=== PATIENT | male | born 1940 | race Caucasian/White ===

== ENCOUNTER → 2024-04-06 | Outpatient (CLI) | payer OTHER, SELFPAY ==
[2024-04-06 15:57] LABS: Absolute Lymphocyte Count 0.91 X10^3/uL (0.83-4.51); Absolute Neutrophil Count 3.1 X10^3/uL (2.0-7.7); Basophil# 0.08 X10^3/uL; Basophil% 1.6 % (0-1); Eosinophil# 0.18 X10^3/uL; Eosinophils% 3.6 % (0-5); Hematocrit 34.7 % (40-54); Hemoglobin 11.6 g/dL (13.0-16.5); Lymphocyte # 0.91 X10^3/ul (0.83-4.51); Lymphocyte % 18.2 % (19-41); Mean Corp Hgb Conc 33.4 g/dL (32-36); Mean Corpuscular Hgb 32.4 pg (27.0-32.0); Mean Corpuscular Volume 96.9 fL (80-94); Mean Platelet Vol. 10.3 fl (6.2-12.0); Monocyte# 0.71 X10^3/uL; Monocyte% 14.2 % (0-10); NRBC Flagged by Analyzer 0 % (0-5); Platelet Count 210 K/mm3 (150-450); RBC Distribution Width CV 12.7 % (11.6-14.6); RBC Distribution Width SD 44.2 fl (35.1-43.9); Red Blood Count 3.58 M/mm3 (4.6-6.2)
[2024-04-06 16:32] LABS: ALB/GLOB Ratio 1.2 RATIO (0.9-2.4); AST(SGOT) 20 U/L (15-37); Alanine Aminotransfer ALT/SGPT 24 U/L (16-61); Albumin, Serum 3.7 g/dL (3.2-5.0); Alkaline Phosphatase 79 U/L (45-117); Anion Gap 3 (5-15); BUN 25 mg/dL (7-18); BUN/Creat Ratio 16.2 RATIO (10-20); Calcium,Total 9.6 mg/dL (8.5-10.1); Chloride 110 mmol/L (98-107); Creatinine, Serum 1.54 mg/dL (0.70-1.30); EST Glomerular Filtration Rate 46 mL/min (>60); Est Glom Filt Rate - Afr Amer 56 mL/min (>60); Globulin 3.1 g/dL (2.2-4.2); Glucose 112 mg/dL (74-106); Potassium 3.9 mmol/L (3.5-5.1); Protein, Total 6.8 g/dL (6.4-8.2); Sodium Level 140 mmol/L (136-145)
[2024-04-06 17:02] LABS: Hepatitis C Antibody Non-Reactive (Nonreactive); Vitamin D,25 Hydroxy 44.5 ng/mL
== END | disposition home or self-care (01) ==
LOC: POLAB3 15:12
PROVIDERS: PCP Family Medicine Geriatric Medicine; Visit Provider Family Medicine Geriatric Medicine
DX: Z13.89 Encounter for screening for other disorder (principal); E03.9 Hypothyroidism, unspecified; E78.5 Hyperlipidemia, unspecified; E55.9 Vitamin D deficiency, unspecified
CPT/HCPCS: 36415; 80053; 82306; 84443; 85025; 86803

== ENCOUNTER → 2024-05-05 | Outpatient (CLI) | payer OTHER, SELFPAY ==
[2024-05-05 13:34] LABS: PTHIN 90.8 pg/mL (18.4-80.1)
[2024-05-05 13:37] LABS: Microalbumin,Random Urine 56.9 mg/L (NO RANGE EST.); Microalbumin:Creatinine Ratio 34.3 mg/g CRE (<30 mg/g CRE); Vitamin D,25 Hydroxy 41.6 ng/mL
[2024-05-05 13:40] LABS: Albumin, Serum 3.6 g/dL (3.2-5.0); BUN 18 mg/dL (7-18); BUN/Creat Ratio 12.2 RATIO (10-20); Calcium,Total 9.7 mg/dL (8.5-10.1); Chloride 110 mmol/L (98-107); Creatinine, Serum 1.48 mg/dL (0.70-1.30); EST Glomerular Filtration Rate 48 mL/min (>60); Est Glom Filt Rate - Afr Amer 58 mL/min (>60); Glucose 108 mg/dL (74-106); Potassium 4.2 mmol/L (3.5-5.1); Sodium Level 140 mmol/L (136-145)
== END | disposition home or self-care (01) ==
LOC: POLAB3 12:53
PROVIDERS: PCP Family Medicine Geriatric Medicine; Visit Provider Family Medicine Geriatric Medicine
DX: N18.30 Chronic kidney disease, stage 3 unspecified (principal); N25.81 Secondary hyperparathyroidism of renal origin
CPT/HCPCS: 36415; 80069; 82043; 82306; 82570; 83970

== ENCOUNTER → 2024-10-04 | Outpatient (CLI) | payer OTHER, SELFPAY ==
[2024-10-04 13:26] LABS: Hematocrit 32.8 % (40-54); Hemoglobin 11.3 g/dL (13.0-16.5); Immature Granulocytes Count 0.010 X10^3/uL (0.0-0.0); Mean Corp Hgb Conc 34.5 g/dL (32-36); Mean Corpuscular Volume 97.3 fL (80-94); Mean Platelet Vol. 10.8 fl (6.2-12.0); NRBC Flagged by Analyzer 0 % (0-5); Platelet Count 175 K/mm3 (150-450); RBC Distribution Width CV 12.5 % (11.6-14.6); RBC Distribution Width SD 43.8 fl (35.1-43.9); Red Blood Count 3.37 M/mm3 (4.6-6.2); White Blood Count 4.1 K/mm3 (4.4-11.0)
[2024-10-04 14:14] LABS: AST(SGOT) 26 U/L (<=37); Alanine Aminotransfer ALT/SGPT 15 U/L (<=46); Albumin, Serum 4.1 g/dL (3.4-4.8); Alkaline Phosphatase 91 U/L (40-129); Anion Gap 8 (5-15); BUN 19 mg/dL (4-19); BUN/Creat Ratio 12.9 RATIO (10-20); Calcium,Total 9.6 mg/dL (7.6-11.0); Carbon Dioxide 24.7 mmol/L (21.0-32.0); Chloride 108 mmol/L (98-108); Globulin 2.1 g/dL (2.2-4.2); Glucose 111 mg/dL (70-99); Potassium 4.4 mmol/L (3.3-5.1); Vitamin D,25 Hydroxy 49.8 ng/mL (30-100)
[2024-10-04 15:01] LABS: CRP 5.59 mg/L (0.0-3.0); Cholesterol 195 mg/dL (<=200); Low Density Lipoprotein Calc. 113 mg/dL; Triglycerides 71 mg/dL; Uric Acid 7.5 mg/dL (3.5-7.2); Very Low Density Lipoprotein 14 mg/dL (5-40); cholesterol:hdl ratio screen 2.87
== END | disposition home or self-care (01) ==
PROVIDERS: PCP Family Medicine Geriatric Medicine; Visit Provider Family Medicine Geriatric Medicine
DX: M79.644 Pain in right finger(s) (principal); E78.5 Hyperlipidemia, unspecified; E55.9 Vitamin D deficiency, unspecified; R53.83 Other fatigue
CPT/HCPCS: 36415; 73130; 80053; 80061; 82306; 84443; 84550; 85025; 85652; 86140

== ENCOUNTER → 2024-10-08 | Outpatient (CLI) | payer MEDICARE, SELFPAY ==
--- NOTE | 2024-10-08 14:46 | MRI_ITS ---
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 Overlying soft tissue thickening is noted yet with no obvious enhancing masses, collections or significant edema. Related metallic susceptibility artifact noted. Mild subcutaneous soft tissue edema and enhancement of the volar radial aspect of the index finger proximal interphalangeal joint Metallic susceptibility artifact related to the volar aspects of the middle, ring and little fingers. The extensor and flexor tendons are normal in shape and signals. The collateral ligaments appear intact. The scanned muscle groups and neuromuscular structures show normal MRI appearance. Subcortical small pseudocysts of the metacarpal heads. Otherwise, normal marrow signal intensities of the phalanges and metacarpal bones are seen. Bone alignments are normal. The interphalangeal and metacarpophalangeal joint spaces and surfaces are normal. Minimal insignificant metacarpophalangeal and interphalangeal joints effusion. 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 Overlying soft tissue thickening is noted yet with no obvious enhancing masses, collectio ns or significant edema. No osteomyelitis. related metallic susceptibility artifact noted. Mild subcutaneous soft tissue edema and enhancement of the volar radial aspect of the index finger proximal interphalangeal joint, possibly cellulitis Reading Location: [facility]
== END | disposition home or self-care (01) ==
LOC: MRI 14:41
PROVIDERS: PCP Family Medicine Geriatric Medicine; Referring Provider Family Medicine Geriatric Medicine; Visit Provider Family Medicine Geriatric Medicine
DX: M66.14 Rupture of synovium, hand and fingers (principal); M79.644 Pain in right finger(s)
CPT/HCPCS: 73220; A9575

== ENCOUNTER → 2024-10-14 | Outpatient (CLI) | payer MEDICARE, SELFPAY ==
[2024-10-14 16:35] LABS: Uric Acid 8.2 mg/dL (3.5-7.2)
[2024-10-14 22:59] LABS: Xtra Tube Kwok EXTRA TUBE
== END | disposition home or self-care (01) ==
LOC: POLAB3 14:59
PROVIDERS: PCP Family Medicine Geriatric Medicine; Visit Provider Family Medicine Geriatric Medicine
DX: E03.9 Hypothyroidism, unspecified (principal); M10.9 Gout, unspecified
CPT/HCPCS: 36415; 84550

== ENCOUNTER 2024-10-26 01:35 | Inpatient (IN) | payer MEDICARE, SELFPAY ==
[2024-10-26] VITALS (19 sets, daily range): BP systolic 111–191; BP diastolic 65–90; PULSE 51–82; RESP 8–18; TEMP 36.1–36.9; O2SAT 89–100; BMI 24.1; BMI 24.3
--- NOTE | 2024-10-26 02:07 | CT_ITS ---
PROCEDURE: ABDOMEN/PELVIS W IV CONT ONLY 10/26/2024 REASON FOR EXAM: RUQ/EPIG PAIN, N/V TECHNIQUE: ABDOMEN/PELVIS W IV CONT ONLY Coronal and Sagittal reconstruction series were provided. CONTRAST: Isovue 370 VOLUME: 79 mL One or more dose reduction techniques were used (e.g., Automated exposure control, adjustment of the mA and/or kV according to patient size, use of iterative reconstruction technique. RADIATION DOSE SUMMARY: CTDlvol: 22 mGy DLP: 612 mGycm COMPARISON: No FINDINGS: Under aerated lung bases. Normal heart size. Unremarkable liver,, adrenal glands. Small chronic splenic subdural hematoma. Multiple simple renal cysts. No hydronephrosis. Normal bladder. Multiple gallstones. Mild gallbladder wall thickening, enhancement, adjacent fat stranding. Mildly enlarged prostate. No retroperitoneal or pelvic adenopathy. No free air. Status post aorto bi-iliac endovascular stenting. Infrarenal aorta measures up to 4.4 x 4.5 cm, including the excluded portion. There is a possible posterior endoleak, series 2, image 47, this would require dedicated pre and post-contrast imaging to confirm. Lumbar spine degeneration. No acute abdominal wall findings. Nondistended bowel. Distal small bowel hypomotility. Normal appendix. Multiple diverticula. CT/Abdomen/Pelvis W IV Cont ONLY IMPRESSION: Findings are consistent with cholecystitis. If there is any clinical uncertain ty, HIDA scanning could further assess. Reading Location: [place] [id number]
--- NOTE | 2024-10-26 02:08 | EDS_ITS ---
HPI HPI - GI History of Present Illness Chief Complaint: Abd Pain Informant: patient and family Narrative Narrative: 84-year-old male started having mid abdominal pain earlier in the day around 15- 20 hours ago after eating cereal for breakfast, he states that he ate Wheaties. He had some mild abdominal discomfort most of the day and into the early afternoon when it gradually went away until he ate a bologna sandwich and then it came back and has not gone away since, for about the past 12 hours or so. He has had episodes of nausea and vomiting. At one point it was like a band around his upper abdomen and into his back a little bit but for the most part it has been in his epigastrium now and associated with colicky nature and vomiting. He and family state he has a history of documented gallstones in the past. Never had a cholecystectomy. PFSH PFS Medical History Hiatal hernia Gout Allergy/AdvReac Type Severity Reaction Status Date / Time amoxicillin (From Augmentin) Allergy Mild Other Verified 10/26/24 01:36 clavulanic acid (From Allergy Mild Other Verified 10/26/24 01:36 Augmentin) Family History no significant family his Surgical History History of AAA (abdominal aortic aneurysm) repair Social History Smoking Status: Former smoker ROS ROS ED Constitutional Constitutional ED: Denies chills or fever(s) Eyes Eyes: Denies change in vision or diplopia ENT ENT ED: Denies rhinorrhea or sore throat Cardiovascular Cardiovascular: Denies chest pain or palpitations Respiratory/Chest Respiratory/Chest: Denies cough or dyspnea Gastrointestinal Gastrointestinal: Reports abdominal pain, nausea and vomiting; Denies diarrhea, hematemesis, hematochezia or melena Genitourinary Genitourinary ED: Denies dysuria or hematuria Musculoskeletal Musculoskeletal: Denies back pain or neck pain Integumentary Denies abscess or rash Neurologic Neurologic: Denies headache(s), paresthesias or weakness Psychiatric Psychiatric: Denies anxiety or suicidal thoughts EXAM Physical Exam Const Vital Signs: 10/26/24 01:36 Temperature 97.5 F L Temperature Source Oral Pulse Rate 71 Respiratory Rate 18 Blood Pressure 191/87 H Blood Pressure Mean 121 Pulse Ox 100 Oxygen Delivery Method Room Air Positive well nourished and well developed General Appearance ED: well developed and NAD HEENT Reports moist mucous membranes normocephalic and atraumatic Eyes PERRL and EOMs intact bilaterally Neck full ROM and supple Resp normal respiratory effort and clear to auscultation bilaterally Cardio regular rate, regular rhythm and no murmurs GI non-distended GI Narrative: Very tender in her right upper quadrant epigastrium. No pulsatile mass. Rest of the abdomen is benign and nontender. Auscultation: normoactive bowel sounds Palpation: soft Back/Spine no CVA tenderness General Back: other FROM Extremity normal to inspection General Extremety ED: Negative for edema, pulses abnormal or tenderness General Extremity: Negative for edema or pulses abnormal Neuro oriented x3, CN's II-XII intact bilaterally and no sensory deficits noted Sensorium / Orientation: awake and alert Motor Exam: strength 5/5 throughout Skin no rashes or lesions noted and no wounds MDM MDM MDM Narrative Medical decision making narrative: Highly suspicious for biliary colic versus early cholecystitis, especially in context of the patient having known cholelithiasis. 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 On my interpretation it shows gallstones. Radiology report also noting signs of acute cholecystitis and no other acute abnormality. His labs are normal with a white blood count of 5.0, normal liver enzymes, normal lipase. His urinalysis is unremarkable. Early acute cholecystitis is consistent with his symptoms. On reevaluation after morphine and Zofran he is not feeling any better, and still quite tender with a positive Gregory. He is allergic to penicillin so we will give him cefepime, fentanyl, and discussed with surgery for admission. Lab Data Attestation: I reviewed the patient's lab results. Labs: Laboratory Results - last 24 hr 10/26/24 01:42 WBC 5.0 RBC 3.20 L Hgb 10.6 L Hct 31.3 L MCV 97.8 H MCH 33.1 H MCHC 33.9 RDW Std Deviation 45.1 H RDW Coeff of Amarilys 13.0 Plt Count 197 MPV 10.5 Immature Gran % (Auto) 0.400 Neut % (Auto) 61.4 Lymph % (Auto) 21.3 [place]idge % (Auto) 13.1 H Eos % (Auto) 3.0 Baso % (Auto) 0.8 Absolute Neuts (auto) 3.1 Absolute Lymphs (auto) 1.07 Nucleated RBC % 0 Sodium 138 Potassium 3.9 Chloride 105 Carbon Dioxide 21.4 Anion Gap 11 BUN 14 Creatinine 1.31 H Estim Creat Clear Calc 41.34 L Est GFR (MDRD) Non-Af 54 L BUN/Creatinine Ratio 10.8 Glucose 93 Calcium 9.6 Total Bilirubin 0.51 AST 24 ALT 17 Alkaline Phosphatase 88 Total Protein 6.4 Albumin 4.1 Globulin 2.3 Albumin/Globulin Ratio 1.8 Lipase 35 Radiography Diagnostic Testing: Clinical Impression(s) from Imaging Studies Abdomen/Pelvis CT 10/26/24 02:07 IMPRESSION: Findings are consistent with cholecystitis. If there is any clinical uncertainty, HIDA scanning could further assess. Reading Location: [place] [id number] Management Discussion w/another healthcare provider: Vocational Rehabilitation Counselor (surgery dr. torres) Discharge Plan Triage Chief Complaint: Abd Pain ED Provider: Tiago Cabral Dx/Rx/DC Orders Clinical Impression: Acute calculous cholecystitis Primary Care Provider: Alvaro Ceron Chi Referrals: Alvaro Ceron Chi, MD [Primary Care Provider] - Print Language: Albanian Disposition Disposition: Acute Care [facility]
[2024-10-26 02:15] LABS: Hematocrit 31.3 % (40-54); Hemoglobin 10.6 g/dL (13.0-16.5); Immature Granulocytes Count 0.020 X10^3/uL (0.0-0.0); Mean Corp Hgb Conc 33.9 g/dL (32-36); Mean Corpuscular Volume 97.8 fL (80-94); Mean Platelet Vol. 10.5 fl (6.2-12.0); NRBC Flagged by Analyzer 0 % (0-5); Platelet Count 197 K/mm3 (150-450); RBC Distribution Width CV 13.0 % (11.6-14.6); RBC Distribution Width SD 45.1 fl (35.1-43.9); Red Blood Count 3.20 M/mm3 (4.6-6.2); White Blood Count 5.0 K/mm3 (4.4-11.0)
[2024-10-26] MEDS: 0.9% Normal Saline (1000mL) 1,000 ML 999 ML IV (02:17)
--- OUTSIDE RECORDS SUMMARY | 2024-10-26 02:31 | XMS RPT_ITS | CCD ---
Author Organization [facility] Clini[facility] Care Team Providers Care Income Tax Manager Name Role Phone Michael, Matheus C Unavailable Unavailable Michael, Matheus C Unavailable Unavailable Sheets, Shannon Bates Unavailable Carline vailable Sheets, Shannon Bates Unavailable Carline vailable Michael, Matheus C Unavailable Unavailable Michael, Matheus C Unavailable Unavailable Sheets, Shannon Bates Unavailable Carline vailable Sheets, Shannon Bates Unavailable Carline vailable Michael, Matheus C Unavailable Unavailable Michael, Matheus C Unavailable Unavailable Sheets, Shannon Bates Unavailable Carline vailable Sheets, Shannon Bates Unavailable Carline vailable Michael, Matheus C Unavailable Unavailable Michael, Matheus C Unavailable Unavailable Sheets, Shannon Bates Unavailable Carline vailable Sheets, Shannon Bates Unavailable Carline vailable FARHAN BRADLEY () Admitting Unavailable YELITZA BERRIOS Referring Unavailable MAREN HERNANDEZ (MULUGETA) Attending Unavailab le Sheets DO, Shannon C Primary Care Provider Fifi Kirkland DO Unavailable Sheets DO, Shannon C Primary Care Provider Fifi Kirkland DO Unavailable Sheets DO, Shannon C Primary Care Provider Nima Curry RN Unavailable Unavailable Sheets DO, Shannon C Primary Care Provider [phone] Fifi Kirkland DO Unavailable [phone] Sheets DO, Shannon C Primary Care Provider OSMANY, ALVARO CHI Primary Care Unavailable SONJA DODGE Attending Unavailable SHEETS, SHANNON C Primary Care Unavailable BUDZIAK, CHRISTOPHER Attending Unavailable MONTENEGRO, YELITZA Referring Unavailable SHEETS, SHANNON C Primary Care Unavailable MONTENEGRO, YELITZA Attending Unavailable SHEETS, SHANNON C Primary Care Unavailable MONTENEGRO, YELITZA Attending Unavailable SHEETS, SHANNON C Primary Care Unavailable BRIA ARANA Attending Unavailable SHEETS, SHANNON C Primary Care Unavailable MONTENEGRO, YELITZA Referring Unavailable OSMANY, ALVARO CHI Primary Care Unavailable Osmany , Dr. Alvaro Red Primary Care Provider Osmany NAYLOR, Dr. Alvaro Red Attending Provider Osmany, Alvaro Chi Primary Care Provider Osmany NAYLOR, Dr. Alvaro Red Referring Provider [phone] Osmany, Alvaro Chi Attending Unavailable Osmany, Alvaro Chi Primary Care Unavailable Osmany, Alvaro Chi Primary Care Unavailable Osmany, Alvaro Chi Attending Unavailable Osmany, Alvaro Chi Referring Unavailable Omsany, Alvaro Chi Attending Unavailable Osmany, Alvaro Chi Primary Care Unavailable Osmany, Alvaro Chi Attending Unavailable Osmany, Alvaro Chi Primary Care Unavailable Osmany, Alvaro Chi Attending Unavailable Osmany, Alvaro Chi Primary Care Unavailable Osmany, Alvaro Chi Attending Unavailable Osmany, Alvaro Chi Primary Care Unavailable Osmany, Alvaro Chi Primary Care Unavailable Osmany, Alvaro Chi Attending Unavailable Allergies Allergy Classification Reported Allergen(s) Allergy Type Date of Onset Reaction(s) Facility (20 sources) AMOXICILLIN-POT CLAVULANATE; Translations: [AMOXICILLIN-POT CLAVULANATE] Propensity to adverse reactions to drug (disorder) 7 Rash [facility] Other [facility]om Repository (20 sources) Penicillin G; Translations: [PENICILLIN G BENZATHINE] Drug Allergy 2 Hives [facility] Medications Current Medications Medication Drug Class(es) Dates Sig (Normalized) Sig (Original) acetaminophen 500 mg oral tablet (20 sources) Start: 09-10-2021 take 500-1000 mg by mouth every eight hours as needed acetaminophen (TYLENOL) 500 mg tablet Take 1-2 tablets by mouth every 8 hours as needed for pain. 30 tablet 09/10/2021 Active Comment on above: Take 1-2 tablets by mouth every 8 hours as needed for pain. allopurinol 100 mg oral tablet (3 sources) Xanthine Oxidase Inhibitor Start: 09-16-2022 End: 12-15-2022 take 1 tablet by mouth once daily allopurinol (ZYLOPRIM) 100 mg tablet Indications: Acute gout of right foot, unspecified cause , Gout with manifestations Take 1 tablet by mouth once daily. 90 tablet 0 09/16/2022 12/15/2022 Active Comment on above: Take 1 tablet by elis th once daily. aspirin 81 mg chewable tablet (20 sources) Platelet Aggregation Inhibitor, Nonsteroidal Anti-inflammatory Drug Start: 01-30-2022 take 1 tablet by mouth once daily aspirin 81 mg chewable tablet Take 1 tablet by mouth once daily. 01/30/2022 Active Comment on above: Take 1 tablet by elis th once daily. cholecalciferol 0.025 mg oral tablet (20 sources) Vitamin D take 1 tablet by mouth once daily cholecalciferol (VITAMIN D3) 1,000 unit tab tablet Take 1 tablet by mouth once daily. Active Comment on above: Take 1 tablet by elis th once daily. fluticasone propionate 0.05 mg/actuat metered dose nasal spray (3 sources) Corticosteroid Start: 10-16-2023 take 1 spray(s) nasal route twice daily fluticasone (FLONASE) 50 mcg/actuation nasal spray Indications: Eustachian tube dysfunction, bilateral , Allergic rhinitis, unspecified seasonality, unspecified trigger Use 1 Cameron in each nostril two times a day. 15.8 mL 10/16/2023 Active iv contrast (will be provided with radiology test) (4 sources) Start: 08-16-2024 End: 08-17-2024 inject 1 dose intravenously once iv contrast (will be provided with radiology test) Indications: History of AAA (abdominal aortic aneurysm) repair , Infrarenal abdominal aortic 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 CTA ABD/PEL - No IV access, insert saline lock prior to the sedation, infusion, injection for imaging exam. Discontinue saline lock post exam. If Pt. has a central line or IVAD, may access for administration according to line specific nursing protocol. Once exam is complete flush line and de-access according to line specific nursing protocol in the CT contrast administration guidelines link. 1 each 08/16/2024 08/17/2024 Active Start: 09-01-2023 End: 09-02-2023 inject 1 dose intravenously once iv contrast (will be provided with radiology test) Indications: Infrarenal abdominal aortic 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 (HCC) , S/P abdominal aortic aneurysm repair CTA ABD/PEL - No IV access, insert saline lock prior to the sedation, infusion, injection for imaging exam. Discontinue saline lock post exam. If Pt. has a central line or IVAD, may access for administration according to line specific nursing protocol. Once exam is complete flush line and de-access according to line specific nursing protocol in the CT contrast administration guidelines link. 1 Each 0 09/01/2023 09/02/2023 Active Start: 02-27-2022 End: 02-28-2022 inject 1 dose intravenously once iv contrast (will be provided with radiology test) CTA ABD/PEL - No IV access, insert saline lock prior to the sedation, infusion, injection for imaging exam. Discontinue saline lock post exam. If Pt. has a central line or IVAD, may access for administration according to line specific nursing protocol. Once exam is complete flush line and de-access according to line specific nursing protocol in the CT contrast administration guidelines link. 1 Each 0 02/27/2022 02/28/2022 Active Comment on above: CTA ABD/PEL - No IV access, insert saline lock prior to the sedation, infusion, injection for imaging exam. Discontinue saline lock post exam. If Pt. has a central line or IVAD, may access for administration according to line specific nursing protocol. Once exam is complete flush line and de-access according to line specific nursing protocol in the CT contrast administration guidelines link. levothyroxine sodium 0.05 mg oral tablet (20 sources) l-Thyroxine Start: 04-01-19 24 take 1 tablet by mouth once daily levothyroxine (SYNTHROID) 50 mcg tablet Indications: Hypothyroidism, acquired Take 1 tablet by mouth once daily. 90 tablet 04/01/2023 Active Start: 12-26-2022 End: 02-28-2023 take 1 tablet by mouth once daily levothyroxine (SYNTHROID) 50 mcg tablet Indications: Hypothyroidism, acquired take 1 tablet by mouth once daily. 30 tablet 0 02/28/2023 Active Start: 07-10-2021 End: 02-20-2022 take 1 tablet by mouth once daily levothyroxine (SYNTHROID) 50 mcg tablet Indications: Hypothyroidism, acquired TAKE 1 TABLET BY MOUTH ONCE DAILY 30 tablet 9 02/20/2022 Active Start: 04-06-2021 End: 07-10-2021 take 1 tablet by mouth once daily levothyroxine (SYNTHROID) 25 mcg tablet Indications: Hypothyroidism, acquired TAKE 1 TABLET BY MOUTH ONCE DAILY 90 tablet 0 07/03/2021 07/10/2021 Discontinued Comment on above: TAKE 1 TABLET BY ELIS TH ONCE DAILY Take 1 tablet by elis th once daily. loratadine 10 mg oral tablet (1 source) Start: 4 End: 4 take 1 tablet by mouth once daily loratadine (CLARITIN) 10 mg tablet Indications: Eustachian tube dysfunction, bilateral , Allergic rhinitis, unspecified seasonality, unspecified trigger Take 1 tablet by mouth once daily for 14 days. 14 tablet 0 10/16/2023 10/30/2023 Active pantoprazole 40 mg delayed release oral tablet (20 sources) Proton Pump Inhibitor Start: 4 take 1 tablet by mouth once daily pantoprazole DR (PROTONIX) 40 mg tablet Indications: Ulcer of esophagus without bleeding take 1 tablet by mouth once daily. 90 tablet 3 04/01/2023 Active Start: 12-26-2022 End: 02-28-2023 take 1 tablet by mouth once daily pantoprazole DR (PROTONIX) 40 mg tablet Indications: Ulcer of esophagus without bleeding take 1 tablet by mouth once daily. 30 tablet 0 02/28/2023 Active Start: 05-28-2021 End: 02-20-2022 take 1 tablet by mouth once daily pantoprazole DR (PROTONIX) 40 mg tablet Indications: Ulcer of esophagus without bleeding TAKE 1 TABLET BY MOUTH ONCE DAILY 30 MINUTES prior to eating 30 tablet 9 02/20/2022 Active Comment on above: TAKE 1 TABLET BY ELIS TH ONCE DAILY 30 MINUTES prior to eating Take 1 tablet by elis th once daily. perflutren lipid microspheres 1.3 mL in NaCl (PF) 0.9% 10 mL injection (DEFINITY) (19 sources) Start: 2 End: 3 perflutren lipid microspheres 1.3 mL in NaCl (PF) 0.9% 10 mL injection (DEFINITY) 125 ml sodium chloride 9 mg/ml prefilled syringe (19 sources) Start: 2 End: 3 sodium chloride 0.9 % (flush) 10 mL (BD POSIFLUSH) traMADol hydrochloride 50 mg oral tablet (1 source) Opioid Agonist Start: 3 End: 3 take 1 tablet by mouth every six hours as needed for pain traMADol (ULTRAM) 50 mg tablet Indications: Great toe pain, right Take 1 tablet by mouth every 6 hours as needed for pain for up to 5 days. 20 tablet 0 09/03/2022 09/08/2022 Active Comment on above: Take 1 tablet by elis th every 6 hours as needed for pain for up to 5 days. Completed/Discontinued Medications Medication Drug Class(es) Dates Sig (Normalized) Sig (Original) cholecalciferol, vitamin D3, (VITAMIN D3 ORAL) (16 sources) cholecalciferol, vitamin D3, (VITAMIN D3 ORAL) Take by mouth. 0 Active Comment on above: Take by mouth. docusate sodium 100 mg oral capsule (15 sources) End: 02-10-2023 take 1 capsule by mouth once daily as needed for constipation docusate sodium (COLACE) 100 mg capsule Take 100 mg by mouth once daily as needed for constipation. 0 02/10/2023 Discontinued (Other) Comment on above: 1 capsule as needed Take 100 mg by mouth once daily as needed for constipation. predniSONE 20 mg oral tablet (7 sources) Start: 08-30-2022 End: 02-10-2023 predniSONE (DELTASONE) 20 mg tablet Indications: Acute gout of right foot, unspecified cause 3 tablets by mouth for 3 days, 2 tablets by mouth For 3 days, 1 tablet by mouth For 3 days, then stop. 18 tablet 0 08/30/2022 02/10/2023 Discontinued (Other) Comment on above: 3 tablets by mouth f or 3 days, 2 tablets by mouth For 3 days, 1 tablet by mouth For 3 days, then stop. Problems Active Problems Problem Classification Problem Date Documented Date Episodic/Chronic Abdominal hernia (20 sources) Hiatal hernia; Translations: [Diaphragmatic hernia without obstruction or gangrene] 03-27-2021 Episodic Aortic; peripheral; and visceral artery aneurysms (20 sources) Abdominal aortic aneurysm without rupture; Translations: [Abdominal aortic aneurysm, without rupture] Onset: 7 06-03-2016 Chronic Chronic kidney disease (20 sources) Chronic kidney disease, stage 3 (moderate); Translations: [Chronic kidney disease stage 3] Onset: 8 05-28-2018 Chronic Chronic kidney disease (1 source) Chronic kidney disease; Translations: [Chronic kidney disease, stage 3 unspecified] Onset: 5 Chronic obstructive pulmonary disease and bronchiectasis (20 sources) Panacinar emphysema; Translations: [Panlobular emphysema] Onset: 7 Resolved: 7 10-04-2016 Chronic Coagulation and hemorrhagic disorders (20 sources) Platelet count below reference range; Translations: [Thrombocytopenia, unspecified] Onset: 8 04-04-2017 Chronic Deficiency and other anemia (1 source) Anemia co-occurrent and due to chronic kidney disease stage 3; Translations: [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)] Chronic Diseases of white blood cells (20 sources) Leukopenia; Translations: [Decreased white blood cell count, unspecified] Onset: 8 Resolved: 8 04-07-2017 Chronic Disorders of lipid metabolism (1 source) Mixed hyperlipidemia; Translations: [Mixed hyperlipidemia] 02-10-2023 Chronic Esophageal disorders (20 sources) Ulcer of esophagus; Translations: [Ulcer of esophagus without bleeding] Onset: 7 06-27-2016 Chronic Gout and other crystal arthropathies (20 sources) Gout; Translations: [Gout, unspecified] Onset: 7 06-27-2016 Chronic Other connective tissue disease (1 source) Pain in toe; Translations: [Pain in right toe(s)] Episodic Other connective tissue disease (2 sources) Pain in hallux; Translations: [Pain in right toe(s)] Episodic Other connective tissue disease (1 source) Rupture of synovium, right hand; Translations: [Rupture of synovium, right hand] Onset: 5 Episodic Other connective tissue disease (1 source) Pain in right finger(s); Translations: [Pain in right finger(s)] Onset: 5 Episodic Other diseases of kidney and ureters (14 sources) Hyperparathyroidism due to renal insufficiency; Translations: [Secondary hyperparathyroidism of renal origin] Onset: 3 09-05-2022 Chronic Other ear and sense organ disorders (20 sources) Sensorineural hearing loss, bilateral; Translations: [Sensorineural hearing loss, bilateral] Onset: 7 03-11-2017 Chronic Other ear and sense organ disorders (1 source) Impacted cerumen of bilateral ears; Translations: [Impacted cerumen, bilateral] 10-16-2023 Episodic Other eye disorders (1 source) Other specified disorders of eye and adnexa; Translations: [Irritation of right eye] Onset: 5 Episodic Other lower respiratory disease (1 source) Dry cough; Translations: [Dry cough] 10-16-2023 Episodic Other upper respiratory disease (1 source) Allergic rhinitis; Translations: [Allergic rhinitis, unspecified] 10-16-2023 Chronic Other upper respiratory disease (1 source) Allergic rhinitis, unspecified; Translations: [Allergic rhinitis, unspecified seasonality, unspecified trigger] Onset: 4 Chronic Residual codes; unclassified (7 sources) History of repair of aneurysm of abdominal aorta; Translations: [Other specified postprocedural states] Episodic Residual codes; unclassified (1 source) Other specified postprocedural states; Translations: [History of AAA (abdominal aortic aneurysm) repair] Onset: 5 Episodic Thyroid disorders (20 sources) Hypothyroidism, unspecified; Translations: [Acquired hypothyroidism] Onset: 7 Chronic Unclassified (1 source) Encounter for screening for nutritional disorder / Z13.21(ICD-10) Onset: 8 Unclassified (1 source) Other pancytopenia / D61.818(ICD-10) Onset: 8 Unclassified (1 source) Infrarenal abdominal aortic 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; Translations: [Infrarenal abdominal aortic 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] Onset: 7 Past or Other Problems Problem Classification Problem Date Documented Date Episodic/Chronic Biliary tract disease (20 sources) Cholelithiasis without obstruction; Translations: [Calculus of gallbladder without cholecystitis without obstruction] Onset: 08-23-2016 Resolved: 09-10-2016 09-10-2016 Episodic Deficiency and other anemia (20 sources) Idiopathic aplastic anemia; Translations: [Idiopathic aplastic anemia] Onset: 07-09-2016 Resolved: 12-25-2021 07-09-2016 Chronic Essential hypertension (7 sources) Essential hypertension; Translations: [Essential (primary) hypertension] Onset: 06-27-2016 Resolved: 06-27-2016 06-27-2016 Chronic Influenza (8 sources) Influenza due to other identified influenza virus with other respiratory manifestations; Translations: [Influenza due to Influenza B virus] Onset: 05-25-2018 Resolved: 01-04-2019 01-04-2019 Episodic Other diseases of kidney and ureters (13 sources) Cyst of kidney; Translations: [Cyst of kidney, acquired] Onset: 09-05-2022 09-05-2022 Episodic Other liver diseases (20 sources) Elevated liver enzymes level; Translations: [Abnormal levels of other serum enzymes] Onset: 10-04-2016 10-04-2016 Episodic Other lower respiratory disease (20 sources) Multiple nodules of lung; Translations: [Other nonspecific abnormal finding of lung field] Onset: 01-06-2017 01-06-2017 Episodic Other screening for suspected conditions (not mental disorders or infectious disease) (20 sources) Serum creatinine raised; Translations: [Other specified abnormal findings of blood chemistry] Onset: 06-27-2016 06-27-2016 Episodic Other upper respiratory infections (8 sources) Acute sinusitis; Translations: [Acute sinusitis, unspecified] Onset: 05-27-2018 Resolved: 02-19-2019 02-19-2019 Episodic Otitis media and related conditions (20 sources) Dysfunction of bilateral eustachian tubes; Translations: [Other specified disorders of Eustachian tube, bilateral] Onset: 06-27-2016 06-27-2016 Episodic Residual codes; unclassified (20 sources) Family history of aneurysm of thoracic aorta; Translations: [Family history of ischemic heart disease and other diseases of the circulatory system] Onset: 06-27-2016 06-27-2016 Episodic Residual codes; unclassified (20 sources) History of cardiovascular surgery; Translations: [Other specified postprocedural states] Onset: 01-29-2022 01-30-2022 Episodic Syncope (8 sources) Syncope and collapse; Translations: [Syncope] Onset: 05-25-2018 Resolved: 05-28-2018 05-28-2018 Episodic Results Test Name Value Interpretation Reference Range Facility Serum or plasma uric acid me asurement (mass/volume)Ordered By: Alvaro Ceron on 10-14-2024 Urate [Mass/Vol] 8.2 mg/dL High 3.5-7.2 [facility] Comment on above: The drugs N-Acetylcy steine and Metamizole may falsely depress this assay. Uric Acidon 10-14-2024 URIC 8.2 mg/dL High 3.5-7.2 [facility] Comment on above: Result Comment: The drugs N-Acetylcysteine and Metamizole may falsely depress this assay. Performed By: #### L [id number] #### [facility] [address] [place], [address] [facility]20[facility]) -------- NANCY PRICE ([id number]) 1940 M [facility] Date Time Provider Department 10/08/24 ARMANI BECERRA During your visit today, we recorded the following information about you: Puja Young RN 10/08/2024 3:54 PM Signed Called received from MRI department at [facility]. 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 . Operative report faxed to MRI department for review Faxed yo [phone] Transmission completed Allergies As of Date: 10/08/2024 Noted Allergy Reaction AUGMENTIN (AMOXICILLIN-POT CLAVUL*10/04/2016 2 - Rash Comments: Liver enzymes increase PENICILLIN G BENZATHINE 05/16/2021 4 - Hives Date Reviewed: 09/19/2024 Reviewed by: Wilmer Nogueira, ANNA - Fully Assessed Reason for Visit: Release Of Medical Records [2017] Prescriptions as of 10/08/2024 - pantoprazole DR (PROTONIX) 40 mg tablet take 1 tablet by mouth once daily. - levothyroxine (SYNTHROID) 50 mcg tablet Take 1 tablet by mouth once daily. - acetaminophen (TYLENOL) 500 mg tablet Take 1-2 tablets by mouth every 8 hours as needed for pain. - cholecalciferol (VITAMIN D3) 1,000 unit tab tablet Take 1 tablet by mouth once daily. Problem List As Of Date 10/08/2024 Noted Resolved Hiatal hernia [K44.9] Abdominal aortic 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*06/03/2016 Essential hypertension [I10] 06/27/2016 06/27/2016 Pulmonary emphysema (HCC) [J43.9] 06/27/2016 07/30/2016 Ulcer of esophagus without bleeding [K22.10] 06/27/2016 Elevated serum creatinine [R79.89] 06/27/2016 Gout with manifestations [M10.9] 06/27/2016 Family history of thoracic aortic aneurysm [Z82*06/27/2016 Dysfunction of both eustachian tubes [H69.93] 06/27/2016 Idiopathic aplastic anemia (HCC) [D61.3] 07/09/2016 12/25/2021 Cholelithiasis [K80.20] 08/23/2016 09/10/2016 Calculus of gallbladder without cholecystitis w*09/10/2016 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] 09/20/2016 Elevated liver enzymes [R74.8] 10/04/2016 Panlobular emphysema (HCC) [J43.1] 10/04/2016 Pulmonary nodules [R91.8] 01/06/2017 Hypothyroidism, acquired [E03.9] 03/11/2017 Sensorineural hearing loss (SNHL) of both ears *03/11/2017 Gallstones [K80.20] 03/11/2017 Platelets decreased (HCC) [D69.6] Leukopenia [D72.819] 04/04/2017 04/07/2017 Leucopenia [D72.819] 04/07/2017 CKD (chronic kidney disease) stage 3, GFR 30-59*07/08/2017 Syncope [R55] 05/25/2018 05/28/2018 Influenza B [J10.1] 05/25/2018 01/04/2019 Acute sinusitis [J01.90] 05/27/2018 02/19/2019 Status post endovascular aneurysm repair (EVAR)*01/29/2022 Hyperparathyroidism due to renal insufficiency *09/05/2022 Renal cyst [N28.1] 09/05/2022 Encounter Status:Closed by PUJA YOUNG on 10/08/24 Normal [facility] Magnetic resonance imaging r eportOrdered By: Luigi Stewart on 10-08-2024 Study report [facility] [address] [place] [address] Upper Ext No Joint W/WO Cont MR#: [id number] Acct: [id number] Name: KAYLEEN PRICE Rep #: [id number] : 1940 M 84 From: Heidi Stewart MD PCP: Dr. 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 Overlying soft tissue thickening is noted yet with no obvious enhancing masses, collections or significant edema. Related metallic susceptibility artifact noted. Mild subcutaneous soft tissue edema and enhancement of the volar radial aspect of the index finger proximal interphalangeal joint Metallic susceptibility artifact related to the volar aspects of the middle, ring and little fingers. The extensor and flexor tendons are normal in shape and signals. The collateral ligaments appear intact. The scanned muscle groups and neuromuscular structures show normal MRI appearance. Subcortical small pseudocysts of the metacarpal heads. Otherwise, normal marrow signal intensities of the phalanges and metacarpal bones are seen. Bone alignments are normal. The interphalangeal and metacarpophalangeal joint spaces and surfaces are normal. Minimal insignificant metacarpophalangeal and interphalangeal joints effusion. 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 Overlying soft tissue thickening is noted yet with no obvious enhancing masses, collections or significant edema. No osteomyelitis. related metallic susceptibility artifact noted. Mild subcutaneous soft tissue edema and enhancement of the volar radial aspect of the index finger proximal interphalangeal joint, possibly cellulitis Reading Location: [place] [address] CC: Dr. Alvaro Ceron MD ~ Circular Saw Edge Fuser: Signed [facility] Upper Ext No Joint W/WO Cont on 10-08-2024 Upper Ext No Joint W/WO Cont [facility] [address], [place] [address] Upper Ext No Joint W/WO Cont MR#: [id number] Acct: [id number] Name: KAYLEEN PRICE Rep #: [id number] : 1940 M 84 From: Luigi cassidy MD PCP: Dr. 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 Overlying soft tissue thickening is noted yet with no obvious enhancing masses, collections or significant edema. Related metallic susceptibility artifact noted. Mild subcutaneous soft tissue edema and enhancement of the volar radial aspect of the index finger proximal interphalangeal joint Metallic susceptibility artifact related to the volar aspects of the middle, ring and little fingers. The extensor and flexor tendons are normal in shape and signals. The collateral ligaments appear intact. The scanned muscle groups and neuromuscular structures show normal MRI appearance. Subcortical small pseudocysts of the metacarpal heads. Otherwise, normal marrow signal intensities of the phalanges and metacarpal bones are seen. Bone alignments are normal. The interphalangeal and metacarpophalangeal joint spaces and surfaces are normal. Minimal insignificant metacarpophalangeal and interphalangeal joints effusion. 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 Overlying soft tissue thickening is noted yet with no obvious enhancing masses, collections or significant edema. No osteomyelitis. related metallic susceptibility artifact noted. Mild subcutaneous soft tissue edema and enhancement of the volar radial aspect of the index finger proximal interphalangeal joint, possibly cellulitis Reading Location: [place] [address] CC: Dr. Alvaro Ceron MD Circular Saw Edge Fuser: Signed Normal [facility] Absolute lymphocyte countOrd ered By: Alvaro Ceron on 10-04-2024 Lymphocytes Auto (Unsp spec) [#/Vol] 0.93 10*3/uL 0.83-4.51 [facility] Absolute neutrophil countOrd ered By: Alvaro Ceron on 10-04-2024 Neutrophils (Bld) [#/Vol] 2.4 10*3/uL 2.0-7.7 [facility] Anion gap in Serum or Plasma Ordered By: Alvaro Ceron on 10-04-2024 Anion gap [Moles/Vol] 8 mmol/L 5-[address] [facility] Automated blood erythrocyte countOrdered By: Alvaro Ceron on 10-04-2024 RBC (Bld) [#/Vol] 3.37 10*6/uL Low 4.6-6.2 [facility] Comment on above: Performed By: #### L 501.9520, L506.1000, L3890.6300, L500.4050, L100.0100 #### [facility] [address] [place], [place], [id number] Automated blood hematocrit ( percentage)Ordered By: Alvaro Ceron on 10-04-2024 Hematocrit (Bld) [Volume fraction] 32.8 % Low 40-54 [facility] Comment on above: Performed By: #### L 501.9520, L506.1000, L3890.6300, L500.4050, L100.0100 #### [facility] [address] [place], [place], [id number] Automated lymphocyte count a s percentage of total leukocytesOrdered By: Alvaro Ceron on 10-04-2024 Lymphocytes/100 WBC Auto (Unsp spec) 22.5 % 19-41 [facility] BUN/creatinine ratioOrdered By: Alvaro Ceron on 10-04-2024 Urea nitrogen/Creatinine [Mass ratio] 12.9 mg/mg 10-20 [facility] Basophil percentageOrdered B y: Alvaro Ceron on 10-04-2024 Basophils/100 WBC (Bld) 1.0 % Normal 0-1 [facility] Comment on above: Performed By: #### L 501.9520, L506.1000, L3890.6300, L500.4050, L100.0100 #### [facility] [address] [place], [address] Bilirubin, totalOrdered By: Alvaro Ceron on 10-04-2024 Bilirubin [Mass/Vol] 0.45 mg/dL Normal 0.00-1.30 [facility] Comment on above: Performed By: #### L 501.9520, L506.1000, L3890.6300, L500.4050, L100.0100 #### [facility] [address] [place], [place], [id number] CBC W/Diff, Automatedon 07-0 Absolute Lymph 0.93 X10 3/uL Normal 0.83-4.51 [facility] Comment on above: Performed By: #### L 501.9520, L506.1000, L3890.6300, L500.4050, L100.0100 #### [facility] [address] [place], [address] (605) Absolute Neut 2.4 X10 3/uL Normal 2.0-7.7 [facility] Comment on above: Performed By: #### L 501.9520, L506.1000, L3890.6300, L500.4050, L100.0100 #### [facility] [address] [place], [address] IG% 0.200 Normal 0.0-0.9 [facility] Comment on above: Result Comment: IG% - Immature Granulocytes (promyelocytes, myelocytes and metamyelocytes) > 1% indicates that a LEFT SHIFT is Present. Performed By: #### L 501.9520, L506.1000, L3890.6300, L500.4050, L100.0100 #### [facility] [address] [place], [address] Lymphocytes/100 WBC (Bld) 22.5 % Normal 19-41 [facility] Comment on above: Performed By: #### L 501.9520, L506.1000, L3890.6300, L500.4050, L100.0100 #### [facility] [address] [place], [address] Nucleated RBC (Bld) [#/Vol] 0 10*3/uL Normal 0-5 [facility] Comment on above: Performed By: #### L 501.9520, L506.1000, L3890.6300, L500.4050, L100.0100 #### [facility] [address] [place], [address] RDW SD 43.8 fl Normal 35.1-43.9 [facility] Comment on above: Performed By: #### L 501.9520, L506.1000, L3890.6300, L500.4050, L100.0100 #### [facility] [address] [place], [address] CRPon 10-04-2024 C-REACTIVE PROT 5.59 mg/L High 0.0-3.0 [facility] Comment on above: Performed By: #### L 501.9520, L506.1000, L3890.6300, L500.4050, L100.0100 #### [facility] [address] [place], [address] Calculated very low density lipoprotein (VLDL) cholesterol measurementOrdered By: Alvaro Ceron on 10-04-2024 Calculated very low density lipoprotein (VLDL) cholesterol measurement 14 mg/dL 5-40 [facility] Carbon dioxide, total [Moles /volume] in Central venous bloodOrdered By: Alvaro Ceron on 10-04-2024 CO2 [Moles/Vol] 24.7 mmol/L Normal 21.0-32.0 [facility] Comment on above: Performed By: #### L 501.9520, L506.1000, L3890.6300, L500.4050, L100.0100 #### [facility] [address] [place], [address] Chloride assayOrdered By: Filippo Ceron on 10-04-2024 Chloride [Moles/Vol] 108 mmol/L Normal 98-108 [facility] Comment on above: Performed By: #### L 501.9520, L506.1000, L3890.6300, L500.4050, L100.0100 #### [facility] [address] [place], [address] Comprehensive Metabolic Prof ilon 10-04-2024 ALK PHOS 91 U/L Normal 40-129 [facility] Comment on above: Performed By: #### L 501.9520, L506.1000, L3890.6300, L500.4050, L100.0100 #### [facility] [address] [place], [address] BUN/CRE 12.9 RATIO Normal 10-20 [facility] Comment on above: Performed By: #### L 501.9520, L506.1000, L3890.6300, L500.4050, L100.0100 #### [facility] [address] [place], [address] GAP 8 Normal 5-15 [facility] Comment on above: Performed By: #### L 501.9520, L506.1000, L3890.6300, L500.4050, L100.0100 #### [facility] [address] [place], [address] Potassium [Moles/Vol] 4.4 mmol/L Normal 3.3-5.[address] [facility] Comment on above: Performed By: #### L 501.9520, L506.1000, L3890.6300, L500.4050, L100.0100 #### [facility] [address] [place], [address] T PROT 6.2 g/dL Normal 5.9-8.4 [facility] Comment on above: Performed By: #### L 501.9520, L506.1000, L3890.6300, L500.4050, L100.0100 #### [facility] [address] [place], [address] Comprehensive Metabolic Prof ilOrdered By: Alvaro Ceron on 10-04-2024 AST [Catalytic activity/Vol] 26 U/L Normal <=37 [facility] Comment on above: Performed By: #### L 501.9520, L506.1000, L3890.6300, L500.4050, L100.0100 #### [facility] [address] [place], [address] Eosinophil percentageOrdered By: Alvaro Ceron on 10-04-2024 Eosinophils/100 WBC (Bld) 3.4 % Normal 0-5 [facility] Comment on above: Performed By: #### L 501.9520, L506.1000, L3890.6300, L500.4050, L100.0100 #### [facility] [address] [place], [address] Erythrocyte Sed Rateon 10-04 SED RATE 10 mm/hr Normal 0-20 [facility] Comment on above: Performed By: #### L 501.9520, L506.1000, L3890.6300, L500.4050, L100.0100 #### [facility] [address] [place], [address] Erythrocyte distribution wid th ratioOrdered By: Alvaro Lojaok on 10-04-2024 Erythrocyte distribution width (RBC) [Ratio] 12.5 % Normal 11.6-14.6 [facility] Comment on above: Performed By: #### L 501.9520, L506.1000, L3890.6300, L500.4050, L100.0100 #### [facility] [address] [place], [address] Erythrocyte distribution wid th standard deviationOrdered By: Alvaro Ceron on 10-04-2024 Erythrocyte distribution width (RBC) [Ratio] 43.8 fl 35.1-43.9 [facility] Erythrocyte sedimentation ra teOrdered By: Alvaro Osmany on 10-04-2024 ESR (Bld) [Velocity] 10 mm/h 0-20 [facility] Glomerular filtration rate ( GFR) estimation/1.73 sq m using serum, plasma, or whole bOrdered By: Alvaro Ceron on 10-04-2024 GFR/1.73 sq M.predicted among non-blacks MDRD (S/P/Bld) [Vol rate/Area] 48 mL/min/{1.73_m2} Low >60 [facility] Comment on above: mL/min/1.73m2 CKD-EP I Creatinine Equation (2020) Result Comment: mL/m in/1.73m2 CKD-EPI Creatinine Equation (2020) Performed By: #### L 501.9520, L506.1000, L3890.6300, L500.4050, L100.0100 #### [facility] [address] [place], [address] Hand Min 3 Viewson 5 Hand Min 3 Views [facility] [address] [place] [address] Hand Min 3 Views MR#: [id number] Acct: [id number] Name: KAYLEEN PRICE Rep #: [id number] : 1940 M 84 From: [place] PCP: Dr. Alvaro Ceron MD Status: REG CLI Study: Hand Min 3 Views Date of Exam: 10/04/24 Exam# [id number] Ordering Dr: Alvaro Ceron MD PROCEDURE: HAND MIN 3 VIEWS 10/04/2024 REASON FOR EXAM: FINGER PAIN, Right index finger pain for 1 week. No injury. TECHNIQUE: HAND MIN 3 VIEWS COMPARISON: None FINDINGS: Three views of the right hand demonstrate the middle and distal portions of the distal phalanx, 2nd to be absent. This could be due to surgical resection or congenital deformity. Clinical correlation is recommended. The distal tip of the remaining portion of the distal phalanx is irregular. The remaining osseous structures of the right hand are unremarkable. Soft tissue swelling of the 2nd digit right hand is noted. There are no fractures or dislocations of the osseous structures of the right hand. There is a 1 mm lytic lesion seen in the distal aspect, proximal phalanx, 1st digit which most likely represents a benign bony cyst. This lytic lesion has a sclerotic margin. Arthritic changes are noted involving the scaphoid trapezium joint. The remaining joints of the right hand are unremarkable. RAD/Hand Min 3 Views IMPRESSION: Only the proximal portion of the distal phalanx 2nd digit persist. The distal component of the osseous structure is irregular. This could be due to osteomyelitis. Soft tissue swelling of the 2nd digit is noted. RECOMMENDATION: CT examination may be of value for further evaluation if clinically warranted. Reading Location: [id number] CC: Dr. Alvaro Ceron MD Circular Saw Edge Fuser: Signed Normal [facility] Hemoglobin measurementTomae d By: Alvaro Ceron on 10-04-2024 Hemoglobin (Bld) [Mass/Vol] 11.3 g/dL Low 13.0-16.5 [facility] Comment on above: Performed By: #### L 501.9520, L506.1000, L3890.6300, L500.4050, L100.0100 #### [facility] [address] [facility], [address] Immature granulocytes/100 WB C Auto (Bld)Ordered By: Alvaro Ceron on 10-04-2024 Immature granulocytes/100 WBC (Bld) 0.200 % 0.0-0.9 [facility] Comment on above: IG% - Immature Granu locytes (promyelocytes, myelocytes and metamyelocytes) > 1% indicates that a LEFT SHIFT is Present. LDL calc ser/plasOrdered By: Alvaro Ceron on 10-04-2024 Cholesterol in LDL [Mass/Vol] 113 mg/dL Normal [facility] Comment on above: Rnzgflommx=166-629 m g/dL & Higher Amks=634 mg/dL or greater Result Comment: Bord asgwoz=763-045 mg/dL Higher Zipr=121 mg/dL or greater Performed By: #### L 501.9520, L506.1000, L3890.6300, L500.4050, L100.0100 #### [facility] [address] [place], [address] Lipid Profileon 10-04-2024 CHOL:HDL 2.87 Normal [facility] Comment on above: Performed By: #### L 501.9520, L506.1000, L3890.6300, L500.4050, L100.0100 #### [facility] [address] [place], [address] Cholesterol in VLDL [Mass/Vol] 14 mg/dL Normal 5-40 [facility] Comment on above: Performed By: #### L 501.9520, L506.1000, L3890.6300, L500.4050, L100.0100 #### [facility] [address] [place], [address] MCV (mean corpuscular volume ) determinationOrdered By: Alvaro Ceron on 10-04-2024 MCV (RBC) [Entitic vol] 97.3 fL High 80-94 [facility] Comment on above: Performed By: #### L 501.9520, L506.1000, L3890.6300, L500.4050, L100.0100 #### [facility] [address] [place], [place], [id number] Mean corpuscular hemoglobin (MCH) determinationOrdered By: Alvaro Ceron on 10-04-2024 MCH (RBC) [Entitic mass] 33.5 pg High 27.0-32.0 [facility] Comment on above: Performed By: #### L 501.9520, L506.1000, L3890.6300, L500.4050, L100.0100 #### [facility] [address] [place], [address] Mean corpuscular hemoglobin concentration (MCHC) determinationOrdered By: Alvaro Ceron on 10-04-2024 MCHC (RBC) [Mass/Vol] 34.5 g/dL Normal 32-[address] [facility] Comment on above: Performed By: #### L 501.9520, L506.1000, L3890.6300, L500.4050, L100.0100 #### [facility] [address] [place], [address] Mean platelet volume determi nationOrdered By: Alvaro Osmany on 10-04-2024 Platelet mean volume (Bld) [Entitic vol] 10.8 fL Normal 6.2-12.0 [facility] Comment on above: Performed By: #### L 501.9520, L506.1000, L3890.6300, L500.4050, L100.0100 #### [facility] [address] [place], [address] Monocyte percentageOrdered B y: Alvaro Ceron on 10-04-2024 Monocytes/100 WBC (Bld) 14.0 % High 0-10 [facility] Comment on above: Performed By: #### L 501.9520, L506.1000, L3890.6300, L500.4050, L100.0100 #### [facility] [address] [place], [address] Neutrophil percentageOrdered By: Alvaro Ceron on 10-04-2024 Neutrophils/100 WBC (Bld) 58.9 % Normal 47-70 [facility] Comment on above: Performed By: #### L 501.9520, L506.1000, L3890.6300, L500.4050, L100.0100 #### [facility] [address] [place], [address] Nucleated red blood cell per centageOrdered By: Alvaro Ceron on 10-04-2024 Nucleated RBC/100 WBC (Bld) [Ratio] 0 % 0-5 [facility] Platelet countOrdered By: Filippo Ceron on 10-04-2024 Platelets (Bld) [#/Vol] 175 10*3/uL Normal 150-450 [facility] Comment on above: Performed By: #### L 501.9520, L506.1000, L3890.6300, L500.4050, L100.0100 #### [facility] [address] [place], [address] Potassium measurement (mass/ volume)Ordered By: Alvaro Ceron on 10-04-2024 Potassium (Unsp spec) [Mass/Vol] 4.4 mmol/L 3.3-5.1 [facility] Screening total cholesterol/ high density lipoprotein (HDL) cholesterol ratioOrdered By: Alvaro Ceron on 10-04-2024 Cholesterol.total/Chol esterol in HDL [Mass ratio] 2.87 {ratio} [facility] Serum creatinine measurement (mass/volume)Ordered By: Alvaro Ceron on 10-04-2024 Creatinine [Mass/Vol] 1.44 mg/dL High 0.70-1.[address] [facility] Comment on above: Performed By: #### L 501.9520, L506.1000, L3890.6300, L500.4050, L100.0100 #### [facility] [address] [place], [address] Serum globulin measurementOr dered By: Alvaro Ceron on 10-04-2024 Globulin (S) [Mass/Vol] 2.1 g/dL Low 2.2-4.2 [facility] Comment on above: Performed By: #### L 501.9520, L506.1000, L3890.6300, L500.4050, L100.0100 #### [facility] [address] [place], [place], [address] Serum glucose measurement (m ass/volume)Ordered By: Alvaro Ceron on 10-04-2024 Glucose [Mass/Vol] 111 mg/dL High 70-99 [facility] Comment on above: Performed By: #### L 501.9520, L506.1000, L3890.6300, L500.4050, L100.0100 #### [facility] [address] [place], [place], [address] Serum or plasma C reactive p rotein measurement (mass/volume)Ordered By: Alvaro Ceron on 10-04-2024 CRP [Mass/Vol] 5.59 mg/L High 0.0-3.0 [facility] Serum or plasma alanine oliver otransferase (ALT) measurementOrdered By: Alvaro Ceron on 10-04-2024 ALT [Catalytic activity/Vol] 15 U/L Normal <=46 [facility] Comment on above: Performed By: #### L 501.9520, L506.1000, L3890.6300, L500.4050, L100.0100 #### [facility] [address] [place], [address] Serum or plasma albumin ivan urement (mass/volume)Ordered By: Alvaro Ceron on 10-04-2024 Albumin [Mass/Vol] 4.1 g/dL Normal 3.4-4.8 [facility] Comment on above: Performed By: #### L 501.9520, L506.1000, L3890.6300, L500.4050, L100.0100 #### [facility] [address] [place], [place], [address] Serum or plasma albumin/glob ulin mass ratioOrdered By: Alvaro Ceron on 10-04-2024 Albumin/Globulin [Mass ratio] 1.9 {ratio} Normal 0.9-2.4 [facility] Comment on above: Performed By: #### L 501.9520, L506.1000, L3890.6300, L500.4050, L100.0100 #### [facility] [address] [place], [place], [address] Serum or plasma alkaline adelia sphatase measurementOrdered By: Alvaro Ceron on 10-04-2024 ALP [Catalytic activity/Vol] 91 U/L 40-129 [facility] Serum or plasma calcium ivan urement (mass/volume)Ordered By: Alvaro Ceron on 10-04-2024 Calcium [Mass/Vol] 9.6 mg/dL Normal 7.6-11.0 [facility] Comment on above: Performed By: #### L 501.9520, L506.1000, L3890.6300, L500.4050, L100.0100 #### [facility] [address] [place], [place], [id number] Serum or plasma cholesterol in HDL measurement (mass/volume)Ordered By: Alvaro Osmany on 10-04-2024 Cholesterol in HDL [Mass/Vol] 68 mg/dL Normal [facility] Comment on above: National Cholesterol Education Program (NCEP) guidelines:<40 mg/dL: Low HDL-cholesterol (major risk factor for CHD)>= 60 mg/dL: High HDL-cholesterol (negative risk factor for CHD)HDL-cholesterol is affected by a number of factors, e.g. smoking, exercise, hormones, sex and age. Result Comment: [place]aine onal Cholesterol Education Program (NCEP) guidelines: <40 mg/dL: Low HDL-cholesterol (major risk factor for CHD) >= 60 mg/dL: High HDL-cholesterol (negative risk factor for CHD) HDL-cholesterol is affected by a number of factors, e.g. smoking, exercise, hormones, sex and age. Performed By: #### L 501.9520, L506.1000, L3890.6300, L500.4050, L100.0100 #### [facility] [address] [place], [address] Serum or plasma cholesterol measurement (mass/volume)Ordered By: Alvaro Ceron on 10-04-2024 Cholesterol [Mass/Vol] 195 mg/dL Normal <=200 [facility] Comment on above: Cholesterol level, D esirable <200 mg/dLBorderline high cholesterol 200-239 mg/dLHigh cholesterol >=240 mg/dLRecommendations of the NCEP Adult Treatment Panel for the following risk-cutoff thresholds for the [place] population. Result Comment: Chol esterol level, Desirable <200 mg/dL Borderline high cholesterol 200-239 mg/dL High cholesterol >=240 mg/dL Recommendations of the NCEP Adult Treatment Panel for the following risk-cutoff thresholds for the [place] population. Performed By: #### L 501.9520, L506.1000, L3890.6300, L500.4050, L100.0100 #### [facility] [address] [facility], [address] Serum or plasma urea nitroge n measurement (mass/volume)Ordered By: Alvaro Ceron on 10-04-2024 Urea nitrogen [Mass/Vol] 19 mg/dL Normal 4-19 [facility] Comment on above: Performed By: #### L 501.9520, L506.1000, L3890.6300, L500.4050, L100.0100 #### [facility] [address] [facility], [address] Serum or plasma uric acid me asurement (mass/volume)Ordered By: Alvaro Ceron on 10-04-2024 Urate [Mass/Vol] 7.5 mg/dL High 3.5-7.2 [facility] Comment on above: The drugs N-Acetylcy steine and Metamizole may falsely depress this assay. Sodium levelOrdered By: Alvaro Ceron on 10-04-2024 Sodium [Moles/Vol] 141 mmol/L Normal 133-145 [facility] Comment on above: Performed By: #### L 501.9520, L506.1000, L3890.6300, L500.4050, L100.0100 #### [facility] [address] [place], [address] TSH DL <= 0.005 mIU/L QnOrde red By: Alvaro Ceron on 10-04-2024 TSH Qn 4.390 uIU/mL High 0.300-4.200 [facility] Thyroid Stim Hormone (TSH)on 10-04-2024 TSH 4.390 uIU/mL High 0.300-4.200 [facility] Comment on above: Performed By: #### L 501.9520, L506.1000, L3890.6300, L500.4050, L100.0100 #### [facility] [address] [place], [place], [id number] Total proteinOrdered By: Alvaro Ceron on 10-04-2024 Protein [Mass/Vol] 6.2 g/dL 5.9-8.4 [facility] Triglycerides measurementOrd ered By: Alvaro Ceron on 10-04-2024 Triglyceride [Mass/Vol] 71 mg/dL Normal [facility] Comment on above: The drugs N-Acetylcy steine and Metamizole may falsely depress this assay. Normal range: <150 mg/dLBorderline High: 150-199 mg/dLHigh: 200-499 mg/dLVery High: >500 mg/dL Result Comment: The drugs N-Acetylcysteine and Metamizole may falsely depress this assay. Normal range: <150 mg/dL Borderline High: 150-199 mg/dL High: 200-499 mg/dL Very High: >500 mg/dL Performed By: #### L 501.9520, L506.1000, L3890.6300, L500.4050, L100.0100 #### [facility] [address] [place], [address] Uric Acidon 10-04-2024 URIC 7.5 mg/dL High 3.5-7.2 [facility] Comment on above: Result Comment: The drugs N-Acetylcysteine and Metamizole may falsely depress this assay. Performed By: #### L 501.9520, L506.1000, L3890.6300, L500.4050, L100.0100 #### [facility] [address] [place], [address] Vitamin D,25 Hydroxyon 10-04 Vitamin D 25-OH 49.8 ng/mL Normal 30-100 [facility] Comment on above: Result Comment: Nika min D Status Deficiency: <20 ng/mL (50nmol/L) Insufficiency: 20-30 ng/mL (50-75 nmol/L) Sufficiency: 30-100 ng/mL (75-250 nmol/L) Toxicity: >100 ng/mL (>250 nmol/L) Performed By: #### L 501.9520, L506.1000, L3890.6300, L500.4050, L100.0100 #### [facility] [address] [place], [address] White blood cell (WBC) count Ordered By: Alvaro Ceron on 10-04-2024 WBC (Bld) [#/Vol] 4.1 10*3/uL Low 4.4-11.0 [facility] Comment on above: Performed By: #### L 501.9520, L506.1000, L3890.6300, L500.4050, L100.0100 #### [facility] [address] [place], [address] ED NOTEon 09-19-2024 ED NOTE HNO ID: [id number] Author: WILMER NOGUEIRA RN Service: Nursing Author Type: Registered Nurse Type: ED Notes Filed: 09/19/2024 08:58 Note Text: Patient leaves pleasant and cooperative, alert and oriented x 3 with regular and easy respirations. Discharge instructions discussed. There are no additional questions for the provider. Medications discussed with patients verbal understanding of purpose and potential side effects. Will follow up as directed or return to ED for worsening or life threatening symptoms. Normal [facility] ED NOTE HNO ID: [id number] Author: BLU BETANCOURT RN Service: Emergency Medicine Author Type: Registered Nurse Type: ED Notes Filed: 09/20/2024 08:15 Note Text: Patient Call Back Information How are you doing ? better Did we appropriately manage your pain? Yes Did you understand your discharge instructions? Yes Did you get your prescriptions filled? Yes Were you able to make a follow-up appointment with your physician? Yes Were you comfortable during your stay here? Yes Did a member of the ER nursing team round on you during your visit? Yes You will receive a patient satisfaction survey in the mail in the nest 2 weeks, please take the time to fill out the survey as your input from your ER visit is very important to us. Yes Can we do anything else to help you? No Normal [facility] ED NOTE HNO ID: [id number] Author: WILMER NOGUEIRA RN Service: Nursing Author Type: Registered Nurse Type: ED Notes Filed: 09/19/2024 07:47 Note Text: Patient presents with right eye pain, redness and watery drainage starting yesterday. He denies any known injury. 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 His daughter removed a white piece of material that was on his lower eye lid. Currently his eye feels scratchy and the sensation of a foreign body. Normal [facility] ED PROV NOTEon 09-19-2024 ED PROV NOTE HNO ID: [id number] Author: SONJA DODGE MD Service: Emergency Medicine Author Type: Physician Type: ED Provider Notes Filed: 09/19/2024 08:36 Note Text: ED Provider Note Patient Name: Nancy Price : 1940 SERVICE DATE: 09/19/24 History Patient presents with: Eye Complaint Nancy Price is a 84 year old male with history of multiple chronic medical problems who presents with Eye Complaint. Patient took nothing for this prior to arrival. - Symptoms began 1 day ago. - Severity: mild - Timing: constant - Quality: fb sensation - Eye Complaint is exacerbated by blinking. - Eye Complaint is not exacerbated by light. - Symptoms are associated with redness. - Symptoms are not associated with projectile injury. - Improved by rest. Patient reports he was working outside on a swimming pool but is very specific that he did not get any chemicals into his eyes he did state that next-door a marcial was mowing down a field and there was a lot of particulate matter in the air. He does not specifically recall getting anything into his eye but around noon yesterday he started having foreign body sensation in the right eye he rinsed the eye the eye became red and watery he said his daughter was able to find a very small white speck in the lower lid and took it out with a Q-tip he went to sleep last night and woke up this morning initially felt good but now has recurrence of the foreign body sensation in the right eye only he denies any vision change no light sensitivity he has had some lacrimation but no drainage of pus. PAST MEDICAL HISTORY Diagnosis Date AAA (abdominal aortic aneurysm) Acquired hypothyroidism check TSH Acute sinusitis Anemia check CBC Cervical spondylosis continue home exercises and pain meds Chronic obstructive lung disease (HCC) Emphysema, unspecified (HCC) Foot joint pain right first MTP, xray shows osteoarthritis, resolved spontaneously Hiatal hernia continue omeprazole, f/u Dr. Nye Leukopenia f/u with Dr. Rodriguez Lipoma of upper arm left, reassurance given Neck pain continue antiinlammatory meds Neoplasm of uncertain behavior of skin BIOPSY SENT, SUTURES REMOVED Shoulder pain left, continue home exercises Swelling of lower limb xray of right foot PAST SURGICAL HISTORY Procedure Laterality Date PAST SURGICAL HISTORY OF Skin lesion removed, RightWrist TONSILLECTOMY AND ADENOIDECTOMY FAMILY HISTORY Problem Relation Age of Onset Cancer Sister Hypertension Sister Hypertension Brother Aneurysm Mother Obesity Mother other (smoking tobacco) Mother other (stomach cancer) Father Social History Tobacco Use Smoking status: Former Current packs/day: 0.00 Types: Cigarettes Start date: 03/31/1954 Quit date: 03/31/2002 Years since quittin.4 Smokeless tobacco: Never Vaping Use Vaping status: Never Used Substance and Sexual Activity Alcohol use: No Drug use: Never Comment: no reported history Sexual activity: Not on file ALLERGIES Allergen Reactions Augmentin [Amoxicil* Rash Liver enzymes increase Penicillin G Benzat* Hives Review of Systems Constitutional: Negative for chills and fever. HENT: Negative for congestion, rhinorrhea and sinus pain. Eyes: Positive for pain and redness. Negative for photophobia, discharge, itching and visual disturbance. Skin: Negative for rash and wound. Allergic/Immunologic: Negative for environmental allergies, food allergies and immunocompromised state. Physical Exam Vitals [09/19/24 0740] BP Pulse Temp Temp src Resp SpO2 Weight Height 140/82 64 36.5 ?C (97.7 ?F) Temporal Art 16 99 % 77.1 kg (170 lb) -- Physical Exam Vitals and nursing note reviewed. Exam conducted with a typing checker present. Constitutional: General: He is not in acute distress. Appearance: Normal appearance. He is normal weight. He is not ill-appearing, toxic-appearing or diaphoretic. HENT: Head: Normocephalic and atraumatic. Eyes: General: No scleral icterus. Right eye: No discharge. Left eye: No discharge. Extraocular Movements: Extraocular movements intact. Pupils: Pupils are equal, round, and reactive to light. Comments: Injection of conjunctiva right eye lids otherwise appear normal no foreign body on lid eversion upper or lower. Pupil equal round reactive full extraocular movements. Visual acuities 20/40 in 20/70 left and right eye respectively however patient is using prescription glasses that are 5 years old. Subjectively he feels that his vision is normal. Fluorescein Wood's lamp examination reveals no uptake and with magnifying glass no foreign body noted. Jose Guadalupe-Pen pressure is 15. Pulmonary: Effort: Pulmonary effort is normal. No respiratory distress. Skin: General: Skin is warm and dry. Capillary Refill: Capillary refill takes less than 2 seconds. Findings: No rash. Neurological: General: No focal deficit (more content not included)... 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 DATE: August 25, 2024 at 10:39 AM COMPARISON: Previous CT angiogram from September 17, 2023 and March 13, 2022. CLINICAL INDICATION/HISTORY: The patient is an 84-year-old male with known lumbar aortic aneurysm treated with endograft. TECHNIQUE: Helical axial slices were obtained from the domes of the diaphragms to the upper thighs before, during, and after the bolus intravenous administration of contrast. Bolus images were reconstructed in sagittal and coronal planes. No 3-D multiplanar reconstruction CT angiogram with MIP and shaded surface display imaging was obtained. CT Radiation dose: Integrated dose-length product (DLP) for this visit = 1229.84 mGy*cm. CT Dose Reduction Employed: Automated exposure control (AEC) was used. CONTRAST: IV: 100 ml of Omnipaque 350 FINDINGS: CT THORACIC ANGIOGRAM: The visualized portion of the deep ascending thoracic aorta is normal. CT LUMBAR ANGIOGRAM: The body of the endograft continues to demonstrate some intimal hyperplasia is greatest along its anterior aspect. The amount of intimal hyperplasia has increased slightly since September 17, 2023 but there still is a widely patent lumen. There is no endo- leak. Aneurysm sac size is stable. There continues to be expansion of the infundibulum of right renal artery to 9.5 mm and then there continues to be some organized calcific and noncalcific plaque as the vessel tapers down away from the infundibulum with narrowing of the without 60% diameter. The celiac, SMA, and left renal arteries show no stenosis. CT ILIAC ANGIOGRAM: The stent limbs, external iliac, and internal iliac vessels on either side show no significant stenosis or aneurysm formation. CT FEMORAL RUNOFF ANGIOGRAM: The common femoral and visualized portions of the upper profundus femoral and superficial femoral arteries on either side show no significant stenosis CT OF THE CHEST: The visualized lower lungs are clear with no infiltrates or nodules. There are no pleural effusions. No lower chest wall abnormalities are noted. CT OF THE ABDOMEN: There is a small hiatus hernia. There are peripherally calcified gallstones in gallbladder. Gallbladder wall is slightly thickened but there is no surrounding inflammation or fluid. There are stable simple cysts involving the kidneys left side greater than right. There are no focal lesions of the liver, rest of the biliary system, pancreas, spleen, adrenals, rest of the kidneys, periaortic region, or visualized bowel. There is no effusion, ascites, or mesenteric inflammation. CT OF THE PELVIS: The prostate, seminal vesicles, bladder, rectum, sigmoid, appendix, and small bowel loops are within normal limits. There is no fluid in the male cul-de-sac. Muscular symmetry is maintained within the pelvis. IMPRESSION: There is slight progression of intimal hyperplasia involving the body of the endograft but there still is a widely patent lumen. There is no evidence of endoleak. Aneurysm sac size is stable. There is expansion of the infundibulum of the right renal artery with 60% diameter stenosis of the vessel just distal to the infundibulum. No other significant vascular abnormality is identified on the study. There is a small hiatus hernia. There is cholelithiasis without evidence of acute cholecystitis or biliary dilation. There are stable cysts of the kidneys that require no further follow-up. No other significant nonvascular abnormalities identified on the study. Circular Saw Edge Fuser: LEONIDAS Transcribe Date/Time: Aug 25 2024 3:19P Dictated by : JAY HU MD This examination was interpreted and the report reviewed and electronically signed by: JAY HU MD on Aug 25 2024 3:43PM EST [id number] Normal [facility] Creatinine + eGFR Pnl SerPlB ldon 08-25-2024 Creatinine and Glomerular filtration rate.predicted panel (S/P/Bld) 43 mL/min/1.73m??? Low >=60 [facility] Comment on above: Order Comment: Speci men Type: BLOOD SPECIMENOrdering Facility: [facility] Address: [address] [place] [address] Result Comment: Kiara mated Glomerular Filtration Rate (eGFR) is calculated using the 2020 CKD-EPI creatinine equation. This equation utilizes serum creatinine, sex, and age as parameters. The creatinine assay has traceable calibration to isotope dilution-mass spectrometry. Refer to KDIGO guidelines for clinical interpretation. In patients with unstable renal function, e.g. those with acute kidney injury, the eGFR may not accurately reflect actual GFR. Performed By: #### 4 5066-8 ####[facility] LABCLIA [id number] [address] [facility] Creatinine and Glomerular fi ltration rate.predicted panel (S/P/Bld)on 08-25-2024 Creatinine [Mass/Vol] 1.58 mg/dL High 0.73-1.22 [facility] Comment on above: Order Comment: Speci men Type: BLOOD SPECIMENOrdering Facility: [facility] Address: [address] [place] [address] Performed By: #### 4 5066-8 ####[facility] LABCLIA [id number] [place] [address] [facility] Microalb:Creat Ratio,Random URon 05-05-2024 Creatinine [Mass/Vol] 166.00 mg/dL Normal NO RANGE EST . [facility] Comment on above: Performed By: #### L 500.3600, L502.0250, L509.1000, L506.1000 #### [facility] [address] [place], [address] MALB:CRE 34.3 mg/g CRE High <30 mg/g CRE [facility] Comment on above: Performed By: #### L 500.3600, L502.0250, L509.1000, L506.1000 #### [facility] [address] [place], [address] MICROALBUMIN,UR 56.9 mg/L Normal NO RANGE EST. [facility] Comment on above: Performed By: #### L 500.3600, L502.0250, L509.1000, L506.1000 #### [facility] [address] [place], [address] PTHINon 05-05-2024 PTH 90.8 pg/mL High 18.4-80.1 [facility] Comment on above: Performed By: #### L 500.3600, L502.0250, L509.1000, L506.1000 #### [facility] [address] [place], [address] Renal Profileon 05-05-2024 Albumin [Mass/Vol] 3.6 g/dL Normal 3.2-5.0 [facility] Comment on above: Performed By: #### L 500.3600, L502.0250, L509.1000, L506.1000 #### [facility] [address] [place], [address] BUN/CRE 12.2 RATIO Normal 10-20 [facility] Comment on above: Performed By: #### L 500.3600, L502.0250, L509.1000, L506.1000 #### [facility] [address] [place], [address] CA,Total 9.7 mg/dL Normal 8.5-10.1 [facility] Comment on above: Performed By: #### L 500.3600, L502.0250, L509.1000, L506.1000 #### [facility] [address] [place], [address] Chloride [Moles/Vol] 110 mmol/L High 98-107 [facility] Comment on above: Performed By: #### L 500.3600, L502.0250, L509.1000, L506.1000 #### [facility] [address] [place], [address] CO2 [Moles/Vol] 26.0 mmol/L Normal 21.0-32.0 [facility] Comment on above: Performed By: #### L 500.3600, L502.0250, L509.1000, L506.1000 #### [facility] [address] [place], [address] Creatinine [Mass/Vol] 1.48 mg/dL High 0.70-1.[address] [facility] Comment on above: Result Comment: The validity of the calculated GFR GFRAA in patients over 70 years has not been determined. Clinical correlation is essential. Performed By: #### L 500.3600, L502.0250, L509.1000, L506.1000 #### [facility] [address] [place], [address] EST GFR - AA 58 mL/min Low >60 [facility] Comment on above: Result Comment: Afri can Canadian GFR Calc Performed By: #### L 500.3600, L502.0250, L509.1000, L506.1000 #### [facility] [address] [place], [address] GFR/1.73 sq M.predicted among non-blacks MDRD (S/P/Bld) [Vol rate/Area] 48 mL/min/{1.73_m2} Low >60 [facility] Comment on above: Result Comment: Non- GFR Calc Performed By: #### L 500.3600, L502.0250, L509.1000, L506.1000 #### [facility] [address] [place], [address] Glucose [Mass/Vol] 108 mg/dL High 74-106 [facility] Comment on above: Result Comment: Fast ing Glucose result from 100 to 125 mg/dL suggests IMPAIRED HOMEOSTASIS per A.D.A. criteria. Performed By: #### L 500.3600, L502.0250, L509.1000, L506.1000 #### [facility] [address] [place], [address] Phosphate [Mass/Vol] 3.0 mg/dL Normal 2.5-4.9 [facility] Comment on above: Performed By: #### L 500.3600, L502.0250, L509.1000, L506.1000 #### [facility] [address] [place], [address] Potassium [Moles/Vol] 4.2 mmol/L Normal 3.5-5.[address] [facility] Comment on above: Performed By: #### L 500.3600, L502.0250, L509.1000, L506.1000 #### [facility] [address] [place], [address] Sodium [Moles/Vol] 140 mmol/L Normal 136-145 [facility] Comment on above: Performed By: #### L 500.3600, L502.0250, L509.1000, L506.1000 #### [facility] [address] [place], [address] Urea nitrogen [Mass/Vol] 18 mg/dL Normal 7-18 [facility] Comment on above: Performed By: #### L 500.3600, L502.0250, L509.1000, L506.1000 #### [facility] [address] [place], [address] Vitamin D,25 Hydroxyon 05-05 Vitamin D 25-OH 41.6 ng/mL Normal [facility] Comment on above: Result Comment: Nika min D 25(OH) Status Range Deficiency <20 ng/mL (50nmol/L) Insufficiency 20 - 30 ng/mL (50 - 75 nmol/L) Sufficiency 30 - 100 ng/mL (75 - 250 nmol/L) Toxicity >100 ng/mL (>250 nmol/L) Performed By: #### L 500.3600, L502.0250, L509.1000, L506.1000 #### [facility] [address] [place], [address] CBC W/Diff, Automatedon 0 Absolute Lymph 0.91 X10 3/uL Normal 0.83-4.51 [facility] Comment on above: Performed By: #### L 501.9520, L506.1000, L3890.6300, L500.4050, L100.0100 #### [facility] [address] [place], [address] Absolute Neut 3.1 X10 3/uL Normal 2.0-7.7 [facility] Comment on above: Performed By: #### L 501.9520, L506.1000, L3890.6300, L500.4050, L100.0100 #### [facility] [address] [place], [address] Basophils/100 WBC (Bld) 1.6 % High 0-1 [facility] Comment on above: Performed By: #### L 501.9520, L506.1000, L3890.6300, L500.4050, L100.0100 #### [facility] [address] [place], [address] Eosinophils/100 WBC (Bld) 3.6 % Normal 0-5 [facility] Comment on above: Performed By: #### L 501.9520, L506.1000, L3890.6300, L500.4050, L100.0100 #### [facility] [address] [place], [address] Erythrocyte distribution width (RBC) [Ratio] 12.7 % Normal 11.6-14.6 [facility] Comment on above: Performed By: #### L 501.9520, L506.1000, L3890.6300, L500.4050, L100.0100 #### [facility] [address] [place], [address] Hematocrit (Bld) [Volume fraction] 34.7 % Low 40-54 [facility] Comment on above: Performed By: #### L 501.9520, L506.1000, L3890.6300, L500.4050, L100.0100 #### [facility] [address] [place], [address] Hemoglobin (Bld) [Mass/Vol] 11.6 g/dL Low 13.0-16.5 [facility] Comment on above: Performed By: #### L 501.9520, L506.1000, L3890.6300, L500.4050, L100.0100 #### [facility] [address] [place], [address] IG% 0.400 Normal 0.0-0.9 [facility] Comment on above: Result Comment: IG% - Immature Granulocytes (promyelocytes, myelocytes and metamyelocytes) > 1% indicates that a LEFT SHIFT is Present. Performed By: #### L 501.9520, L506.1000, L3890.6300, L500.4050, L100.0100 #### [facility] [address] [place], [address] Lymphocytes/100 WBC (Bld) 18.2 % Low 19-41 [facility] Comment on above: Performed By: #### L 501.9520, L506.1000, L3890.6300, L500.4050, L100.0100 #### [facility] [address] [place], [address] MCH (RBC) [Entitic mass] 32.4 pg High 27.0-32.0 [facility] Comment on above: Performed By: #### L 501.9520, L506.1000, L3890.6300, L500.4050, L100.0100 #### [facility] [address] [place], [address] MCHC (RBC) [Mass/Vol] 33.4 g/dL Normal 32-[address] [facility] Comment on above: Performed By: #### L 501.9520, L506.1000, L3890.6300, L500.4050, L100.0100 #### [facility] [address] [place], [address] MCV (RBC) [Entitic vol] 96.9 fL High 80-94 [facility] Comment on above: Performed By: #### L 501.9520, L506.1000, L3890.6300, L500.4050, L100.0100 #### [facility] [address] [place], [address] Monocytes/100 WBC (Bld) 14.2 % High 0-10 [facility] Comment on above: Performed By: #### L 501.9520, L506.1000, L3890.6300, L500.4050, L100.0100 #### [facility] [address] [place], [address] Neutrophils/100 WBC (Bld) 62.0 % Normal 47-70 [facility] Comment on above: Performed By: #### L 501.9520, L506.1000, L3890.6300, L500.4050, L100.0100 #### [facility] [address] [place], [address] Nucleated RBC (Bld) [#/Vol] 0 10*3/uL Normal 0-5 [facility] Comment on above: Performed By: #### L 501.9520, L506.1000, L3890.6300, L500.4050, L100.0100 #### [facility] [address] [place], [address] Platelet mean volume (Bld) [Entitic vol] 10.3 fL Normal 6.2-12.0 [facility] Comment on above: Performed By: #### L 501.9520, L506.1000, L3890.6300, L500.4050, L100.0100 #### [facility] [address] [place], [address] Platelets (Bld) [#/Vol] 210 10*3/uL Normal 150-450 [facility] Comment on above: Performed By: #### L 501.9520, L506.1000, L3890.6300, L500.4050, L100.0100 #### [facility] [address] [place], [address] RBC (Bld) [#/Vol] 3.58 10*6/uL Low 4.6-6.2 [facility] Comment on above: Performed By: #### L 501.9520, L506.1000, L3890.6300, L500.4050, L100.0100 #### [facility] [address] [place], [address] RDW SD 44.2 fl High 35.1-43.9 [facility] Comment on above: Performed By: #### L 501.9520, L506.1000, L3890.6300, L500.4050, L100.0100 #### [facility] [address] [place], [address] WBC (Bld) [#/Vol] 5.0 10*3/uL Normal 4.4-11.0 [facility] Comment on above: Performed By: #### L 501.9520, L506.1000, L3890.6300, L500.4050, L100.0100 #### [facility] [address] [place], [address] Comprehensive Metabolic Prof [facility] 04-06-2024 Albumin [Mass/Vol] 3.7 g/dL Normal 3.2-5.0 [facility] Comment on above: Performed By: #### L 501.9520, L506.1000, L3890.6300, L500.4050, L100.0100 #### [facility] [address] [place], [address] Albumin/Globulin [Mass ratio] 1.2 {ratio} Normal 0.9-2.4 [facility] Comment on above: Performed By: #### L 501.9520, L506.1000, L3890.6300, L500.4050, L100.0100 #### [facility] [address] [place], [address] ALK P 79 U/L Normal 45-117 [facility] Comment on above: Performed By: #### L 501.9520, L506.1000, L3890.6300, L500.4050, L100.0100 #### [facility] [address] [place], [address] ALT [Catalytic activity/Vol] 24 U/L Normal 16-61 [facility] Comment on above: Performed By: #### L 501.9520, L506.1000, L3890.6300, L500.4050, L100.0100 #### [facility] [address] [place], [address] AST [Catalytic activity/Vol] 20 U/L Normal 15-37 [facility] Comment on above: Performed By: #### L 501.9520, L506.1000, L3890.6300, L500.4050, L100.0100 #### [facility] [address] [place], [address] Bilirubin [Mass/Vol] 0.40 mg/dL Normal 0.20-1.00 [facility] Comment on above: Result Comment: For patients on eltrombopag therapy, use of Dimension [place] TBIL is not recommended. Performed By: #### L 501.9520, L506.1000, L3890.6300, L500.4050, L100.0100 #### [facility] [address] [place], [address] BUN/CRE 16.2 RATIO Normal 10-20 [facility] Comment on above: Performed By: #### L 501.9520, L506.1000, L3890.6300, L500.4050, L100.0100 #### [facility] [address] [place], [address] CA,Total 9.6 mg/dL Normal 8.5-10.1 [facility] Comment on above: Performed By: #### L 501.9520, L506.1000, L3890.6300, L500.4050, L100.0100 #### [facility] [address] [place], [address] Chloride [Moles/Vol] 110 mmol/L High 98-107 [facility] Comment on above: Performed By: #### L [id number], L506.1000, L3890.6300, L500.4050, L100.0100 #### [facility] [address] [place], [address] CO2 [Moles/Vol] 28.0 mmol/L Normal 21.0-32.0 [facility] Comment on above: Performed By: #### L [id number], L506.1000, L3890.6300, L500.4050, L100.0100 #### [facility] [address] [place], [address] Creatinine [Mass/Vol] 1.54 mg/dL High 0.70-1.[address] [facility] Comment on above: Result Comment: The validity of the calculated GFR GFRAA in patients over 70 years has not been determined. Clinical correlation is essential. Performed By: #### L [id number], L506.1000, L3890.6300, L500.4050, L100.0100 #### [facility] [address] [place], [address] EST GFR - AA 56 mL/min Low >60 [facility] Comment on above: Result Comment: Afri can Canadian GFR Calc Performed By: #### L [id number], L506.1000, L3890.6300, L500.4050, L100.0100 #### [facility] [address] [place], [address] GAP 3 Low 5-15 [facility] Comment on above: Performed By: #### L [id number], L506.1000, L3890.6300, L500.4050, L100.0100 #### [facility] [address] [place], [address] GFR/1.73 sq M.predicted among non-blacks MDRD (S/P/Bld) [Vol rate/Area] 46 mL/min/{1.73_m2} Low >60 [facility] Comment on above: Result Comment: Non- GFR Calc Performed By: #### L [id number], L506.1000, L3890.6300, L500.4050, L100.0100 #### [facility] [address] [place], [address] Globulin (S) [Mass/Vol] 3.1 g/dL Normal 2.2-4.2 [facility] Comment on above: Performed By: #### L [id number], L506.1000, L3890.6300, L500.4050, L100.0100 #### [facility] [address] [place], [address] Glucose [Mass/Vol] 112 mg/dL High 74-106 [facility] Comment on above: Result Comment: Fast ing Glucose result from 100 to 125 mg/dL suggests IMPAIRED HOMEOSTASIS per A.D.A. criteria. Performed By: #### L [id number], L506.1000, L3890.6300, L500.4050, L100.0100 #### [facility] [address] [place], [address] Potassium [Moles/Vol] 3.9 mmol/L Normal 3.5-5.[address] [facility] Comment on above: Performed By: #### L [id number], L506.1000, L3890.6300, L500.4050, L100.0100 #### [facility] [address] [place], [address] Sodium [Moles/Vol] 140 mmol/L Normal 136-145 [facility] Comment on above: Performed By: #### L [id number], L506.1000, L3890.6300, L500.4050, L100.0100 #### [facility] [address] [place], [address] T PROT 6.8 g/dL Normal 6.4-8.2 [facility] Comment on above: Performed By: #### L [id number], L506.1000, L3890.6300, L500.4050, L100.0100 #### [facility] [address] [place], [address] Urea nitrogen [Mass/Vol] 25 mg/dL High 7-18 [facility] Comment on above: Performed By: #### L [id number], L506.1000, L3890.6300, L500.4050, L100.0100 #### [facility] [address] [place], [address] Hepatitis C Antibodyon 04-06 Hepatitis C AB Non-Reactive Normal Nonreactive [facility] Comment on above: Result Comment: Non Reactive: < 0.8 Equivocal: >/= 0.8 to < 1.0 Reactive: >/= 1.0 The CDC requires that a reactive/equivocal HCV antibody result be sent out for confirmation. HCV Quant by PCR testing. Performed By: #### L [id number], L506.1000, L3890.6300, L500.4050, L100.0100 #### [facility] [address] [place], [address] Thyroid Stim Hormone (TSH)on 04-06-2024 TSH 2.190 uIU/mL Normal 0.358-3.740 [facility] Comment on above: Performed By: #### L [id number], L506.1000, L3890.6300, L500.4050, L100.0100 #### [facility] [address] [place], [address] Vitamin D,25 Hydroxyon 04-06 Vitamin D 25-OH 44.5 ng/mL Normal [facility] Comment on above: Result Comment: Nika min D 25(OH) Status Range Deficiency <20 ng/mL (50nmol/L) Insufficiency 20 - 30 ng/mL (50 - 75 nmol/L) Sufficiency 30 - 100 ng/mL (75 - 250 nmol/L) Toxicity >100 ng/mL (>250 nmol/L) Performed By: #### L [id number], L506.1000, L3890.6300, L500.4050, L100.0100 #### [facility] [address] [place], [address] ED NOTEon 10-24-2023 ED NOTE HNO ID: [id number] Author: BLU BETANCOURT RN Service: Emergency Medicine Author Type: Registered Nurse Type: ED Notes Filed: 10/25/2023 10:04 Note Text: Patient Call Back Information How are you doing ? better Did we appropriately manage your pain? Yes Did you understand your discharge instructions? Yes Did you get your prescriptions filled? Yes Were you able to make a follow-up appointment with your physician? Yes Were you comfortable during your stay here? Yes Did a member of the ER nursing team round on you during your visit? Yes You will receive a patient satisfaction survey in the mail in the nest 2 weeks, please take the time to fill out the survey as your input from your ER visit is very important to us. Yes Can we do anything else to help you? No [facility] ED NOTE HNO ID: [id number] Author: FRANCINE COOPER RN Service: Nursing Author Type: Registered Nurse Type: ED Notes Filed: 10/24/2023 10:27 Note Text: Pt arrives with report of face pain which he describes as a toothache and I don't have any teeth in my mouth. Pt reports recent issue with nasal drainage that has gone from clear to yellow. Pt recently started on Loratadine 10mg Normal [facility] ED PROV NOTEon 10-24-2023 ED PROV NOTE HNO ID: [id number] Author: WILFREDO WELCH MD Service: Emergency Medicine Author Type: Physician Type: ED Provider Notes Filed: 10/24/2023 11:02 Note Text: ED Provider Note Patient Name: Nancy Price : 1940 SERVICE DATE: 10/24/23 History Patient presents with: Sinus Problem Presents the emergency department for concerns over sinus faction. Patient has been trying [id number] medications, including Claritin, nasal spray, Flonase, for the preceding week without any improvement in his symptoms. Patient saw his PCP 1 week ago, as he was already having symptoms for 3 weeks thought to be an upper respite infection, viral/allergic etiology. Over the preceding couple of days, patient is now having pain on the right side of his face, he is having increased purulent drainage, blowing his nose, on the right side. No fevers. No nausea no vomiting. No recent antibiotic usage. Sinus Problem Pain details: Location: Maxillary Quality: Dull Severity: Mild Duration: 2 days Timing: Intermittent Progression: Worsening Chronicity: New Context: recent URI Relieved by: Nothing Ineffective treatments: Steroid sprays (allergy medications) Associated symptoms: congestion, fatigue and rhinorrhea PAST MEDICAL HISTORY Diagnosis Date AAA (abdominal aortic aneurysm) (HCC) Acquired hypothyroidism check TSH Acute sinusitis Anemia check CBC Cervical spondylosis continue home exercises and pain meds Chronic obstructive lung disease (HCC) Emphysema, unspecified (HCC) Foot joint pain right first MTP, xray shows osteoarthritis, resolved spontaneously Hiatal hernia continue omeprazole, f/u Dr. Nye Leukopenia f/u with Dr. Rodriguez Lipoma of upper arm left, reassurance given Neck pain continue antiinlammatory meds Neoplasm of uncertain behavior of skin BIOPSY SENT, SUTURES REMOVED Shoulder pain left, continue home exercises Swelling of lower limb xray of right foot PAST SURGICAL HISTORY Procedure Laterality Date PAST SURGICAL HISTORY OF Skin lesion removed, RightWrist TONSILLECTOMY AND ADENOIDECTOMY FAMILY HISTORY Problem Relation Age of Onset Cancer Sister Hypertension Sister Hypertension Brother Aneurysm Mother Obesity Mother other (smoking tobacco) Mother other (stomach cancer) Father Social History Tobacco Use Smoking status: Former Types: Cigarettes Start date: 03/31/1955 Quit date: 03/31/2002 Years since quittin.5 Smokeless tobacco: Never Vaping Use Vaping Use: Never used Substance and Sexual Activity Alcohol use: No Drug use: Never Comment: no reported history Sexual activity: Not on file ALLERGIES Allergen Reactions Augmentin [Amoxicil* Rash Liver enzymes increase Penicillin G Benzat* Hives Review of Systems Constitutional: Positive for fatigue. HENT: Positive for congestion, rhinorrhea, sinus pressure and sinus pain. Negative for facial swelling and trouble swallowing. All other systems reviewed and are negative. Physical Exam Vitals [10/24/23 1024] BP Pulse Temp Temp src Resp SpO2 Weight Height 151/79 (!) 93 36.5 ?C (97.7 ?F) Temporal 15 100 % 74.8 kg (165 lb) 1.753 m (5' 9) Physical Exam Vitals and nursing note reviewed. Constitutional: General: He is not in acute distress. Appearance: Normal appearance. He is not ill-appearing or toxic-appearing. HENT: Head: Normocephalic and atraumatic. Comments: Has right maxillary sinus tenderness, there is no overlying skin changes, there is no rash, there is no fullness to the face, the right nares is patent, however there is a moderate amount of rhinorrhea, turbinate erythema and injection, the oral airway, patient moved his upper plate for his dentures, there is no obvious gum changes, no etiology to patient's facial pain and tenderness Right Ear: Tympanic membrane, ear canal and external ear normal. Ears: Comments: There is effusion of the right ear, membrane is not bulging, it is intact Nose: Congestion and rhinorrhea present. Mouth/Throat: Mouth: Mucous membranes are moist. Eyes: General: Right eye: No discharge. Left eye: No discharge. Cardiovascular: Rate and Rhythm: Normal rate and regular rhythm. Pulses: Normal pulses. Heart sounds: No murmur heard. Pulmonary: Effort: Pulmonary effort is normal. No respiratory distress. Breath sounds: No wheezing or rales. Musculoskeletal: Cervical back: Normal range of motion and neck supple. No rigidity or tenderness. Lymphadenopathy: Cervical: No cervical adenopathy. Skin: General: Skin is warm and dry. Neurological: General: No focal deficit present. Mental Status: He is alert and oriented to person, place, and time. Mental status is at baseline. Psychiatric: Mood and Affect: Mood normal. Behavior: Behavior normal. Diagnostic Testing ED Labs Ordered and Reviewed - No data to display Procedures ED Course / C (more content not included)... Normal [facility] CNOVon 10-16-2023 CNOV Office Visit (HAILEE JACKSON) -------- NANCY PRICE ([id number]) 1940 M DEF Date Time Provider Department 10/16/23 8:20 AM BRIA ARANA During your visit today, we recorded the following information about you: Temperature Pulse Respiration Blood pressure 98 degrees 52/minute 18/minute 122/62 Weight Height 74.8 kg 1.753 m Bria Arana, METAL FURNACE OPERATOR.LEAK INSPECTOR 10/16/2023 10:13 AM Signed CHIEF COMPLAINT: Nancy Price is a 83 year old male who presents for symptoms of a dry cough, runny nose, fatigue, and SOB off and on for the last 3 weeks. He has tried using Flonase and Dayquil. He has had the runny nose for a long time and it is always clear. He denies any fever,s body aches, headaches, N/V. Has had some intermittent looser stools and occasional feeling lightheaded when he stands up. I reviewed past medical, surgical, social, and family histories today and updated chart. Allergies, chronic medications, and supplements were also reviewed. PAST MEDICAL HISTORY Diagnosis Date AAA (abdominal aortic aneurysm) (HCC) Acquired hypothyroidism check TSH Acute sinusitis Anemia check CBC Cervical spondylosis continue home exercises and pain meds Chronic obstructive lung disease (HCC) Emphysema, unspecified (HCC) Foot joint pain right first MTP, xray shows osteoarthritis, resolved spontaneously Hiatal hernia continue omeprazole, f/u Dr. Nye Leukopenia f/u with Dr. Rodriguez Lipoma of upper arm left, reassurance given Neck pain continue antiinlammatory meds Neoplasm of uncertain behavior of skin BIOPSY SENT, SUTURES REMOVED Shoulder pain left, continue home exercises Swelling of lower limb xray of right foot PAST SURGICAL HISTORY Procedure Laterality Date PAST SURGICAL HISTORY OF Skin lesion removed, RightWrist TONSILLECTOMY AND ADENOIDECTOMY Social History Tobacco Use Smoking status: Former Types: Cigarettes Start date: 03/31/1955 Quit date: 03/31/2002 Years since quittin.5 Smokeless tobacco: Never Vaping Use Vaping Use: Never used Substance Use Topics Alcohol use: No Drug use: Never Comment: no reported history ALLERGIES Allergen Reactions Augmentin [Amoxicil* Rash Liver enzymes increase Penicillin G Benzat* Hives Family History Problem Relation Age of Onset Cancer Sister Hypertension Sister Hypertension Brother Aneurysm Mother Obesity Mother other (smoking tobacco) Mother other (stomach cancer) Father Current Outpatient Medications Medication Sig Dispense Refill pantoprazole DR (PROTONIX) 40 mg tablet take 1 tablet by mouth once daily. 90 tablet 3 levothyroxine (SYNTHROID) 50 mcg tablet Take 1 tablet by mouth once daily. 90 tablet 0 aspirin 81 mg chewable tablet Take 1 tablet by mouth once daily. acetaminophen (TYLENOL) 500 mg tablet Take 1-2 tablets by mouth every 8 hours as needed for pain. 30 tablet 0 cholecalciferol (VITAMIN D3) 1,000 unit tab tablet Take 1 tablet by mouth once daily. No current facility-administered medications for this visit. Review of Systems Constitutional: Positive for fatigue. Negative for appetite change, chills, diaphoresis, fever and unexpected weight change. HENT: Positive for rhinorrhea, sinus pressure and sneezing. Negative for congestion, ear pain, sinus pain and sore throat. Eyes: Negative for visual disturbance. Respiratory: Positive for cough, chest tightness and shortness of breath. Negative for wheezing. Cardiovascular: Negative for chest pain, palpitations and leg swelling. Gastrointestinal: Positive for diarrhea. Negative for constipation, nausea and vomiting. Genitourinary: Negative. Musculoskeletal: Negative. Neurological: Positive for light-headedness (when he gets up). Negative for dizziness and headaches. BP 122/62 Pulse 52 Temp 98 Resp 18 Ht 5' 9 (1.75m) Wt 165 lb (74.8kg) SpO2 99% BMI 24.36 kg/(m2). Physical Exam Vitals and nursing note reviewed. Constitutional: Appearance: Normal appearance. He is not ill-appearing. HENT: Right Ear: Ear canal and external ear normal. There is impacted cerumen. Left Ear: Ear canal and external ear normal. A middle ear effusion is present. Tympanic membrane is not erythematous or bulging. Ears: Comments: Impacted cerumen in right canal. Small amount of cerumen in left canal. Cerumen removed successfully by irrigation by MA without complication. TMs visualized. Nose: Rhinorrhea present. No congestion. Mouth/Throat: Mouth: Mucous membranes are moist. Pharynx: Oropharyngeal exudate present. No posterior oropharyngeal erythema. Eyes: Conjunctiva/sclera: Conjunctivae normal. Pupils: Pupils are equal, round, and reactive to light. Cardiovascular: Rate and Rhythm: Normal rate and regular rhythm. Heart sounds: Normal heart sounds. Pulmonary: Effort: Pulmonary effort is normal. Breath sound (more content not included)... Normal [facility] CTA Abdominal vessels and Pe lvis vessels WO and W contrast [place] 09-17-2023 IMPRESSION: Again demonstrated is endovascular repair of a AAA using an aortobiiliac stent graft. All graft components are patent. On delayed imaging, a small intermediate-density focus is seen at the posterior aspect of the sac. However, this is not seen on arterial phase imaging. This may reflect artifact or a slow endoleak. The sac size is decreased, now measuring 4.9 x 4.5 cm in greatest axial dimension (previously 5.3 x 5.4 cm in February 2022). Circular Saw Edge Fuser: [facility] Transcribe Date/Time: Sep 17 2023 2:30P Dictated by : JARAD LOMBARDO MD This examination was interpreted and the report reviewed and electronically signed by: JARAD LOMBARDO MD on Sep 17 2023 2:45PM [facility] DIVISION OF RADIOLOGY * * *Final Report* * * DATE OF EXAM: Sep 17 2023 2:00PM [facility] 0467 - CTA ABD/PELV WO/W IVCON / PROCEDURE REASON: multiple diagnoses * * * * Physician Interpretation * * * * CT ANGIOGRAPHY OF THE ABDOMEN AND PELVIS CT Dose-Length Product (DLP): 1656 mGy*cm CT Dose Reduction Employed: Automated exposure control(AEC) and iterative recon CLINICAL HISTORY: AAA status post endovascular repair. Follow-up imaging. COMPARISON: CT abdomen pelvis 03/13/2022 TECHNIQUE: Contrast-enhanced CT angiography imaging of the abdomen and pelvis were obtained with the addition of coronal and sagittal reformatted images. 3D maximum intensity projection images were created, reviewed and archived. The images were reviewed on an independent workstation by the radiologist prior to interpretation. FINDINGS: VASCULAR MAJOR ARTERIAL STRUCTURES: Again demonstrated is endovascular repair of the known AAA using an aortobiiliac stent graft. The graft components are patent, and there is mild circumferential mural thrombus within the stent that is without significant change. No evidence of endoleak is seen on arterial phase imaging, however, on delayed phase imaging, there is a subtle, small, intermediate-density along the posterior aspect of the sac (series 19, axial 234) that may be artifactual or reflect a slow endoleak. No evidence of graft migration. The sac size now measures 4.9 x 4.5 cm (previously 5.3 x 5.4 cm). The celiac artery and its main branches and SMA remain patent, as are the single bilateral renal arteries. The unstented portions of the remaining main iliac arteries and the visible portions of the femoral arteries remain patent. MAJOR VENOUS STRUCTURES: Grossly within normal limits. LOWER CHEST: No significant abnormality. HEPATOBILIARY: Scattered small low-density lesions throughout the liver are too small to accurately characterize. Otherwise, the liver is normal in appearance. Multiple stones are again seen within the otherwise unremarkable gallbladder. No biliary ductal dilatation. SPLEEN, PANCREAS, ADRENAL GLANDS: Within normal limits. KIDNEYS, URETERS, BLADDER: Symmetric parenchymal enhancement with no hydronephrosis. Scattered low-density lesions throughout the kidneys are too small to accurately characterize by CT. Few stable cysts within the left upper pole are again noted. Ureters and bladder grossly unremarkable. PROSTATE, SEMINAL VESICLES: The prostate is mildly enlarged. The seminal vesicles are symmetric. BOWEL: No evidence of obstruction. PERITONEAL/EXTRAPERITONE AL SPACE: No free air or free fluid. LYMPH NODES: No adenopathy. ABDOMINAL WALL: Free of hernias. MUSCULOSKELETAL: No acute osseous abnormality. 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 DIVISION OF RADIOLOGY Provider, [facility] - 09/17/2023 * * *Final Report* * * DATE OF EXAM: Sep 17 2023 2:00PM [facility] 0467 - CTA ABD/PELV WO/W IVCON / PROCEDURE REASON: multiple diagnoses * * * * Physician Interpretation * * * * CT ANGIOGRAPHY OF THE ABDOMEN AND PELVIS CT Dose-Length Product (DLP): 1656 mGy*cm CT Dose Reduction Employed: Automated exposure control(AEC) and iterative recon CLINICAL HISTORY: AAA status post endovascular repair. Follow-up imaging. COMPARISON: CT abdomen pelvis 03/13/2022 TECHNIQUE: Contrast-enhanced CT angiography imaging of the abdomen and pelvis were obtained with the addition of coronal and sagittal reformatted images. 3D maximum intensity projection images were created, reviewed and archived. The images were reviewed on an independent workstation by the radiologist prior to interpretation. FINDINGS: VASCULAR MAJOR ARTERIAL STRUCTURES: Again demonstrated is endovascular repair of the known AAA using an aortobiiliac stent graft. The graft components are patent, and there is mild circumferential mural thrombus within the stent that is without significant change. No evidence of endoleak is seen on arterial phase imaging, however, on delayed phase imaging, there is a subtle, small, intermediate-density along the posterior aspect of the sac (series 19, axial 234) that may be artifactual or reflect a slow endoleak. No evidence of graft migration. The sac size now measures 4.9 x 4.5 cm (previously 5.3 x 5.4 cm). The celiac artery and its main branches and SMA remain patent, as are the single bilateral renal arteries. The unstented portions of the remaining main iliac arteries and the visible portions of the femoral arteries remain patent. MAJOR VENOUS STRUCTURES: Grossly within normal limits. LOWER CHEST: No significant abnormality. HEPATOBILIARY: Scattered small low-density lesions throughout the liver are too small to accurately characterize. Otherwise, the liver is normal in appearance. Multiple stones are again seen within the otherwise unremarkable gallbladder. No biliary ductal dilatation. SPLEEN, PANCREAS, ADRENAL GLANDS: Within normal limits. KIDNEYS, URETERS, BLADDER: Symmetric parenchymal enhancement with no hydronephrosis. Scattered low-density lesions throughout the kidneys are too small to accurately characterize by CT. Few stable cysts within the left upper pole are again noted. Ureters and bladder grossly unremarkable. PROSTATE, SEMINAL VESICLES: The prostate is mildly enlarged. The seminal vesicles are symmetric. BOWEL: No evidence of obstruction. PERITONEAL/EXTRAPERITONE AL SPACE: No free air or free fluid. LYMPH NODES: No adenopathy. ABDOMINAL WALL: Free of hernias. MUSCULOSKELETAL: No acute osseous abnormality. 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 IMPRESSION IMPRESSION: Again demonstrated is endovascular repair of a AAA using an aortobiiliac stent graft. All graft components are patent. On delayed imaging, a small intermediate-density focus is seen at the posterior aspect of the sac. However, this is not seen on arterial phase imaging. This may reflect artifact or a slow endoleak. The sac size is decreased, now measuring 4.9 x 4.5 cm in greatest axial dimension (previously 5.3 x 5.4 cm in February 2022). Circular Saw Edge Fuser: [facility] Transcribe Date/Time: Sep 17 2023 2:30P Dictated by : JARAD LOMBARDO MD This examination was interpreted and the report reviewed and electronically signed by: JARAD LOMBARDO MD on Sep 17 2023 2:45PM EST [facility] Radiology Study observation (narrative) [facility] CTA Abdominal vessels and Pe lvis vessels WO and W contrast IVOrdered By: [facility] Provider on 09-17-2023 [facility] URIC ACID BLOODon 09-16-2022 Urate [Mass/Vol] 6.8 mg/dL 4.0 - 8.1 mg/dL [facility] CONFIRM BLOOD TYPEon 022 ABO A [facility] Rh Nom (Bld) Negative [facility] TSH BLDon 12-31-2021 TSH Qn 3.560 m[IU]/L 0.270 - 4.200 mIU/L [facility] Basic Panelon 11-26-2019 Anion gap [Moles/Vol] 7 mmol/L Low 9-18 [facility] Comment on above: Performed By: #### P 14 #### [facility] [address] [place], [place] [address] Calcium [Mass/Vol] 9.9 mg/dL Normal 8.5-10.2 [facility] Comment on above: Performed By: #### P 14 #### [facility] [address] [place], [place] [address] Chloride [Moles/Vol] 108 mmol/L High 97-105 [facility] Comment on above: Performed By: #### P 14 #### [facility] [address] [place], [place] [address] CO2 Blood 27 mmol/L Normal 22-30 [facility] Comment on above: Performed By: #### P 14 #### [facility] [address] [place], [place] [address] Creatinine [Mass/Vol] 1.42 mg/dL High 0.73-1.22 [facility] Comment on above: Performed By: #### P 14 #### [facility] [address] [place], [place] [address] Glucose [Mass/Vol] 99 mg/dL Normal 74-99 [facility] Comment on above: Result Comment: The [place] Diabetes [employer] (ADA) provides guidance for cutoff values for fasting glucose and random glucose. The ADA defines fasting as no caloric intake for at least 8 hours.Fasting plasma glucose results between 100 to 125 mg/dL indicate increased risk for diabetes (prediabetes). Fasting plasma glucose results greater than or equal to 126 mg/dL meet the criteria for diagnosis of diabetes. In the absence of unequivocal hyperglycemia, results should be confirmed by repeat testing. In a patient with classic symptoms of hyperglycemia or hyperglycemic crisis, random plasma glucose results greater than or equal to 200 mg/dL meet the criteria for diagnosis of diabetes. Reference: Standards of Medical Care in Diabetes 2016; Canadian Diabetes Association. Diabetes Care. 2016;39(Suppl 1). Performed By: #### P 14 #### [facility] [address] [place] [address] Potassium [Moles/Vol] 4.4 mmol/L Normal 3.7-5.1 [facility] Comment on above: Performed By: #### P 14 #### [facility] [address] [place], [place] [address] Sodium [Moles/Vol] 142 mmol/L Normal 136-144 [facility] Comment on above: Performed By: #### P 14 #### [facility] [address] [place], [place] [address] Urea nitrogen [Mass/Vol] 24 mg/dL Normal 9-24 [facility] Comment on above: Performed By: #### P 14 #### [facility] [address] [place], [place] [address] Hemogramon 11-26-2019 Erythrocyte distribution width (RBC) [Ratio] 12.2 % Normal 11.5-15.9 [facility] Comment on above: Performed By: #### P 14 #### [facility] [address] [place], [place] [address] Hematocrit (Bld) [Volume fraction] 36.2 % Low 42.0-52.0 [facility] Comment on above: Performed By: #### P 14 #### [address] [address] Hemoglobin (Bld) [Mass/Vol] 11.9 g/dL Low 14.0-18.0 [facility] Comment on above: Performed By: #### P 14 #### [facility] [address] [place] [address] MCH (RBC) [Entitic mass] 32.7 pg High 27.0-31.0 [facility] Comment on above: Performed By: #### P 14 #### [facility] [address] [place] [address] MCHC (RBC) [Mass/Vol] 32.9 % Normal 32.0-36.0 [facility] Comment on above: Performed By: #### P 14 #### [facility] [address] [place] [address] MCV (RBC) [Entitic vol] 99.5 fL High 80.0-94.0 [facility] Comment on above: Performed By: #### P 14 #### [facility] [address] [place] [address] Platelet mean volume (Bld) [Entitic vol] 11.4 fL High 7.1-10.5 [facility] Comment on above: Performed By: #### P 14 #### [facility] [address] [place] [address] Platelets (Bld) [#/Vol] 141 thou/cmm Low 150-400 [facility] Comment on above: Performed By: #### P 14 #### [facility] [address] [place] [address] RBC (Bld) [#/Vol] 3.64 mil/cmm Low 4.60-6.20 [facility] Comment on above: Performed By: #### P 14 #### [facility] [address] [place] [address] WBC (Bld) [#/Vol] 4.2 thou/cmm Low 4.8-10.5 [facility] Comment on above: Performed By: #### P 14 #### [facility] [address] [place] [address] MDRD eGFRon 11-26-2019 GFR/1.73 sq M predicted among non-blacks MDRD (S/P/Bld) [Vol rate/Area] 51.14 mL/min/{1.73_m2} Normal >60mL/min/1.7 3m2 [facility] Comment on above: Result Comment: If t he patient is , multiply the result by 1.210. Performed By: #### P 14 #### [facility] [address] [place] [address] Basic Panelon 08-24-2019 Anion gap [Moles/Vol] 9 mmol/L Normal 9-18 [facility] Comment on above: Performed By: #### P 14 #### [facility] [address] [place] [address] Calcium [Mass/Vol] 9.7 mg/dL Normal 8.5-10.2 [facility] Comment on above: Performed By: #### P 14 #### [facility] [address] [place] [address] Chloride [Moles/Vol] 107 mmol/L High 97-105 [facility] Comment on above: Performed By: #### P 14 #### [facility] [address] [place] [address] CO2 Blood 27 mmol/L Normal 22-30 [facility] Comment on above: Performed By: #### P 14 #### [facility] [address] [place], [place] [address] Creatinine [Mass/Vol] 1.36 mg/dL High 0.73-1.22 [facility] Comment on above: Performed By: #### P 14 #### [facility] [address] [place] [id number] Glucose [Mass/Vol] 110 mg/dL High 74-99 [facility] Comment on above: Result Comment: The Canadian Diabetes Association (ADA) provides guidance for cutoff values for fasting glucose and random glucose. The ADA defines fasting as no caloric intake for at least 8 hours.Fasting plasma glucose results between 100 to 125 mg/dL indicate increased risk for diabetes (prediabetes). Fasting plasma glucose results greater than or equal to 126 mg/dL meet the criteria for diagnosis of diabetes. In the absence of unequivocal hyperglycemia, results should be confirmed by repeat testing. In a patient with classic symptoms of hyperglycemia or hyperglycemic crisis, random plasma glucose results greater than or equal to 200 mg/dL meet the criteria for diagnosis of diabetes. Reference: Standards of Medical Care in Diabetes 2016; Canadian Diabetes Association. Diabetes Care. 2016;39(Suppl 1). Performed By: #### P 14 #### [facility] [address] [place], [place] [address] Potassium [Moles/Vol] 4.2 mmol/L Normal 3.7-5.1 [facility] Comment on above: Performed By: #### P 14 #### [facility] [address] [place], [place] [address] Sodium [Moles/Vol] 143 mmol/L Normal 136-144 [facility] Comment on above: Performed By: #### P 14 #### [facility] [address] [place] [address] Urea nitrogen [Mass/Vol] 22 mg/dL Normal 9-24 [facility] Comment on above: Performed By: #### P 14 #### [facility] [address] [place] [address] Hemogramon 08-24-2019 Erythrocyte distribution width (RBC) [Ratio] 12.1 % Normal 11.5-15.9 [facility] Comment on above: Performed By: #### P 14 #### [facility] [address] [place] [address] Hematocrit (Bld) [Volume fraction] 37.6 % Low 42.0-52.0 [facility] Comment on above: Performed By: #### P 14 #### [facility] [address] [place], [place] [address] Hemoglobin (Bld) [Mass/Vol] 12.4 g/dL Low 14.0-18.0 [facility] Comment on above: Performed By: #### P 14 #### [facility] [address] [place], [place] [address] MCH (RBC) [Entitic mass] 32.5 pg High 27.0-31.0 [facility] Comment on above: Performed By: #### P 14 #### [address] [address] MCHC (RBC) [Mass/Vol] 33.0 % Normal 32.0-36.0 [facility] Comment on above: Performed By: #### P 14 #### [facility] [address] [place] [address] MCV (RBC) [Entitic vol] 98.7 fL High 80.0-94.0 [facility] Comment on above: Performed By: #### P 14 #### [facility] [address] [place] [address] Platelet mean volume (Bld) [Entitic vol] 11.1 fL High 7.1-10.5 [facility] Comment on above: Performed By: #### P 14 #### [place] [address] Platelets (Bld) [#/Vol] 151 thou/cmm Normal 150-400 [facility] Comment on above: Performed By: #### P 14 #### [place] [address] RBC (Bld) [#/Vol] 3.81 mil/cmm Low 4.60-6.20 [facility] Comment on above: Performed By: #### P 14 #### [place] [address] WBC (Bld) [#/Vol] 4.0 thou/cmm Low 4.8-10.5 [facility] Comment on above: Performed By: #### P 14 #### [place] [address] Basic Panelon 04-12-2019 Creatinine [Mass/Vol] 1.31 mg/dL High 0.67-1.17 [facility] Comment on above: Performed By: #### P 14 #### [place] [address] Anion gap [Moles/Vol] 8 mmol/L Normal 8-16 [facility] Comment on above: Performed By: #### P 14 #### [facility] [address] [place], [place] [address] Calcium [Mass/Vol] 9.4 mg/dL Normal 8.5-10.1 [facility] Comment on above: Performed By: #### P 14 #### [facility] [address] [place], [place] [address] CO2 [Moles/Vol] 28 mmol/L Normal 21-32 [facility] Comment on above: Performed By: #### P 14 #### [facility] [address] [place], [place] [address] Glucose [Mass/Vol] 92 mg/dL Normal 70-99 [facility] Comment on above: Performed By: #### P 14 #### [facility] [address] [place], [place] [address] Urea nitrogen [Mass/Vol] 23 mg/dL High 7-18 [facility] Comment on above: Performed By: #### P 14 #### [facility] [address] [place], [place] [address] Chloride [Moles/Vol] 111 mmol/L High 98-107 [facility] Comment on above: Performed By: #### P 14 #### [facility] [address] [place], [place] [address] Potassium [Moles/Vol] 4.8 mmol/L Normal 3.5-5.1 [facility] Comment on above: Performed By: #### P 14 #### [facility] [address] [place], [place] [address] Sodium [Moles/Vol] 142 mmol/L Normal 136-145 [facility] Comment on above: Performed By: #### P 14 #### [facility] [address] [place], [place] [address] Hemogramon 04-12-2019 Erythrocyte distribution width (RBC) [Ratio] 12.0 % Normal 11.5-15.9 [facility] Comment on above: Performed By: #### P 14 #### [facility] [address] [place], [place] [address] Hematocrit (Bld) [Volume fraction] 33.9 % Low 42.0-52.0 [facility] Comment on above: Performed By: #### P 14 #### [facility] [address] [place] [address] Hemoglobin (Bld) [Mass/Vol] 11.3 g/dL Low 14.0-18.0 [facility] Comment on above: Performed By: #### P 14 #### [facility] [address] [place] [address] MCH (RBC) [Entitic mass] 32.5 pg High 27.0-31.0 [facility] Comment on above: Performed By: #### P 14 #### [facility] [address] [place] [address] MCHC (RBC) [Mass/Vol] 33.3 % Normal 32.0-36.0 [facility] Comment on above: Performed By: #### P 14 #### [place] [address] MCV (RBC) [Entitic vol] 97.4 fL High 80.0-94.0 [facility] Comment on above: Performed By: #### P 14 #### [place] [address] Platelet mean volume (Bld) [Entitic vol] 10.2 fL Normal 7.1-10.5 [facility] Comment on above: Performed By: #### P 14 #### [place] [address] Platelets (Bld) [#/Vol] 165 thou/cmm Normal 150-400 [facility] Comment on above: Performed By: #### P 14 #### [facility] [address] [place] [address] RBC (Bld) [#/Vol] 3.48 mil/cmm Low 4.60-6.20 [facility] Comment on above: Performed By: #### P 14 #### [facility] [address] [place] [address] WBC (Bld) [#/Vol] 3.6 thou/cmm Low 4.8-10.5 [facility] Comment on above: Performed By: #### P 14 #### [place] [address] MDRD GFRon 04-12-2019 GFR/1.73 sq M predicted among non-blacks MDRD (S/P/Bld) [Vol rate/Area] 52.90 mL/min/{1.73_m2} Normal >60mL/min/1.7 3m2 [facility] Comment on above: Result Comment: If t he patient is , multiply the result by 1.210. Performed By: #### P 14 #### [place] [address] PTH, Intacton 02-09-2019 PTH, Intact 68.3 pg/mL Normal 18.5-88.0 [facility] Comment on above: Performed By: #### P 14 #### [place] [address] Total 25-OH Vitamin Don 01-29 Total 25-OH Vitamin D 48.0 ng/mL Normal 30.0-100.0 [facility] Comment on above: Performed By: #### 2 5VD1 #### [place] [address] MDRD GFRon 02-08-2019 GFR/1.73 sq M predicted among non-blacks MDRD (S/P/Bld) [Vol rate/Area] 47.45 mL/min/{1.73_m2} Normal >60mL/min/1.7 2 [facility] Comment on above: Result Comment: If t he patient is , multiply the result by 1.210. Performed By: #### G FR #### [place] [address] Microalb/Creat, Randomon MA/Creat Ratio 4.14 mg/g Normal 0.10-30.00 [facility] Comment on above: Performed By: #### M ALBR #### [place] [address] Microalbumin,Random 0.55 mg/dL Normal 0.20-2.50 [facility] Comment on above: Performed By: #### M ALBR #### [place] [address] Creatinine,Urine 133.0 mg/dL Normal [facility] Comment on above: Performed By: #### M ALBR #### [facility] [address] [place], [place] [address] Renal Panelon 02-08-2019 Phosphate [Mass/Vol] 2.8 mg/dL Normal 2.5-4.9 [facility] Comment on above: Performed By: #### R ENAL #### [facility] [address] [place], [place] [address] Creatinine [Mass/Vol] 1.44 mg/dL High 0.67-1.17 [facility] Comment on above: Performed By: #### R ENAL #### [address] [address] Albumin [Mass/Vol] 3.5 g/dL Normal 3.4-5.0 [facility] Comment on above: Performed By: #### R ENAL #### [place] [address] Anion gap [Moles/Vol] 9 mmol/L Normal 8-16 [facility] Comment on above: Performed By: #### R ENAL #### [place] [address] CO2 [Moles/Vol] 26 mmol/L Normal 21-32 [facility] Comment on above: Performed By: #### R ENAL #### [address] [address] Glucose [Mass/Vol] 95 mg/dL Normal 70-99 [facility] Comment on above: Performed By: #### R ENAL #### [facility] [address] [place], [place] [address] Urea nitrogen [Mass/Vol] 25 mg/dL High 7-18 [facility] Comment on above: Performed By: #### R ENAL #### [place] [address] Calcium [Mass/Vol] 9.3 mg/dL Normal 8.5-10.1 [facility] Comment on above: Performed By: #### R ENAL #### [address] [place], [place] [address] Chloride [Moles/Vol] 109 mmol/L High 98-107 [facility] Comment on above: Performed By: #### R ENAL #### [facility] [address] [place] [address] Potassium [Moles/Vol] 4.1 mmol/L Normal 3.5-5.1 [facility] Comment on above: Performed By: #### R ENAL #### [facility] [address] [place] [address] Sodium [Moles/Vol] 140 mmol/L Normal 136-145 [facility] Comment on above: Performed By: #### R ENAL #### [facility] [address] [place] [address] Urinalysis Routineon 019 Appearance (U) CLEAR Normal [facility] Comment on above: Performed By: #### L URIN #### [place] [address] Bilirubin Urine Negative Normal Negative [facility] Comment on above: Performed By: #### L URIN #### [place] [address] Color (U) YELLOW Normal [facility] Comment on above: Performed By: #### L URIN #### [place] [address] Ep Cells Urine NONE Normal 0-5 [facility] Comment on above: Performed By: #### L URIN #### [place] [address] Glucose Ql (U) Negative Normal Negative [facility] Comment on above: Performed By: #### L URIN #### [place] [address] Hemoglobin,Urine Negative Normal Negative [facility] Comment on above: Performed By: #### L URIN #### [place] [address] Ketone Urine Negative Normal Negative [facility] Comment on above: Performed By: #### L URIN #### [address], [place] [address] Leukocytes Esterase Negative Normal Negative [facility] Comment on above: Performed By: #### L URIN #### [place] [address] Mucus Threads FEW Normal None [facility] Comment on above: Performed By: #### L URIN #### [place] [address] Nitrites Urine Negative Normal Negative [facility] Comment on above: Performed By: #### L URIN #### [place] [address] pH (U) 5.5 [pH] Normal 5.0-8.0 [facility] Comment on above: Performed By: #### L URIN #### [place] [address] Protein (U) [Mass/Vol] Negative Normal Negative [facility] Comment on above: Performed By: #### L URIN #### [place] [address] RBC LM.HPF (Urine sed) [#/Area] NONE Normal 0-3 [facility] Comment on above: Performed By: #### L URIN #### [place] [address] Specific Bryant, Ur 1.015 Normal 1.005-1.030 [facility] Comment on above: Performed By: #### L URIN #### [place] [address] Urobilinogen,Ur 0.2 EU/dL Normal 0.2-1.0 [facility] Comment on above: Performed By: #### L URIN #### [place] [address] WBC LM.HPF (Urine sed) [#/Area] NONE Normal 0-5 [facility] Comment on above: Performed By: #### L URIN #### [place] [address] CT CHEST WO IVCONon 01-12-[address] CHEST WO IVCON * * *Final Report* * * DATE OF EXAM: Jan 11 2019 1:16PM [facility] 0541 - CT CHEST WO IVCON / PROCEDURE REASON: multiple diagnoses * * * * Physician Interpretation * * * * EXAMINATION: CHEST CT WITHOUT CONTRAST CLINICAL HISTORY: Lung nodules SOB (shortness of breath) Technique: Spiral CT acquisition of the chest from the thoracic inlet to the upper abdomen without contrast. MQ: [id number] CT Dose-Length Product: 66.96 mGy*cm CT Dose Reduction Employed: mAs-kVp adjusted based on patient size-age Comparison: CTA of the abdomen 04/07/2018 and prior studies RESULT: Limitations: Low dose technique and associated quantum mottle degrades the evaluation of mediastinal structures. Lines, tubes, and devices: None. Lung parenchyma and pleura: Moderate apical predominant centrilobular emphysema. No consolidation. No pleural effusion. Central airways are patent. Unchanged 0.4 cm nodule in the posterior right upper lobe (2, 154) Few punctate calcified granulomas in the posterior right lung base. Mild subsegmental endobronchial calcifications in the superior lingula, unchanged. Stable 0.5 cm fissural nodule in the right middle lobe (2, 235) Thoracic inlet, heart, and mediastinum: No lymphadenopathy in the axillary, mediastinal, or hilar regions. The ascending aorta and main pulmonary artery are normal in caliber. 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 Mild atherosclerotic calcifications throughout. The cardiac chambers are normal in size. Diffuse coronary artery calcifications. No pericardial effusion or thickening. Bones and soft tissues: Degenerative changes of the thoracic spine with multilevel intervertebral disc herniation. Chest wall is unremarkable. Upper abdomen: No acute abnormality in the imaged upper abdomen. Unchanged 2.6 cm cyst in the superior left renal pole. IMPRESSION: 1. Two pulmonary nodules <0.6 cm, unchanged since 06/2016. 2. Moderate apical predominant centrilobular emphysema . No consolidation or pleural effusion. 3. Diffuse coronary artery calcifications. Circular Saw Edge Fuser: [id number] Transcribe Date/Time: Jan 12 2019 12:10P Dictated by : MYRA BRITO MD This examination was interpreted and the report reviewed and electronically signed by: MYRA BRITO MD on Jan 12 2019 12:25PM EST Normal [facility] Comprehensive Panelon 2018 ALP [Catalytic activity/Vol] 78 U/L Normal 45-117 [facility] Comment on above: Performed By: #### P 14 #### [facility] [address] [place], [place] [address] Bilirubin [Mass/Vol] 0.5 mg/dL Normal 0.2-1.0 [facility] Comment on above: Performed By: #### P 14 #### [facility] [address] [place], [place] [address] Protein [Mass/Vol] 6.7 g/dL Normal 6.4-8.2 [facility] Comment on above: Performed By: #### P 14 #### [facility] [address] [place], [place] [address] ALT [Catalytic activity/Vol] 23 U/L Normal 12-78 [facility] Comment on above: Performed By: #### P 14 #### [facility] [address] [place], [place] [address] AST [Catalytic activity/Vol] 22 U/L Normal 15-37 [facility] Comment on above: Performed By: #### P 14 #### [facility] [address] [place], [place] [address] Creatinine [Mass/Vol] 1.36 mg/dL High 0.67-1.17 [facility] Comment on above: Performed By: #### P 14 #### [facility] [address] [place], [place] [address] Anion gap [Moles/Vol] 9 mmol/L Normal 8-16 [facility] Comment on above: Performed By: #### P 14 #### [facility] [address] [place], [place] [address] CO2 [Moles/Vol] 27 mmol/L Normal 21-32 [facility] Comment on above: Performed By: #### P 14 #### [facility] [address] [place], [place] [address] Albumin [Mass/Vol] 3.6 g/dL Normal 3.4-5.0 [facility] Comment on above: Performed By: #### P 14 #### [facility] [address] [place], [place] [address] Calcium [Mass/Vol] 9.3 mg/dL Normal 8.5-10.1 [facility] Comment on above: Performed By: #### P 14 #### [facility] [address] [place], [place] [address] Glucose [Mass/Vol] 96 mg/dL Normal 70-99 [facility] Comment on above: Performed By: #### P 14 #### [facility] [address] [place], [place] [address] Urea nitrogen [Mass/Vol] 23 mg/dL High 7-18 [facility] Comment on above: Performed By: #### P 14 #### [facility] [address] [place], [place] [address] Chloride [Moles/Vol] 110 mmol/L High 98-107 [facility] Comment on above: Performed By: #### P 14 #### [facility] [address] [place], [place] [address] Potassium [Moles/Vol] 4.4 mmol/L Normal 3.5-5.1 [facility] Comment on above: Performed By: #### P 14 #### [facility] [address] [place], [place] [address] Sodium [Moles/Vol] 142 mmol/L Normal 136-145 [facility] Comment on above: Performed By: #### P 14 #### [facility] [address] [place], [place] [address] Hemogramon 01-04-2019 Erythrocyte distribution width (RBC) [Ratio] 12.5 % Normal 11.5-15.9 [facility] Comment on above: Performed By: #### L CBC #### [facility] [address] [place], [place] [address] Hematocrit (Bld) [Volume fraction] 35.1 % Low 42.0-52.0 [facility] Comment on above: Performed By: #### L CBC #### [facility] [address] [place], [place] [address] Hemoglobin (Bld) [Mass/Vol] 11.7 g/dL Low 14.0-18.0 [facility] Comment on above: Performed By: #### L CBC #### [facility] [address] [place], [place] [address] MCH (RBC) [Entitic mass] 33.1 pg High 27.0-31.0 [facility] Comment on above: Performed By: #### L CBC #### [facility] [address] [place], [place] [address] MCHC (RBC) [Mass/Vol] 33.3 % Normal 32.0-36.0 [facility] Comment on above: Performed By: #### L CBC #### [facility] [address] [place] [address] MCV (RBC) [Entitic vol] 99.2 fL High 80.0-94.0 [facility] Comment on above: Performed By: #### L CBC #### [facility] [address] [place] [address] Platelet mean volume (Bld) [Entitic vol] 11.1 fL High 7.1-10.5 [facility] Comment on above: Performed By: #### L CBC #### [facility] [address] [place] [address] Platelets (Bld) [#/Vol] 158 thou/cmm Normal 150-400 [facility] Comment on above: Performed By: #### L CBC #### [facility] [address] [place] [address] RBC (Bld) [#/Vol] 3.54 mil/cmm Low 4.60-6.20 [facility] Comment on above: Performed By: #### L CBC #### [facility] [address] [place] [address] WBC (Bld) [#/Vol] 3.3 thou/cmm Low 4.8-10.5 [facility] Comment on above: Performed By: #### L CBC #### [facility] [address] [place] [address] MDRD GFRon 01-04-2019 GFR/1.73 sq M predicted among non-blacks MDRD (S/P/Bld) [Vol rate/Area] 50.70 mL/min/{1.73_m2} Normal >60mL/min/1.7 3m2 [facility] Comment on above: Result Comment: If t he patient is , multiply the result by 1.210. Performed By: #### G FR #### [facility] [address] [place] [address] Vitamin B12on 01-04-2019 Cobalamin (Vitamin B12) [Mass/Vol] 371 pg/mL Normal 193-986 [facility] Comment on above: Performed By: #### B 12 #### [facility] [address] [place] [address] CNCOon 06-02-2018 CNCO Letter Text Normal [facility] Basic Metabolic Panlon 05-28 Anion gap molar conc 10 mmol/L Normal 9-18 [facility] Comment on above: Performed By: #### T SH #### [facility] [address] [place] [address] Calcium mass conc 9.0 mg/dL Normal 8.5-10.2 [facility] Comment on above: Performed By: #### T SH #### [facility] [address] [place] [address] Chloride molar conc 110 mmol/L High 97-105 [facility] Comment on above: Performed By: #### T SH #### [facility] [address] [place] [address] CO2 molar conc 21 mmol/L Low 22-30 [facility] Comment on above: Performed By: #### T SH #### [facility] [address] [place] [address] Creatinine mass conc 1.17 mg/dL Normal 0.73-1.22 [facility] Comment on above: Performed By: #### T SH #### [facility] [address] [place] [address] eGFR- Amer. >60 Normal [facility] Comment on above: Performed By: #### T SH #### [facility] [address] [place] [address] GFR/1.73 sq M predicted among non-blacks MDRD vol rate/area (S/P/Bld) mL/min/{1.73_m2} Normal [facility] Comment on above: Result Comment: eGFR (Estimated GFR) Units of measure: mL/min/1.73 meters squared eGFR is derived from the reexpressed MDRD Study equation using the following parameters: serum creatinine, age, gender and race. The creatinine assay has been calibrated to be traceable to IDMS. An eGFR <60 mL/min/1.73m2 for >3 months is consistent with chronic kidney disease. Refer to KDOQI guidelines for clinical interpretation. In patients with unstable renal function, e.g. those with acute kidney injury, the eGFR may not accurately reflect actual GFR. Performed By: #### T SH #### [facility] [address] Glucose mass conc 106 mg/dL High 74-99 [facility] Comment on above: Result Comment: The Canadian Diabetes Association (ADA) provides guidance for cutoff values for fasting glucose and random glucose. The ADA defines fasting as no caloric intake for at least 8 hours. Fasting plasma glucose results between 100 to 125 mg/dL indicate increased risk for diabetes (prediabetes). Fasting plasma glucose results greater than or equal to 126 mg/dL meet the criteria for diagnosis of diabetes. In the absence of unequivocal hyperglycemia, results should be confirmed by repeat testing. In a patient with classic symptoms of hyperglycemia or hyperglycemic crisis, random plasma glucose results greater than or equal to 200 mg/dL meet the criteria for diagnosis of diabetes. Reference: Standards of Medical Care in Diabetes 2016, Canadian Diabetes Association. Diabetes Care. 2016.39(Suppl 1). Performed By: #### T SH #### [facility] [address] [place], [place] [id number] Potassium molar conc 3.8 mmol/L Normal 3.7-5.1 [facility] Comment on above: Performed By: #### T SH #### [facility] [address] [place] [phone] Sodium molar conc 141 mmol/L Normal 136-144 [facility] Comment on above: Performed By: #### T SH #### [facility] [address] Urea nitrogen mass conc 22 mg/dL Normal 9-24 [facility] Comment on above: Performed By: #### T SH #### [facility] [address] CASE MANAGEMon 05-28-2018 CASE MANAGEM HNO ID: [id number] Author: Cami (Rn) Brittany RN Service: Care Management Author Type: Registered Nurse Type: Care Mgt Progress Note Filed: 05/28/2018 10:15 AM Note Text: CARE MANAGEMENT DISCHARGE NOTE SERVICE DATE: 05/28/2018 SERVICE TIME: 10:13 AM LOS: 1 day Admission Date: 05/25/2018 DISCHARGE ARRANGEMENT (list agency and phone number) Home CAREGIVER ASSESSMENT: Caregiver is ready, willing and able to meet the patient's needs as recommended by the inter-professional team? Yes Patient's transition needs and plan for meeting these needs: Returning to home with supportive family and follow-up appointment(s) with physician(s). Does the patient have an acute stroke diagnosis, or has the patient had a stroke during this admission? No HANDOFF COMMUNICATION: Via Summary of Care at Discharge to: Shannon Cordova DO? PCP - General Family Practice [phone] [place] [address] [place] [address] TRANSPORTATION ARRANGEMENTS: Car via ADDITIONAL CONTACT RESOURCES: Tanisha Price ([facility]) [phone] (D) Discharge Information Row Name Admission (Current) from 05/25/2018 in [facility] Observation Medical Follow-Up Appointment Specialty PCP Provider Name Shannon Cordova DO Address [address] [place], [place] [id number] Appointment Date 06/04/18 Appointment Time 2:05PM Additonal Instructions Patient should bring the following to appointment: Picture ID, Insurance Card, Copay (if applicable), Medications/Medication List. Please provide a minimum of 24 hours' notice for cancelations/reschedulin g. Needs Prior to Discharge: Ready for Discharge IM letter given to patient and on May 28, 2018. SIGNATURE: JUANY Avila, RN, ACM-RN PATIENT NAME: Nancy Price DATE: May 28, 2018 TIME: 10:13 AM PAGER/CONTACT #: [phone] Normal [facility] CBCon 05-28-2018 Erythrocyte distribution width Ratio (RBC) 12.5 % Normal 11.5-15.0 [facility] Comment on above: Performed By: #### T SH #### [facility] [address] [place] [address] Hematocrit Volume Fraction (Bld) 30.5 % Low 39.0-51.0 [facility] Comment on above: Performed By: #### T SH #### [facility] [address] [place] [address] Hemoglobin mass conc (Bld) 10.0 g/dL Low 13.0-17.0 [facility] Comment on above: Performed By: #### T SH #### [facility] [address] [place] [address] MCH Entitic mass (RBC) 31.6 pG Normal 26.0-34.0 [facility] Comment on above: Performed By: #### T SH #### [facility] [address] [place] [address] MCHC mass conc (RBC) 32.8 g/dL Normal 30.5-36.0 [facility] Comment on above: Performed By: #### T SH #### [facility] [address] [place] [address] MCV Entitic volume (RBC) 96.5 fL Normal 80.0-100.0 [facility] Comment on above: Performed By: #### T SH #### [facility] [address] [place] [address] Platelet mean volume Entitic volume (Bld) 11.6 fL Normal 9.0-12.7 [facility] Comment on above: Performed By: #### T SH #### [facility] [address] [place] [address] Platelets #/vol (Bld) 91 10*3/uL Low 150-400 [facility] Comment on above: Performed By: #### T SH #### [facility] [address] [place] [address] RBC #/vol (Bld) 3.16 10*6/uL Low 4.20-6.00 [facility] Comment on above: Performed By: #### T SH #### [facility] [address] [place] [address] WBC #/vol (Bld) 3.46 10*3/uL Low 3.70-11.00 [facility] Comment on above: Performed By: #### T SH #### [facility] [address] [place] [address] Magnesiumon 05-28-2018 Magnesium mass conc 1.9 mg/dL Normal 1.7-2.3 [facility] Comment on above: Performed By: #### T #### [facility] 1000 [facility] [phone] NURSING PROGon 05-28-2018 Protein mass conc HNO ID: [id number] Author: Romulo Bower) ANNA Munoz Service: (none) Author Type: Registered Nurse Type: Nursing Progress Note Filed: 05/28/2018 10:11 AM Note Text: Nursing Progress Note Patient Name: Nancy Price Patient Location: [place] [address] [address] Daily Note: Dr Hernandez vs-discharge written. HL removed intact 1005-Discharge instructions reviewed with patient AND spouse with adequate knowledge-home meds returned 1020-Off floor via w/c This note was completed by: Romulo Munoz RN [facility] THERAPY NTon 05-28-2018 THERAPY NT HNO ID: [id number] Author: Ct Blake Service: Occupational Therapy Author Type: Occupational Therapist Type: Therapy (PT/OT/Speech/Resp) Filed: 05/28/2018 9:57 AM Note Text: OCCUPATIONAL THERAPY MISSED VISIT SERVICE DATE: 05/28/2018 SERVICE TIME: 947 to 950 ROOM: [place] [address] Attempted Evaluation. Patient with active discharge orders. Spoke with patient and spouse, pt was up ad gary and fully dressed to go home. Patient and spouse educated in role of OT in hospital setting. Pt and spouse report no skilled OT needs at this time. Please feel free to re-order if medical or discharge status changes. SIGNATURE: Ct Blake OTR/L PATIENT NAME: Nancy Price DATE: May 28, 2018 TIME: 9:55 AM [facility] Basic Metabolic Panlon 05-27 Anion gap molar conc 7 mmol/L Low 12-16 [facility] Comment on above: Performed By: #### T NT #### [facility] [address] [place] [phone] Calcium mass conc 8.6 mg/dL Normal 8.5-10.2 [facility] Comment on above: Performed By: #### T NT #### [facility] [address] [place] [address] Chloride molar conc 108 mmol/L High 97-105 [facility] Comment on above: Performed By: #### T NT #### [facility] [address] [place] [address] CO2 molar conc 24 mmol/L Normal 22-30 [facility] Comment on above: Performed By: #### T NT #### [facility] [address] [place] [address] Creatinine mass conc 1.29 mg/dL High 0.73-1.22 [facility] Comment on above: Performed By: #### T NT #### [facility] [address] [place] [address] eGFR- Amer. >60 Normal [facility] Comment on above: Performed By: #### T NT #### [facility] [address] [place] [address] GFR/1.73 sq M predicted among non-blacks MDRD vol rate/area (S/P/Bld) 54 . Normal [facility] Comment on above: Result Comment: eGFR (Estimated GFR) Units of measure: mL/min/1.73 meters squared eGFR is derived from the reexpressed MDRD Study equation using the following parameters: serum creatinine, age, gender and race. The creatinine assay has been calibrated to be traceable to IDMS. An eGFR <60 mL/min/1.73m2 for >3 months is consistent with chronic kidney disease. Refer to KDOQI guidelines for clinical interpretation. In patients with unstable renal function, e.g. those with acute kidney injury, the eGFR may not accurately reflect actual GFR. Performed By: #### T NT #### [facility] [address] [place] [phone] Glucose mass conc 119 mg/dL High 74-99 [facility] Comment on above: Result Comment: The Canadian Diabetes Association (ADA) provides guidance for cutoff values for fasting glucose and random glucose. The ADA defines fasting as no caloric intake for at least 8 hours. Fasting plasma glucose results between 100 to 125 mg/dL indicate increased risk for diabetes (prediabetes). Fasting plasma glucose results greater than or equal to 126 mg/dL meet the criteria for diagnosis of diabetes. In the absence of unequivocal hyperglycemia, results should be confirmed by repeat testing. In a patient with classic symptoms of hyperglycemia or hyperglycemic crisis, random plasma glucose results greater than or equal to 200 mg/dL meet the criteria for diagnosis of diabetes. Reference: Standards of Medical Care in Diabetes 2016, Canadian Diabetes Association. Diabetes Care. 2016.39(Suppl 1). Performed By: #### T NT #### [facility] [address] [place] [address] Potassium molar conc 3.7 mmol/L Normal 3.7-5.1 [facility] Comment on above: Performed By: #### T NT #### [facility] [address] [place] [address] Sodium molar conc 139 mmol/L Normal 136-144 [facility] Comment on above: Performed By: #### T NT #### [facility] [address] [place] [address] Urea nitrogen mass conc 20 mg/dL Normal 9-24 [facility] Comment on above: Performed By: #### T NT #### [facility] [address] [place] [address] CASE MANAGEMon 05-27-2018 CASE MANAGEM HNO ID: [id number] Author: Vannesa Schmidt (Sw) Service: (none) Author Type: Packing Clerk Type: Care Mgt Progress Note Filed: 05/27/2018 4:05 PM Note Text: CARE MANAGEMENT PROGRESS NOTE SERVICE DATE: 05/27/2018 SERVICE TIME: 4:00PM LOS: 0 days EMR reviewed and spoke with patient's nurse, Romulo. Patient feeling worse today and complains of dizziness. PT eval completed and recommend home with no needs. Continue to anticipate no skilled needs at d/c. SIGNATURE: DEX Chaves PATIENT NAME: Nancy Price DATE: May 27, 2018 TIME: 4:02 PM PAGER/CONTACT #: [phone] Normal [facility] CBCon 05-27-2018 Erythrocyte distribution width Ratio (RBC) 12.8 % Normal 11.5-15.0 [facility] Comment on above: Performed By: #### T NT #### [facility] [address] [place] [address] Hematocrit Volume Fraction (Bld) 32.5 % Low 39.0-51.0 [facility] Comment on above: Performed By: #### T NT #### [facility] [address] [place] [address] Hemoglobin mass conc (Bld) 10.7 g/dL Low 13.0-17.0 [facility] Comment on above: Performed By: #### T NT #### [facility] [address] [place] [address] MCH Entitic mass (RBC) 31.9 pG Normal 26.0-34.0 [facility] Comment on above: Performed By: #### T NT #### [facility] [address] [place] [address] MCHC mass conc (RBC) 32.9 g/dL Normal 30.5-36.0 [facility] Comment on above: Performed By: #### T NT #### [facility] [address] [place] [address] MCV Entitic volume (RBC) 97.0 fL Normal 80.0-100.0 [facility] Comment on above: Performed By: #### T NT #### [facility] [address] [place] [address] Platelet mean volume Entitic volume (Bld) 11.3 fL Normal 9.0-12.7 [facility] Comment on above: Performed By: #### T NT #### [facility] [address] [place] [address] Platelets #/vol (Bld) 93 10*3/uL Low 150-400 [facility] Comment on above: Performed By: #### T NT #### [facility] [address] [place] [address] RBC #/vol (Bld) 3.35 10*6/uL Low 4.20-6.00 [facility] Comment on above: Performed By: #### T NT #### [facility] [address] [place] [address] WBC #/vol (Bld) 3.45 10*3/uL Low 3.70-11.00 [facility] Comment on above: Performed By: #### T NT #### [facility] 1000 [facility] [phone] Magnesiumon 05-27-2018 Magnesium mass conc 1.9 mg/dL Normal 1.7-2.3 [facility] Comment on above: Performed By: #### T NT #### [facility] 1000 [facility] [phone] NURSING PROGon 05-27-2018 Protein mass conc HNO ID: [id number] Author: Romulo WileyRn) Alexander, ANNA Service: (none) Author Type: Registered Nurse Type: Nursing Progress Note Filed: 05/27/2018 5:17 PM Note Text: Nursing Progress Note Patient Name: Nancy Price Patient Location: [place] [address]/[id number] Daily Note: Isolation maintained for + Flu-denies any pain. IVFs maintained. Waiting on PT/OT to vs-enc to order diet. Up ad gary with a slow, steady gait-NEGATIVE orthostatic VS 0945-No chg in assessment-IVFs maintained. PT vs-resting in bed. Isolation maintained 1145-No chg in assessment-IVFs maintained. Resting in bed with family @ bedside-isolation maintained. 1345-No chg in assessment-IVFs maintained. Resting in bed with family @ bedside-anxious for discharge 1545-IVFs HL'd-started on PO Doxycycline. Spouse @ bedside-requesting to talk with Hospitalist. No chg in assessment-isolation maintained. Patient resting in bed-hospitalist paged x2. 3444-Patients status changed to INPATIENT This note was completed by: Romulo Munoz RN Normal [facility] Protein mass conc HNO ID: [id number] Author: Alexandra WileyRn) ANNA Pereyra Service: (none) Author Type: Registered Nurse Type: Nursing Progress Note Filed: 05/27/2018 5:54 AM Note Text: Nursing Progress Note Patient Name: Nancy Price Patient Location: [id number] Daily Note: 1900 resting without c/o's dizziness, headache. IVF infusing. States feels much better today. 2100 resting without c/o's dizziness/headache. IVF infusing. Afebrile. 2300 sleeping without c/o's dizziness, headache. IVF infusing. 0100 sleeping without c/o's dizziness, headache. IVF infusing. Afebrile. 0300 sleeping without c/o's dizziness, headache. IVF infusing. 0500 sleeping without c/o's dizziness, headache. IVF infusing. This note was completed by: Alexandra Pereyra RN [facility] PROGRESSon 05-27-2018 Protein mass conc HNO ID: [id number] Author: Maren Hernandez Service: Hospital Medicine Author Type: Physician Type: Progress Notes Filed: 05/27/2018 3:07 PM Note Text: SERVICE DATE: 05/27/2018 SERVICE TIME: 3:07 PM HOSPITAL MEDICINE PROGRESS NOTE NIGHT AND WEEKEND COVERAGE: Nights: Please contact pager [phone]. SUBJECTIVE Patient seen and examined. Feeling worse today. Still dizzy while getting out of bed. Feels a lot of pressure in sinuses and feels congestion. Did not walk much yet. OBJECTIVE BP 107/71 Pulse 66 Temp (Src) 97.9 (Oral) Resp 18 Ht 5' 9 (1.75m) Wt 169 lb 12.8 oz (77.0kg) SpO2 97% BMI 25.06 kg/(m2). Physical Exam Performed: GENERAL: Alert, no distress, cooperative SKIN: Skin color, texture, turgor normal. No rashes or lesions. EYES: PERRLA, EOMI EARS: External ears normal, canals clear NOSE: Nares normal. Septum midline. LUNGS: Lungs clear to auscultation, Good diaphragmatic excursion CARDIAC: Normal S1 and S2; no rubs, murmurs, or gallops ABDOMEN: Abdomen soft, non-tender, BS normal, No masses or organomegaly EXTREMITIES: Extremities normal, no deformities, edema, clubbing or skin discoloration. Good capillary refill., No ulcers NEURO: Cranial nerves II-XII intact , Grossly non-focal Lines, Drains, and Airways Line Peripheral 05/25/18 1542 Assessment Right Antecubital 20 Gauge 1 day Medications: Reviewed Diagnostic tests reviewed: Most recent imaging Most recent labs CBC: Recent Labs 05/27/18328 WBC 3.45* RBC 3.35* HB 10.7* HCT 32.5* PLT 93* MCV 97.0 MCH 31.9 MPV 11.3 Coags: No results for input(s): INR, APTT in the last 24 hours. Invalid input(s): PT BMP: Recent Labs 05/27/18328 NA 139 K 3.7 CHLOR 108* CO2 24 BUN 20 CREAT 1.29* GLUC 119* CMP: Recent Labs 05/27/18328 NA 139 K 3.7 CHLOR 108* CO2 24 BUN 20 CREAT 1.29* GLUC 119* CA 8.6 MG 1.9 ANION 7* Cardiac Enzymes: No results for input(s): CK, MB, CKMB, TROPT in the last 24 hours. Liver Function, Amylase, Lipase: No results for input(s): TPROT, ALB, ALT, AST, ALKPHOS, TBILI, AMYLASE, LIPASE, LACTATE in the last 24 hours. ASSESSMENT AND PLAN Assessment AND Plan, all Hosp Problems Active Hospital Problems as of 05/27/2018 Noted - Resolved A Syncope 05/25/2018 - Present Current Assessment AND Plan Patient continues to experience dizzy. Echo came back unremarkable. Patient symptoms improving but not back to normal. Encourage oral intake. Will discontinue fluids. PT / OT for evaluation. Continue on tele. B Influenza B 05/25/2018 - Present Current Assessment AND Plan Continue on tamifu to complete course. Acute sinusitis 05/27/2018 - Present Current Assessment AND Plan Symptoms worsening. Will start on doxy as patient allergic to penicillin. Monitor for response for 1 day. C Hypothyroidism, acquired 03/11/2017 - Present Current Assessment AND Plan Assessment: Symptoms controlled. TSH within normal limits. PLAN: -Continue current dosage. CKD (chronic kidney disease) stage 3, GFR 30-59 ml/min ([facility]) 07/08/2017 - Present Current Assessment AND Plan Assessment: Renal function stable, possibly secondary to dehydration. PLAN: -IV hydration -BMP daily Medication and Non-Pharmacologic VTE Prophylaxis/Anticoagulan ts 05/25/18 1530 pneumatic compression stockings (vt,oh) VTE Prophylaxis: VTE prophylaxis appropriate Plan of care discussed with: Patient and RN SIGNATURE: Maren Hernandez MD PATIENT NAME: Nancy Price DATE: May 27, 2018 TIME: 3:07 PM PAGER/CONTACT #: [facility] THERAPY NTon 05-27-2018 THERAPY NT HNO ID: [id number] Author: Nicole (Pt) Dana Service: Physical Therapy Author Type: Physical Therapist Type: Therapy (PT/OT/Speech/Resp) Filed: 05/27/2018 4:24 PM Note Text: Physical Therapy Evaluation SERVICE DATE: 05/27/2018 SERVICE TIME: 929 to 958 ROOM: [place] [address] Recommended Discharge Disposition: Home Recommended Discharge Disposition Comments: anticipate no home PT needs Anticipated Discharge Needs: Physical Assist at Home;Supervision at Home Physical Assist at Home for: Cleaning;Laundry;Meals;S hopping;Transportation (PRN) Supervision at Home due to: (for optimal safety) Recommended Discharge Equipment: No equipment needs anticipated PT Recommendations to Nursing: Ambulate without device;To bathroom;In halls;Transfer to/from chair;OOB for Meals;With assist of 1 person Device: (gait belt) PT 6 Clicks Score: 24 Precautions/Activity Restrictions: Fall Risk;Lines/Tubes/Drains ASSESSMENT : Patient presents with minimal decreased activity tolerance with SOB with impaired functional mobility impacting ability to perform functional mobility without caregiver assist. Patient pleasant and cooperative and demonstrates good follow through with cues/educaiton. Patient demonstrates mobility with SBA for bed mobility, transfers and amb without device however with noted SOB. Requires skilled PT for increasing strength/balance/toleran ce with functional progression to support safe home going. Patient Disposition at Start of Session: Call Santos in Reach;Other: See Comment (sitting EOB) Patient Disposition at End of Session: Call Santos in Reach;Other: See Comment (sitting EOB) Tolerated Full Session Physical Therapy Problem List: Safety Deficits;Impaired Self Care;Decreased Activity Tolerance;Functional Mobility Impairment Patient /Caregiver Goals: Go Home Goals for Plan of Care: Able to perform HEP with: Modified Independent (w handout for balance progression) Transfer supine to/from sit with: Independent (to safely transfer to EOB without bed adjustments) Transfer sit to/from stand with: Supervision Ambulate with: Stand By Assistance Distance: 200 feet for safe home navigation Device: (none) Ambulate up and down steps with: Stand By Assistance Number of steps: 3 steps to safely enter home Device: (LRAD) Goal: patient demonstrates good balance with functional progression to decrease risk of falls Progress Toward Goals: Progressing as expected Rehab Potential: Good PLAN: Treatment Frequency (times per week): 3 Current admission Treatment Interventions: Education;Self Care / Home Management;Energy Conservation Training;Joint Mobility;Strengthening;F unctional Mobility Training;Balance Training;Neuromuscular Re-education Plan of Care developed with: Patient TREATMENT INTERVENTIONS: Therapy Diagnosis: Reduced mobility-other Interventions Provided: Evaluation;Therapeutic Activity (47102);Gait Training (82847) $ Evaluation-Low (47864) Billed Units: 1 unit Therapeutic Activity (48481) Treatment Minutes: 10 1 unit Skilled Intervention(s): Instructed patient in sit to supine using safe, effective technique Instructed patient in supine to and from sit pushing with upper extremities to sit up Instruction in stand to sit technique with lower extremities touching chair/bed and reaching back for surface Instruction in sit to and from stand technique with proper hand placement and body positioning at edge of bed/chair Cues for posture and controlled breathing Extended time monitoring tolerance and vitals with position change and activity progression Education of benefit of mobility to prevent decline and work towards functional/home going goals. Education in use of call light to get up 100% of the time and to call immediately with any symptoms of lightheadedness/dizzness /nausea. Teach back education for use of call light Education in discharge recommendation and rationale - home no PT needs,PRN assist for IADL's Education regarding activity dosing. Gait Training (24522) Treatment Minutes: 4 0 units Skilled Intervention(s): Instruction in sequencing, gait pattern, Instruction in correction of gait deviations, Instruction in use of equipment, cues for sequence and pattern and cues for controlled breathing with mobility progression and with SOB Education to not lean on IV pole for amb and either without device or with cane/FWW if needed as patient will not be able to use IV pole at home Total Timed Code Treatment Minutes: 14 Total Treatment Time (minutes): 29 SUBJECTIVE: Current Hospital Course: Chart reviewed; Patient is a 78 year old male Reason for Physical Therapy Consult : Patient presents with syncope and admitted for observation 05/25/18 with admission Dx:syncope and referred to PT for safety assessment Relevant Past Medical History: anemia,cervical spondylosis,chronic obstructive lung disease,foot joint pain,hiatal hernia,leukopenia,neck pain,shoulder pain left Patient Report: Patient agreeable to PT, cleared for mobility by nursing. Denies lightheadedness/dizzines s/nausea throughout however noted SOB/JOSHUA. Home Environment Patient Lives With: Spouse Assistance Available: 24 Hour Entry To Home: Stairs;Without Rail Number Of Stairs Into Home: 2 Number Of Stairs To Bed/Bath: 0 Tub/Shower Type: tub/shower and walk in tub Laundry: main level laundry Equipment Owned: [employer] Bars-Shower;Shower Chair Prior Functional Level: Within Functional Limits Prior Functional Level Comments: Patient ind with amb without device, ADL and IADL's. denies falls,+drives OBJECTIVE: Range of Motion: WFL Strength: WFL CURRENT FUNCTIONAL STATUS: Current Functional Mobility Assist Level Additional Information Rolling Supine to Sit Stand By Assistance (HOB flat, no rail use) Sit to Supine Stand By Assistance (HOB flat, no rail use) Scooting Stand By Assistance (in sitting, fwd/retro at EOB) Sit to Stand Stand By Assistance (from lowered EOB without device) Stand to Sit Stand By Assistance (to lowered EOB without device) Bed to Chair Toilet/Commode Gait Contact Guard Assistance (with quick progression to SBA) Gait Device: None Gait Distance (feet): 120 x 1 Stairs Curb Step Car Transfer *Gait belt donned prior to OOB activity and ambulation Balance: Static Sitting;Dynamic Sitting;Static Standing;Dynamic Standing Static Sitting Balance: Independent Dynamic Sitting Balance: Modified Independent Static Standing Balance: Stand By Assistance Dynamic Standing Balance: Stand By Assistance -M: 7: Walk 25 feet or more Please see discipline specific clinical documentation flowsheet for complete details for this therapy evaluation/treatment. SIGNATURE: Nicole Cortez PT PATIENT NAME: Nancy Price DATE: May 27, 2018 TIME: 4:18 PM [facility] Basic Metabolic Panlon 02-26 -2019 Anion gap molar conc 7 mmol/L Low 9-18 [facility] Comment on above: Performed By: #### C BC, BMP, MG1 #### [facility] [address] [address] Calcium mass conc 9.0 mg/dL Normal 8.5-10.2 [facility] Comment on above: Performed By: #### C BC, BMP, MG1 #### [facility] [address] [address] Chloride molar conc 103 mmol/L Normal 97-105 [facility] Comment on above: Performed By: #### C BC, BMP, MG1 #### [facility] [address] [address] CO2 molar conc 24 mmol/L Normal 22-30 [facility] Comment on above: Performed By: #### C BC, BMP, MG1 #### [facility] [address] [address] Creatinine mass conc 1.58 mg/dL High 0.73-1.22 [facility] Comment on above: Performed By: #### C BC, BMP, MG1 #### [facility] [address] [address] eGFR- Amer. 52 Normal [facility] Comment on above: Performed By: #### C BC, BMP, MG1 #### [facility] [address] [place] [address] GFR/1.73 sq M predicted among non-blacks MDRD vol rate/area (S/P/Bld) 43 . Normal [facility] Comment on above: Result Comment: eGFR (Estimated GFR) Units of measure: mL/min/1.73 meters squared eGFR is derived from the reexpressed MDRD Study equation using the following parameters: serum creatinine, age, gender and race. The creatinine assay has been calibrated to be traceable to IDMS. An eGFR <60 mL/min/1.73m2 for >3 months is consistent with chronic kidney disease. Refer to KDOQI guidelines for clinical interpretation. In patients with unstable renal function, e.g. those with acute kidney injury, the eGFR may not accurately reflect actual GFR. Performed By: #### C BC, BMP, MG1 #### [facility] [address] [address] Glucose mass conc 100 mg/dL High 74-99 [facility] Comment on above: Result Comment: The [place] Diabetes Association (ADA) provides guidance for cutoff values for fasting glucose and random glucose. The ADA defines fasting as no caloric intake for at least 8 hours. Fasting plasma glucose results between 100 to 125 mg/dL indicate increased risk for diabetes (prediabetes). Fasting plasma glucose results greater than or equal to 126 mg/dL meet the criteria for diagnosis of diabetes. In the absence of unequivocal hyperglycemia, results should be confirmed by repeat testing. In a patient with classic symptoms of hyperglycemia or hyperglycemic crisis, random plasma glucose results greater than or equal to 200 mg/dL meet the criteria for diagnosis of diabetes. Reference: Standards of Medical Care in Diabetes 2016, Canadian Diabetes Association. Diabetes Care. 2016.39(Suppl 1). Performed By: #### C BROOK NEWMAN, MG1 #### [facility] [address] [place] [address] Potassium molar conc 3.9 mmol/L Normal 3.7-5.1 [facility] Comment on above: Performed By: #### C PATY BMP, MG1 #### [facility] [address] [place] [address] Sodium molar conc 134 mmol/L Low 136-144 [facility] Comment on above: Performed By: #### C BC, BMP, MG1 #### [facility] [address] [place], [place] [id number] Urea nitrogen mass conc 33 mg/dL High 9-24 [facility] Comment on above: Performed By: #### C PATY BMP, MG1 #### [facility] [address] [place] [address] CASE MGT INIT DIEGOESon 2018 CASE MGT INIT ASSEL HNO ID: [id number] Author: Vannesa Schmidt (Sw) Service: (none) Author Type: Packing Clerk Type: Care Mgt Initial Assessment Filed: 05/26/2018 11:55 AM Note Text: CARE MANAGEMENT: ASSESSMENT AND DISCHARGE PLAN SERVICE DATE: 05/26/2018 SERVICE TIME: 11:30am PRIMARY CARE PHYSICIAN: Shannon Cordova DO - confirmed with patient ADMISSION STATUS: Observation Needs Prior to Discharge: None MEDICAL: Patient/Mate First Stated Goals: To have reduction in symptoms To return home to life as it was Health Insurance: MADDY VARGHESESweetie High [facility] [place] Health Issues Impacting Discharge Plan: Positive Flu B, COPD, CKD stage 3 Last Admission Date: Previous admit date: 08/23/2016 Is this Within the Past 30 days? No Advance Directive: Current Advance Directive: Health Care Power of Rod Greaser;Living Will In Chart: No Metal Fabricator Helper Attempted to Assist with AD Completion: Yes Action: Education Provided Health Literacy: 1. How often do you need to have someone help you when you read instructions, pamphlets, or other written material from your doctor or pharmacy? Never - 1 2. How confident are you filling out medical forms by yourself? Extremely - 1 If Patient scores > 3 on either question, the following interventions were put into place: Patient did not score > 3 FUNCTIONAL AND COGNITIVE/BEHAVIORAL PRIOR TO ADMISSION: Baseline Mental Status: Alert AND Oriented, Person, Place , Time and Situation Functional Status: Independent Does Patient Currently Receive Any Community Services or Home Care? None Equipment Prior to Admission: None Has the Patient Been in a [facility]sp Facility in the Past 30 days? No SOCIAL: Living Arrangement: Home Lives With: Spouse , daughter and grandchildren Financial Resources: . Primary Contact: Extended Emergency Contact Information Primary Emergency Contact: PriceTanisha Mobile Relation: Spouse Supportive: Yes Other Important Patient Contacts: None Caregiver Assessment: Caregiver is ready, willing and able to meet the patient's needs as recommended by the inter-professional team? No Caregiver Needed Patient's transition needs and plan for meeting these needs: Does the patient have an acute stroke diagnosis, or has the patient had a stroke during this admission? No Medication Adherence: I am convinced of the importance of my prescription medication: Agree completely - 0 I worry that my prescription medication will do more harm than good to me Disagree completely - 0 I feel financially burdened by my [id number] expenses for my prescription medication: Disagree completely - 0 Patient is categorized as low risk < 2 Are you interested in bedside delivery of your medications? No Food Concerns: In the Last Month, Have You had Trouble Getting Food? No trouble getting food During the Last Month, Have You Worried Whether Your Food Would Run Out Before You Had Enough Money to Buy More? No Is the Patient Psychosocially Complex? No ASSESSMENT AND PLAN: Medical Needs: None Psychosocial Needs: None FREEDOM OF CHOICE EXPLAINED: N/A POTENTIAL TRANSITION PLANS No Services Indicated IPTA. Lives with spouse and daughter and grandchildren. Anticipate no skilled needs at d/c. SIGNATURE: DEX Chaves PATIENT NAME: Nancy Price DATE: May 26, 2018 TIME: 11:45 AM PAGER/CONTACT #: [phone] Normal [facility] CBCon 05-26-2018 Erythrocyte distribution width Ratio (RBC) 12.9 % Normal 11.5-15.0 [facility] Comment on above: Performed By: #### C BROOK NEWMAN, MG1 #### [facility] [address] [address] Hematocrit Volume Fraction (Bld) 34.7 % Low 39.0-51.0 [facility] Comment on above: Performed By: #### C BROOK NEWMAN, MG1 #### [facility] [address] [place] [address] Hemoglobin mass conc (Bld) 11.4 g/dL Low 13.0-17.0 [facility] Comment on above: Performed By: #### C PATY BMP, MG1 #### [facility] [address] [place], [place] [id number] MCH Entitic mass (RBC) 32.0 pG Normal 26.0-34.0 [facility] Comment on above: Performed By: #### C PATY BMP, MG1 #### [facility] [address] [place] [address] MCHC mass conc (RBC) 32.9 g/dL Normal 30.5-36.0 [facility] Comment on above: Performed By: #### C PATY BMP, MG1 #### [facility] [address] [place], [place] [id number] MCV Entitic volume (RBC) 97.5 fL Normal 80.0-100.0 [facility] Comment on above: Performed By: #### C PATY BMP, MG1 #### [facility] [address] [place], [place] [id number] Platelet mean volume Entitic volume (Bld) 11.5 fL Normal 9.0-12.7 [facility] Comment on above: Performed By: #### C PATY BMP, MG1 #### [facility] [address] [place], [place] [id number] Platelets #/vol (Bld) 83 10*3/uL Low 150-400 [facility] Comment on above: Performed By: #### C BROOK NEWMAN, MG1 #### [facility] [address] [place], [place] [address] RBC #/vol (Bld) 3.56 10*6/uL Low 4.20-6.00 [facility] Comment on above: Performed By: #### C BROOK NEWMAN, MG1 #### [facility] [address] [place], [place] [address] WBC #/vol (Bld) 4.28 10*3/uL Normal 3.70-11.00 [facility] Comment on above: Performed By: #### BROOK GARCIA MG1 #### [facility] [address] [place], [place] [address] Magnesiumon 05-26-2018 Magnesium mass conc 2.0 mg/dL Normal 1.7-2.3 [facility] Comment on above: Performed By: #### BROOK GARCIA, MG1 #### [facility] [address] [place], [place] [id number] NURSING PROGon 05-26-2018 Protein mass conc HNO ID: [id number] Author: Мария (Rn) ANNA Fuller Service: (none) Author Type: Registered Nurse Type: Nursing Progress Note Filed: 05/26/2018 5:59 PM Note Text: Nursing Progress Note Patient Name: Nancy Price Patient Location: [address] [place] [id number] Daily Note: 0700: Assumed care of pt. Pt comfortably lying in bed. Pt denies dizziness and headache currently. IV fluids infusing. Safety level and isolation precatuions maintained. 0900: Pt comfortable in bed, eating breakfast. Denies complaints of dizziness or headache. Safety level and isolation precautions maintained 1100: Pt comfortable, denies dizziness or headache. Safety level and isolation precautions maintained. 1300: Pt comfortably sitting in bed. No complaints of dizziness or headache. IV maintinace fluids running. Safety level and isolation precautions maintained. 1500: Pt laying comfortably. No complaints of dizziness or NAVA. Continuous IV fluids running. Visitors at bedside. Safety level and isolation precautions maintained. 1700: Pt ambulating in room to bathroom with supervision, Continuous IV fluid running. Safety and isolation precautions maintained. This note was completed by: Мария Fuller RN [facility] Protein mass conc HNO ID: [id number] Author: Alexandra WileyRn) ANNA Pereyra Service: (none) Author Type: Registered Nurse Type: Nursing Progress Note Filed: 05/26/2018 4:52 AM Note Text: Nursing Progress Note Patient Name: Nancy Price Patient Location: [place] [id number] Daily Note: 1900 assumed care of pt at this time. No c/o's voiced. IVF infusing. Denies dizziness, headache. 2100 IVF infusing. Denies dizziness, headache. 2300 IVF infusing. Denies dizziness, headache. 0044 med with 650mg tylenol for headache and earache. Denies dizziness. IVF infusing. 0300 sleeping without c/o's pain, dizziness. IVF infusing. 0500 sleeping without c/o's pain, dizziness. IVF infusing. This note was completed by: Alexandra Pereyra RN [facility] PROGRESSon 05-26-2018 Protein mass conc HNO ID: [id number] Author: Kevin Boykin Service: Hospital Medicine Author Type: Nurse Practitioner Type: Progress Notes Filed: 05/26/2018 4:34 PM Note Text: SERVICE DATE: 05/26/2018 SERVICE TIME: 4:34 PM HOSPITAL MEDICINE PROGRESS NOTE NIGHT AND WEEKEND COVERAGE: Nights: Please contact pager [phone]. HPI 78 yr old male with PMH of COPD, hypothyroid, and GERD with complaint of flu like symptoms and 2 episodes of syncope over last 2 days. He states that he passed out at home on Friday and then again this morning after getting out of bed and walking to the bathroom. He woke up and yelled for help from his . He denies any headache, chest pain, dyspnea, abdominal pain. Labs show impaired renal function that has worsened for this visit. Positive for influenza B. Negative for leukocytosis. CT brain shows sinusitis without acute process of brain. On exam patient is AOx3, speech clear, neurologically intact, negative NIHSS. Orthostatic positive on arrival to medical floor with no current complaints. Patient admitted to observation to monitor for worsening flu symptoms/syncope. SUBJECTIVE Interval Events: Patient complaining of headache overnight which resolved with oral tylenol. Denies any pain on exam. States that he is feeling much better this morning. Remains orthostatic positive. Given 500 ml NS bolus and continued maintenance fluids. Repeat orthostatics in the morning. Echo ordered, unable to be completed today due to patient volume. Encouraged oral intake. Discussed plan of care with patient and attending. OBJECTIVE BP 103/55 Pulse 69 Temp (Src) 97.9 (Oral) Resp 17 Ht 5' 9 (1.75m) Wt 169 lb 12.8 oz (77.0kg) SpO2 99% BMI 25.06 kg/(m2). Physical Exam Performed: GENERAL: alert, in no acute distress and thin HEART: regular rate and rhythm, PMI not displaced LUNGS: breath sounds expiratory wheezing, R middle lobe and L middle lobe ABDOMEN: Soft, nontender, bowel sounds normal, no palpable organomegaly, no bruits. EXTREMITY: Normal exam of the extremities. No clubbing, cyanosis, or edema. NEURO: Cranial nerves II-XII intact PULSES: 2+ radial, 2+ carotid Lines, Drains, and Airways Line Peripheral 05/25/18 1542 Assessment Right Antecubital 20 Gauge 1 day Reviewed lines, drains, AND airways. Need to be continued yes Medications: Reviewed Diagnostic tests reviewed: Most recent labs Most recent imaging CT BRAIN: IMPRESSION: No evidence of acute intracranial process. Findings suggestive of sinusitis. Circular Saw Edge Fuser: LEONIDAS ? Transcribe Date/Time: May 25 2018 10:21A Dictated by : ALBERTO VASQUEZ MD Recent Labs 05/26/18 0001 05/25/18 2338 05/25/18 1723 05/25/18 0900 TROPT -- <0.010 <0.010 -- MCV 97.5 -- -- 98.6* MCH 32.0 -- -- 32.5* MPV 11.5 -- -- 11.1* RDW -- -- -- 12.6 Recent Labs 05/26/18 0001 05/25/18 0900 WBC 4.28 7.2 RBC 3.56* 3.60* HB 11.4* 11.7* HCT 34.7* 35.5* PLT 83* 106* MCV 97.5 98.6* MCH 32.0 32.5* MPV 11.5 11.1* RDW -- 12.6 Recent Labs 05/26/18 0001 05/25/18 0900 GLUC 100* 137* NA 134* 140 K 3.9 3.9 CHLOR 103 104 CO2 24 25 CREAT 1.58* 1.54* BUN 33* 26* ANION 7* 15 CA 9.0 8.5 TPROT -- 6.1* ALB -- 3.0* TBILI -- 0.5 ALKPHOS -- 88 AST -- 71* ALT -- 71* Most recent labs ASSESSMENT AND PLAN Assessment AND Plan, all Hosp Problems Active Hospital Problems as of 05/26/2018 Noted - Resolved Hospital Influenza B 05/25/2018 - Present Current Assessment AND Plan Assessment: + Influenza B in ER. Has had fever/chills/bodyaches/n ausea for about 2 days. Denies cough of shortness of breath. Took tylenol yesterday for symptom relief. Had episode of syncope at home. Patient is orthostatic positive this morning. Droplet precautions inplace. Received tamiflu this morning. States that he is feeling better. PLAN: -75mg Tamiflu daily -IV hydration -Tylenol for body aches/pain/fever. -VS per unit protocol Syncope 05/25/2018 - Present Current Assessment AND Plan Assessment: Patient noted to have 2 episodes of syncope while at home over the last 2 days. He admits to not eating or drinking properly over this time. He has had no associated chest pain, palpitations, or dyspnea. CT head in ER negative for acute process of brain. Orthostatic positive on arrival to medical floor. Repeat orthostatic are positive this morning. Patient having no complaints on exam. Has had no noted arrhythmias overnight. PLAN: -IV hydration, 500 ML NS bolus today -Orthostatic VS daily -VS per unit protocol. -Echo Hypothyroidism, acquired 03/11/2017 - Present Current Assessment AND Plan Assessment: Symptoms controlled. TSH within normal limits. PLAN: -Continue current dosage. CKD (chronic kidney disease) stage 3, GFR 30-59 ml/min ([facility]) 07/08/2017 - Present Current Assessment AND Plan Assessment: Renal function stable, possibly secondary to dehydration. PLAN: -IV hydration -BMP daily Medication and Non-Pharmacologic VTE Prophylaxis/Anticoagulan ts 05/25/18 1530 pneumatic compression stockings (vt,oh) VTE Prophylaxis: VTE prophylaxis appropriate Plan of care discussed with: Attending and Patient SIGNATURE: Kevin Boykin APRN.CNP PATIENT NAME: Nancy Price DATE: May 26, 2018 TIME: 4:34 PM PAGER/CONTACT #: [phone] Normal [facility] Troponin Ton 05-26-2018 Troponin T.cardiac mass conc ug/L Normal 0.000-0.029 [facility] Comment on above: Performed By: #### T NT #### [facility] [address] [facility] [phone] HISTORY PHYSICALon 9 HISTORY PHYSICAL HNO ID: [id number] Author: Kevin Boykin Service: Hospital Medicine Author Type: Nurse Practitioner Type: HANDP Filed: 05/25/2018 5:35 PM Note Text: -------- Attestation signed by Maren Hernandez at 05/26/2018 8:38 AM Attending Note I have personally reviewed the PA/WASHING MACHINE LOADER note. Agree with above assessment and plan. Other additions or changes: None SIGNATURE: Maren Hernandez MD DATE: May 26, 2018 TIME: 8:38 AM -------- SERVICE DATE: 05/25/2018 SERVICE TIME: 5:34 PM HOSPITAL MEDICINE HISTORY AND PHYSICAL PCP: Shannon Cordova, DO NIGHT AND WEEKEND COVERAGE: Nights: Please contact pager [phone]. SUBJECTIVE Chief Complaint: syncope HPI: 78 yr old male with PMH of COPD, hypothyroid, and GERD with complaint of flu like symptoms and 2 episodes of syncope over last 2 days. He states that he passed out at home on Friday and then again this morning after getting out of bed and walking to the bathroom. He woke up and yelled for help from his . He denies any headache, chest pain, dyspnea, abdominal pain. Labs show impaired renal function that has worsened for this visit. Positive for influenza B. Negative for leukocytosis. CT brain shows sinusitis without acute process of brain. On exam patient is AOx3, speech clear, neurologically intact, negative NIHSS. Orthostatic positive on arrival to medical floor with no current complaints. Patient admitted to observation to monitor for worsening flu symptoms/syncope. PAST MEDICAL HISTORY Diagnosis Date - Acquired hypothyroidism check TSH - Acute sinusitis - Anemia check CBC - Cervical spondylosis continue home exercises and pain meds - Chronic obstructive lung disease (HCC) - Foot joint pain right first MTP, xray shows osteoarthritis, resolved spontaneously - Hiatal hernia continue omeprazole, f/u Dr. Nye - Leukopenia f/u with Dr. Rodriguez - Lipoma of upper arm left, reassurance given - Neck pain continue antiinlammatory meds - Neoplasm of uncertain behavior of skin BIOPSY SENT, SUTURES REMOVED - Shoulder pain left, continue home exercises - Swelling of lower limb xray of right foot PAST SURGICAL HISTORY Procedure Laterality Date - PAST SURGICAL HISTORY OF Skin lesion removed, RightWrist FAMILY HISTORY Problem Relation Age of Onset - Cancer Sister - Hypertension Sister - Hypertension Brother - Aneurysm Mother - Obesity Mother - other (smoking tobacco) Mother - other (stomach cancer) Father Social History Substance Use Topics - Smoking status: Former Smoker Types: Cigarettes Start date: 03/31/1955 Quit date: 03/31/2002 - Smokeless tobacco: Never Used - Alcohol use No Medications: Reviewed Allergies: ALLERGIES Allergen Reactions - Augmentin [Amoxicil* Rash Review of Systems: GENERAL: Fatigue, Positive for fever ., malaise . HEENT: No changes in hearing or vision, no nose bleeds or other nasal problems NECK: Negative for lumps, goiter, pain and significant neck swelling RESPIRATORY: Cough; dry CARDIOVASCULAR: Negative for chest pain, leg swelling, hypertension, CHF or palpitations GI: Positive for diarrhea ,, nausea , : No history of dysuria, frequency or incontinence MUSCULOSKELETAL: Negative for joint pain or swelling, back pain or muscle pain SKIN: Negative for lesions, rash, and itching ENDOCRINE: Negative for cold or heat intolerance, polyuria, polydipsia and goiter NEURO: Syncope OBJECTIVE: PHYSICAL EXAM BP 100/57 Pulse 75 Temp (Src) 99.9 (Oral) Resp 18 SpO2 96% Physical Exam Performed: GENERAL: Alert, no distress, cooperative, Smiling SKIN: Skin color, texture, turgor normal. No rashes or lesions. HEAD/SINUSES: No significant findings EYES: PERRLA EARS: Negative OROPHARYNX: Lips, mucosa, and tongue normal. Teeth and gums normal. Oropharynx normal. NECK: No jugulovenous distention, No carotid bruits, Carotid pulse normal contour, Supple LUNGS: Lungs clear to auscultation, Good diaphragmatic excursion CARDIAC: Rhythm: regular rate and rhythm ABDOMEN: Abdomen soft, non-tender, BS normal, No masses or organomegaly EXTREMITIES: Extremities normal, no deformities, edema, clubbing or skin discoloration. Good capillary refill., No ulcers NEURO: Gait normal. Reflexes normal and symmetric. Sensation grossly intact, Cranial nerves II-XII intact PULSES: 2+ radial, 2+ dorsalis pedis, 2+ carotid Lines, Drains, and Airways Line Peripheral 05/25/18 1542 Assessment Right Antecubital 20 Gauge less than 1 day Reviewed lines, drains, AND airways. Need to be continued yes Diagnostic tests reviewed: Most recent labs and imaging results CARE COORDINATION: No Patient Care Coordination Note on file. ASSESSMENT AND PLAN Assessment AND Plan, all Hosp Problems Active Hospital Problems as of 05/25/2018 Noted - Resolved Hospital Influenza B 05/25/2018 - Present Current Assessment AND Plan Assessment: + Influenza B in ER. Has had fever/chills/bodyaches/n ausea for about 2 days. Denies cough of shortness of breath. Took tylenol yesterday for symptom relief. Had episode of syncope at home today. Patient is orthostatic positive on arrival to medical unit. Droplet precautions placed on room entry. Took one dose of tamiflu this morning. PLAN: -75mg Tamiflu daily -IV hydration -Tylenol for body aches/pain/fever. -VS per unit protocol Syncope 05/25/2018 - Present Current Assessment AND Plan Assessment: Patient noted to have 2 episodes of syncope while at home over the last 2 days. He admits to not eating or drinking properly over this time. He has had no associated chest pain, palpitations, or dyspnea. CT head in ER negative for acute process of brain. Orthostatic positive on arrival to medical floor. PLAN: -IV hydration -Orthostatic VS daily -Cycle troponins -VS per unit protocol. -Echo Hypothyroidism, acquired 03/11/2017 - Present Current Assessment AND Plan Assessment: Symptoms controlled. PLAN: -Continue current dosage. CKD (chronic kidney disease) stage 3, GFR 30-59 ml/min ([facility]) 07/08/2017 - Present Current Assessment AND Plan Assessment: Renal function decreased today, possibly secondary to dehydration. Has had limited oral intake over last 2 days. PLAN: -IV hydration -BMP daily Medication and Non-Pharmacologic VTE Prophylaxis/Anticoagulan ts 05/25/18 1530 pneumatic compression stockings (vt,oh) VTE Prophylaxis: VTE prophylaxis appropriate SIGNATURE: Kevin Boykin APRN.CNP PATIENT NAME: Nancy Price DATE: May 25, 2018 TIME: 5:34 PM PAGER/CONTACT #: [phone] [facility] NURSING PROGon 05-25-2018 Protein mass conc HNO ID: [id number] Author: Jayde (Rn) ANNA Burgess Service: Nursing Author Type: Registered Nurse Type: Nursing Progress Note Filed: 05/25/2018 6:26 PM Note Text: Nursing Progress Note Patient Name: Nancy Price Patient Location[facility] [id number] Daily Note: 1400- Patient arrived on the unit in stable condition from [place] ED. Patient denies pain, LH and dizziness but c/o all body weakness. 1600- Patient awake in bed with no c/o pain or SOB. Denies LH and dizziness. 1645- Patient medicated with tylenol for fever and NAVA. See MAR. This note was completed by: Jayde Burgess RN Normal [facility] TSHon 05-25-2018 Thyrotropin Qn 1.960 uU/mL Normal 0.400-5.500 [facility] Comment on above: Performed By: #### T SH #### [facility] [address] [facility] [phone] Troponin Ton 05-25-2018 Troponin T.cardiac mass conc ug/L Normal 0.000-0.029 [facility] Comment on above: Performed By: #### T NT #### [facility] [address] [facility] [phone] Clinic Note - Heme Oncon Clinic Note - Heme Onc History of Presen t Illness: Interval History:This patient was referred to me for further evaluation and management ofpancytopenia. History of present illness: The patient is a 77-year-old man with past history of anemia, hypothyroidism,and long-term history of smoking. The patient was previously evaluated andfound to have hypothyroidism and placed on Synthroid and has done well [id number]. On November 11 2012 CBC revealed WBC 4.3, hemoglobin 12.4 g/dL, andplatelets 198,000/mm?. The patient has done well since until February 2018 whenhe had 2 episodes of URI from which she is recovering. A CBC on April 01, 2017revealed WBC 2.8, hemoglobin 11.9 g/dL, MCV 98.9 and platelets 100,000/mm?. Thepatient does have cough with mucoid expectoration but claims that he isimproving. The patient was also diagnosed as having infrarenal abdominal aorticaneurysm, and a small nodule in the right lung which is being monitored. Acolonoscopy in 2016 revealed colonic polyps. In the recent past the patient hasmoved to new location and claims that he has been working hard and lost 10pounds. The patient and his had come for follow-up on May 01, 2017 at thepatient is recovering from URI as well as a gout attack. He is feeling muchbetter and is asymptomatic today. The patient and his had come for follow-up on June 05, 2017. He isasymptomatic. The patient and his had come for follow-up on October 15, 2017. He isasymptomatic. The patient denies any history of fevers, night sweats, chest pain, shortnessof breath, nausea, vomiting, hematemesis, melena, hematochezia and hematuria. Past medical history: Chronic kidney disease stage III diagnosed in August 2017 4.47 x 4.53 x 4.582 cm infrarenal abdominal aortic aneurysm at mid aorta. Aorta appears ectatic measuring 2.92 x 2.90 x 2.89 cm Anemia Hypothyroidism Long-term history of smoking Past surgical history: As before Review of Systems:? System ReviewAll other systems have been reviewed and are negative forcomplaint. Allergies and Intolerances: Allergies:Augmentin: Drug, Rash, Active Outpatient Medication Profile:* Patient Currently Takes Medications as of 15-Oct-2017 10:02 documented inStructured NotesVitamin D2 50,000 intl units (1.25 mg) oral capsule: Last Dose Taken: , 1cap(s) orally once a week , Start Date: 20-[id number]-3612cnrbzwbnenjqx 25 mcg (0.025 mg) oral tablet: Last Dose Taken: , 1 tab(s)orally once a daypantoprazole 40 mg oral delayed release tablet: Last Dose Taken: , 1 tab(s)orally once a day Family History: No Family History items are recorded in the problem list. Social History: Smoking Status: former smoker (1)Tobacco Use: history of abuseAlcohol Use: denies(1)Drug Use: denies (1)Additional History:The patient is 77 years old, , has 2 children, currently retired. Smokedpack per day for close to 40 years quit in 2004. No history of alcohol abuse ordrug abuse(1) Vitals and Measurements:Vitals: Temp: 35 HR: 61 RR: 12 BP: 137/67 SPO2%: 98Measurements: HT(cm): 176 WT(kg): 78.7 BSA: 1.96 BMI: 25.4 Physical Exam: Constitutional: Well developed, awake/alert/oriented x3, no distress, alert andcooperativeEyes: PERRL, EOMI, clear scleraENMT: mucous membranes moist, no apparent injury, no lesions seenHead/Neck: Neck supple, no apparent injury, thyroid without mass or tenderness,No JVD, trachea midline, no bruitsRespiratory/Thorax : Patent airways, CTAB, normal breath sounds with good chestexpansion, thorax symmetricCardiovascular: Regular, rate and rhythm, no murmurs, 2+ equal pulses of theextremities, normal S 1and S 2Gastrointestinal: Nondistended, soft, non-tender, no rebound tenderness orguarding, no masses palpable, no organomegaly, +BS, no bruitsGenitourinary: No Discharge, vesicles or other abnormalitiesMusculoskel etal: ROM intact, no joint swelling, normal strengthExtremities: normal extremities, no cyanosis edema, contusions or wounds, noclubbingNeurological: alert and oriented x3, intact senses, motor, response andreflexes, normal strengthBreast: No masses, tenderness, no discharge or discolorationLymphatic: No significant lymphadenopathyPsycholog ical: Appropriate mood and behaviorSkin: Warm and dry, no lesions, no rashes Lab Results: ? Results CBC date/time WBC HGB HCT PLT [id number] 11:21 4.3(L) 12.4 37.1(L) 198 2.39 BMP date/time NA K CL CO2 BUN [id number] 10:43 139 4.8 104 N/A 21 1.27 LDH date/time [id number] 10:43 N/A CBC on October 02, 2017 revealed WBC 3.8, hemoglobin 12 g/dL, platelets 162,000/mm?, BUN 22 mg/dL, creatinine 1.36 g/dL Assessment and Plan: Assessment and Plan:Assessment:I had a long discussion with the patient and his and explained to them therole of various cells since she will and blood such as WBCs in protecting bodyagainst infection and platelets in assisting coagulation. The patient's WBC andplatelet counts have definitely Dr. compared to October 2012. The differentialdiagnosis is wide however, recent history of viral syndrome could contribute toabnormal blood counts. Moreover, the patient was also placed on antibioticsarea it would be prudent to evaluate pancytopenia first and then take it fromthere. Also, I would like to obtain old records especially about lung nodule.Given the long-term history of smoking one could consider PET scan but thepatient would like to think about it. The patient also mentioned about neckpain and I had ordered MRI of the cervical spine but the patient declined. Iwill reassess in 2 weeks. The patient is agreeable. The patient and his had come for follow-up on May 01, 2017. Thepatient is beginning to feel better. Physical examination is within normallimits. I had a long discussion with the patient and explained to him that I oliver the bases, vitamin B12, folate, TSH were all within the reference range.Serology for hepatitis B see any HIV was negative. Serum proteinelectrophoresis did not reveal M protein. I have given the patient a benefit ofdoubt that most likely cause of his low blood count was a viral infection. Iwould like to repeat his CBCs in 4 weeks' time and reassess. Indeed, at thattime if he is running low one could consider a bone marrow aspiration andbiopsy if he is agreeable. The patient also has mild vitamin D deficiency. Ihave recommended vitamin D2 50,000 units by mouth once a week for 8 weeksfollowed by vitamin D3 bqah-vrs-gqjtapl thousand units per day. The patientunderstood appreciated all the details provided and was grateful and returnafter 4 weeks. I had a long discussion with the patient and his and explained to themthat he does have mild leukopenia as well as anemia. Evaluation of anemia didnot reveal any abnormalities other than elevated creatinine. Thus, the patientcould have anemia of chronic kidney disease but he is asymptomatic but does nothave untoward manifestation such as repeated infection. Differential diagnosisincludes myelodysplastic syndrome. One could consider a bone marrow aspirationand biopsy but since the patient is asymptomatic there would be no treatment.The patient declined. He is agreeable for clinical follow-up. And return after4 months The patient and his had come for follow-up on October 15, 2017. He isasymptomatic. Physical examination is within normal limits. Reviewed lab datawith the patient. The patient is mildly anemic most likely from chronic kidneydisease. There were no therapeutic recommendations for now. The patient tofollow-up with Dr. cordova and nephrology services Dr. Trevino and return to us joelle as needed basis Care Team (For informational use or entering new Care Team Members):Shannon Cordova(Referring): DO 05-Jun-2017 10:34 Note Recipients: LindaShannon, - [id number] Yes when ready to send to Provider(s) Listed Above: Note sent toproviders named above Electronic Signatures:Matheus Rodriguez) (Signed 15-Oct-2017 13:40)Authored: History of Present Illness, Review of Systems, Allergies andOutpatient Medication Profile, Problem List, Social History, PerformanceAssessments, Vitals and Measurements, Physical Exam, Results, Assessment andPlan, To Send Document via Auto Fax Last Updated: 15-Oct-2017 13:40 by Matheus Rodriguez) References:1. Data Referenced From Clinic Note - Heme Onc 06/05/2017 10:22 AM Normal [facility] ([facility])[3] Clinic Note - Intakeon 10-15 Clinic Note - Intake Patient Visit Information:? Visit TypeFollow Up Visit? Patient Statesfollow up? Source of Informationpatient? Accompanied byspouse Admission Information:? Admission Since Last VisitNo Vital Signs:? Temp (degrees C)35 degrees C? Temperaturetympanic? Heart Rate (beats/min)61 beats per minute? Respiration (breaths/min)12 breath per minute? BP Systolic (mm Hg)137 mmHg? BP Diastolic (mm Hg)67 mmHg? BP Mean (mm Hg)90 mmHg? Height in cm176 centimeter(s)? Height Methodper last note? Heightstanding? Weight in kg78.7 kilogram(s)? Weight Methodstanding scale? BMI (kg/m2)25.4? BSA (m2)1.96? SpO2 (%)98 %? SpO2 Patient Onroom air Pain Screening:? Patient States Painno (0) Allergies:Augmentin: Drug, Rash, Active Outpatient Medication Profile:* Patient Currently Takes Medications as of 15-Oct-2017 10:02 documented inStructured NotesVitamin D2 50,000 intl units (1.25 mg) oral capsule: Last Dose Taken: , 1cap(s) orally once a week , Start Date: 82-Itm-7269itfaxulpdybdu 25 mcg (0.025 mg) oral tablet: Last Dose Taken: , 1 tab(s)orally once a daypantoprazole 40 mg oral delayed release tablet: Last Dose Taken: , 1 tab(s)orally once a day Each Visit:Have you fallen in the last 6 months?noDo you have a fear of falling?noIs the patient using an assistive devicenoDo you feel you need assistance?no Electronic Signatures:Windy Bridges (KILN TESTER ASST) (Signed 15-Oct-2017 10:03)Authored: Patient Visit Information, Vital Signs, Allergies, OutpatientMedication Profile, Adult Admission Risk Screen Last Updated: 15-Oct-2017 10:03 by Windy Bridges (KILN TESTER ASST) Normal [facility] ([facility])[3] Clinic Note - Heme Oncon Clinic Note - Heme Onc History of Presen t Illness:Interval History:This patient was referred to me for further evaluation and management ofpancytopenia.History of present illness:The patient is a 77-year-old man with past history of anemia, hypothyroidism,and long-term history of smoking. The patient was previously evaluated andfound to have hypothyroidism and placed on Synthroid and has done well [id number]. On November 11 2012 CBC revealed WBC 4.3, hemoglobin 12.4 g/dL, andplatelets 198,000/mm?. The patient has done well since until February 2018 whenhe had 2 episodes of URI from which she is recovering. A CBC on April 01, 2017revealed WBC 2.8, hemoglobin 11.9 g/dL, MCV 98.9 and platelets 100,000/mm?. Thepatient does have cough with mucoid expectoration but claims that he isimproving. The patient was also diagnosed as having infrarenal abdominal aorticaneurysm, and a small nodule in the right lung which is being monitored. Acolonoscopy in 2017 revealed colonic polyps. In the recent past the patient hasmoved to new location and claims that he has been working hard and lost 10pounds.The patient and his had come for follow-up on May 01, 2017 at thepatient is recovering from URI as well as a gout attack. He is feeling muchbetter and is asymptomatic today.The patient and his had come for follow-up on June 05, 2017. He isasymptomatic.The patient denies any history of fevers, night sweats, chest pain, shortnessof breath, nausea, vomiting, hematemesis, melena, hematochezia and hematuria.Past medical history:4.47 x 4.53 x 4.582 cm infrarenal abdominal aortic aneurysm at mid aorta.Aorta appears ectatic measuring 2.92 x 2.90 x 2.89 cmAnemiaHypothyroidismLo ng-term history of smokingPast surgical history:As beforeReview of Systems:? System Review All other systems have been reviewed and are negative forcomplaint.Allergies and Intolerances: Allergies: Augmentin: Drug, Rash, ActiveOutpatient Medication Profile:* Patient Currently Takes Medications as of 05-Jun-2017 10:08 documented inStructured Notes levothyroxine 25 mcg (0.025 mg) oral tablet: Last Dose Taken: , 1 tab(s)orally once a day pantoprazole 40 mg oral delayed release tablet: Last Dose Taken: , 1 tab(s)orally once a dayFamily History: No Family History items are recorded in the problem list.Social History:Smoking Status: former smoker (1)Tobacco Use: history of abuseAlcohol Use: denies(1)Drug Use: denies (1)Additional History:The patient is 77 years old, , has 2 children, currently retired. Smokedpack per day for close to 40 years quit in 2004. No history of alcohol abuse ordrug abuse(1)Vitals and Measurements:Vitals: Temp: 35.6 HR: 55 RR: 14 BP: 128/61 SPO2%: 100Measurements: HT(cm): 176 WT(kg): 78.9 BSA: 1.96 BMI: 25.4Physical Exam:Constitutional: Well developed, awake/alert/oriented x3, no distress, alert andcooperativeEyes: PERRL, EOMI, clear scleraENMT: mucous membranes moist, no apparent injury, no lesions seenHead/Neck: Neck supple, no apparent injury, thyroid without mass or tenderness,No JVD, trachea midline, no bruitsRespiratory/Thorax : Patent airways, CTAB, normal breath sounds with good chestexpansion, thorax symmetricCardiovascular: Regular, rate and rhythm, no murmurs, 2+ equal pulses of theextremities, normal S 1and S 2Gastrointestinal: Nondistended, soft, non-tender, no rebound tenderness orguarding, no masses palpable, no organomegaly, +BS, no bruitsGenitourinary: No Discharge, vesicles or other abnormalitiesMusculoskel etal: ROM intact, no joint swelling, normal strengthExtremities: normal extremities, no cyanosis edema, contusions or wounds, noclubbingNeurological: alert and oriented x3, intact senses, motor, response andreflexes, normal strengthBreast: No masses, tenderness, no discharge or discolorationLymphatic: No significant lymphadenopathyPsycholog ical: Appropriate mood and behaviorSkin: Warm and dry, no lesions, no rashesLab Results:? Results CBC on May 26, 2017 revealed WBC 3.0, hemoglobin 11 g/dL, pouqfzkiw953,000/mm?. BUN 21 g/dL, creatinine 1.28 mg/dLA CT scan of abdomen and pelvis on March 20, 2017 revealed 4.47 x 4.53 x 4.5to centimeter infrarenal abdominal aortic aneurysmAorta appears ectatic measuring 2.92 x 2.90 x 2.89 cm a distal aortaAssessment and Plan:Assessment and Plan:Assessment:I had a long discussion with the patient and his and explained to them therole of various cells since she will and blood such as WBCs in protecting bodyagainst infection and platelets in assisting coagulation. The patient's WBC andplatelet counts have definitely Dr. compared to October 2012. The differentialdiagnosis is wide however, recent history of viral syndrome could contribute toabnormal blood counts. Moreover, the patient was also placed on antibioticsarea it would be prudent to evaluate pancytopenia first and then take it fromthere. Also, I would like to obtain old records especially about lung nodule.Given the long-term history of smoking one could consider PET scan but thepatient would like to think about it. The patient also mentioned about neckpain and I had ordered MRI of the cervical spine but the patient declined. Iwcaprice reassess in 2 weeks. The patient is agreeable.The patient and his had come for follow-up on May 01, 2017. Thepatient is beginning to feel better. Physical examination is within normallimits. I had a long discussion with the patient and explained to him that I oliver the bases, vitamin B12, folate, TSH were all within the reference range.Serology for hepatitis B see any HIV was negative. Serum proteinelectrophoresis did not reveal M protein. I have given the patient a benefit ofdoubt that most likely cause of his low blood count was a viral infection. Iwould like to repeat his CBCs in 4 weeks' time and reassess. Indeed, at thattime if he is running low one could consider a bone marrow aspiration andbiopsy if he is agreeable. The patient also has mild vitamin D deficiency. Ihave recommended vitamin D2 50,000 units by mouth once a week for 8 weeksfollowed by vitamin D3 ievl-wxz-mbhpkok thousand units per day. The patientunderstood appreciated all the details provided and was grateful and returnafter 4 weeks.I had a long discussion with the patient and his and explained to themthat he does have mild leukopenia as well as anemia. Evaluation of anemia didnot reveal any abnormalities other than elevated creatinine. Thus, the patientcould have anemia of chronic kidney disease but he is asymptomatic but does nothave untoward manifestation such as repeated infection. Differential diagnosisincludes myelodysplastic syndrome. One could consider a bone marrow aspirationand biopsy but since the patient is asymptomatic there would be no treatment.The patient declined. He is agreeable for clinical follow-up. And return after4 monthsPatient Instructions:Instruction s:Vit D2, 50,000 Unit(s) by mouth every week X8 then Vit D3 OTC 1,000 by mouth QDCBC, CMP, LDH, RTC 4 mthsCare Team (For informational use or entering new Care Team Members): Shannon Cordova(Referring): DO 01-May-2017 10:57Note Recipients: Shannon Cordova, - [phone] Yes when ready to send to Provider(s) Listed Above: Note sent toproviders named aboveElectronic Signatures:Matheus Rodriguez) (Signed 05-Jun-2017 11:40) Authored: History of Present Illness, Review of Systems, Allergies andOutpatient Medication Profile, Problem List, Social History, PerformanceAssessments, Vitals and Measurements, Physical Exam, Results, Assessment andPlan, Patient Instructions, To Send Document via Auto FaxLast Updated: 05-Jun-2017 11:40 by Matheus Rodriguez)References:1. Data Referenced From Clinic Note - Heme Onc 05/01/2017 10:47 AM Normal [facility] ([facility])[3] Clinic Note - Intakeon 06-05 Clinic Note - Intake Patient Visit Information:? Visit Type Follow Up Visit? Patient States follow up? Source of Information patient? Accompanied by spouseAdmission Information:? Admission Since Last Visit NoVital Signs:? Temp (degrees C) 35.6 degrees C? Temperature tympanic? Heart Rate (beats/min) 55 beats per minute? Respiration (breaths/min) 14 breath per minute? BP Systolic (mm Hg) 128 mmHg? BP Diastolic (mm Hg) 61 mmHg? BP Mean (mm Hg) 83 mmHg? Height in cm 176 centimeter(s)? Height Method measured 04-17-17? Height standing? Weight in kg 78.9 kilogram(s)? Weight Method standing scale? BMI (kg/m2) 25.4? BSA (m2) 1.96? SpO2 (%) 100 %? SpO2 Patient On room airPain Screening:? Patient States Pain no (0) Allergies: Augmentin: Drug, Rash, ActiveOutpatient Medication Profile:* Patient Currently Takes Medications as of 05-Jun-2017 10:08 documented inStructured Notes levothyroxine 25 mcg (0.025 mg) oral tablet: Last Dose Taken: , 1 tab(s)orally once a day pantoprazole 40 mg oral delayed release tablet: Last Dose Taken: , 1 tab(s)orally once a dayEach Visit:Have you fallen in the last 6 months? noDo you have a fear of falling? noIs the patient using an assistive device noDo you feel you need assistance? noElectronic Signatures:Windy Bridges (KILN TESTER ASST) (Signed 05-Jun-2017 10:10) Authored: Patient Visit Information, Vital Signs, Allergies, OutpatientMedication Profile, Adult Admission Risk ScreenLast Updated: 05-Jun-2017 10:10 by Windy Bridges (KILN TESTER ASST) Normal [facility]3] ROMY PATH REVIEWon 04-21-2017 PATH REVIEW-ROMY ELIDA [facility] Comment on above: Result Comment: By h er/his signature above, the Pathologist listed as making the final interpretation certifies that she/he has personally reviewed this case. Performed By: #### T SH2 ####[id number] [place] [address] PROTEIN ELECTROPHORESIS + IM MUNOFIXATION, SERUMon 04-21-2017 IMMUNOFIXATION INTERP NORMAL Normal [facility]3] Comment on above: Result Comment: NO D EFINITE MONOCLONAL PROTEINS DETECTED BY IMMUNOFIXATION. Performed By: #### T SH2 ####[id number] [place] [address] INTERPRETATION NORMAL Normal [facility]3] Comment on above: Performed By: #### T SH2 ####[id number] [place] [address] Protein NONE DETECTED Normal [facility]3] Comment on above: Performed By: #### T SH2 ####[id number] [id number] SPE PATH REVIEWon 04-21-2017 PATH REVIEW-SPE C.RODNEY Normal [facility]3] Comment on above: Result Comment: By h er/his signature above, the Pathologist listed as making the final interpretation certifies that she/he has personally reviewed this case. Performed By: #### T SH2 ####[id number] [place] [address] ANCAon 04-19-2017 ANCA <1:20 Normal <1:20 [facility]3] Comment on above: Result Comment: The ANCA IFA is <1:20; therefore, no further testing will beperformed.INTERPRETIVE INFORMATION: Anti-Neutrophil Cyto Ab, IgGNeutrophil Cytoplasmic Antibodies (C-ANCA = granular cytoplasmicstaining, P-ANCA = perinuclear staining) are found in the serum ofover 90 percent of patients with certain necrotizing systemicvasculitides, and usually in less than 5 percent of patients withcollagen vascular disease or arthritis.Performed by [employer],[address] [place] [address] gbj.Meilishuo, Erick Moore MD - Lab. Director Performed By: #### T SH2 ####[id number] [place] [address] ANTINUCLEAR ANTIBODYon 04-18 ANTINUCLEAR ANTIBODY Negative Normal NEGATIVE [facility]3] Comment on above: Performed By: #### T SH2 ####[id number] [place] [address] FOLATE-RBCon 04-18-2017 FOLATE-RBC 1094 ng/mL Normal >280 [facility]3] Comment on above: Result Comment: Shelley ents receiving more than 5 mg/day of biotin may have interference in test results. A sample should be taken no sooner than eight hours after previous dose. Contact [phone] for additional information. Performed By: #### T SH2 ####[id number] [place] [address] PROTEIN ELECTROPHORESIS + IM MUNOFIXATION, SERUMon 04-18-2017 Albumin 3.5 g/dL Normal 3.4 - 5.0 [facility]3] Comment on above: Performed By: #### T SH2 ####[id number] [place] [address] ALPHA 1 GLOBULIN 0.4 g/dL Normal 0.2 - 0.6 [facility]3] Comment on above: Performed By: #### T SH2 ####[id number] [place] [address] ALPHA 2 GLOBULIN 0.8 g/dL Normal 0.4 - 1.1 [facility]3] Comment on above: Performed By: #### T SH2 ####[id number] [place] [address] BETA GLOBULIN 0.8 g/dL Normal 0.5 - 1.2 [facility]3] Comment on above: Performed By: #### T SH2 ####[id number] [place] [address] GAMMA GLOBULIN 0.9 g/dL Normal 0.5 - 1.4 [facility]3] Comment on above: Performed By: #### T SH2 ####[id number] [place] [address] COMPREHENSIVE PANELon 2017 Alanine aminotransferase (ALT) 26 U/L Normal 10 - 52 [facility]3] Comment on above: Result Comment: Shelley ents treated with Sulfasalazine may generate falsely decreased results for ALT. Performed By: #### C MP ####[id number] [place] [address] Albumin 3.7 g/dL Normal 3.4 - 5.0 [facility]3] Comment on above: Performed By: #### C MP ####[id number] [place] [address] Alkaline phosphatase (ALP) 117 U/L Normal 33 - 136 [facility]3] Comment on above: Performed By: #### C MP ####[facility] [place] [address] Anion gap 9 mmol/L Low 10 - 20 [facility]3] Comment on above: Performed By: #### C MP ####[facility] [place] [address] Aspartate aminotransferase (AST) 21 U/L Normal 9 - 39 [facility]3] Comment on above: Performed By: #### C MP ####[id number] [place] [address] Bicarbonate (HCO3) 31 mmol/L Normal 21 - 32 [facility]3] Comment on above: Performed By: #### C MP ####[facility] [place] [address] Bilirubin (total) 0.6 mg/dL Normal 0.0 - 1.2 [facility]3] Comment on above: Performed By: #### C MP ####[facility] [place] [address] Calcium 9.5 mg/dL Normal 8.6 - 10.6 [facility]3] Comment on above: Performed By: #### C MP ####[facility] [place] [address] Chloride 104 mmol/L Normal 98 - 107 [facility]3] Comment on above: Performed By: #### C MP ####[facility] [place] [address] Creatinine 1.27 mg/dL Normal 0.50 - 1.30 [facility]3] Comment on above: Performed By: #### C MP ####[facility] [place] [address] GFR- AM. 67 mL/min/1.73m2 Normal >60 [facility]3] Comment on above: Result Comment: CALC ULATIONS OF ESTIMATED GFR ARE PERFORMED USING THE MDRD STUDY EQUATION FOR THE IDMS-TRACEABLE CREATININE METHODS. CLIN CHEM 2007;53:766-72 Performed By: #### C MP ####[facility] [place] [address] GFR-NON AM. 55 mL/min/1.73m2 Abnormal >60 [facility]3] Comment on above: Performed By: #### C MP ####[facility] [place] [address] Glucose mass conc 98 mg/dL Normal 74 - 99 [facility]3] Comment on above: Performed By: #### C MP ####[facility] [place] [address] Potassium molar conc 4.8 mmol/L Normal 3.5 - 5.3 [facility]3] Comment on above: Performed By: #### C MP ####[facility] [place] [address] Sodium 139 mmol/L Normal 136 - 145 [facility]3] Comment on above: Performed By: #### C MP ####[facility] [place] [address] Urea nitrogen 21 mg/dL Normal 6 - 23 [facility]3] Comment on above: Performed By: #### C MP ####[id number] [place] [address] FERRITINon 04-17-2017 FERRITIN 944 ug/L High 20 - 300 [facility]3] Comment on above: Performed By: #### F ERRI ####[facility] [place] [address] FOLATE, SERUMon 04-17-2017 FOLATE, SERUM 19.0 ng/mL Normal >5.0 [facility]3] Comment on above: Result Comment: Shelley ents receiving more than 5 mg/day of biotin may have interference in test results. A sample should be taken no sooner than eight hours after previous dose. Contact [phone] for additional information. Performed By: #### F OLA2 ####[id number] [place] [address] HAPTOGLOBINon 04-17-2017 HAPTOGLOBIN 222 mg/dL High 30 - 200 [facility]3] Comment on above: Performed By: #### H APTO ####[facility] [place] [address] HEPATITIS B SURF ABon 2017 HEP B SURF AB < 3.1 Normal <10 [facility]3] Comment on above: Result Comment: INTE RPRETIVE CRITERIA:<10 mIU/mL....NONREACTIVE>=10 mIU/mL...REACTIVE. Patients receiving more than 5 mg/day of biotin may have interference in test results. A sample should be taken no sooner than eight hours after previous dose. Contact [phone] for additional information. Performed By: #### H BAB3 ####[facility] [place] [address] HEPATITIS C ABon 04-17-2017 HEPATITIS C AB NON-REACTIVE Normal NONREACTIVE [facility]3] Comment on above: Result Comment: Shelley ents receiving more than 5 mg/day of biotin may have interference in test results. A sample should be taken no sooner than eight hours after previous dose. Contact [phone] for additional information. Performed By: #### T SH2 ####[id number] [place] [address] IRON + TIBCon 04-17-2017 % SATURATION 52 % High 25 - 45 [facility]3] Comment on above: Performed By: #### I RONT ####[facility] [place] [address] Iron 144 ug/dL Normal 35 - 150 [facility]3] Comment on above: Performed By: #### I RONT ####[facility] [place] [address] TIBC 279 ug/dL Normal 240 - 445 [facility]3] Comment on above: Performed By: #### I RONT ####[id number] [place] [address] LDHon 04-17-2017 LDH 130 U/L Normal 84 - 246 [facility]3] Comment on above: Performed By: #### L DH ####[facility] [place] [address] PROTEIN ELECTROPHORESIS + IM MUNOFIXATION, SERUMon 04-17-2017 Protein 6.4 g/dL Normal 6.4 - 8.2 [facility])[3] Comment on above: Performed By: #### T SH2 ####[id number] [place] [address] Performed By: #### C MP ####[facility] [place] [address] TSHon 04-17-2017 Thyroid stimulating hormone (TSH) 3.25 m[IU]/L Normal 0.44 - 3.98 [facility]3] Comment on above: Result Comment: TSH testing is performed using different testing methodology at [facility] than at other [facility]. Direct result comparisons should only be made within the same method.. Patients receiving more than 5 mg/day of biotin may have interference in test results. A sample should be taken no sooner than eight hours after previous dose. Contact [phone] for additional information. Performed By: #### T SH2 ####[facility] [place] [address] Lab Specimen Source Normal [facility]3] Comment on above: Performed By: #### T SH2 ####[id number] [place] [address] Performed By: #### I BRITTNEYT ####[facility] [place] [address] Performed By: #### H BAB3 ####[facility] [place] [address] Performed By: #### F OLA2 ####[facility] [place] [address] Performed By: #### V TDOH ####[facility] [place] [address] Performed By: #### L DH ####[facility] [place] [address] Performed By: #### C MP ####[facility] [place] [address] Performed By: #### F ERRI ####[facility] [place] [address] Performed By: #### H APTO ####[facility] [place] [address] Performed By: #### V TB12 ####[facility] [place] [address] VITAMIN B12on 04-17-2017 Cobalamins (Vitamin B12) 659 pg/mL Normal 211 - 911 [facility]3] Comment on above: Performed By: #### V TB12 ####[id number] [place] [address] VITAMIN D, 25-HYDROXYon 03-31 VITAMIN D, 25-HYDROXY 26 ng/mL Abnormal [facility]3] Comment on above: Result Comment: .DEF ICIENCY: < 20 NG/MLINSUFFICIENCY: 20-29 NG/MLOPTIMUM LEVEL: 30-80 NG/MLPOSSIBLE TOXICITY: > 80 NG/MLTHIS ASSAY ACCURATELY QUANTIFIES THE SUM OFVITAMIN D3, 25-HYDROXY AND VIT D2,25-HYDROXY. Performed By: #### V TDOH ####[facility] [place] [address] Vital Signs Date Time Vital Sign Value Performing Clinician Bob rebolledo 10-16-2023 08:10-0400 Body height 175.3 cm Bria Queden METAL FURNACE OPERATOR.LEAK INSPECTOR Work Phone: [facility] 10-16-2023 08:10-0400 Body mass index (BMI) [Ratio] 24.37 kg/m2 Bria Queden METAL FURNACE OPERATOR.LEAK INSPECTOR Work Phone: [facility] 10-16-2023 08:10-0400 Body temperature 98.01 [degF] Bria Queden METAL FURNACE OPERATOR.LEAK INSPECTOR Work Phone: [facility] 10-16-2023 08:10-0400 Body weight 74.84 kg Bria Queden METAL FURNACE OPERATOR.LEAK INSPECTOR Work Phone: [facility] 10-16-2023 08:10-0400 Diastolic blood pressure 62 mm[Hg] Bria Queden METAL FURNACE OPERATOR.LEAK INSPECTOR Work Phone: [facility] 10-16-2023 08:10-0400 Heart rate 52 /min Bria Queden METAL FURNACE OPERATOR.LEAK INSPECTOR Work Phone: [facility] 10-16-2023 08:10-0400 Respiratory rate 18 /min Bria Queden METAL FURNACE OPERATOR.LEAK INSPECTOR Work Phone: [facility] 10-16-2023 08:10-0400 SaO2% (BldA) [Mass fraction] 99 % Bria Queden METAL FURNACE OPERATOR.LEAK INSPECTOR Work Phone: [facility] 10-16-2023 08:10-0400 Systolic blood pressure 122 mm[Hg] Bria Queden METAL FURNACE OPERATOR.LEAK INSPECTOR Work Phone: [facility] 02-10-2023 10:09-0500 Body height 175.3 cm Shannon Sheets DO Work Phone: [facility] 02-10-2023 10:09-0500 Body temperature 97.59 [degF] Shannon Sheets DO Work Phone: [facility] 02-10-2023 10:09-0500 Body weight 77.84 kg Shannon Sheets DO Work Phone: [facility] 02-10-2023 10:09-0500 Diastolic blood pressure 66 mm[Hg] Shannon Sheets DO Work Phone: [facility] 02-10-2023 10:09-0500 Heart rate 72 /min Shannon Sheets DO Work Phone: [facility] 02-10-2023 10:09-0500 Respiratory rate 16 /min Shannon Sheets DO Work Phone: [facility] 02-10-2023 10:09-0500 SaO2% (BldA) [Mass fraction] 99 % Shannon Sheets DO Work Phone: [facility] 02-10-2023 10:09-0500 Systolic blood pressure 128 mm[Hg] Shannon Sheets DO Work Phone: [facility] 02-27-2022 10:54-0500 Body height 175.3 cm Yelitza Montenegro APRN.LEAK INSPECTOR Work Phone: [facility] 02-27-2022 10:54-0500 Body weight 79.83 kg Yelitza Montenegro APRN.LEAK INSPECTOR Work Phone: [facility] 02-27-2022 10:54-0500 Diastolic blood pressure 58 mm[Hg] Yelitza Montenegro APRN.LEAK INSPECTOR Work Phone: [facility] 02-27-2022 10:54-0500 Heart rate 56 /min Yelitza Montenegro APRN.LEAK INSPECTOR Work Phone: [facility] 02-27-2022 10:54-0500 Respiratory rate 18 /min Yelitza Montenegro APRN.LEAK INSPECTOR Work Phone: [facility] 02-27-2022 10:54-0500 SaO2% (BldA) [Mass fraction] 99 % Yelitza Montenegro APRN.LEAK INSPECTOR Work Phone: [facility] 02-27-2022 10:54-0500 Systolic blood pressure 110 mm[Hg] Yelitza Montenegro APRN.LEAK INSPECTOR Work Phone: [facility] 01-22-2022 11:26-0400 Body height 175.3 cm Pst 1 [facility] 01-22-2022 11:26-0400 Body temperature 98.4 [degF] Pst 1 [facility] 01-22-2022 11:26-0400 Body weight 79.38 kg Pst 1 [facility] 01-22-2022 11:26-0400 Diastolic blood pressure 82 mm[Hg] Pst 1 [facility] 01-22-2022 11:26-0400 Heart rate 68 /min Pst 1 [facility] 01-22-2022 11:26-0400 Respiratory rate 16 /min Pst 1 [facility] 01-22-2022 11:26-0400 SaO2% (BldA) [Mass fraction] 92 % Pst 1 [facility] 01-22-2022 11:26-0400 Systolic blood pressure 140 mm[Hg] Pst 1 [facility] 12-27-2021 15:54-0400 Body height 175.3 cm Shannon Sheets DO Work Phone: [facility] 12-27-2021 15:54-0400 Body temperature 98.2 [degF] Shannon Sheets DO Work Phone: [facility] 12-27-2021 15:54-0400 Body weight 79.83 kg Shannon Sheets DO Work Phone: [facility] 12-27-2021 15:54-0400 Diastolic blood pressure 67 mm[Hg] Shannon Sheets DO Work Phone: [facility] 12-27-2021 15:54-0400 Heart rate 59 /min Shannon Sheets DO Work Phone: [facility] 12-27-2021 15:54-0400 Respiratory rate 18 /min Shannon Sheets DO Work Phone: [facility] 12-27-2021 15:54-0400 SaO2% (BldA) [Mass fraction] 98 % Shannon Sheets DO Work Phone: [facility] 12-27-2021 15:54-0400 Systolic blood pressure 145 mm[Hg] Shannon Sheets DO Work Phone: [facility] 12-19-2021 10:36-0400 Body height 175.3 cm Yelitza Montenegro APRN.LEAK INSPECTOR Work Phone: [facility] 12-19-2021 10:36-0400 Body weight 79.74 kg Yelitzacarolin Montenegro METAL FURNACE OPERATOR.LEAK INSPECTOR Work Phone: [facility] 12-19-2021 10:36-0400 Diastolic blood pressure 64 mm[Hg] Yelitza Montenegro METAL FURNACE OPERATOR.LEAK INSPECTOR Work Phone: [facility] 12-19-2021 10:36-0400 Heart rate 57 /min Yelitza Montenegro METAL FURNACE OPERATOR.LEAK INSPECTOR Work Phone: [facility] 12-19-2021 10:36-0400 SaO2% (BldA) [Mass fraction] 98 % Yelitza Montenegro METAL FURNACE OPERATOR.LEAK INSPECTOR Work Phone: [facility] 12-19-2021 10:36-0400 Systolic blood pressure 112 mm[Hg] Yelitza Montenegro METAL FURNACE OPERATOR.LEAK INSPECTOR Work Phone: [facility] 10-30-2021 08:37-0400 Body weight 78.93 kg Fifi Kirkland DO Work Phone: [facility] 10-30-2021 08:37-0400 Diastolic blood pressure 72 mm[Hg] Fifi Kirkland DO Work Phone: [facility] 10-30-2021 08:37-0400 Heart rate 54 /min Fifi Kirkland DO Work Phone: [facility] 10-30-2021 08:37-0400 SaO2% (BldA) [Mass fraction] 97 % Fifi Kirkland DO Work Phone: [facility] 10-30-2021 08:37-0400 Systolic blood pressure 155 mm[Hg] Fifi Kirkland DO Work Phone: [facility] 09-18-2021 14:13-0400 Body height 172.7 cm Bria Wu MD Work Phone: [facility] 09-18-2021 14:13-0400 Body weight 78.02 kg Bria Wu MD Work Phone: [facility] 09-18-2021 14:13-0400 Diastolic blood pressure 76 mm[Hg] Bria Wu MD Work Phone: [facility] 09-18-2021 14:13-0400 Heart rate 74 /min Bria Wu MD Work Phone: [facility] 09-18-2021 14:13-0400 Systolic blood pressure 144 mm[Hg] Bria Wu MD Work Phone: [facility] Encounters Encounter Date Encounter Type Care Provider Facility Start: 11-15-2024 ambulatory Alvaro Chi [place] Facility:[facility] Start: 11-11-2024 ambulatory Alvaro [facility] Facility:[facility] Start: 10-14-2024 End: 10-14-[address] Alvaro Ceron MD Work Phone: -[facility] Start: 10-14-2024 End: 10-14-[address] Alvaro Ceron MD -[facility] Start: 10-14-2024 End: 10-14-2024 ambulatory Alvaro Chi O[place]any Facility:[facility] Start: 10-08-2024 End: 10-08-[address] Alvaro Ceron MD Work Phone: -[facility] Start: 10-08-2024 End: 10-08-[address] Alvaro Ceron MD -[facility] Work Phone: Start: 10-08-2024 End: 10-08-2024 Telephone encounter Armani Becerra DO Work Phone: Vascular Surgery Comment on above: Release Of Medical R ecords Start: 10-08-2024 End: 10-08-2024 ambulatory Alvaro Chi O[place]any Facility:[facility] Start: 10-04-2024 End: 10-04-[address] Alvaro Ceron MD Work Phone: -[facility]rd Fl[facility] Start: 10-04-2024 End: 10-04-[address] Alvaro Ceron MD -[facility] 3rd Fl[facility] Start: 10-04-2024 End: 10-04-2024 ambulatory [facility] Facility:[facility] Start: 09-19-2024 End: 09-19-2024 [facility] Start: 09-15-2024 End: 09-15-2024 ambulatory YELITZA MONTENEGRO Facility:[facility] Start: 08-25-2024 End: 08-25-2024 Subsequent hospital visit by physician [facility] Work Phone: RAD[facility] Comment on above: History of AAA (abdo benjamin aortic aneurysm) repair [Z98.890] Start: 08-25-2024 End: 08-25-2024 [facility]ulatory [facility] Start: 08-16-2024 End: 08-16-2024 Orders Only Yelitzacarolin Paniaguaews METAL FURNACE OPERATOR.LEAK INSPECTOR Work Phone: [facility] Comment on above: History of AAA (abdo benjamin aortic aneurysm) repair (Primary Dx); Infrarenal abdominal aortic 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 Start: 05-05-2024 End: 05-05-2024 ambulatory [facility] Facility:[facility] Start: 04-06-2024 End: 04-06-2024 ambulatory [facility] Facility:[facility] Start: 10-24-2023 End: 10-24-2023 Emergency department patient visit SHANNON CORDOVA Facility:[facility] Start: 10-16-2023 End: 10-16-2023 Patient encounter procedure Bria Arana METAL FURNACE OPERATOR.LEAK INSPECTOR Work Phone: [facility] Comment on above: Allergic rhinitis, u nspecified seasonality, unspecified trigger (Primary Dx); Eustachian tube dysfunction, bilateral; Dry cough; Bilateral impacted cerumen Start: 10-16-2023 End: 10-16-2023 ambulatory BRIA ARANA Facility:[facility] Start: 10-08-2023 End: 10-08-2023 Telemedicine consultation with patient Yelitza Montenegro LEYLA.LEAK INSPECTOR Work Phone: [facility] Start: 10-08-2023 End: 10-08-2023 ambulatory Yelitza Montenegro LEYLA.LEAK INSPECTOR Work Phone: [facility] Comment on above: History of AAA (abdo benjamin aortic aneurysm) repair (Primary Dx) Start: 09-17-2023 End: 09-17-2023 Subsequent hospital visit by physician [facility] ([facility]) Work Phone: [facility] Comment on above: Infrarenal abdominal aortic 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 (HCC) [I71.43] Start: 09-01-2023 Orders Only Yelitza Ruth bethany METAL FURNACE OPERATOR.LEAK INSPECTOR Work Phone: [facility] Comment on above: Infrarenal abdominal aortic 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 (HCC) (Primary Dx); S/P abdominal aortic aneurysm repair Start: 02-28-2023 Refill Shannon C She ets DO Work Phone: [facility] Comment on above: Refill Request Start: 02-10-2023 End: 02-10-2023 Patient encounter procedure Shannon C Sheets DO Work Phone: [facility] Comment on above: Medicare annual well ness visit, subsequent (Primary Dx); Hypothyroidism, acquired; Hyperlipidemia, mixed; Panlobular emphysema (HCC); Infrarenal abdominal aortic 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 (HCC); 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); Stage 3 chronic kidney disease, unspecified whether stage 3a or 3b CKD (HCC); Platelets decreased (HCC) Start: 01-08-2023 Telephone encounter Shannon C Sheets DO Work Phone: [facility] Comment on above: Patient Question Start: 10-30-2022 Telephone encounter Shannon C Sheets DO Work Phone: [facility] Comment on above: Results Start: 09-17-2022 Telephone encounter Shannon C Sheets DO Work Phone: [facility] Comment on above: Lab Orders Start: 09-13-2022 ambulatory Shannon Harris ets DO Work Phone: [facility] Comment on above: Gout Issues Continue Start: 09-03-2022 Telephone encounter Shannon Holguin Sheets DO Work Phone: [facility] Comment on above: Results Start: 08-30-2022 End: 08-30-2022 Subsequent hospital visit by physician [facility] Comment on above: Pain and swelling of toe of right foot [M79.674, M79.89] Start: 04-24-2022 Telephone encounter Shannon Cordova DO Work Phone: [facility] Comment on above: Results Start: 03-13-2022 End: 03-13-2022 Subsequent hospital visit by physician [facility] Work Phone: [facility] Comment on above: Infrarenal abdominal aortic 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 [I71.43] Start: 02-28-2022 ambulatory Nima MONTESINOS VN S Start: 02-28-2022 Follow-up encounter Nima Curry R N [facility] Comment on above: Transition Of Care ( Follow Up Call) Start: 02-27-2022 End: 02-27-2022 Patient encounter procedure Yelitza Montenegro APRN.LEAK INSPECTOR Work Phone: [facility] Comment on above: S/P abdominal aortic aneurysm repair (Primary Dx); Infrarenal abdominal aortic 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 Start: 02-19-2022 Refill Shannon Harris ets DO Work Phone: [facility] Comment on above: Refill Request Start: 02-13-2022 ambulatory Nmia MONTESINOS VN S Start: 02-13-2022 Follow-up encounter Nima Curry R N [facility] Comment on above: Transition Of Care ( Follow Up Call) Start: 01-31-2022 Patient Outreach Nima Dennis G [facility] Comment on above: Transition Of Care ( Initial Outreach ([facility] discharged 01/30/22)) Start: 01-22-2022 End: 01-22-2022 Admission to establishment [facility] 1 [facility] Start: 01-22-2022 End: 01-22-[address] 1 Pre Surgical Testing Comment on above: Preop examination (P rimary Dx); Abdominal aortic 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, unspecified part [I71.40 (ICD-10-CM)]; Chronic obstructive pulmonary disease, unspecified COPD type (HCC) [J44.9 (ICD-10-CM)]; 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) [N18.31, D63.1 (ICD-10-CM)]; Stage 3a chronic kidney disease (HCC) [N18.31 (ICD-10-CM)] Start: 01-22-2022 End: 01-22-2022 Preprocedural examination done Pst 1 Pre Surgical Testing Start: 12-27-2021 End: 12-27-2021 Patient encounter procedure Shannon Cordova DO Work Phone: [facility] Comment on above: Well adult exam (Ramón eugenio Dx); Gout with manifestations; Hypothyroidism, acquired Start: 12-27-2021 End: 12-27-2021 Patient encounter status Shannon Holguin Sheets DO Work Phone: [facility] Start: 12-19-2021 Telephone encounter Armani Becerra DO Work Phone: [facility] Comment on above: Schedule Surgery Start: 12-19-2021 End: 12-19-2021 Patient encounter procedure Yelitza Montenegro APRN.LEAK INSPECTOR Work Phone: [facility] Comment on above: AAA (abdominal aorti c aneurysm) without rupture (Primary Dx); Pre-op evaluation Start: 12-19-2021 End: 12-19-2021 Preprocedural examination done Yelitza Montenegro APRN.LEAK INSPECTOR Work Phone: [facility] Start: 12-18-2021 Refill Shannon C She ets DO Work Phone: [facility] Comment on above: Refill Request Start: 12-04-2021 End: 12-04-[address] [facility] Work Phone: [facility] Start: 12-04-2021 End: 12-04-2021 Subsequent hospital visit by physician [facility] Work Phone: [facility] Comment on above: Encounter for other preprocedural examination [Z01.818] Start: 11-20-2021 Refill Shannon Harris ets DO Work Phone: [facility] Comment on above: Refill Request Start: 10-30-2021 End: 10-30-2021 Patient encounter procedure Fifi Saldaña Kirkland DO Work Phone: Vascular Surgery Comment on above: Abdominal aortic ane urysm (AAA) without rupture (HCC) (Primary Dx) Start: 10-23-2021 Refill Shannon Harris ets DO Work Phone: [facility] Comment on above: Refill Request Start: 09-18-2021 End: 09-18-2021 Patient encounter procedure Bria Wu MD Work Phone: General Surgery Comment on above: Symptomatic cholelit hiasis (Primary Dx) Start: 09-11-2021 ambulatory Adriana Kitchen MA [facility] Start: 09-10-2021 Telephone encounter Shannon Holguin Linda DO Work Phone: [facility] Comment on above: Lab Orders Patient Question Start: 08-21-2021 ambulatory [facility] [place] Comment on above: Population Health Na vigation Outreach (HCC) Start: 07-10-2021 Telephone encounter Shannon Holguin Sheets DO Work Phone: [facility] Comment on above: Results Start: 07-03-2021 Refill Shannon C She ets DO Work Phone: [facility] Comment on above: Refill Request Start: 05-25-2018 End: 05-28-2018 Evaluation and management of inpatient FARHAN JANG) [facility] Start: 10-15-2017 Patient encounter Matheus Rodriguez Fac ility:[facility] Start: 06-05-2017 Patient encounter Matheus Rodriguez Fac ility:[facility] Start: 05-01-2017 Patient encounter Matheus Rodriguez Fac ility:[facility] Start: 04-17-2017 Patient encounter Matheus Rodriguez Fac ility:[facility] Procedures Date Procedure Procedure Detail Performing Clinician Start: 10-08-2024 MRI of upper limb Dr. Wendi Ceron MD Work Phone: Start: 10-04-2024 Plain x-ray of hand Dr. Alvaro Ceron MD Work Phone: Start: 10-04-2024 Vitamin D, 25-hydrox y measurement Dr. Alvaro Ceron MD Work Phone: Comment on above: Vitamin D StatusDefi ciency: <20 ng/mL (50nmol/L)Insufficiency: 20-30 ng/mL (50-75 nmol/L)Sufficiency: 30-100 ng/mL (75-250 nmol/L)Toxicity: >100 ng/mL (>250 nmol/L) Start: 09-17-2023 Ct angio abd&plvis c ntrst mtrl w/wo cntrst img Yelitza Montenegro METAL FURNACE OPERATOR.LEAK INSPECTOR Work Phone: Start: 02-07-2021 Adult depression scr eening assessment Shannon Cordova DO Work Phone: Plan of Treatment Date Care Activity Detail Author Start: 04-07-2034 Urine microalbumin profile DTaP,Tdap,Td Vaccine (2 - Td or Tdap) [facility] Start: 10-29-2025 DIABETES SCREEN DIABETES SCREEN [facility] Start: 10-29-2025 Diabetes Screening Diabetes Screenin g [facility] Start: 01-30-2025 DIABETES SCREEN DIABETES SCREEN [facility] Start: 12-31-2024 DIABETES SCREEN DIABETES SCREEN [facility] Start: 11-29-2024 Influenza vaccination [facility] Start: 10-14-2024 [facility] Start: 09-15-2024 End: 09-15-2024 ambulatory 09/15/2024 2:30 PM EDT [facility] [address] [phone] Yelitza Montenegro, LEYLA.LEAK INSPECTOR [address] [facility] [address] [place], [place] [id number] PP ([phone]) [facility] Comment on above: PP ([phone])* * Start: 09-10-2024 DIABETES SCREEN DIABETES SCREEN [facility] Start: 08-16-2024 End: 11-15-2024 Creatinine and Glomerular filtration rate.predicted panel - Serum, Plasma or Blood CREATININE BLD Lab Routine History of AAA (abdominal aortic aneurysm) repair Infrarenal abdominal aortic 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 Expected: 08/16/2024, Expires: 11/15/2024 [facility] Comment on above: Expected: 08/16/2024 , Expires: 11/15/2024 Start: 03-31-2024 Advance Directive Discussion Advance Directive Discussion [facility] Start: 03-31-2024 Medicare Advantage Annual Wellness Visit Medicare Advantage Annual Wellness Visit [facility] Start: 02-11-2024 Urine microalbumin profile DTaP,Tdap,Td Vaccine (1 - Tdap) [facility] Comment on above: Postponed from 02/14 (Declined at this time) Start: 12-07-2023 DIABETES SCREEN DIABETES SCREEN [facility] Start: 11-30-2023 Influenza vaccination Influenza Vacc ine (#1) [facility] Start: 10-08-2023 End: 10-08-2023 Patient encounter procedure 10/08/2023 2:00 PM EDT Office Visit [facility] [address] [phone] Yelitza Montenegro, LEYLA.LEAK INSPECTOR 1 [facility] [address] [place], [place] [id number] to reveiw testing CTA AP on 09/16 [facility] Comment on above: to reveiw testing CT A AP on 09/16 Start: 09-28-2023 Influenza vaccination Influenza Vacc ine (#1) [facility] Comment on above: Postponed from 11/29 (Declined at this time) Start: 09-01-2023 End: 12-01-2023 CREATININE BLD CREATININE BLD Lab Routine Infrarenal abdominal aortic 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 (HCC) S/P abdominal aortic aneurysm repair Expected: 09/01/2023, Expires: 12/01/2023 [facility] Comment on above: Expected: 09/01/2023 , Expires: 12/01/2023 Start: 03-31-2023 Advance Directive Discussion Advance Directive Discussion [facility] Start: 02-10-2023 End: 05-12-2023 CBC panel - Blood by Automated count CBC Lab Routine Hypothyroidism, acquired Expected: 02/10/2023, Expires: 05/12/2023 [facility] Work Phone: Comment on above: Expected: 02/10/2023 , Expires: 05/12/2023 Start: 02-10-2023 End: 05-12-2023 Lipid 1996 panel - Serum or Plasma LIPID PANEL BASIC Lab Routine Hyperlipidemia, mixed Expected: 02/10/2023, Expires: 05/12/2023 [facility] Work Phone: Comment on above: Expected: 02/10/2023 , Expires: 05/12/2023 Start: 02-10-2023 End: 05-12-2023 Thyrotropin [Units/volume] in Serum or Plasma TSH BLD Lab Routine Hypothyroidism, acquired Expected: 02/10/2023, Expires: 05/12/2023 [facility] Work Phone: Comment on above: Expected: 02/10/2023 , Expires: 05/12/2023 Start: 01-30-2023 HEMOGLOBIN/HEMATOCRIT HEMOGLOBIN/HEM [facility] Start: 01-30-2023 SERUM CREATININE SERUM CREATININE [facility] Start: 12-31-2022 HEMOGLOBIN/HEMATOCRIT HEMOGLOBIN/HEM [facility] Start: 12-31-2022 SERUM CREATININE SERUM CREATININE [facility] Start: 12-27-2022 ANNUAL PCP TEAM VOCAL PERFORMER JANETH DISEASE VISIT ANNUAL PCP TEAM CHRONIC DISEASE VISIT [facility] Start: 11-29-2022 Covid-19 Vaccine ( season) Covid-19 Vaccine () [facility] Start: 11-29-2022 Influenza vaccination [facility] Start: 11-21-2022 SERUM CREATININE SERUM CREATININE [facility] Start: 09-10-2022 HEMOGLOBIN/HEMATOCRIT HEMOGLOBIN/HEM ATOCRIT [facility] Start: 09-10-2022 SERUM CREATININE SERUM CREATININE [facility] Start: 05-07-2022 HEMOGLOBIN/HEMATOCRIT HEMOGLOBIN/HEM ATOCRIT [facility] Start: 05-07-2022 SERUM CREATININE SERUM CREATININE [facility] Start: 03-31-2022 ADVANCE DIRECTIVE DISCUSSION ADVANCE DIRECTIVE DISCUSSION [facility] Start: 02-07-2022 Adult depression screening assessment DEPRESSION SCREENING [facility] Start: 02-07-2022 ANNUAL PCP TEAM VOCAL PERFORMER JANETH DISEASE VISIT ANNUAL PCP TEAM CHRONIC DISEASE VISIT [facility] Start: 12-19-2021 End: 12-19-2022 Basic metabolic 2000 panel - Serum or Plasma BASIC METABOLIC PNL Lab Routine AAA (abdominal aortic aneurysm) without rupture (HCC) Expected: 12/19/2021, Expires: 12/19/2022 [facility] Work Phone: Comment on above: Expected: 12/19/2021 , Expires: 12/19/2022 Start: 12-19-2021 End: 12-19-2022 CBC panel - Blood by Automated count CBC Lab Routine AAA (abdominal aortic aneurysm) without rupture (HCC) Expected: 12/19/2021, Expires: 12/19/2022 [facility] Work Phone: Comment on above: Expected: 12/19/2021 , Expires: 12/19/2022 Start: 12-19-2021 End: 02-18-2022 TYPE AND SCREEN,30 DAY TYPE AND SCREEN,30 DAY Blood Bank Routine AAA (abdominal aortic aneurysm) without rupture (HCC) Expected: 12/19/2021, Expires: 02/18/2022 [facility] Work Phone: Comment on above: Expected: 12/19/2021 , Expires: 02/18/2022 Start: 11-29-2021 Influenza vaccination INFLUENZA (#1) [facility] Start: 09-10-2021 End: 11-10-2021 Thyrotropin [Units/volume] in Serum or Plasma TSH BLD Lab Routine Hypothyroidism, acquired Expected: 09/10/2021, Expires: 11/10/2021 [facility] Work Phone: Comment on above: Expected: 09/10/2021 , Expires: 11/10/2021 Start: 09-07-2021 COVID-19 VACCINE (5 - Booster for Moderna series) COVID-19 VACCINE (5 - Booster for Moderna series) [facility] Start: 09-07-2021 COVID-19 VACCINE (5 - Moderna series) COVID-19 VACCINE (5 - Moderna series) [facility] Start: 07-03-2021 End: 09-02-2021 Thyrotropin [Units/volume] in Serum or Plasma TSH BLD Lab Routine Hypothyroidism, acquired Expected: 07/03/2021, Expires: 09/02/2021 [facility] Work Phone: Comment on above: Expected: 07/03/2021 , Expires: 09/02/2021 Start: 06-03-2021 COVID-19 VACCINE (4 - Booster for Moderna series) COVID-19 VACCINE (4 - Booster for Moderna series) [facility] Start: 03-31-2021 ADVANCE DIRECTIVE DISCUSSION ADVANCE DIRECTIVE DISCUSSION [facility] Start: 02-15-1960 Urine microalbumin profile [facility] Start: 1959 Anxiety Screening Anxiety Screening [facility] Start: 1959 Depression Screening Depression Scre ening [facility] Start: 1946 PNEUMOCOCCAL: 65+ (1 - PCV) PNEUMOCOCCAL: 65+ (1 - PCV) [facility] End: 12-04-2021 Ct angio abd&plvis cntrst mtrl w/wo cntrst img [facility] Work Phone: Comment on above: 1 Occurrences starti ng 12/04/2021 until 12/04/2021 End: 03-29-2023 Ct angio abd&plvis cntrst mtrl w/wo cntrst img CTA ABD/PEL WO/W IVCON Radiology Routine Infrarenal abdominal aortic 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 1 Occurrences starting 02/27/2022 until 03/29/2023 [facility] Work Phone: Comment on above: 1 Occurrences starti ng 02/27/2022 until 03/29/2023 End: 03-13-2022 Ct angio abd&plvis cntrst mtrl w/wo cntrst img [facility] Work Phone: Comment on above: 1 Occurrences starti ng 03/13/2022 until 03/13/2022 End: 09-30-2024 CTA Abdominal vessels and Pelvis vessels WO and W contrast IV CTA ABD/PEL WO/W IVCON Radiology Routine Infrarenal abdominal aortic 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 (HCC) S/P abdominal aortic aneurysm repair 1 Occurrences starting 09/01/2023 until 09/30/2024 [facility] Work Phone: Comment on above: 1 Occurrences starti ng 09/01/2023 until 09/30/2024 End: 09-15-2025 CTA Abdominal vessels and Pelvis vessels WO and W contrast IV CTA ABD/PEL WO/W IVCON Radiology Routine History of AAA (abdominal aortic aneurysm) repair Infrarenal abdominal aortic 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 1 Occurrences starting 08/16/2024 until 09/15/2025 [facility] Work Phone: Comment on above: 1 Occurrences starti ng 08/16/2024 until 09/15/2025 H&P for surgery H&P FOR SURGERY Procedures Routine AAA (abdominal aortic aneurysm) without rupture (HCC) Ordered: 12/19/2021 [facility] Work Phone: Comment on above: Ordered: 12/19/2021 Removal impacted cerumen irrigation/lvg unilat AMBULATORY EAR LAVAGE/IRRIGATION Procedures Routine Bilateral impacted cerumen Ordered: 10/16/2023 [facility] Work Phone: Comment on above: Ordered: 10/16/2023 End: 12-19-2022 STRESS ECHO TREADMILL STRESS ECHO TREADMILL Cardiology Routine AAA (abdominal aortic aneurysm) without rupture Pre-op evaluation 1 Occurrences starting 12/19/2021 until 12/19/2022 [facility] Work Phone: Comment on above: 1 Occurrences starti ng 12/19/2021 until 12/19/2022 End: 08-30-2022 XR FOOT GENERAL 3V AP/LAT/OBL RIGHT [facility] Work Phone: Comment on above: 1 Occurrences starti ng 08/30/2022 until 08/30/2022 [facility] Immunizations Immunization Date Immunization Notes Care Provider Liset [facility] 01-21-2024 influenza virus vacc ine, unspecified formulation Amrani Becerra DO Work Phone: [facility] 03-13-2023 influenza virus vacc ine, unspecified formulation Yelitza Montenegro APRN.LEAK INSPECTOR Work Phone: [facility] 12-31-2021 influenza (HD-IIV4) vaccine, age 65+ yr, high dose, quadrivalent, PF (FLUZONE HIGH-DOSE) Shannon Sheets DO Work Phone: [facility] Work Phone: 12-31-2021 influenza virus vacc ine, unspecified formulation Shannon Sheets DO Work Phone: [facility] 01-30-2021 influenza, high-dose , quadrivalent vaccine (FLUZONE HIGH DOSE QUADRIVALENT) Sahnnon Sheets DO Work Phone: [facility] Work Phone: 2020 zoster vaccine recombinant Shannon Sheets DO Work Phone: [facility] 01-19-2020 influenza, high-dose , quadrivalent vaccine (FLUZONE HIGH DOSE QUADRIVALENT) Shannon Sheets DO Work Phone: [facility] 11-29-2019 zoster vaccine recombinant Shannon Sheets DO Work Phone: [facility] 12-31-2018 pneumococcal polysaccharide vaccine, 23 valent Shannon Sheets DO Work Phone: [facility] 12-18-2018 influenza, high dose seasonal, preservative-free Shannon Sheets DO Work Phone: [facility] 01-27-2017 influenza, high dose seasonal, preservative-free Shannon Sheets DO Work Phone: [facility] 01-30-2016 influenza, high dose seasonal, preservative-free Shannon Sheets DO Work Phone: [facility] 01-30-2016 pneumococcal conjuga te vaccine, 13 valent Shannon Sheets DO Work Phone: [facility] 01-12-2014 influenza, seasonal, injectable Shannon Sheets DO Work Phone: [facility] 04-27-2013 influenza, seasonal, injectable Shannon Sheets DO Work Phone: [facility] 01-09-2012 influenza, seasonal, injectable Shannon Sheets DO Work Phone: [facility] 10-08-2010 influenza, seasonal, injectable Shannon Sheets DO Work Phone: [facility] 01-16-2010 influenza, seasonal, injectable Shannon Sheets DO Work Phone: [facility] 01-29-2006 pneumococcal polysaccharide vaccine, 23 valent Shannon Sheets DO Work Phone: [facility] Payers Date Payer Category Payer Self-pay 2024 Unknown [id number] 2018 Medicare (Managed Care) [id number]. [id number] 2018 Unknown [facility] ANTHLUC AMBROCIO O [id number] 2018-Present [phone] [id number] [place] [address] [facility] [id number] 2018 Unknown [id number] 2018 Medicare [id number] Unknown [id number] Unknown [id number] Unknown [id number] Unknown [id number] Unknown [id number] Unknown [id number] Unknown [id number] Unknown [id number] Social History Date Type Detail Facility Start: 03-11-2017 End: 12-19-2021 Tobacco smoking status NHIS Ex-smoker [facility] Start: 03-31-1955 End: 03-31-2002 History of tobacco use Current smoker [facility] Start: 03-31-1955 End: 03-31-2002 History of tobacco use Cigarette Smoker [facility] Start: 04-17-2021 End: 10-08-2024 Alcohol intake Current non-drinker of alcohol (finding) [facility] Start: 1940 Sex Assigned At Not on file C [facility] Start: 06-30-2021 End: 02-27-2022 Exposure to SARS-CoV-2 (event) Not sure [facility] Start: 03-11-2017 End: 12-19-2021 Tobacco use and exposure Smokeless tobacco non-user [facility] Start: 08-30-2022 End: 02-10-2023 History of Social function [facility] Start: 08-30-2022 End: 02-10-2023 Tobacco use panel [facility] Adult Depression Screening Assessment 0 [facility] Has the [employer], [employer], [employer], or water company threatened to shut off services in your home in past 12Mo No [facility] Are you now , , , , never or living with a partner? [facility] How often to you hav e a drink containing alcohol? Never [facility] Do you feel stress - tense, restless, nervous, or anxious, or unable to sleep at night because your mind is troubled all the time - these days [OSQ] Not at all [facility] (I/We) worried wheth er (my/our) food would run out before (I/we) got money to buy more. Never true [facility] Tobacco smoking stat us NHIS Unknown if ever smoked [facility] Work Phone: Start: 1940 Sex Assigned At Male W [facility] Medical Equipment Procedure Code Equipment Code Equipment Origin al Text Equipment Identifier Dates Endograft Contralateral Leg 12mm X 10cm [id number] Start: 01-29-2022 Graft Burr Exclu bandar 14.5mm 10cm Endovascular Contralateral Leg - [id number] Start: 01-29-2022 Excluder Conform able Aaa Endoprostesis 32mm X 14.5mm X [id number] Start: 01-29-2022 Functional Status Date Assessment Result Facility 01-30-2022 Are you deaf, or do you have serious difficulty hearing No 01/30/2022 1:50 PM Brigida Garcia, ANNA [facility] 01-30-2022 Are you blind, or do you have serious difficulty seeing, even when wearing glasses No 01/30/2022 1:50 PM Brigida Garcia, ANNA No [facility] 01-30-2022 Do you have serious difficulty walking or climbing stairs No 01/30/2022 1:50 PM Brigida Garcia, ANNA No [facility] 01-30-2022 Do you have difficul ty dressing or bathing No 01/30/2022 1:50 PM Brigida Garcia, ANNA [facility] 01-30-2022 Because of a physica l, mental, or emotional condition, do you have difficulty doing errands alone such as visiting a physician's office or shopping No 01/30/2022 1:50 PM Brigida Garcia, ANNA No [facility] Mental Status Date Assessment Result Facility 01-30-2022 Because of a physica l, mental, or emotional condition, do you have serious difficulty concentrating, remembering, or making decisions No 01/30/2022 1:50 PM EDT Brigida Ortiz RN No [facility] Clinical Notes 05-27-2018 to 10-08-2024 Telephone Encounter - Puja Young RN - 10/08/2024 3:52 PM EDTTelephone Encounter - Puja Young RN - 10/08/2024 3:52 PM EDTTAdriana rueda RT(R) - 08/25/2024 11:00 AM EDT Note Date & Type Note Facility 10-08-2024 Telephone encounter Note Called received from MRI department at [facility]. 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 . Operative report faxed to MRI department for review Faxed yo [phone] Transmission completed [facility] 10-08-2024 Miscellaneous Notes Called received from MRI department at [facility]. 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 . Operative report faxed to MRI department for review Faxed yo [phone] Transmission completed documented in this encounter [facility] 10-04-2024 Radiology Diagnostic study note [facility] [address] [place] [address] Hand Min 3 Views MR#: [id number] Acct: [id number] Name: KAYLEEN PRICE Rep #: [id number] : 1940 M 84 From: Wilfredo Grant DO PCP: Dr. Alvaro Ceron MD Status: NEIL CARBALLO Study:Hand Min 3 Views Date of Exam: 10/22 Exam# [id number] Ordering Dr: Alvaro Ceron MD PROCEDURE: HAND MIN 3 VIEWS 10/04/2024 REASON FOR EXAM: FINGER PAIN, Right index finger pain for 1 week. No injury. TECHNIQUE: HAND MIN 3 VIEWS COMPARISON: None FINDINGS: Three views of the right hand demonstrate the middle and distal portions of the distal phalanx, 2nd to be absent. This could be due to surgical resection or congenital deformity. Clinical correlation is recommended. The distal tip of the remaining portion of the distal phalanx is irregular. The remaining osseous structures of the right hand are unremarkable. Soft tissue swelling of the 2nd digit right hand is noted. There are no fractures or dislocations ofthe osseous structures of the right hand. There is a 1 mm lytic lesion seen in the distal aspect, proximal phalanx, 1st digit which most likely represents a benign bony cyst. This lytic lesion has a sclerotic margin. Arthritic changes are noted involving the scaphoid trapezium joint. The remaining joints of the right hand are unremarkable. RAD/Hand Min 3 Views IMPRESSION: Only the proximal portion of the distal phalanx 2nd digit persist. The distal component of the osseous structure is irregular. This could be due to osteomyelitis. Soft tissue swelling of the 2nd digit is noted. RECOMMENDATION: CT examination may be of value for further evaluation if clinically warranted. Reading Location: [id number] CC: Dr. Alvaro Ceron MD ~ Circular Saw Edge Fuser: Signed [facility] 08-25-2024 History of Present illness Narrative Radiology Service Progress Note DATE OF SERVICE: August 25, 2024 TIME: 10:48 AM PATIENT IDENTITY VERIFICATION COMPLETED USING TWO (2) STANDARD IDENTIFIERS: Name and Date of confirmed by patient verbally. FALL SCREENING: Has the patient had 2 falls in the last year or 1 fall with injury or currently using an Ambulatory Assistive Device (Walker, Cane, Wheelchair, Crutches, etc.)? No PATIENT GENDER DATA: Assigned male at PATIENT RELEVANT IMPLANT DATA REVIEWED: Yes PATIENT PRESENTS WITH AN IMPLANTABLE OR ATTACHED PAINTER SET: No ALLERGIES: Reviewed and unchanged CONTRAST ALLERGY: NO. EXAM: CT -CONTRAST INDUCED NEPHROPATHY RISK FACTORS: Patient age > 60 years CREATININE: Creatinine Date Value Ref Range Status 08/25/2024 1.58 (H) 0.73 - 1.22 mg/dL Final 09/17/2023 1.26 (H) 0.73 - 1.22 mg/dL Final 05/07/2023 1.35 (H) 0.73 - 1.22 mg/dL Final Estimated Glomerular Filtration Rate Date Value Ref Range Status 08/25/2024 43 (L) >=60 mL/min/1.73m Final Comment: Estimated Glomerular Filtration Rate (eGFR) is calculated using the 2020 CKD-EPI creatinine equation. This equation utilizes serum creatinine, sex, and age as parameters. The creatinine assay has traceable calibration to isotope dilution-mass spectrometry. Refer to KDIGO guidelines for clinical interpretation. In patients with unstable renal function, e.g. those with acute kidney injury, the eGFR may not accurately reflect actual GFR. eGFR- Date Value Ref Range Status 05/07/2021 54 Final P.O.C.T. RESULTS: POC done: Yes, See Lab Tab August 25, 2024 TREATMENT: N/A PERIPHERAL IV DATA: Ambulatory: A peripheral IV was started in the Right antecubital site with a Angio cath: 18 gauge. RADIOLOGY DEPARTMENT: CT; Exam(s) Completed: CTA Abdomen Pelvis SIGNATURE: ELENI Sotelo) / Damon Figueroa PATIENT NAME: Nancy Price DATE: August 25, 2024 TIME: 10:48 AM documented in this encounter [facility] 08-25-2024 Note HNO ID: [id number] Author: ADRIANA SHEPHERD RT (R) Service: Radiology Author Type: Epic [employer] Type: Progress Notes Filed: 08/25/2024 10:49 Note Text: Radiology Service Progress Note DATE OF SERVICE: August 25, 2024 TIME: 10:48 AM PATIENT IDENTITY VERIFICATION COMPLETED USING TWO (2) STANDARD IDENTIFIERS: Name and Date of confirmed by patient verbally. FALL SCREENING: Has the patient had 2 falls in the last year or 1 fall with injury or currently using an Ambulatory Assistive Device (Walker, Cane, Wheelchair, Crutches, etc.)? No PATIENT GENDER DATA: Assigned male at PATIENT RELEVANT IMPLANT DATA REVIEWED: Yes PATIENT PRESENTS WITH AN IMPLANTABLE OR ATTACHED PAINTER SET: No ALLERGIES: Reviewed and unchanged CONTRAST ALLERGY: NO. EXAM: CT -CONTRAST INDUCED NEPHROPATHY RISK FACTORS: Patient age > 60 years CREATININE: Creatinine Date Value Ref Range Status 08/25/2024 1.58 (H) 0.73 - 1.22 mg/dL Final 09/17/2023 1.26 (H) 0.73 - 1.22 mg/dL Final 05/07/2023 1.35 (H) 0.73 - 1.22 mg/dL Final Estimated Glomerular Filtration Rate Date Value Ref Range Status 08/25/2024 43 (L) >=60 mL/min/1.73m? Final Comment: Estimated Glomerular Filtration Rate (eGFR) is calculated using the 2020 CKD-EPI creatinine equation. This equation utilizes serum creatinine, sex, and age as parameters. The creatinine assay has traceable calibration to isotope dilution-mass spectrometry. Refer to KDIGO guidelines for clinical interpretation. In patients with unstable renal function, e.g. those with acute kidney injury, the eGFR may not accurately reflect actual GFR. eGFR- Date Value Ref Range Status 05/07/2021 54 Final P.O.C.T. RESULTS: POC done: Yes, See Lab Tab August 25, 2024 TREATMENT: N/A PERIPHERAL IV DATA: Ambulatory: A peripheral IV was started in the Right antecubital site with a Angio cath: 18 gauge. RADIOLOGY DEPARTMENT: CT; Exam(s) Completed: CTA Abdomen Pelvis SIGNATURE: RT Deepak(R) / Damon Figueroa PATIENT NAME: Nancy Price DATE: August 25, 2024 TIME: 10:48 AM [facility] 10-16-2023 Nurse Note Ambulatory Ear Lavage Pre-treatment: No pre-treatment Treatment: Both ears Equipment and Irrigation solution and Volume used: Single use syringe with single use irrigation tip Water Return flow appearance: Brown Yellow Patient tolerated procedure: yes Tympanic membrane assessment: Tympanic membrane assessed by LIP pre and post procedure Adriana Kitchen MA [facility] 10-16-2023 Nurse Note Ambulatory Ear Lavage Pre-treatment: No pre-treatment Treatment: Both ears Equipment and Irrigation solution and Volume used: Single use syringe with single use irrigation tip Water Return flow appearance: Brown Yellow Patient tolerated procedure: yes Tympanic membrane assessment: Tympanic membrane assessed by LIP pre and post procedure Adriana Kitchen MA documented in this encounter [facility] 10-16-2023 Note HNO ID: [id number] Author: BRIA ARANA APRN.LEAK INSPECTOR Service: ? Author Type: Nurse Practitioner Type: Progress Notes Filed: 10/16/2023 10:13 Note Text: CHIEF COMPLAINT: Nancy Price is a 83 year old male who presents for symptoms of a dry cough, runny nose, fatigue, and SOB off and on for the last 3 weeks. He has tried using Flonase and Dayquil. He has had the runny nose for a long time and it is always clear. He denies any fever,s body aches, headaches, N/V. Has had some intermittent looser stools and occasional feeling lightheaded when he stands up. I reviewed past medical, surgical, social, and family histories today and updated chart. Allergies, chronic medications, and supplements were also reviewed. PAST MEDICAL HISTORY Diagnosis Date AAA (abdominal aortic aneurysm) (HCC) Acquired hypothyroidism check TSH Acute sinusitis Anemia check CBC Cervical spondylosis continue home exercises and pain meds Chronic obstructive lung disease (HCC) Emphysema, unspecified (HCC) Foot joint pain right first MTP, xray shows osteoarthritis, resolved spontaneously Hiatal hernia continue omeprazole, f/u Dr. Nye Leukopenia f/u with Dr. Rodriguez Lipoma of upper arm left, reassurance given Neck pain continue antiinlammatory meds Neoplasm of uncertain behavior of skin BIOPSY SENT, SUTURES REMOVED Shoulder pain left, continue home exercises Swelling of lower limb xray of right foot PAST SURGICAL HISTORY Procedure Laterality Date PAST SURGICAL HISTORY OF Skin lesion removed, RightWrist TONSILLECTOMY AND ADENOIDECTOMY Social History Tobacco Use Smoking status: Former Types: Cigarettes Start date: 03/31/1955 Quit date: 03/31/2002 Years since quittin.5 Smokeless tobacco: Never Vaping Use Vaping Use: Never used Substance Use Topics Alcohol use: No Drug use: Never Comment: no reported history ALLERGIES Allergen Reactions Augmentin [Amoxicil* Rash Liver enzymes increase Penicillin G Benzat* Hives Family History Problem Relation Age of Onset Cancer Sister Hypertension Sister Hypertension Brother Aneurysm Mother Obesity Mother other (smoking tobacco) Mother other (stomach cancer) Father Current Outpatient Medications Medication Sig Dispense Refill pantoprazole DR (PROTONIX) 40 mg tablet take 1 tablet by mouth once daily. 90 tablet 3 levothyroxine (SYNTHROID) 50 mcg tablet Take 1 tablet by mouth once daily. 90 tablet 0 aspirin 81 mg chewable tablet Take 1 tablet by mouth once daily. acetaminophen (TYLENOL) 500 mg tablet Take 1-2 tablets by mouth every 8 hours as needed for pain. 30 tablet 0 cholecalciferol (VITAMIN D3) 1,000 unit tab tablet Take 1 tablet by mouth once daily. No current facility-administered medications for this visit. Review of Systems Constitutional: Positive for fatigue. Negative for appetite change, chills, diaphoresis, fever and unexpected weight change. HENT: Positive for rhinorrhea, sinus pressure and sneezing. Negative for congestion, ear pain, sinus pain and sore throat. Eyes: Negative for visual disturbance. Respiratory: Positive for cough, chest tightness and shortness of breath. Negative for wheezing. Cardiovascular: Negative for chest pain, palpitations and leg swelling. Gastrointestinal: Positive for diarrhea. Negative for constipation, nausea and vomiting. Genitourinary: Negative. Musculoskeletal: Negative. Neurological: Positive for light-headedness (when he gets up). Negative for dizziness and headaches. BP 122/62 Pulse 52 Temp 98 Resp 18 Ht 5' 9 (1.75m) Wt 165 lb (74.8kg) SpO2 99% BMI 24.36 kg/(m2). Physical Exam Vitals and nursing note reviewed. Constitutional: Appearance: Normal appearance. He is not ill-appearing. HENT: Right Ear: Ear canal and external ear normal. There is impacted cerumen. Left Ear: Ear canal and external ear normal. A middle ear effusion is present. Tympanic membrane is not erythematous or bulging. Ears: Comments: Impacted cerumen in right canal. Small amount of cerumen in left canal. Cerumen removed successfully by irrigation by MA without complication. TMs visualized. Nose: Rhinorrhea present. No congestion. Mouth/Throat: Mouth: Mucous membranes are moist. Pharynx: Oropharyngeal exudate present. No posterior oropharyngeal erythema. Eyes: Conjunctiva/sclera: Conjunctivae normal. Pupils: Pupils are equal, round, and reactive to light. Cardiovascular: Rate and Rhythm: Normal rate and regular rhythm. Heart sounds: Normal heart sounds. Pulmonary: Effort: Pulmonary effort is normal. Breath sounds: Normal breath sounds. No wheezing. Abdominal: General: Bowel sounds are normal. There is no distension. Palpations: Abdomen is soft. Tenderness: There is no abdominal tenderness. Skin: General: Skin is warm and dry. Neurological: Mental Status: He is alert and oriented to person, place, and time. (more content not included)... [facility] 10-16-2023 History of Present illness Narrative CHIEF COMPLAINT: Nancy Price is a 83 year old male who presents for symptoms of a dry cough, runny nose, fatigue, and SOB off and on for the last 3 weeks. He has tried using Flonase and Dayquil. He has had the runny nose for a long time and it is always clear. He denies any fever,s body aches, headaches, N/V. Has had some intermittent looser stools and occasional feeling lightheaded when he stands up. I reviewed past medical, surgical, social, and family histories today and updated chart. Allergies, chronic medications, and supplements were also reviewed. PAST MEDICAL HISTORY Diagnosis Date AAA (abdominal aortic aneurysm) (HCC) Acquired hypothyroidism check TSH Acute sinusitis Anemia check CBC Cervical spondylosis continue home exercises and pain meds Chronic obstructive lung disease (HCC) Emphysema, unspecified (HCC) Foot joint pain right first MTP, xray shows osteoarthritis, resolved spontaneously Hiatal hernia continue omeprazole, f/u Dr. Nye Leukopenia f/u with Dr. Rodriguez Lipoma of upper arm left, reassurance given Neck pain continue antiinlammatory meds Neoplasm of uncertain behavior of skin BIOPSY SENT, SUTURES REMOVED Shoulder pain left, continue home exercises Swelling of lower limb xray of right foot PAST SURGICAL HISTORY Procedure Laterality Date PAST SURGICAL HISTORY OF Skin lesion removed, RightWrist TONSILLECTOMY & ADENOIDECTOMY <AGE 13 Social History Tobacco Use Smoking status: Former Types: Cigarettes Start date: 03/31/1955 Quit date: 03/31/2002 Years since quittin.5 Smokeless tobacco: Never Vaping Use Vaping Use: Never used Substance Use Topics Alcohol use: No Drug use: Never Comment: no reported history ALLERGIES Allergen Reactions Augmentin [Amoxicil* Rash Liver enzymes increase Penicillin G Benzat* Hives Family History Problem Relation Age of Onset Cancer Sister Hypertension Sister Hypertension Brother Aneurysm Mother Obesity Mother other (smoking tobacco) Mother other (stomach cancer) Father Current Outpatient Medications Medication Sig Dispense Refill pantoprazole DR (PROTONIX) 40 mg tablet take 1 tablet by mouth once daily. 90 tablet 3 levothyroxine (SYNTHROID) 50 mcg tablet Take 1 tablet by mouth once daily. 90 tablet 0 aspirin 81 mg chewable tablet Take 1 tablet by mouth once daily. acetaminophen (TYLENOL) 500 mg tablet Take 1-2 tablets by mouth every 8 hours as needed for pain. 30 tablet 0 cholecalciferol (VITAMIN D3) 1,000 unit tab tablet Take 1 tablet by mouth once daily. No current facility-administered medications for this visit. Review of Systems Constitutional: Positive for fatigue. Negative for appetite change, chills, diaphoresis, fever and unexpected weight change. HENT: Positive for rhinorrhea, sinus pressure and sneezing. Negative for congestion, ear pain, sinus pain and sore throat. Eyes: Negative for visual disturbance. Respiratory: Positive for cough, chest tightness and shortness of breath. Negative for wheezing. Cardiovascular: Negative for chest pain, palpitations and leg swelling. Gastrointestinal: Positive for diarrhea. Negative for constipation, nausea and vomiting. Genitourinary: Negative. Musculoskeletal: Negative. Neurological: Positive for light-headedness (when he gets up). Negative for dizziness and headaches. BP 122/62 Pulse 52 Temp 98 Resp 18 Ht 5' 9 (1.75m) Wt 165 lb (74.8kg) SpO2 99% BMI 24.36 kg/(m^2). Physical Exam Vitals and nursing note reviewed. Constitutional: Appearance: Normal appearance. He is not ill-appearing. HENT: Right Ear: Ear canal and external ear normal. There is impacted cerumen. Left Ear: Ear canal and external ear normal. A middle ear effusion is present. Tympanic membrane is not erythematous or bulging. Ears: Comments: Impacted cerumen in right canal. Small amount of cerumen in left canal. Cerumen removed successfully by irrigation by MA without complication. TMs visualized. Nose: Rhinorrhea present. No congestion. Mouth/Throat: Mouth: Mucous membranes are moist. Pharynx: Oropharyngeal exudate present. No posterior oropharyngeal erythema. Eyes: Conjunctiva/sclera: Conjunctivae normal. Pupils: Pupils are equal, round, and reactive to light. Cardiovascular: Rate and Rhythm: Normal rate and regular rhythm. Heart sounds: Normal heart sounds. Pulmonary: Effort: Pulmonary effort is normal. Breath sounds: Normal breath sounds. No wheezing. Abdominal: General: Bowel sounds are normal. There is no distension. Palpations: Abdomen is soft. Tenderness: There is no abdominal tenderness. Skin: General: Skin is warm and dry. Neurological: Mental Status: He is alert and oriented to person, place, and time. ASSESSMENT/PLAN: 1. Allergic rhinitis, unspecified seasonality, unspecified trigger - ICD9: 477.9, ICD10: J30.9 (primary diagnosis) - - Symptomatic management with rest, fluids, and analgesia as needed. - Cool mist humidifier at night. - Follow-up with PCP if symptoms persist or worsen. - Go to the emergency department for fever greater than 102, neck stiffness, severe headache, drooling, signs of dehydration, chest pain, if you cough up blood, feel like you are going to pass out, or have difficulty breathing. - LORATADINE 10 MG TABLET - FLUTICASONE PROPIONATE 50 MCG/ACTUATION NASAL SPRAY,SUSPENSION 2. Eustachian tube dysfunction, bilateral - ICD9: 381.81, ICD10: H69.93 - LORATADINE 10 MG TABLET - FLUTICASONE PROPIONATE 50 MCG/ACTUATION NASAL SPRAY,SUSPENSION 3. Dry cough - ICD9: 786.2, ICD10: R05.8 4. Bilateral impacted cerumen - ICD9: 380.4, ICD10: H61.23 - AMBULATORY EAR LAVAGE/IRRIGATION New medication(s) prescribed today: Yes: Claritin and Flonase. Discussed new medication dosage, usage, goals of therapy, and side effects. Patient has been apprised of any potential drug interactions to be aware of. Patient expresses understanding. Counseling completed in adopting health behaviors such as avoiding excessive alcohol use, avoid tobacco use, improve nutrition, and engage in physical activities. Copy of written care plan, clinical summary, treatment plan, new medications, goals, and self management requirements were given to patient. Bria Arana APRN.MELINDA documented in this encounter [facility] 10-08-2023 Note HNO ID: [id number] Author: YELITZA MONTENEGRO APRN.MELINDA Service: ? Author Type: Nurse Practitioner Type: Progress Notes Filed: 10/08/2023 14:27 Note Text: TELEPHONE VISIT (audio only) PROGRESS NOTE This is a telephone encounter initiated for an established patient. The patient, parent or guardian is not originating from a related Evaluation AND Management service provided within the previous 7 days nor leading to an Evaluation AND Management service or procedure within the next 24 hours or soonest available appointment. I have communicated my name and active licensure. The patient's identity and physical location were verified at the time of this visit. Either the patient or their legal district representative has been informed of the risks and benefits of -- and alternatives to -- treatment through a remote evaluation and consents to proceed with the evaluation remotely. Nancy Price has requested AND consented to this telephone encounter. Persons Present: Patient Chief Complaint/Reason: Follow-up HPI: This patient underwent repair of an infranrenal abdominal aortic aneurysm using a aortobi-iliac replacement graft in [address] Becerra. No new vascular problems have occurred since that time, and he is following up after his annual surveillance scan. Pt reports that he is doing well and has no concerns to report today. Grateful for call and not having to come in to [place]! Data Reviewed: CTA a/p 09/17/23 CTA a/p 03/13/22 CTA a/p 12/04/21 Assessment: (Z98.890) History of AAA (abdominal aortic aneurysm) repair (primary encounter diagnosis) Comment: Stable with decreased sac size on recent CTA now 4.9 x 4.5cm from 5.3 x 5.4cm. Plan: -Continue daily asa -Continue to refrain from nicotine -Continue to try to stay active AND healthy -Repeat CTA in 1 year ([facility] per pt's preference) -Follow-up after testing (OK for VV/TV per pt's preference) -Pt will call with any questions or concern Total Time Spent: 11-20 minutes Yelitza Montenegro APRN.MELINDA [facility] 10-08-2023 History of Present illness Narrative TELEPHONE VISIT (audio only) PROGRESS NOTE This is a telephone encounter initiated for an established patient. The patient, parent or guardian is not originating from a related Evaluation & Management service provided within the previous 7 days nor leading to an Evaluation & Management service or procedure within the next 24 hours or soonest available appointment. I have communicated my name and active licensure. The patient's identity and physical location were verified at the time of this visit. Either the patient or their legal district representative has been informed of the risks and benefits of -- and alternatives to -- treatment through a remote evaluation and consents to proceed with the evaluation remotely. Nancy Price has requested & consented to this telephone encounter. Persons Present: Patient Chief Complaint/Reason: Follow-up HPI: This patient underwent repair of an infranrenal abdominal aortic aneurysm using a aortobi-iliac replacement graft in [place] [address] Becerra. No new vascular problems have occurred since that time, and he is following up after his annual surveillance scan. Pt reports that he is doing well and has no concerns to report today. Grateful for call and not having to come in to [place]! Data Reviewed: CTA a/p 09/17/23 CTA a/p 03/13/22 CTA a/p 12/04/21 Assessment: (Z98.890) History of AAA (abdominal aortic aneurysm) repair (primary encounter diagnosis) Comment: Stable with decreased sac size on recent CTA now 4.9 x 4.5cm from 5.3 x 5.4cm. Plan: -Continue daily asa -Continue to refrain from nicotine -Continue to try to stay active & healthy -Repeat CTA in 1 year ([place]ianna per pt's preference) -Follow-up after testing (OK for VV/TV per pt's preference) -Pt will call with any questions or concern Total Time Spent: 11-20 minutes Yelitza Montenegro APRN.CNP documented in this encounter [facility] 09-17-2023 History of Present illness Narrative Radiology Service Progress Note DATE OF SERVICE: September 17, 2023 TIME: 3:52 PM PATIENT IDENTITY VERIFICATION COMPLETED USING TWO (2) STANDARD IDENTIFIERS: Name and Date of confirmed by patient verbally. FALL SCREENING: Has the patient had 2 falls in the last year or 1 fall with injury or currently using an Ambulatory Assistive Device (Walker, Cane, Wheelchair, Crutches, etc.)? No PATIENT GENDER DATA: Male PATIENT RELEVANT IMPLANT DATA REVIEWED: Yes PATIENT PRESENTS WITH AN IMPLANTABLE OR ATTACHED PAINTER SET: No ALLERGIES: Reviewed and unchanged CONTRAST ALLERGY: NO. EXAM: CT -CONTRAST INDUCED NEPHROPATHY RISK FACTORS: Patient age > 60 years CREATININE: Creatinine Date Value Ref Range Status 09/17/2023 1.26 (H) 0.73 - 1.22 mg/dL Final 05/07/2023 1.35 (H) 0.73 - 1.22 mg/dL Final 10/29/2022 1.59 (H) 0.73 - 1.22 mg/dL Final Estimated Glomerular Filtration Rate Date Value Ref Range Status 09/17/2023 57 (L) >=60 mL/min/1.73m Final Comment: Estimated Glomerular Filtration Rate (eGFR) is calculated using the 2020 CKD-EPI creatinine equation. This equation utilizes serum creatinine, sex, and age as parameters. The creatinine assay has traceable calibration to isotope dilution-mass spectrometry. Refer to KDIGO guidelines for clinical interpretation. In patients with unstable renal function, e.g. those with acute kidney injury, the eGFR may not accurately reflect actual GFR. eGFR- Date Value Ref Range Status 05/07/2021 54 Final P.O.C.T. RESULTS: POC done: Yes, See Lab Tab September 17, 2023 TREATMENT: N/A PERIPHERAL IV DATA: Ambulatory: A peripheral IV was started in the Left antecubital site with a Angio cath: 18 gauge. RADIOLOGY DEPARTMENT: CT; Exam(s) Completed: CTA Abdomen Pelvis SIGNATURE: RT Jett(R) PATIENT NAME: Nancy Price DATE: September 17, 2023 TIME: 3:52 PM documented in this encounter [facility] 02-28-2023 Miscellaneous Notes pharm requesting refills: Last office visit 02/10/2023. Last refill 01/08/2023 nov none Requested Prescriptions Pending Prescriptions Disp Refills levothyroxine (SYNTHROID) 50 mcg tablet [Pharmacy Med Name: levothyroxine 50 mcg tablet] 30 tablet 0 Sig: take 1 tablet by mouth once daily. pantoprazole DR (PROTONIX) 40 mg tablet [Pharmacy Med Name: pantoprazole 40 mg tablet,delayed release] 30 tablet 0 Sig: take 1 tablet by mouth once daily. Please review and advise. Eugeino Cheng MA documented in this encounter [facility] 02-10-2023 History of Present illness Narrative Nancy Price is a 82 year old male here for a Medicare wellness visit. He had an abnormality on CT of the kidneys. Has order for f/u CT Sees Dr. Trevino, urologist Medicare Health Risk Assessment General Health Excellent Exercise: Minutes/Day 60 min Exercise: Days/Week 1 day Alcohol: Daily Use Never Alcohol: Drinks/Day Patient does not drink Alcohol: 6 or more drinks Never Feel off balance no Concerns: Teeth/Dentures no Concerns: Sexual function no Troubled by feelings no Frequency: Eating healthy diet yes ADLs requiring help no Safety precautions in home/vehicle yes Smoke, vape, chews tobacco no Difficulty hearing yes Difficulty seeing no Current Providers Specialists: I have reviewed specialist-related care of the patient in the medical record. Medical/Family history review Reviewed and updated problem list, medical/surgical/family/social history, medications, and allergies. Opioid use review Opioid Medications (last 90 days) Some values may be hidden. Unless noted otherwise, only the newest values recorded on each date are displayed. Opioid Medications No data to display. Depression screening Depression Screening PHQ-2 Score PHQ-9 Score Score (Questions 1 & 2) Total Score (All Questions) 02/10/2023 0 1 - - Depression screening tool completed and reviewed. Based on score and interview, patient is not at risk for depression. Screening tool discussed with patient, and I recommended no further intervention at this time. Cognitive screening normal Functional Observation Was the patient's timed Up & Go test unsteady or ? 12 seconds? No Advance Care Planning Surrogate decision maker documented and/or advance directives scanned in chart Measurements BP 128/66 Pulse 72 Temp 97.6 Resp 16 Ht 5' 9 (1.75m) Wt 171 lb 9.6 oz (77.8kg) SpO2 99% BMI 25.33 kg/(m^2). Hearing Screening Right ear: 500Hz: 40 1000Hz: 40 2000Hz: 0 4000Hz: 0 Left ear: 500Hz: 0 1000Hz: 40 2000Hz: 0 4000Hz: 0 Vision Screening Right eye - Without correction: With correction: 20/40 Left eye - Without correction: With correction: 20/40 Both eyes - Without correction: With correction: 20/30 Additional screenings: No results found. ASSESSMENT/PLAN: 1. Medicare annual wellness visit, subsequent - ICD9: V70.0, ICD10: Z00.00 (primary diagnosis) - Counseled on healthy diet and regular exercise 2. Hypothyroidism, acquired - ICD9: 244.9, ICD10: E03.9 - CBC - TSH BLD 3. Hyperlipidemia, mixed - ICD9: 272.2, ICD10: E78.2 - LIPID PANEL BASIC 4. Panlobular emphysema (HCC) - ICD9: 492.8, ICD10: J43.1 Breathing stable, no cough or shortness of breath 5. Infrarenal abdominal aortic 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 (HCC) - ICD9: 441.4, ICD10: I71.43 monitor 6. 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) - ICD9: 588.81, ICD10: N25.81 Under the care of Dr. Trevino 7. Stage 3 chronic kidney disease, unspecified whether stage 3a or 3b CKD (HCC) - ICD9: 585.3, ICD10: N18.30 Under the care of Dr. Trevino 8. Platelets decreased (HCC) - ICD9: 287.5, ICD10: D69.6 monitor Shannon Cordova DO documented in this encounter [facility] 01-08-2023 Miscellaneous Notes Patient informed and states he does not want any antibiotics yet he wants to try the dayquil and nyquil that his son brought him and then if he is not better by Friday he will let us know. Elaine Cruz MA Please call pt - he has not felt well with cold sx. Ask him if he wants an antibiotic, as he has not felt well for about 10 days Shannon Cordova DO Pt's son is here and has request for pt. Pt has had cold for about 10 days, wonders what he can take to feel better. He needs refills of meds - Rx sent Shannon Cordova DO documented in this encounter [facility] 10-30-2022 Miscellaneous Notes All results left on patients voicemail. Advised to call back with any questions. Eugenio Cheng MA ----- Message from William Padgett APRN.CNP sent at 10/30/2022 7:28 AM EDT ----- Kidney function stable. Uric acid level at goal. Continue allopurinol. William Padgett APRN.CNP documented in this encounter [facility] 09-17-2022 Miscellaneous Notes Already done. William Padgett APRN.CNP ----- Message from Eugenio Cheng MA sent at 09/03/2022 2:16 PM EDT ----- Remind pt. Time to check his uric acid level (for gout) KT may start him on medication. Eugenio Cheng MA documented in this encounter [facility] 09-03-2022 Miscellaneous Notes Left message on patients vm with all information. Reminder placed. Eugenio Cheng MA Addended by: WILLIAM PADGETT on: 09/03/2022 12:30 PM Modules accepted: Orders I sent in tramadol for him. In 2 weeks I would like to check uric acid level and then based on that I may start him on a low dose of allopurinol. Please add reminder for 2 weeks Thank you. William Padgett APRN.LEAK INSPECTOR Patient notified and is still in pain is there anything else he can take. Eugenio Cheng MA ----- Message from William Padgett APRN.MELINDA sent at 09/02/2022 5:55 PM EDT ----- Soft tissue swelling, gout. William Padgett APRN.LEAK INSPECTOR documented in this encounter [facility] 08-30-2022 History of Present illness Narrative Radiology Service Progress Note PATIENT NAME: Nancy Price DATE OF SERVICE: August 30, 2022 TIME: 10:41 AM PATIENT IDENTITY VERIFICATION COMPLETED USING TWO (2) IDENTIFIERS: Name and Date of confirmed by patient verbally. FALL SCREENING: Has the patient had 2 falls in the last year or 1 fall with injury or currently using an Ambulatory Assistive Device (Walker, Cane, Wheelchair, Crutches, etc.)? No PATIENT GENDER DATA: Male PATIENT RELEVANT IMPLANT DATA REVIEWED: Not Applicable RADIOLOGY DEPARTMENT: General X-ray: Exam(s) Completed: Lower Extremity X-Ray(s): Foot, Right and Wt. Bearing PERIPHERAL IV DATA: Not applicable SIGNED BY: RT Tracy(R) August 30, 2022 10:41 AM documented in this encounter [facility] 04-24-2022 Miscellaneous Notes Patient notified and voiced understanding. Reminder placed. Eugenio Cheng MA Please call pt - the CT of his abdomen for his surgery f/u showed a lesion on his left kidney. It was there before, and appears stable. However, a repeat CT of the kidney is recommended in 6 months. We will call him to remind him at that time Shannon Cordova DO documented in this encounter [facility] 02-28-2022 History of Present illness Narrative TRANSITION CARE MANAGEMENT (TCM) FOLLOW-UP NOTE Provider Action/FYI Chart reviewed. Saw surgeon 02/27. Summary: Call placed to patient. No answer. Message left on identified voicemail regarding call to check on patient's health status. Nurse's number left to call with any questions/concerns. Crop Grain Or Livestock Farmer plan for next outreach: No further follow up needed at this time Signature Nima Curry RN February 28, 2022 documented in this encounter [facility] 02-27-2022 History of Present illness Narrative Nancy Price 82 year old male S/P Endovascular aortic aneurysm repair with Burr excluder (32mm conformable main body, 14.5mm right limb, 12mm left limb); Ultrasound guided bilateral common femoral access PROCEDURE: EVAR by Dr. Becerra DATE: 01/29/22 SUBJECTIVE: Nancy Price returns to the office today for post-op evaluation following his EVAR. Pt reports that he is really doing quite well, and he has no concerns to discuss today. Denies any pain or problems with groin sites, noting that it's like nothing even happened. He has been quite pleased with Dr. Becerra's care! EXAM: Neurological Exam: Normal; Awake, alert, oriented, pleasant, and appropriate; Strength and sensation grossly intact Right Groin Site: Clean, dry, and well healed by report Left Groin Site: Clean, dry, and well healed by report PULSES: Right Pulses: PT: 1+ Left Pulses: PT: 1+ IMPRESSION: Stable post op; In direct consultation with Dr. Becerra, will proceed with 1st post-op CTA (with home hydration as last scan) and call with recommendations for either 6 mo f/up or 1 yr f/up - will also let Dr. Kirkland know, as pt prefers to continue his follow-up with her PLAN: Will call with results and recommendations following post-op scan The patient is currently taking a statin: No. Reason: Declines The patient is currently taking aspirin: Yes Yelitza Montenegro APRN.CNP documented in this encounter [facility] 02-27-2022 Instructions Yelitza Montenegro APRN.CNP - 02/27/2022 11:09 AM EST ABDOMINAL AORTIC ANEURYSM OVERVIEW An aortic aneurysm occurs when the barbosa of the main blood vessel that carries blood away from the heart (the aorta) bulge or dilate. Aneurysms can occur in any area of the aorta, but the abdomen is the most common site (figure 1). Intact abdominal aortic aneurysms (AAAs) generally cause no health problems. However, large AAAs can burst, or rupture, and cause heavy bleeding into the abdomen. A ruptured AAA is a surgical emergency requiring immediate treatment. Rarely, blood clot from an AAA can break loose and lodge into the arteries of the leg, causing blockage of blood circulation and sudden and severe leg pain. ABDOMINAL AORTIC ANEURYSM RISK FACTORS Abdominal aortic aneurysm (AAA) is uncommon in people under the age of 60. About one person in 1000 develops an AAA between the ages of 60 and 65, and this number continues to rise with age. Screening studies show that AAAs occur in 2 to 13 percent of men and 6 percent of women over the age of 65. However, almost 90 percent of the aneurysms identified by screening are small (less than 3.5 cm in diameter) and unlikely to burst. In addition to age, a number of other factors increase a person's risk of developing an AAA: ?Smoking markedly increases risk for AAA. The risk is directly related to number of years smoking and decreases in the years following smoking cessation. ?Men develop AAA four to five times more often than women. ?White people develop AAA more commonly than people of other ethnicities. ?People with other medical conditions, such as coronary heart disease and peripheral vascular disease, are more likely to develop AAA than people who are otherwise healthy. ?A family history of AAA increases the risk of developing the condition and accentuates the risks associated with age and gender. The risk of developing an aneurysm among brothers of a person with a known aneurysm who are older than 60 years of age is as high as 18 percent. Screening for AAA -- A screening test to determine if an AAA is present is recommended in certain groups of people. These recommendations are based upon the increased risk of developing an AAA, particularly among older men, especially those who smoke or who have a family history of AAA. The test used most commonly to screen for AAA is abdominal ultrasonography. This test is painless and involves the use of a wand, which is applied to the abdomen and uses high-frequency sound waves to create an image of the abdominal aorta. Recommendations for screening vary around the world, but in general, a screening test is recommended in the following groups: ?Men age 65 to 75 who have ever smoked. After a man has a single negative ultrasound, there is little benefit of repeat screening. Men older than 75 may be less likely to benefit from screening. ?Individuals age 60 or older who have a family history of AAA. Although the risk of AAA is much lower in women than men, the risk of rupture in women is higher than in men, and some professional societies believe that one-time screening for women with risk factors is worthwhile. SURVEILLANCE OF SMALL ASYMPTOMATIC AAA Most abdominal aortic aneurysms (AAAs) are small when identified either by screening or as an incidental finding from a radiologic exam (eg, ultrasound, computed tomography, magnetic resonance) done for other reasons. Although small AAAs do not require treatment, periodic surveillance is recommended to monitor AAA size and symptoms. People with a known AAA who do not have surveillance imaging are more likely to experience an AAA rupture. The recommended frequency of surveillance ultrasounds depends on the size of the aneurysm; very small AAAs may only require surveillance every few years, while larger ones need to be monitored yearly or even more frequently. ABDOMINAL AORTIC ANEURYSM SYMPTOMS Most abdominal aortic aneurysms (AAAs) are small and do not cause any symptoms. People without symptoms are usually unaware that they have an aneurysm. Some AAAs cause a noticeable pulsation near the navel. This may not be noticed by the patient but can often be detected by a health care provider during a routine physical examination. Approximately 30 percent of asymptomatic AAAs are discovered in this manner. Some AAAs can cause abdominal or back pain. Such aneurysms are typically detected during an evaluation for pain. Because blood can pool in the part of the aorta that is bulging, some people develop blood clots inside the aneurysm. If one of these clots breaks loose, it can end up clogging a blood vessel in one of the legs. This can lead to symptoms such as pain, numbness, or tingling in the leg. In some cases, parts of the leg or foot may even turn pale and become cool to the touch. Most patients have little warning before rupture. Patients who develop abdominal pain or tenderness may have had a recent increase in aneurysm size, which may predict rupture. SUMMARY Most people with abdominal aortic aneurysms (AAAs) live healthy, symptom-free lives. The decision to undergo surgery involves weighing the risk of aneurysm rupture versus the risks and benefits of a surgical procedure. While some general guidelines are suggested based upon the aneurysm size and the rate at which it is enlarging, each treatment decision should be made on an individual basis. Patients should discuss their individual risk of surgery with an experienced healthcare provider to make an informed decision. documented in this encounter [facility] 02-20-2022 Miscellaneous Notes pharmacy electronically requesting refills as follows: Last seen . Last refill both 12/18/21 . Requested Prescriptions Pending Prescriptions Disp Refills levothyroxine (SYNTHROID) 50 mcg tablet [Pharmacy Med Name: levothyroxine 50 mcg tablet] 30 tablet 1 Sig: TAKE 1 TABLET BY MOUTH ONCE DAILY pantoprazole DR (PROTONIX) 40 mg tablet [Pharmacy Med Name: pantoprazole 40 mg tablet,delayed release] 30 tablet 1 Sig: TAKE 1 TABLET BY MOUTH ONCE DAILY 30 MINUTES prior to eating Please review and advise. Elaine Cruz MA documented in this encounter [facility] 02-13-2022 History of Present illness Narrative TRANSITION CARE MANAGEMENT (TCM) FOLLOW-UP NOTE Provider Action/FYI Summary: Call placed to patient. No answer. Message left on identified voicemail regarding call to check on patient's health status. Nurse's number left to call with any questions/concerns. C[employer] Grain Or Livestock Farmer plan for next outreach: Will follow up in 1-2 weeks Signature Nima Curry RN February 13, 2022 documented in this encounter [facility] 01-31-2022 History of Present illness Narrative TRANSITIONAL CARE MANAGEMENT (TCM) COMMUNITY MONITORING PROGRAM - [facility]FF[facility]IE Provider Action/FYI: [facility] d/c 01/30 Elective AAA Declined hospital f/u w/PCP. Will f/u w/surgeon 02/27 for post op appt. General: states patient is doing well. Incisions intact, no redness/drainage. No c/o fever/chills. No c/o chest pain/pressure, shortness of breath. Patient c/o being tired and wiped out. Eating and drinking well. After Visit Summary: Reviewed w/spouse. Upcoming appts: 02/27 w/surgeon post op. Medications: Reviewed w/. States she has a call in to kidney doctor to see if ratna is to take ASA d/t having CKD. SUMMARY: Pt discharged from [facility] on 01/30/22. Admitted for: Elective AAA HOSPITAL COURSE: (copied and pasted from 01/30/22 discharge summary) Pt presented to [facility] for an elective EVAR. Pt monitored overnight in the ICU. Perioperative course uncomplicated. Pt was discharged home on ASA on 01/30/2022 in stable condition. Contact made with patient: Yes Hi my name is Nima Curry RN and I am calling from the [facility] on behalf of your PCP, Shannon Cordova, DO I understand you were recently in the hospital so I am calling to check in with you to ensure you are feeling well now that you re home. Do you mind if I ask you a few questions related to your hospital stay and well-being Yes Contact with patient post discharge, spoke to Spouse Patient identified by name and . Do you feel your health is BETTER, WORSE, or the SAME since leaving the hospital? Better ACTION TAKEN: Patient indicated symptoms are better or same, no action required. Continue outreach. MEDICATIONS: Many patients have questions or concerns about their medications once they are home. Do you have any questions about taking your medications or which medication you should be on? No Do you need any medication refills at this time, including any of the medications you might take only when needed? No ACTION TAKEN: No action required For RNs or Pharmacy completing outreach ONLY, was a medication review completed? Yes SOCIAL: We would like to make sure you have what you need so that your basics needs are met - including your personal safety, food, housing and medications. Would you like to speak with a social work hospice team lead to help give you support for any of these needs? No It can be normal to feel anxious or down during a time like this. Would you like to talk to a mental health professional about how you have been feeling? No ACTION TAKEN: No action taken DISCHARGE INTRUCTIONS: Your discharge instructions / After Visit Summary (AVS) are important in guiding you through the recovery process. Do you have any questions related to your discharge instructions? No Do you have all the necessary equipment and supplies at home? Yes ACTION TAKEN: No action required Thank you for talking with me today. I would like to help you schedule a hospital follow-up virtual or telephone visit with your PCP. This is a great way for you to connect with your provider to ensure you have safely transitioned home. If you are agreeable, I will send your request to a home health scheduler who will contact and assist you with that appointment. This will give you an opportunity to ask any questions or address any concerns you may have with your PCP. Inform the patient that if they have any questions or concerns prior to that appointment, to call their PCP's office right away. ACTION TAKEN: No action required, patient declines appointment. Your doctor would like us to remind you of the recommendations regarding the coronavirus (Covid19) outbreak: Avoid public places as much as possible. Avoid close contact (within 6 feet) with others you don't live with, especially if they are sick. Stay home if you are sick. Wash your hands regularly for at least 20 seconds with soap and water. Wear a cloth mask in public places to help reduce community spread. Do not go to your Doctor's office unless instructed to do so. For any non-emergency symptoms, call your Doctor's office to get instructions on how to manage (we might recommend a telephone or virtual visit). For emergency symptoms, proceed to Emergency Department as usual but inform them of cough and fever symptoms AMY if present (or call on the way if possible). TCM Home Visit Referral Source of Stratification: [facility] Admission Status: Discharged Readmission Risk Score: 20 RAMÓN Score: 10 Patient meets program referral criteria: No Patient does not qualify for High Risk TCM Home Visit program due to: Discharged home, does not meet program criteria Nima Curry RN January 31, 2022 2:06 PM documented in this encounter [facility] 01-22-2022 History and physical note HISTORY AND PHYSICAL EXAMINATION SERVICE DATE: 01/21/2022 SERVICE TIME: 11:43 AM PRIMARY CARE PHYSICIAN: Shannon Cordova DO REASON FOR VISIT: Nancy Price is a 81 year old male who is scheduled for Procedure(s): ENDOVASCULAR REPAIR AORTA TO RENAL LEVEL,W/AORTO-AORTIC ENDOGRAFT,WITHOUT RUPTURE (N/A) at the request of Dr. Armani Becerra for routine H&P. My final recommendation will be communicated back to the requesting physician by way of shared medical record or letter. Subjective The patient has the following: ACTIVE PROBLEM LIST Hiatal Hernia Abdominal Aortic Aneurysm (Aaa) Without Rupture Ulcer of Esophagus Without Bleeding Elevated Serum Creatinine Gout With Manifestations Family History of Thoracic Aortic Aneurysm Dysfunction of Both Eustachian Tubes Calculus of Gallbladder Without Cholecystitis Without Obstruction Richey Esophagus Elevated Liver Enzymes Panlobular Emphysema (Hcc) Pulmonary Nodules Hypothyroidism, Acquired Sensorineural Hearing Loss (Snhl) of Both Ears Gallstones Leucopenia Ckd (Chronic Kidney Disease) Stage 3, Gfr 30-59 Ml/Min (Hcc) COVID-19 Immunization Status Overdue - COVID-19 VACCINE (5 - Booster for Moderna series) Overdue since 09/07/2021 07/13/2021 Imm Admin: COVID-19 vaccine, full dose (MODERNA) 02/03/2021 Imm Admin: COVID-19 vaccine, full dose (MODERNA) 06/02/2020 Imm Admin: COVID-19 vaccine, full dose (MODERNA) Only the first 3 history entries have been loaded, but more history exists. CHIEF COMPLAINT: AAA (abdominal aortic aneurysm) HPI: Patient is a 81 year old male here for a preoperative exam. Pt has a history of AAA. The AAA had enlarged to 5.5 cm on 10/30/2021. Pt denies abdominal or back pain. Pt discussed with surgeon and agrees to surgical intervention. REVIEW OF SYSTEMS: General: Negative for: unintentional weight change, malaise and fever. Neurological: Negative for: headaches, seizures and strokes. Respiratory: Positive for: COPD. Negative for: asthma, URI < 2 weeks and obstructive sleep apnea. Cardiovascular: Positive for: abdominal aortic aneurysm Negative for: arrhythmia, CAD, chest pain, CHF, DVT/PE, hyperlipidemia and hypertension. GI: Positive for: GERD Negative for: abdominal pain, dysphagia, nausea and vomiting. : Positive for: renal failure. Patient's renal failure is chronic. Negative for: dysuria and hematuria. Endocrine: Positive for: hypothyroidism. Negative for: diabetes mellitus. Hematology: Positive for: anemia and anemia associated with chronic kidney disease. Negative for: factor V Leiden, von Willebrand disease and chronic anti-coagulation/platelet meds. Oncology: No history of CA metastasis, chemo within 30 days, or radiotherapy within 90 days. No history of oncological symptoms or problems. Psych: Negative for: anxiety and depression. Musculoskeletal: Negative for joint pain or swelling, back pain or muscle pain. Skin: Negative for lesions, rash and itching. PAST MEDICAL HISTORY Diagnosis Date AAA (abdominal aortic aneurysm) Acquired hypothyroidism check TSH Acute sinusitis Anemia check CBC Cervical spondylosis continue home exercises and pain meds Chronic obstructive lung disease (HCC) Emphysema, unspecified (HCC) Foot joint pain right first MTP, xray shows osteoarthritis, resolved spontaneously Hiatal hernia continue omeprazole, f/u Dr. Nye Leukopenia f/u with Dr. Rodriguez Lipoma of upper arm left, reassurance given Neck pain continue antiinlammatory meds Neoplasm of uncertain behavior of skin BIOPSY SENT, SUTURES REMOVED Shoulder pain left, continue home exercises Swelling of lower limb xray of right foot PAST SURGICAL HISTORY Procedure Laterality Date PAST SURGICAL HISTORY OF Skin lesion removed, RightWrist TONSILLECTOMY & ADENOIDECTOMY <AGE 13 FAMILY HISTORY Problem Relation Age of Onset Cancer Sister Hypertension Sister Hypertension Brother Aneurysm Mother Obesity Mother other (smoking tobacco) Mother other (stomach cancer) Father Social History Tobacco Use Smoking status: Former Types: Cigarettes Start date: 03/31/1955 Quit date: 03/31/2002 Years since quittin.8 Smokeless tobacco: Never Vaping Use Vaping Use: Never used Substance Use Topics Alcohol use: No Drug use: Never Comment: no reported history Prior to Admission medications as of 01/22/22 1114 Medication Sig Last Dose Taking docusate sodium (COLACE) 100 mg capsule 1 capsule as needed Taking Yes pantoprazole DR (PROTONIX) 40 mg tablet TAKE 1 TABLET BY MOUTH ONCE DAILY 30 MINUTES prior to eating Taking Yes levothyroxine (SYNTHROID) 50 mcg tablet Take 1 tablet by mouth once daily. Taking Yes acetaminophen (TYLENOL) 500 mg tablet Take 1-2 tablets by mouth every 8 hours as needed for pain. Taking Yes cholecalciferol, vitamin D3, (VITAMIN D3 ORAL) Take by mouth. Taking Yes No medication comments found. ALLERGIES Allergen Reactions Augmentin [Amoxicil* Rash Objective PHYSICAL EXAM: General: alert and oriented and healthy appearance. Pertinent negatives noted - not distressed. Skin: normal color, no rash or lesions. HEENT: No additional findings for patient's neck. Cardiovascular: regular rate and rhythm, normal S1 and S2, no rub, murmurs, or gallop. Respiratory: normal breath sounds, no wheezes or crackles. No chest wall deformity or tenderness. Abdomen: bowel sounds present and soft. Pertinent negatives noted - not tender. Extremities: no deformity, no edema or tenderness, no joint swelling or clubbing. Neurological: normal cognition and motor skills. Gait normal. No weakness or sensory deficit. PAIN ASSESSMENT: VITALS: BP 140/82 Pulse 68 Temp 98.4 Resp 16 Ht 5' 9 (1.75m) Wt 175 lb (79.4kg) SpO2 92% BMI 25.83 kg/(m^2). Diagnostic tests reviewed for today's visit: Lab Value Units Date High Low HB 11.2 g/dL 12/31/2021 17.0 13.0 HCT 34.4 % 12/31/2021 51.0 39.0 WBC 3.28 k/uL 12/31/2021 11.00 3.70 PLT 186 k/uL 12/31/2021 400 150 NA 143 mmol/L 12/31/2021 144 136 K 4.9 mmol/L 12/31/2021 5.1 3.7 GLUC 113 mg/dL 12/31/2021 99 74 BUN 22 mg/dL 12/31/2021 24 9 CREAT 1.51 mg/dL 12/31/2021 1.22 0.73 PTSEC No results within date range. INR No results within date range. APTT No results within date range. ALT 13 U/L 09/10/2021 54 10 AST 19 U/L 09/10/2021 40 14 TBILI 0.5 mg/dL 09/10/2021 1.3 0.2 TSH 3.560 mIU/L 12/31/2021 4.200 0.270 Lab Value Units Date High Low HCGQT No results within date range. UHCG No results within date range. HCG, BODY* No results within date range. Lab Value Units Date High Low ABORHD No results within date range. ABSCREEN No results within date range. Hemoglobin A1C (%) Date Value 07/01/2016 5.8 No results found for this or any previous visit (from the past 8760 hour(s)). No results found for this or any previous visit (from the past 45859 hour(s)). Assessment No problem-specific Assessment & Plan notes found for this encounter. [place] Activity Status Index: METS: Do yardwork, such as raking leaves, weeding, or pushing a power mower (4.50 METs) DASI Score: 4.5 (+SOB) Patient denies any chest pain or undue shortness of breath with the above physical activity. Clinical Frailty Scale: 3. Well, with treated comorbid disease ARISCAT Score: Age: 51-80 Preoperative SpO2: 91-95% Respiratory infection in the last month: No Preoperative anemia: No Surgical incision: peripheral Duration of surgery: >3 hrs Emergency procedure: No ARISCAT Score: 34 ANESTHESIA FINDINGS: Intubation History: No history of difficult intubation. No abnormal airway history Significant Anesthesia Considerations: none Airway History: No history of difficult airway No abnormal airway history I - PHYSICAL EVALUATION DENTAL Dentures, upper: complete. Dentures, lower: partial. II - ANESTHESIA PLAN Anesthetic Plan: general Prepared for Surgery: CONSULTS: The following consults have been initiated at this time: primary care/internal medicine (In [facility] 01/10/2022). Planned Anesthetic: general Implantable Devices: None Patient has the following medical conditions which may affect elroy-operative course Anemia - H/H 11.2/34.4 on 12/31/2021 COPD - Does not use an inhaler. Managed by PCP. Denies hospitalization or pneumonia in the last 6 months. Instructed to use inhaler as prescribed and bring DOS. CKD - stage 3, GFR 46 on 12/30/2021 Stress ECHO 01/02/2022 CONCLUSIONS: - Exam indication: Preop eval for noncard surg with intermediate risk and poor exercise tolerance - The exercise stress echo was negative for ischemia at 94 % of MPHR (4.5 METS). - The left ventricle is normal in size. There is no left ventricular hypertrophy. Left ventricular systolic function is normal. EF = 71 5% (2D biplane) - The left atrial cavity is mildly dilated. - Mild MR and TR. - RVSP, at rest is 33 mmHg, post exercise is 50 mmHg. - The patient has not had a prior CC echocardiographic exam for comparison. Pt denies daily use of Blood thinners The Following Tests/Procedures Have Been Initiated: No orders per surgeon in [facility]. ABO confirmation ordered by CYRIL in PST Assessment/Plan Diagnosis: AAA (abdominal aortic aneurysm) without rupture [I71.40] PLAN Planned Procedure: Procedure(s): ENDOVASCULAR REPAIR AORTA TO RENAL LEVEL,W/AORTO-AORTIC ENDOGRAFT,WITHOUT RUPTURE (N/A) The Following Tests/Procedures Have Been Initiated: Orders Placed This Encounter Confirm Blood Type Order Comments: Draw separate from TSCR Standing Status: Future Number of Occurrences: 1 Standing Expiration Date: 03/24/2022 Order Specific Question: Did Blood Bank direct you to place this order: Answer: No - Presurgical Workflow docusate sodium (COLACE) 100 mg capsule Si capsule as needed Instructions Given to Patient: Instructions located in the after visit summary. Patient given verbal and written preop instructions and voices comprehension and compliance. SIGNATURE: Yulia Lopez APRN.CNP PATIENT NAME: Nancy Price DATE: January 21, 2022 TIME: 2:30 PM PAGER/CONTACT #: documented in this encounter [facility] 01-21-2022 Instructions Yulia Lopez APRN.CNP - 01/21/2022 2:29 PM EDT PATIENT PREOPERATIVE INSTRUCTIONS Dr. Becerra has scheduled you for your procedure at this surgery center: [facility]: [phone], [address] [id number] Please read below carefully for your personalized instructions. Arrival Time for Surgery: DATE: 01/29/2022 OR TIME: 8 AM CHECK IN TIME: 6 AM Please be aware that emergency situations arise, which may delay or change your surgical time. If this happens, we will notify you as soon as possible and regret any inconvenience. Dietary Restrictions: - Nothing to eat or drink after midnight except for a sip of water with approved medications. Blood Thinning Medications: - Stop NSAIDS (Ibuprofen, Advil, Aleve, Motrin, Celebrex, Mobic, Voltaren, Diclofenac etc.) 7 days before surgery, as directed by your surgeon. IF YOU TAKE ANY OF THE FOLLOWING BLOOD THINNERS, PLEASE CONTACT YOUR SURGEON AND THE PHYSICIAN WHO PRESCRIBES IT FOR YOU IN ORDER TO GET PERIOPERATIVE INSTRUCTIONS SOON POSSIBLE. BLOOD THINNERS: Aspirin , Coumadin, Plavix, Eliquis, Pradaxa, Xarelto, Lovenox, Brilinta, Effient, Savaysa, Arixtra, etc - Stop Vitamin E, fish oil, multivitamins, Marijuana, CBD oil and other over the counter herbals and dietary supplements 7 days before surgery. ?-This would not apply to cancer patients who are prescribed Marinol or any other prescription form on marijuana or CBD. Medications: Approved medications to take the morning of surgery with a sip of water: BP, Heart, thyroid, psych, seizure, and pain medications excluding NSAIDS. Use inhalers as prescribed. Please bring inhalers. Please follow up with the provider that manages your diabetes and how to prepare you for surgery. If you are taking the following medications for Type 2 diabetes: Canagliflozin (INVOKANA), dapagliflozin (FARXIGA), and empagliflozin (JARDIANCE) should each be discontinued at least 3 days before scheduled surgery. Ertugliflozin (STEGLATRO) should be discontinued at least four days before scheduled surgery. Pain Medications: - Your pain medication may cause thinning of your blood. Please see directions for Blood Thinning Medications. If you take any medications for erectile dysfunction-Cialis (Tadalafil), Levitra, Staxyn (Vardenafil) Viagra (Sildenenafil please do not take these for 48 hours before surgery. Medications to be taken with small amount of fluid on the morning of surgery: see medication list If you start any new medications after today's visit, please contact the surgeon's office. Important Reminders: -- If you have a stimulator, implant or pump that requires a remote please bring the remote with you day of surgery. - If you use CPAP/BIPAP, bring the machine with you to the surgery center. - If you are prescribed inhalers for breathing, continue using them AND bring them to the surgery center. - Candy, mints, gum and tobacco products are NOT permitted the morning of surgery. - Hearing aids, dentures and glasses may be worn the morning of surgery. - NO jewelry, body piercings, makeup, hairpins or contacts are to be worn the day of surgery. -NO keys, wallet, watches, or purses -Oral hygiene and a shower or bath is required the evening before or the morning of surgery. Use the HibMDconnect[employer]ns body wash supplied to you along with the instruction. - NO lotion, creams, powders or deodorants on the skin the day of surgery -Wear loose, comfortable clothing that will accommodate bandages. -Your length of stay will be determined by your surgeon - You will need to have someone else (Family or friend) drive you home once discharged from the hospital. You are not allowed to drive yourself home after surgery. - YOU MUST HAVE A RESPONSIBLE ASSISTANT PROFESSOR OF ENGLISH TAKE YOU HOME. A CARPENTER FORM, CAB OR UBER ASSISTANT PROFESSOR OF ENGLISH CANNOT BE MADE A RESPONSIBLE ASSISTANT PROFESSOR OF ENGLISH. - We recommend that a responsible person stays with you overnight to take care of you. - You cannot stay in a hotel alone after outpatient surgery. You will not be permitted to have your surgery, if you do not have someone to take care of you. --IF you are having a TOTAL KNEE or HIP REPLACEMENT please bring your walker into the building with you. Update to visitor policy. Current policy will allow for 2 visitors. We are not allowing children in our waiting room. No food or drink is allowed. Everyone must keep their masks on. We are not allowing a visitor in our PACU area unless a minor, tape coater or a special circumstance. Each patient is allowed two visitor on the day of surgery/procedure. Visitors will be asked to wear a mask that covers their nose and mouth at all times. The visitors will be allowed to stay with the patient prior to going to surgery/procedure. No visitors are allowed in our recovery room. -It is recommended patients have a 72 hour period between getting their vaccine and date of surgery. If you develop symptoms such as a fever, cold, or flu, or have other changes to your health within TWO DAYS of scheduled surgery or the morning of surgery, please contact the surgery center above. Personal Belongings: - Leave ALL valuables and money at home or with family members. - You will need a form of ID and insurance card to check in the morning of surgery. - You will have to wear a hospital gown during your stay but if you wish to bring undergarments for after surgery you may. Yulia Lopez APRN.CNP 01/21/22 documented in this encounter [facility] 12-27-2021 History of Present illness Narrative SUBJECTIVE: 81 year old male for annual routine checkup. I have fully reviewed the past medical, surgical, social and family history and [email or web address] He will be having vascular surgery by Dr. Becerra for a AAA repair. He will have stress test on 01/02, and preop testing on 01/22. Surgery is on 01/29 and will f/u on 02/27. He has gout and would like a handicapped placard He had synthroid adjusted on 07/10/21 He walks regularly with his ALLERGIES Allergen Reactions Augmentin [Amoxicil* Rash Current Outpatient Medications Medication Sig Dispense Refill pantoprazole DR (PROTONIX) 40 mg tablet TAKE 1 TABLET BY MOUTH ONCE DAILY 30 MINUTES prior to eating 30 tablet 1 levothyroxine (SYNTHROID) 50 mcg tablet Take 1 tablet by mouth once daily. 30 tablet 1 acetaminophen (TYLENOL) 500 mg tablet Take 1-2 tablets by mouth every 8 hours as needed for pain. 30 tablet 0 cholecalciferol, vitamin D3, (VITAMIN D3 ORAL) Take by mouth. Current Facility-Administered Medications Medication Dose Route Frequency Provider Last Rate Last Admin perflutren lipid microspheres 1.3 mL in NaCl (PF) 0.9% 10 mL injection (DEFINITY) INTRAVENOUS DIRECTED PRN Yelitza Montenegro APRN.CNP sodium chloride 0.9 % (flush) 10 mL (BD POSIFLUSH) 10 mL INTRAVENOUS DIRECTED PRN Yelitza Montenegro APRN.MELINDA ACTIVE PROBLEM LIST Hiatal Hernia Abdominal Aortic Aneurysm (Aaa) Without Rupture (Hcc) Ulcer of Esophagus Without Bleeding Elevated Serum Creatinine Gout With Manifestations Family History of Thoracic Aortic Aneurysm Dysfunction of Both Eustachian Tubes Calculus of Gallbladder Without Cholecystitis Without Obstruction Richey Esophagus Elevated Liver Enzymes Panlobular Emphysema (Hcc) Pulmonary Nodules Hypothyroidism, Acquired Sensorineural Hearing Loss (Snhl) of Both Ears Gallstones Leucopenia Ckd (Chronic Kidney Disease) Stage 3, Gfr 30-59 Ml/Min (Hcc) Social History Tobacco Use Smoking status: Former Types: Cigarettes Start date: 03/31/1955 Quit date: 03/31/2002 Years since quittin.7 Smokeless tobacco: Never Vaping Use Vaping Use: Never used Substance Use Topics Alcohol use: No Drug use: Never Comment: no reported history Family History Problem Relation Age of Onset Cancer Sister Hypertension Sister Hypertension Brother Aneurysm Mother Obesity Mother other (smoking tobacco) Mother other (stomach cancer) Father Reviewed past medical history, family history and surgeries. All medications and supplements were reviewed with the patient. REVIEW OF SYSTEMS GENERAL: No weight loss, malaise or fevers HEENT: Negative for frequent or significant headaches, No changes in hearing or vision, no nose bleeds or other nasal problems NECK: Negative for lumps, goiter, pain and significant neck swelling RESPIRATORY: Negative for cough, hemoptysis, wheezing, COPD, dyspnea or shortness of breath CARDIOVASCULAR: Negative for chest pain, leg swelling, hypertension, CHF or palpitations GI: No nausea, vomiting, or diarrhea : No history of dysuria, frequency or incontinence MUSCULOSKELETAL: Negative for joint pain or swelling, back pain or muscle pain SKIN: Negative for lesions, rash, and itching PSYCH: Negative for sleep disturbance, mood disorder and recent psychosocial stressors HEMATOLOGY/LYMPHOLOGY: Negative for prolonged bleeding, bruising easily or swollen nodes ENDOCRINE: Negative for cold or heat intolerance, polyuria, polydipsia and goiter NEURO: No history of headaches, syncope, paralysis, seizures or tremors PHYSICAL EXAMINATION: BP 145/67 (BP Site: Right Arm, BP Position: Sitting, BP Cuff Size: Regular Adult) Pulse (!) 59 Temp 36.8 C (98.2 F) (Oral) Resp 18 Ht 175.3 cm (5' 9) Wt 79.8 kg (176 lb) SpO2 98% BMI 25.99 kg/m General appearance: Well appearing, alert, in no acute distress, well-hydrated, well nourished. Skin: Skin color, texture, turgor normal, no suspicious rashes or lesions Head: Normocephalic, no masses, lesions, tenderness or abnormalities Eyes: Anicteric sclera. Pupils are equally round and reactive to light. Extraocular movements are intact. Ears: External ears normal, canals clear Nose/Sinuses: Nares normal, septum midline, mucosa normal, no drainage or sinus tenderness Oropharynx: Lips, mucosa, and tongue normal, teeth and gums normal, oropharynx normal Neck: Supple, no adenopathy; thyroid symmetric, normal size, no bruits Back: Normal exam Lungs: Lungs clear to auscultation. No wheezing, rhonchi, rales. Heart: RRR without murmur, gallop, or rubs. No ectopy Abdomen: Normal abdominal exam, Abdomen soft, non-tender. Bowel sounds normal. No masses, organomegaly Extremities: No deformities, edema, skin discoloration, clubbing or cyanosis. Good capillary refill. Musculoskeletal: No joint swelling, deformity, or tenderness Peripheral pulses: Normal Neuro: Gait normal. Reflexes normal and symmetric. Sensation grossly intact. ASSESSMENT/PLAN: 1. Well adult exam - ICD9: V70.0, ICD10: Z00.00 (primary diagnosis) - Counseled on healthy diet and regular exercise 2. Gout with manifestations - ICD9: 274.89, ICD10: M10.9 - PARKING FOR HANDICAPPED 3. Hypothyroidism, acquired - ICD9: 244.9, ICD10: E03.9 - TSH BLD Shannon Cordova DO documented in this encounter [facility] 12-19-2021 History of Present illness Narrative CHIEF COMPLAINT: AAA - f/up CTA a/p done 12/04/21 HISTORY OF PRESENT ILLNESS: Mr. Price is a 81 year old male with known AAA. He saw Dr. Becerra about a month ago, for recommendations regarding surgical intervention, as AAA had enlarged to 5.5cm on non-contrast CT scan. He has been following with Dr. Kirkland in [place], and would like to resume care in [place] following any intervention. CTA was requested to further evaluation AAA to confirm if he is a candidate for endovascular repair vs open repair. Patient denies symptoms of abdominal or back pain. Blood pressures remain well controlled. He does have a history of CKD 3 with last creatinine of 1.37. Echo from 2019 shows normal EF of 55% and no significant valvular abnormalities. No prior abdominal surgeries. Denies history of claudication, rest pain, or tissue loss. Denies history of stroke, TIA, or amaurosis. Denies history of chest pain or recent AR. Former smoker, quit 2002. No aspirin, statin or anticoagulation. PAST MEDICAL HISTORY Diagnosis Date Acquired hypothyroidism check TSH Acute sinusitis Anemia check CBC Cervical spondylosis continue home exercises and pain meds Chronic obstructive lung disease (HCC) Emphysema, unspecified (HCC) Foot joint pain right first MTP, xray shows osteoarthritis, resolved spontaneously Hiatal hernia continue omeprazole, f/u Dr. Nye Leukopenia f/u with Dr. Rodriguez Lipoma of upper arm left, reassurance given Neck pain continue antiinlammatory meds Neoplasm of uncertain behavior of skin BIOPSY SENT, SUTURES REMOVED Shoulder pain left, continue home exercises Swelling of lower limb xray of right foot PAST SURGICAL HISTORY Procedure Laterality Date PAST SURGICAL HISTORY OF Skin lesion removed, RightWrist SOCIAL HISTORY: Social History Tobacco Use Smoking status: Former Types: Cigarettes Start date: 03/31/1955 Quit date: 03/31/2002 Years since quittin.7 Smokeless tobacco: Never Vaping Use Vaping Use: Never used Substance Use Topics Alcohol use: No Drug use: Never Comment: no reported history FAMILY HISTORY Problem Relation Age of Onset Cancer Sister Hypertension Sister Hypertension Brother Aneurysm Mother Obesity Mother other (smoking tobacco) Mother other (stomach cancer) Father MEDICATIONS: pantoprazole DR (PROTONIX) 40 mg tablet^TAKE 1 TABLET BY MOUTH ONCE DAILY 30 MINUTES prior to eating^Disp: 30 tablet^Rfl: 1 levothyroxine (SYNTHROID) 50 mcg tablet^Take 1 tablet by mouth once daily.^Disp: 30 tablet^Rfl: 1 acetaminophen (TYLENOL) 500 mg tablet^Take 1-2 tablets by mouth every 8 hours as needed for pain.^Disp: 30 tablet^Rfl: 0 cholecalciferol, vitamin D3, (VITAMIN D3 ORAL)^Take by mouth.^Disp: ^Rfl: ALLERGIES: ALLERGIES Allergen Reactions Augmentin [Amoxicil* Rash PHYSICAL EXAM: VITALS: BP 112/64 Pulse 57 Ht 5' 9[Patient reported.[ (1.75m) Wt 175 lb 12.8 oz (79.7kg) SpO2 98% BMI 25.95 kg/(m^2). General Appearance: Well appearing, alert, in no acute distress, well-hydrated, well nourished. Skin: Skin color, texture, turgor normal, no suspicious rashes or lesions. Head: Normocephalic, no masses, lesions, tenderness or abnormalities. Eyes: Anicteric sclera. Extraocular movements are intact. Ears: External ears normal, hearing is adequate. Lungs: Breathing is easy and unlabored. Extremities: No deformities, edema, skin discoloration, clubbing or cyanosis. Neurologic: Gait normal. Sensation and strength grossly intact. Diagnostic tests reviewed for today's visit: CTA a/p IMPRESSION: Mr. Price is a 81 year old male with 5.5cm infrarenal AAA, confirmed by recent CTA scan. In direct consultation with Dr. Becerra, pt is good candidate for endovascular repair. Will proceed with scheduling stress test and surgery. PLAN and RECOMMENDATIONS: - will need stress test - will schedule EVAR with Dr. Becerra - consent signed in office today I spent 25 minutes in the visit, with more than 50% of the total [id number] time of the visit in counseling / coordination of care. Yelitza Montenegro APRN.LEAK INSPECTOR documented in this encounter [facility] 12-19-2021 Miscellaneous Notes Orders signed. Thank you, Yelitza Montenegro APRN.LEAK INSPECTOR documented in this encounter [facility] 12-18-2021 Miscellaneous Notes Patient requesting refills as follows: Last Office Visit 02/07/21 nov 12/27. Last Refill 11/21/21 for pantoprazole and 10/23/21 for levothyroxine. Requested Prescriptions Pending Prescriptions Disp Refills pantoprazole DR (PROTONIX) 40 mg tablet 30 tablet 0 levothyroxine (SYNTHROID) 50 mcg tablet 30 tablet 1 Sig: Take 1 tablet by mouth once daily. Please review and advise. Adriana Kitchen MA documented in this encounter [facility] 11-21-2021 Miscellaneous Notes pharmacy electronically requesting refills as follows: Last seen 03/02/20 . Last refill 05/28/21 . Left message informing patient he is due for office visit and requested he call back to schedule. Requested Prescriptions Pending Prescriptions Disp Refills pantoprazole DR (PROTONIX) 40 mg tablet [Pharmacy Med Name: pantoprazole 40 mg tablet,delayed release] 90 tablet 1 Sig: TAKE 1 TABLET BY MOUTH ONCE DAILY 30 MINUTES prior to eating Please review and advise. Elaine Cruz MA documented in this encounter [facility] 10-31-2021 History of Present illness Narrative This office note has been dictated. Fifi Kirkland DO NAME: PRICENANC[facility] NO: [id number] DATE OF SERVICE: 10/30/2021 Subjective: Nancy is here to follow up on abdominal aortic aneurysm. Earlier this summer, he incidentally was swimming in the pool and got some right-sided rib pain, upper abdominal pain. He went to the emergency room and was diagnosed with cholelithiasis. He said it was mostly just related to activity and motion, not necessarily food related. However, at the time he had a noncontrast CT and his aneurysm had increased to approximately 5.5 cm in maximal diameter. Objective: His vital signs are stable. He is in no distress. He has no significant abdominal pain or lower extremity edema. Reviewed his duplex in which his aneurysm has increased slightly to 4.[address], which is 5.5. Assessment/Plan: We discussed referral to [facility] for possible infrarenal abdominal aortic aneurysm repair. He does have some chronic kidney disease and he sees Dr. Trevino. He may need hydration prior to CTA. We will have the office help arrange and schedule. Fifi Kirkland D.O. [id number] Audio #: [id number] Date Dictated: 10/30/2021 07:19:07 Date Typed: 10/31/2021 13:47:04 Date Revised: documented in this encounter [facility] 10-23-2021 Miscellaneous Notes Pharmacy requesting refills: Last office visit 02/08 2021 Last refill 07/10/2021 nov Pending Prescriptions Disp Refills LEVOTHYROXINE 50 MCG TABLET 30 tablet 1 Sig: Take 1 tablet by mouth once daily. ANGELA: Yes Please review and advise. Eugenio Cheng MA documented in this encounter [facility] 09-18-2021 History of Present illness Narrative New patient H&P PATIENT NAME: Nancy Price Assessment ASSESSMENT/PLAN: (K80.20) Symptomatic cholelithiasis (primary encounter diagnosis) Nancy presents with right upper quadrant pain. He was found to have gallstones. We discussed the etiology of gallstones and laparoscopic cholecystectomy. At this time he is pain-free and would like to hold off on surgery if possible. This is reasonable. He is eating well. He is scheduled for a follow-up ultrasound of his AAA in October. This seems to be increasing in size. I would like him to follow-up with this prior to gallbladder surgery if possible. He sees Dr. Kirkland. The patient and his are comfortable with this plan. No orders found for this visit on 09/18/21. SUBJECTIVE CHIEF COMPLAINT: Patient presents with: ED Follow-up: 09/10 abdominal pains INTERVAL HISTORY OF PRESENT ILLNESS: Nancy is an 81-year-old gentleman who felt pressure under his right ribs while swimming a few weeks ago. This resolved. Later he had pressure again making it hard for him to stand. He was seen in the ER and found to have gallstones. His pain has now resolved. He denies nausea, vomiting, diarrhea, or constipation. He has been able to eat. He presents today for surgical evaluation. Of note he does have a AAA and has been followed by Dr. Kirkland. This seems to have increased slightly in size. He is scheduled for a follow-up ultrasound October. HISTORIES: PAST MEDICAL HISTORY Diagnosis Date Acquired hypothyroidism check TSH Acute sinusitis Anemia check CBC Cervical spondylosis continue home exercises and pain meds Chronic obstructive lung disease (HCC) Emphysema, unspecified (HCC) Foot joint pain right first MTP, xray shows osteoarthritis, resolved spontaneously Hiatal hernia continue omeprazole, f/u Dr. Nye Leukopenia f/u with Dr. Rodriguez Lipoma of upper arm left, reassurance given Neck pain continue antiinlammatory meds Neoplasm of uncertain behavior of skin BIOPSY SENT, SUTURES REMOVED Shoulder pain left, continue home exercises Swelling of lower limb xray of right foot PAST SURGICAL HISTORY Procedure Laterality Date PAST SURGICAL HISTORY OF Skin lesion removed, RightWrist ALLERGIES: Augmentin [Amoxicillin-Pot Clavulanate] MEDICATIONS: Current Outpatient Medications Medication Sig acetaminophen (TYLENOL) 500 mg tablet Take 1-2 tablets by mouth every 8 hours as needed for pain. levothyroxine (SYNTHROID) 50 mcg tablet Take 1 tablet by mouth once daily. pantoprazole DR (PROTONIX) 40 mg tablet TAKE 1 TABLET BY MOUTH ONCE DAILY 30 MINUTES prior to eating cholecalciferol, vitamin D3, (VITAMIN D3 ORAL) Take by mouth. No current facility-administered medications for this visit. FAMILY HISTORY Problem Relation Age of Onset Cancer Sister Hypertension Sister Hypertension Brother Aneurysm Mother Obesity Mother other (smoking tobacco) Mother other (stomach cancer) Father Social History Tobacco Use Smoking status: Former Smoker Types: Cigarettes Start date: 03/31/1954 Quit date: 03/31/2002 Years since quittin.4 Smokeless tobacco: Never Used Vaping Use Vaping Use: Never used Substance Use Topics Alcohol use: No Drug use: Never Comment: no reported history Reviewed and agreed with Review of Systems completed by the clinical staff. OBJECTIVE PHYSICAL EXAM: BP 144/76 Pulse 74 Ht 5' 8 (1.73m) Wt 172 lb (78.0kg) BMI 26.16 kg/(m^2). General: Well developed, well-nourished, in no distress HEENT: Normocephalic, atraumatic. Extraocular movements intact. Sclera are nonicteric. Heart: Regular rate and rhythm, no murmur Lungs: Clear to auscultation, without wheezes Abdomen: Soft, non tender, positive bowel sounds, no masses, no hernia Rectal: Not evaluated Extremities: No edema Neurologic: Alert, oriented, and appropriate. DATA: Diagnostic tests reviewed for today's visit: CT scan reviewed with the patient and his : IMPRESSION: 1. Cholelithiasis without definite signs of cholecystitis but ultrasound could be considered for further characterization. 2. Increasing caliber of infrarenal abdominal aortic aneurysm without secondary signs of aneurysm rupture. 3. Enlarging intermediate attenuation left renal lesion. CT urogram is suggested for further characterization. There is also a nonobstructive left renal calculus. Ultrasound reviewed: IMPRESSION: Moderate volume of cholelithiasis. No evidence of wall thickening or pericholecystic fluid. No bile duct dilatation Bria Wu MD GENERAL:No weight loss, No malaise, No fevers HEENT:Negative for frequent or significant headaches, No changes in hearing or vision, no nose bleeds or other nasal problems CARDIOVASCULAR: Negative for chest pain, Negative for leg swelling, Negative for palpitaions RESPIRATORY:Negative for cough, wheezing or shortness of breath. GASTROINTESTINAL: Negative for abdominal discomfort, Negative for blood in stools, Negative for black stools and Negative for change in bowel habits GENITOURINARY: No history of dysuria, frequency or incontinence. ENDOCRINE: None FARM TRACTOR OPERATOR:Denies any concerns FARM TRACTOR OPERATOR: N/A MUSCULOSKELETAL: Negative for joint pain or swelling, back pain or muscle pain. NEUROLOGIC:Negative for focal numbness or weakness, headaches and dizziness or syncope. HEMATOLOGIC/LYMPHATIC/IMMUNOLOGIC: Negative for prolonged bleeding, bruising easily or swollen nodes. Jayde Chung CMA documented in this encounter [facility] 09-11-2021 History of Present illness Narrative ED Follow Up: Left message for patient to call back if he needs anything Patient discharged from [facility] ED on 09/10/21. 1. How are you feeling since your ED visit? N/A Have your symptoms improved or resolved? Not applicable 2. Were you prescribed any medications while in the ED or advised to stop any medication? Not applicable - If yes, were you able to fill your prescriptions? Not applicable -if stopped medication, what was the medication? N/A 3. Were you advised to schedule a follow up appointment with your provider? Not applicable - If no, Do you feel like you need an appointment scheduled? Not applicable - If yes, Do you need this scheduled now or has this already been scheduled? Not applicable 4. Were you able to contact the office or extrusion press adjuster provider prior to your ED visit? Not applicable 5. Is there anything else I can do for you today? Not applicable Adriana Kitchen MA documented in this encounter [facility] 09-10-2021 Miscellaneous Notes Patient called stating that he has been having left side abdominal pain under his ribs and he wanted to make sure if he needs to go to ER. Spoke with PCP and she aggreed for him to go to the ER. Adriana Kitchen MA documented in this encounter [facility] 09-10-2021 Miscellaneous Notes Message left on patients voicemail with all information. Eugenio Cheng MA Orders attached Shannon Cordova DO ----- Message from Suzie Cartagena MA sent at 07/10/2021 1:10 PM EDT ----- Recheck TSH Suzie Cartagena MA documented in this encounter [facility] 08-21-2021 History of Present illness Narrative POPULATION HEALTH NAVIGATION OUTREACH Action/FYI Called patient to schedule medicare wellness visit. Pt identified by name and : NO Outreach Outcome/Action Unable to reach patient: Left message Reason for Outreach HCC or suspected condition Payer: Payor: [employer] / Plan: [employer] HMO / Product Type: HMO / Care Gap Reviewed:: Annual Wellness visit Reminder: Reminder note to check Health Maintenance for items below Health Maintenance items due: PNEUMOCOCCAL: 66+(1 - PCV) Never done DTAP,TDAP,TD(1 - Tdap) Never done ADVANCE DIRECTIVE DISCUSSION Never done COVID-19 VACCINE(4 - Booster for Moderna series) due on 06/03/2021 Message Sent to Practice: No William Aden Population Health Navigator August 21, 2021 10:27 AM documented in this encounter [facility] 07-10-2021 Miscellaneous Notes Called patient and informed him reminders placed Suzie Cartagena MA Please notify pt I will increase synthroid to 50 mcg per day and recheck TSH in 2 months Shannon Cordova DO Patient and said yes he is Per claudio Cartagena MA Please call pt - thyroid levels are too low. Is he taking his synthroid in the morning on an empty stomach? Shannon Cordova DO documented in this encounter [facility] 07-03-2021 Miscellaneous Notes Patient informed. Adriana Kitchen MA Pt due for TSH - order attached Shannon Cordova DO Pharmacy requesting refills as follows: Last Office Visit 02/07/21. Last Refill 04/06/21. Pending Prescriptions Disp Refills LEVOTHYROXINE 25 MCG TABLET 90 tablet 0 Sig: TAKE 1 TABLET BY MOUTH ONCE DAILY ANGELA: Yes Please review and advise. Adriana Kitchen MA documented in this encounter [facility] 05-27-2018 History of Past i llness Narrative Problem Noted Date Resolved Date Acute sinusitis 05/27/2018 02/19/2019 Last Assessment & Plan: Symptoms worsening. Will start on doxy as patient allergic to penicillin. Monitor for response for 1 day. Syncope 05/25/2018 05/28/2018 Last Assessment & Plan: Patient continues to experience dizzy. Echo came back unremarkable. Patient symptoms improving but not back to normal. Encourage oral intake. Will discontinue fluids. PT / OT for evaluation. Continue on tele. Influenza B 05/25/2018 01/04/2019 Last Assessment & Plan: Continue on tamifu to complete course. Leukopenia 04/04/2017 04/07/2017 Cholelithiasis 08/23/2016 09/10/2016 Essential hypertension 06/27/2016 7 Pulmonary emphysema 06/27/2016 07/30/2016 documented as of this encounter (statuses as of 07/03/2021) [facility] History of Past illness Narrative* Problem Noted Date Resolved Date Acute sinusitis 05/27/2018 02/19/2019 Last Assessment & Plan: Symptoms worsening. Will start on doxy as patient allergic to penicillin. Monitor for response for 1 day. Syncope 05/25/2018 05/28/2018 Last Assessment & Plan: Patient continues to experience dizzy. Echo came back unremarkable. Patient symptoms improving but not back to normal. Encourage oral intake. Will discontinue fluids. PT / OT for evaluation. Continue on tele. Influenza B 05/25/2018 01/04/2019 Last Assessment & Plan: Continue on tamifu to complete course. Leukopenia 04/04/2017 04/07/2017 Cholelithiasis 08/23/2016 09/10/2016 Essential hypertension 06/27/2016 7 Pulmonary emphysema 06/27/2016 07/30/2016 documented as of this encounter (statuses as of 07/10/2021) [facility] History of Past illness Narrative* Problem Noted Date Resolved Date Acute sinusitis 05/27/2018 02/19/2019 Last Assessment & Plan: Symptoms worsening. Will start on doxy as patient allergic to penicillin. Monitor for response for 1 day. Syncope 05/25/2018 05/28/2018 Last Assessment & Plan: Patient continues to experience dizzy. Echo came back unremarkable. Patient symptoms improving but not back to normal. Encourage oral intake. Will discontinue fluids. PT / OT for evaluation. Continue on tele. Influenza B 05/25/2018 01/04/2019 Last Assessment & Plan: Continue on tamifu to complete course. Leukopenia 04/04/2017 04/07/2017 Cholelithiasis 08/23/2016 09/10/2016 Essential hypertension 06/27/2016 7 Pulmonary emphysema 06/27/2016 07/30/2016 documented as of this encounter (statuses as of 08/21/2021) [facility] History of Past illness Narrative* Problem Noted Date Resolved Date Acute sinusitis 05/27/2018 02/19/2019 Last Assessment & Plan: Symptoms worsening. Will start on doxy as patient allergic to penicillin. Monitor for response for 1 day. Syncope 05/25/2018 05/28/2018 Last Assessment & Plan: Patient continues to experience dizzy. Echo came back unremarkable. Patient symptoms improving but not back to normal. Encourage oral intake. Will discontinue fluids. PT / OT for evaluation. Continue on tele. Influenza B 05/25/2018 01/04/2019 Last Assessment & Plan: Continue on tamifu to complete course. Leukopenia 04/04/2017 04/07/2017 Cholelithiasis 08/23/2016 09/10/2016 Essential hypertension 06/27/2016 7 Pulmonary emphysema 06/27/2016 07/30/2016 documented as of this encounter (statuses as of 09/10/2021) [facility] History of Past illness Narrative* Problem Noted Date Resolved Date Acute sinusitis 05/27/2018 02/19/2019 Last Assessment & Plan: Symptoms worsening. Will start on doxy as patient allergic to penicillin. Monitor for response for 1 day. Syncope 05/25/2018 05/28/2018 Last Assessment & Plan: Patient continues to experience dizzy. Echo came back unremarkable. Patient symptoms improving but not back to normal. Encourage oral intake. Will discontinue fluids. PT / OT for evaluation. Continue on tele. Influenza B 05/25/2018 01/04/2019 Last Assessment & Plan: Continue on tamifu to complete course. Leukopenia 04/04/2017 04/07/2017 Cholelithiasis 08/23/2016 09/10/2016 Essential hypertension 06/27/2016 7 Pulmonary emphysema 06/27/2016 07/30/2016 documented as of this encounter (statuses as of 09/10/2021) [facility] History of Past illness Narrative* Problem Noted Date Resolved Date Acute sinusitis 05/27/2018 02/19/2019 Last Assessment & Plan: Symptoms worsening. Will start on doxy as patient allergic to penicillin. Monitor for response for 1 day. Syncope 05/25/2018 05/28/2018 Last Assessment & Plan: Patient continues to experience dizzy. Echo came back unremarkable. Patient symptoms improving but not back to normal. Encourage oral intake. Will discontinue fluids. PT / OT for evaluation. Continue on tele. Influenza B 05/25/2018 01/04/2019 Last Assessment & Plan: Continue on tamifu to complete course. Leukopenia 04/04/2017 04/07/2017 Cholelithiasis 08/23/2016 09/10/2016 Essential hypertension 06/27/2016 7 Pulmonary emphysema 06/27/2016 07/30/2016 documented as of this encounter (statuses as of 09/11/2021) [facility] History of Past illness Narrative* Problem Noted Date Resolved Date Acute sinusitis 05/27/2018 02/19/2019 Last Assessment & Plan: Symptoms worsening. Will start on doxy as patient allergic to penicillin. Monitor for response for 1 day. Syncope 05/25/2018 05/28/2018 Last Assessment & Plan: Patient continues to experience dizzy. Echo came back unremarkable. Patient symptoms improving but not back to normal. Encourage oral intake. Will discontinue fluids. PT / OT for evaluation. Continue on tele. Influenza B 05/25/2018 01/04/2019 Last Assessment & Plan: Continue on tamifu to complete course. Leukopenia 04/04/2017 04/07/2017 Cholelithiasis 08/23/2016 09/10/2016 Essential hypertension 06/27/2016 7 Pulmonary emphysema 06/27/2016 07/30/2016 documented as of this encounter (statuses as of 09/18/2021) [facility] History of Past illness Narrative* Problem Noted Date Resolved Date Acute sinusitis 05/27/2018 02/19/2019 Last Assessment & Plan: Symptoms worsening. Will start on doxy as patient allergic to penicillin. Monitor for response for 1 day. Syncope 05/25/2018 05/28/2018 Last Assessment & Plan: Patient continues to experience dizzy. Echo came back unremarkable. Patient symptoms improving but not back to normal. Encourage oral intake. Will discontinue fluids. PT / OT for evaluation. Continue on tele. Influenza B 05/25/2018 01/04/2019 Last Assessment & Plan: Continue on tamifu to complete course. Leukopenia 04/04/2017 04/07/2017 Cholelithiasis 08/23/2016 09/10/2016 Essential hypertension 06/27/2016 7 Pulmonary emphysema 06/27/2016 07/30/2016 documented as of this encounter (statuses as of 10/23/2021) [facility] History of Past illness Narrative* Problem Noted Date Resolved Date Acute sinusitis 05/27/2018 02/19/2019 Last Assessment & Plan: Symptoms worsening. Will start on doxy as patient allergic to penicillin. Monitor for response for 1 day. Syncope 05/25/2018 05/28/2018 Last Assessment & Plan: Patient continues to experience dizzy. Echo came back unremarkable. Patient symptoms improving but not back to normal. Encourage oral intake. Will discontinue fluids. PT / OT for evaluation. Continue on tele. Influenza B 05/25/2018 01/04/2019 Last Assessment & Plan: Continue on tamifu to complete course. Leukopenia 04/04/2017 04/07/2017 Cholelithiasis 08/23/2016 09/10/2016 Essential hypertension 06/27/2016 7 Pulmonary emphysema 06/27/2016 07/30/2016 documented as of this encounter (statuses as of 10/31/2021) [facility] History of Past illness Narrative* Problem Noted Date Resolved Date Acute sinusitis 05/27/2018 02/19/2019 Last Assessment & Plan: Symptoms worsening. Will start on doxy as patient allergic to penicillin. Monitor for response for 1 day. Syncope 05/25/2018 05/28/2018 Last Assessment & Plan: Patient continues to experience dizzy. Echo came back unremarkable. Patient symptoms improving but not back to normal. Encourage oral intake. Will discontinue fluids. PT / OT for evaluation. Continue on tele. Influenza B 05/25/2018 01/04/2019 Last Assessment & Plan: Continue on tamifu to complete course. Leukopenia 04/04/2017 04/07/2017 Cholelithiasis 08/23/2016 09/10/2016 Essential hypertension 06/27/2016 7 Pulmonary emphysema 06/27/2016 07/30/2016 documented as of this encounter (statuses as of 11/21/2021) [facility] History of Past illness Narrative* Problem Noted Date Resolved Date Acute sinusitis 05/27/2018 02/19/2019 Last Assessment & Plan: Symptoms worsening. Will start on doxy as patient allergic to penicillin. Monitor for response for 1 day. Syncope 05/25/2018 05/28/2018 Last Assessment & Plan: Patient continues to experience dizzy. Echo came back unremarkable. Patient symptoms improving but not back to normal. Encourage oral intake. Will discontinue fluids. PT / OT for evaluation. Continue on tele. Influenza B 05/25/2018 01/04/2019 Last Assessment & Plan: Continue on tamifu to complete course. Leukopenia 04/04/2017 04/07/2017 Cholelithiasis 08/23/2016 09/10/2016 Essential hypertension 06/27/2016 7 Pulmonary emphysema 06/27/2016 07/30/2016 documented as of this encounter (statuses as of 12/05/2021) [facility] History of Past illness Narrative* Problem Noted Date Resolved Date Acute sinusitis 05/27/2018 02/19/2019 Last Assessment & Plan: Symptoms worsening. Will start on doxy as patient allergic to penicillin. Monitor for response for 1 day. Syncope 05/25/2018 05/28/2018 Last Assessment & Plan: Patient continues to experience dizzy. Echo came back unremarkable. Patient symptoms improving but not back to normal. Encourage oral intake. Will discontinue fluids. PT / OT for evaluation. Continue on tele. Influenza B 05/25/2018 01/04/2019 Last Assessment & Plan: Continue on tamifu to complete course. Leukopenia 04/04/2017 04/07/2017 Cholelithiasis 08/23/2016 09/10/2016 Essential hypertension 06/27/2016 7 Pulmonary emphysema 06/27/2016 07/30/2016 documented as of this encounter (statuses as of 12/18/2021) [facility] History of Past illness Narrative* Problem Noted Date Resolved Date Acute sinusitis 05/27/2018 02/19/2019 Last Assessment & Plan: Symptoms worsening. Will start on doxy as patient allergic to penicillin. Monitor for response for 1 day. Syncope 05/25/2018 05/28/2018 Last Assessment & Plan: Patient continues to experience dizzy. Echo came back unremarkable. Patient symptoms improving but not back to normal. Encourage oral intake. Will discontinue fluids. PT / OT for evaluation. Continue on tele. Influenza B 05/25/2018 01/04/2019 Last Assessment & Plan: Continue on tamifu to complete course. Leukopenia 04/04/2017 04/07/2017 Cholelithiasis 08/23/2016 09/10/2016 Essential hypertension 06/27/2016 7 Pulmonary emphysema 06/27/2016 07/30/2016 documented as of this encounter (statuses as of 12/19/2021) [facility] History of Past illness Narrative* Problem Noted Date Resolved Date Acute sinusitis 05/27/2018 02/19/2019 Last Assessment & Plan: Symptoms worsening. Will start on doxy as patient allergic to penicillin. Monitor for response for 1 day. Syncope 05/25/2018 05/28/2018 Last Assessment & Plan: Patient continues to experience dizzy. Echo came back unremarkable. Patient symptoms improving but not back to normal. Encourage oral intake. Will discontinue fluids. PT / OT for evaluation. Continue on tele. Influenza B 05/25/2018 01/04/2019 Last Assessment & Plan: Continue on tamifu to complete course. Leukopenia 04/04/2017 04/07/2017 Cholelithiasis 08/23/2016 09/10/2016 Essential hypertension 06/27/2016 7 Pulmonary emphysema 06/27/2016 07/30/2016 documented as of this encounter (statuses as of 12/19/2021) [facility] History of Past illness Narrative* Problem Noted Date Resolved Date Acute sinusitis 05/27/2018 02/19/2019 Last Assessment & Plan: Symptoms worsening. Will start on doxy as patient allergic to penicillin. Monitor for response for 1 day. Syncope 05/25/2018 05/28/2018 Last Assessment & Plan: Patient continues to experience dizzy. Echo came back unremarkable. Patient symptoms improving but not back to normal. Encourage oral intake. Will discontinue fluids. PT / OT for evaluation. Continue on tele. Influenza B 05/25/2018 01/04/2019 Last Assessment & Plan: Continue on tamifu to complete course. Thrombocytopenia 04/04/2017 12/25/2021 Leukopenia 04/04/2017 04/07/2017 Cholelithiasis 08/23/2016 09/10/2016 Idiopathic aplastic anemia 07/09/201612/25 Essential hypertension 06/27/2016 7 Pulmonary emphysema 06/27/2016 07/30/2016 documented as of this encounter (statuses as of 01/05/2022) [facility] History of Past illness Narrative* Problem Noted Date Resolved Date Acute sinusitis 05/27/2018 02/19/2019 Last Assessment & Plan: Symptoms worsening. Will start on doxy as patient allergic to penicillin. Monitor for response for 1 day. Syncope 05/25/2018 05/28/2018 Last Assessment & Plan: Patient continues to experience dizzy. Echo came back unremarkable. Patient symptoms improving but not back to normal. Encourage oral intake. Will discontinue fluids. PT / OT for evaluation. Continue on tele. Influenza B 05/25/2018 01/04/2019 Last Assessment & Plan: Continue on tamifu to complete course. Thrombocytopenia 04/04/2017 12/25/2021 Leukopenia 04/04/2017 04/07/2017 Cholelithiasis 08/23/2016 09/10/2016 Idiopathic aplastic anemia 07/09/201612/25 Essential hypertension 06/27/2016 7 Pulmonary emphysema 06/27/2016 07/30/2016 documented as of this encounter (statuses as of 01/22/2022) [facility] History of Past illness Narrative* Problem Noted Date Resolved Date Acute sinusitis 05/27/2018 02/19/2019 Last Assessment & Plan: Symptoms worsening. Will start on doxy as patient allergic to penicillin. Monitor for response for 1 day. Syncope 05/25/2018 05/28/2018 Last Assessment & Plan: Patient continues to experience dizzy. Echo came back unremarkable. Patient symptoms improving but not back to normal. Encourage oral intake. Will discontinue fluids. PT / OT for evaluation. Continue on tele. Influenza B 05/25/2018 01/04/2019 Last Assessment & Plan: Continue on tamifu to complete course. Thrombocytopenia 04/04/2017 12/25/2021 Leukopenia 04/04/2017 04/07/2017 Cholelithiasis 08/23/2016 09/10/2016 Idiopathic aplastic anemia 07/09/201612/25 Essential hypertension 06/27/2016 7 Pulmonary emphysema 06/27/2016 07/30/2016 documented as of this encounter (statuses as of 01/31/2022) [facility] History of Past illness Narrative* Problem Noted Date Resolved Date Acute sinusitis 05/27/2018 02/19/2019 Last Assessment & Plan: Symptoms worsening. Will start on doxy as patient allergic to penicillin. Monitor for response for 1 day. Syncope 05/25/2018 05/28/2018 Last Assessment & Plan: Patient continues to experience dizzy. Echo came back unremarkable. Patient symptoms improving but not back to normal. Encourage oral intake. Will discontinue fluids. PT / OT for evaluation. Continue on tele. Influenza B 05/25/2018 01/04/2019 Last Assessment & Plan: Continue on tamifu to complete course. Thrombocytopenia 04/04/2017 12/25/2021 Leukopenia 04/04/2017 04/07/2017 Cholelithiasis 08/23/2016 09/10/2016 Idiopathic aplastic anemia 07/09/201612/25 Essential hypertension 06/27/2016 7 Pulmonary emphysema 06/27/2016 07/30/2016 documented as of this encounter (statuses as of 02/13/2022) [facility] History of Past illness Narrative* Problem Noted Date Resolved Date Acute sinusitis 05/27/2018 02/19/2019 Last Assessment & Plan: Symptoms worsening. Will start on doxy as patient allergic to penicillin. Monitor for response for 1 day. Syncope 05/25/2018 05/28/2018 Last Assessment & Plan: Patient continues to experience dizzy. Echo came back unremarkable. Patient symptoms improving but not back to normal. Encourage oral intake. Will discontinue fluids. PT / OT for evaluation. Continue on tele. Influenza B 05/25/2018 01/04/2019 Last Assessment & Plan: Continue on tamifu to complete course. Thrombocytopenia 04/04/2017 12/25/2021 Leukopenia 04/04/2017 04/07/2017 Cholelithiasis 08/23/2016 09/10/2016 Idiopathic aplastic anemia 07/09/201612/25 Essential hypertension 06/27/2016 7 Pulmonary emphysema 06/27/2016 07/30/2016 documented as of this encounter (statuses as of 02/20/2022) [facility] of Past illness Narrative* Problem Noted Date Resolved Date Acute sinusitis 05/27/2018 02/19/2019 Last Assessment & Plan: Symptoms worsening. Will start on doxy as patient allergic to penicillin. Monitor for response for 1 day. Syncope 05/25/2018 05/28/2018 Last Assessment & Plan: Patient continues to experience dizzy. Echo came back unremarkable. Patient symptoms improving but not back to normal. Encourage oral intake. Will discontinue fluids. PT / OT for evaluation. Continue on tele. Influenza B 05/25/2018 01/04/2019 Last Assessment & Plan: Continue on tamifu to complete course. Thrombocytopenia 04/04/2017 12/25/2021 Leukopenia 04/04/2017 04/07/2017 Cholelithiasis 08/23/2016 09/10/2016 Idiopathic aplastic anemia 07/09/201612/25 Essential hypertension 06/27/2016 7 Pulmonary emphysema 06/27/2016 07/30/2016 documented as of this encounter (statuses as of 02/27/2022) [facility]2019 History of Past illness Narrative* Problem Noted Date Resolved Date Acute sinusitis 05/27/2018 02/19/2019 Last Assessment & Plan: Symptoms worsening. Will start on doxy as patient allergic to penicillin. Monitor for response for 1 day. Syncope 05/25/2018 05/28/2018 Last Assessment & Plan: Patient continues to experience dizzy. Echo came back unremarkable. Patient symptoms improving but not back to normal. Encourage oral intake. Will discontinue fluids. PT / OT for evaluation. Continue on tele. Influenza B 05/25/2018 01/04/2019 Last Assessment & Plan: Continue on tamifu to complete course. Thrombocytopenia 04/04/2017 12/25/2021 Leukopenia 04/04/2017 04/07/2017 Cholelithiasis 08/23/2016 09/10/2016 Idiopathic aplastic anemia 07/09/201612/25 Essential hypertension 06/27/2016 7 Pulmonary emphysema 06/27/2016 07/30/2016 documented as of this encounter (statuses as of 02/28/2022) [facility] History of Past illness Narrative* Problem Noted Date Resolved Date Acute sinusitis 05/27/2018 02/19/2019 Last Assessment & Plan: Symptoms worsening. Will start on doxy as patient allergic to penicillin. Monitor for response for 1 day. Syncope 05/25/2018 05/28/2018 Last Assessment & Plan: Patient continues to experience dizzy. Echo came back unremarkable. Patient symptoms improving but not back to normal. Encourage oral intake. Will discontinue fluids. PT / OT for evaluation. Continue on tele. Influenza B 05/25/2018 01/04/2019 Last Assessment & Plan: Continue on tamifu to complete course. Thrombocytopenia 04/04/2017 12/25/2021 Leukopenia 04/04/2017 04/07/2017 Cholelithiasis 08/23/2016 09/10/2016 Idiopathic aplastic anemia 07/09/201612/25 Essential hypertension 06/27/2016 7 Pulmonary emphysema 06/27/2016 07/30/2016 documented as of this encounter (statuses as of 03/14/2022) [facility] History of Past illness Narrative* Problem Noted Date Resolved Date Acute sinusitis 05/27/2018 02/19/2019 Last Assessment & Plan: Symptoms worsening. Will start on doxy as patient allergic to penicillin. Monitor for response for 1 day. Syncope 05/25/2018 05/28/2018 Last Assessment & Plan: Patient continues to experience dizzy. Echo came back unremarkable. Patient symptoms improving but not back to normal. Encourage oral intake. Will discontinue fluids. PT / OT for evaluation. Continue on tele. Influenza B 05/25/2018 01/04/2019 Last Assessment & Plan: Continue on tamifu to complete course. Thrombocytopenia 04/04/2017 12/25/2021 Leukopenia 04/04/2017 04/07/2017 Cholelithiasis 08/23/2016 09/10/2016 Idiopathic aplastic anemia 07/09/201612/25 Essential hypertension 06/27/2016 7 Pulmonary emphysema 06/27/2016 07/30/2016 documented as of this encounter (statuses as of 04/24/2022) [facility] History of Past illness Narrative* Problem Noted Date Resolved Date Acute sinusitis 05/27/2018 02/19/2019 Last Assessment & Plan: Symptoms worsening. Will start on doxy as patient allergic to penicillin. Monitor for response for 1 day. Syncope 05/25/2018 05/28/2018 Last Assessment & Plan: Patient continues to experience dizzy. Echo came back unremarkable. Patient symptoms improving but not back to normal. Encourage oral intake. Will discontinue fluids. PT / OT for evaluation. Continue on tele. Influenza B 05/25/2018 01/04/2019 Last Assessment & Plan: Continue on tamifu to complete course. Thrombocytopenia 04/04/2017 12/25/2021 Leukopenia 04/04/2017 04/07/2017 Cholelithiasis 08/23/2016 09/10/2016 Idiopathic aplastic anemia 07/09/201612/25 Essential hypertension 06/27/2016 7 Pulmonary emphysema 06/27/2016 07/30/2016 documented as of this encounter (statuses as of 08/31/2022) [facility] History of Past illness Narrative* Problem Noted Date Resolved Date Acute sinusitis 05/27/2018 02/19/2019 Last Assessment & Plan: Symptoms worsening. Will start on doxy as patient allergic to penicillin. Monitor for response for 1 day. Syncope 05/25/2018 05/28/2018 Last Assessment & Plan: Patient continues to experience dizzy. Echo came back unremarkable. Patient symptoms improving but not back to normal. Encourage oral intake. Will discontinue fluids. PT / OT for evaluation. Continue on tele. Influenza B 05/25/2018 01/04/2019 Last Assessment & Plan: Continue on tamifu to complete course. Thrombocytopenia 04/04/2017 12/25/2021 Leukopenia 04/04/2017 04/07/2017 Cholelithiasis 08/23/2016 09/10/2016 Idiopathic aplastic anemia 07/09/201612/25 Essential hypertension 06/27/2016 7 Pulmonary emphysema 06/27/2016 07/30/2016 documented as of this encounter (statuses as of 09/03/2022) [facility] History of Past illness Narrative* Problem Noted Date Resolved Date Acute sinusitis 05/27/2018 02/19/2019 Last Assessment & Plan: Symptoms worsening. Will start on doxy as patient allergic to penicillin. Monitor for response for 1 day. Syncope 05/25/2018 05/28/2018 Last Assessment & Plan: Patient continues to experience dizzy. Echo came back unremarkable. Patient symptoms improving but not back to normal. Encourage oral intake. Will discontinue fluids. PT / OT for evaluation. Continue on tele. Influenza B 05/25/2018 01/04/2019 Last Assessment & Plan: Continue on tamifu to complete course. Thrombocytopenia 04/04/2017 12/25/2021 Leukopenia 04/04/2017 04/07/2017 Cholelithiasis 08/23/2016 09/10/2016 Idiopathic aplastic anemia 07/09/201612/25 Essential hypertension 06/27/2016 7 Pulmonary emphysema 06/27/2016 07/30/2016 documented as of this encounter (statuses as of 09/16/2022) [facility] History of Past illness Narrative* Problem Noted Date Resolved Date Acute sinusitis 05/27/2018 02/19/2019 Last Assessment & Plan: Symptoms worsening. Will start on doxy as patient allergic to penicillin. Monitor for response for 1 day. Syncope 05/25/2018 05/28/2018 Last Assessment & Plan: Patient continues to experience dizzy. Echo came back unremarkable. Patient symptoms improving but not back to normal. Encourage oral intake. Will discontinue fluids. PT / OT for evaluation. Continue on tele. Influenza B 05/25/2018 01/04/2019 Last Assessment & Plan: Continue on tamifu to complete course. Thrombocytopenia 04/04/2017 12/25/2021 Leukopenia 04/04/2017 04/07/2017 Cholelithiasis 08/23/2016 09/10/2016 Idiopathic aplastic anemia 07/09/201612/25 Essential hypertension 06/27/2016 7 Pulmonary emphysema 06/27/2016 07/30/2016 documented as of this encounter (statuses as of 09/17/2022) [facility] History of Past illness Narrative* Problem Noted Date Diagnosed Date Resolved Date Acute sinusitis 05/27/2018 02/19/2019 Last Assessment & Plan: Symptoms worsening. Will start on doxy as patient allergic to penicillin. Monitor for response for 1 day. Syncope 05/25/2018 05/28/2018 Last Assessment & Plan: Patient continues to experience dizzy. Echo came back unremarkable. Patient symptoms improving but not back to normal. Encourage oral intake. Will discontinue fluids. PT / OT for evaluation. Continue on tele. Influenza B 05/25/2018 01/04/2019 Last Assessment & Plan: Continue on tamifu to complete course. Thrombocytopenia 04/04/2017 12/25/2021 Leukopenia 04/04/2017 04/07/2017 Cholelithiasis 08/23/2016 09/10/2016 Idiopathic aplastic anemia 07/09/2016 0 12/25/2021 Essential hypertension 06/27/201606/27 Pulmonary emphysema 06/27/2016 07/31/19 17 documented as of this encounter (statuses as of 10/30/2022) [facility] History of Past illness Narrative* Problem Noted Date Diagnosed Date Resolved Date Acute sinusitis 05/27/2018 02/19/2019 Last Assessment & Plan: Symptoms worsening. Will start on doxy as patient allergic to penicillin. Monitor for response for 1 day. Syncope 05/25/2018 05/28/2018 Last Assessment & Plan: Patient continues to experience dizzy. Echo came back unremarkable. Patient symptoms improving but not back to normal. Encourage oral intake. Will discontinue fluids. PT / OT for evaluation. Continue on tele. Influenza B 05/25/2018 01/04/2019 Last Assessment & Plan: Continue on tamifu to complete course. Thrombocytopenia 04/04/2017 12/25/2021 Leukopenia 04/04/2017 04/07/2017 Cholelithiasis 08/23/2016 09/10/2016 Idiopathic aplastic anemia 07/09/2016 0 12/25/2021 Essential hypertension 06/27/201606/27 Pulmonary emphysema 06/27/2016 07/31/19 17 documented as of this encounter (statuses as of 01/08/2023) [facility] History of Past illness Narrative* Problem Noted Date Diagnosed Date Resolved Date Acute sinusitis 05/27/2018 02/19/2019 Last Assessment & Plan: Symptoms worsening. Will start on doxy as patient allergic to penicillin. Monitor for response for 1 day. Syncope 05/25/2018 05/28/2018 Last Assessment & Plan: Patient continues to experience dizzy. Echo came back unremarkable. Patient symptoms improving but not back to normal. Encourage oral intake. Will discontinue fluids. PT / OT for evaluation. Continue on tele. Influenza B 05/25/2018 01/04/2019 Last Assessment & Plan: Continue on tamifu to complete course. Leukopenia 04/04/2017 04/07/2017 Cholelithiasis 08/23/2016 09/10/2016 Idiopathic aplastic anemia 07/09/2016 0 12/25/2021 Essential hypertension 06/27/201606/27 Pulmonary emphysema 06/27/2016 07/31/19 17 documented as of this encounter (statuses as of 02/13/2023) [facility] History of Past illness Narrative* Problem Noted Date Diagnosed Date Resolved Date Acute sinusitis 05/27/2018 02/19/2019 Last Assessment & Plan: Symptoms worsening. Will start on doxy as patient allergic to penicillin. Monitor for response for 1 day. Syncope 05/25/2018 05/28/2018 Last Assessment & Plan: Patient continues to experience dizzy. Echo came back unremarkable. Patient symptoms improving but not back to normal. Encourage oral intake. Will discontinue fluids. PT / OT for evaluation. Continue on tele. Influenza B 05/25/2018 01/04/2019 Last Assessment & Plan: Continue on tamifu to complete course. Leukopenia 04/04/2017 04/07/2017 Cholelithiasis 08/23/2016 09/10/2016 Idiopathic aplastic anemia 07/09/2016 0 12/25/2021 Essential hypertension 06/27/201606/27 Pulmonary emphysema 06/27/2016 07/31/19 17 documented as of this encounter (statuses as of 02/28/2023) [facility] Hyp[facility], acquired Unspecified [facility]othy[facility], acquired Unspecified [facility]othy[facility] Diagnosis Hypothyroidism, acquired- Primary Unspecified hypothyroidism [facility]* Diagnosis Symptomatic cholelithiasis- Primary Calculus of gallbladder without mention of cholecystitis or obstruction [facility] Diagnosis Hypothyroidism, acquired Unspecified hypothyroidism [facility] Diagnosis Abdominal aortic 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 (HCC)- Primary [facility] Diagnosis Ulcer of esophagus without bleeding [facility] Diagnosis Encounter for other preprocedural examination [facility] Diagnosis Ulcer of esophagus without bleeding Hypothyroidism, acquired Unspecified hypothyroidism [facility] Diagnosis AAA (abdominal aortic aneurysm) without rupture- Primary Abdominal aneurysm without mention of rupture AAA (abdominal aortic aneurysm) without rupture Abdominal aneurysm without mention of rupture [facility] Diagnosis AAA (abdominal aortic aneurysm) without rupture- Primary Abdominal aneurysm without mention of rupture Pre-op evaluation Preoperative examination, unspecified AAA (abdominal aortic aneurysm) without rupture Abdominal aneurysm without mention of rupture [facility] Diagnosis Well adult exam- Primary Routine general medical examination at a [facility] care facility Gout with manifestations Gout with other specified manifestations Hypothyroidism, acquired Unspecified hypothyroidism AAA (abdominal aortic aneurysm) without rupture Abdominal aneurysm without mention of rupture [facility] Diagnosis Preop examination- Primary Preoperative examination, unspecified Abdominal aortic 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, unspecified part [I71.40 (ICD-10-CM)] Chronic obstructive pulmonary disease, unspecified COPD type (HCC) [J44.9 (ICD-10-CM)] 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) [N18.31, D63.1 (ICD-10-CM)] Stage 3a chronic kidney disease (HCC) [N18.31 (ICD-10-CM)] AAA (abdominal aortic aneurysm) without rupture Abdominal aneurysm without mention of rupture [facility] Diagnosis Hypothyroidism, acquired Unspecified hypothyroidism Ulcer of esophagus without bleeding [facility] Diagnosis S/P abdominal aortic aneurysm repair- Primary Other postprocedural status Infrarenal abdominal aortic 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 [facility] Diagnosis Infrarenal abdominal aortic 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 [facility] Diagnosis Pain and swelling of toe of right foot Great toe pain, right [facility] Diagnosis Great toe pain, right- Primary [facility] Diagnosis Acute gout of right foot, unspecified cause- Primary Gout with manifestations Gout with other specified manifestations [facility]* Diagnosis Hypothyroidism, acquired Unspecified hypothyroidism Ulcer of esophagus without bleeding [facility] Diagnosis Medicare annual wellness visit, subsequent- Primary Routine [facility] Hypothyroidism, acquired Unspecified hypothyroidism Hyperlipidemia, mixed Mixed hyperlipidemia Panlobular emphysema (HCC) Other emphysema Infrarenal abdominal aortic 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 (HCC) 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 hyperparathyroidism (of renal origin) Stage 3 chronic kidney disease, unspecified whether stage 3a or 3b CKD (HCC) Platelets decreased (HCC) Thrombocytopenia, unspecified [facility]* Diagnosis Hypothyroidism, acquired Unspecified hypothyroidism Ulcer of esophagus without bleeding [facility]* Diagnosis Infrarenal abdominal aortic 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 (HCC)- Primary S/P abdominal aortic aneurysm repair Other postprocedural status [facility] Diagnosis Infrarenal abdominal aortic 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 (HCC) S/P abdominal aortic aneurysm repair Other postprocedural status [facility]* Diagnosis History of AAA (abdominal aortic aneurysm) repair- Primary Other postprocedural status [facility] Diagnosis Allergic rhinitis, unspecified seasonality, unspecified trigger- Primary Eustachian tube dysfunction, bilateral Dry cough Cough Bilateral impacted cerumen Impacted cerumen [facility] Diagnosis CKD (chronic kidney disease) stage 3, GFR 30-59 ml/min ([facility]) Chronic kidney disease, Stage III (moderate) Hypothyroidism, acquired Unspecified hypothyroidism Influenza B Influenza with other respiratory manifestations Syncope, unspecified syncope type Syncope Syncope and collapse CKD (chronic kidney disease) stage 3, GFR 30-59 ml/min (HCC) Chronic kidney disease, Stage III (moderate) Hypothyroidism, acquired Unspecified hypothyroidism History of AAA (abdominal aortic aneurysm) repair- Primary Other postprocedural status Infrarenal abdominal aortic 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 documented in this encounter [facility] note* Diagnosis CKD (chronic kidney disease) stage 3, GFR 30-59 ml/min (HCC) Chronic kidney disease, Stage III (moderate) Hypothyroidism, acquired Unspecified hypothyroidism Influenza B Influenza with other respiratory manifestations Syncope, unspecified syncope type Syncope Syncope and collapse CKD (chronic kidney disease) stage 3, GFR 30-59 ml/min (HCC) Chronic kidney disease, Stage III (moderate) Hypothyroidism, acquired Unspecified hypothyroidism History of AAA (abdominal aortic aneurysm) repair Other postprocedural status Infrarenal abdominal aortic 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 documented in this encounter [facility] noteNo assessment information availableWMercy [facility] Work Phone: Reason for referral (narrative)* Outpatient Procedure (Routine) - Authorized Specialty Diagnoses / Procedures Referred By Maximiliano oconnor Referred To [facility] Diagnoses AAA (abdominal aortic aneurysm) without rupture Pre-op evaluation Procedures STRESS ECHO TREADMILL ECHO TTHRC R-T 2D W/WO M-MODE COMPLETE REST&Yelitza Caba APRN.LEAK INSPECTOR [address] [facility] [address] [place] [address] [facility] [place] [address] [place] [address] Referral ID Status Reason Start Date Expiration Date Visits Requested Visits Authorized [id number] Authorized Auto-Generat ed Referral 12/19/2021 12/19/2022 1 1 [facility] for referral (narrative)* Diagnostic Procedure Only (Routine) - Closed Specialty Diagnoses / Procedures Referred By Maximiliano oconnor Referred To Contact XR IMAGING Diagnoses Pain and swelling of toe of right foot Great toe pain, right Procedures XR FOOT GENERAL 3V AP/LAT/OBL RIGHT RADEX FOOT COMPLETE MINIMUM 3 VIEWS William Padgett APRN.LEAK INSPECTOR [address] [place] [address] Xr Imaging Referral ID Status Reason Start Date Expiration Date V isits Requested Visits Authorized [id number] Closed Auto-Generate d Referral 08/30/2022 09/29/2023 1 1 [facility] for referral (narrative)No reason for referral information availableWMer[facility] Work Phone: Reason for visit Narrative* Diagnostic Procedure Only (Routine) - Closed Specialty Diagnoses / Procedures Referred By Contac t Referred To Contact XR IMAGING Diagnoses Pain and swelling of toe of right foot Great toe pain, right Procedures XR FOOT GENERAL 3V AP/LAT/OBL RIGHT RADEX FOOT COMPLETE MINIMUM 3 VIEWS William Padgett, METAL FURNACE OPERATOR.LEAK INSPECTOR [address] [place] [address] Xr Imaging Referral ID Status Reason Start Date Expiration Date V isits Requested Visits Authorized [id number] Closed Auto-Generate d Referral 08/30/2022 09/29/2023 1 1 [facility] for visit Narrative* MRI/CT (Routine) - Closed Specialty Diagnoses / Procedures Referred By Contac t Referred To Contact CT IMAGING Diagnoses History of AAA (abdominal aortic aneurysm) repair Infrarenal abdominal aortic 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 Procedures CTA ABD/PEL WO/W IVCON CT ANGIO ABD&PLVIS CNTRST MTRL W/WO CNTRST Yelitza Duffy, METAL FURNACE OPERATOR.LEAK INSPECTOR [address] [facility] [address] [place] [address] Phone: tel: fax: [place] [address] Referral ID Status Reason Start Date Expiration Date V isits Requested Visits Authorized [id number] Closed Auto-Generate d Referral 08/16/2024 09/15/2025 1 1 [facility] Summary Purpose Family History No Family History Records FoundNo Family History Records FoundNo Family History Records FoundNo Family History Records FoundNo Family History Records FoundNo Family History Records Found Advance Directives No Advanced Directives Records FoundDocuments on File Type Date Recorded Patient Mate First Expl anation Advance Directive(s) 05/25/2018 9:37 AM Advance Directive(s) 05/25/2018 9:36 AM Advance Directive(s) 05/25/2018 3:34 PM Documents on File Type Date Recorded Patient Mate First Expl anation Advance Directive(s) 09/10/2021 1:15 PM Advance Directive(s) 05/25/2018 9:37 AM Advance Directive(s) 05/25/2018 9:36 AM Advance Directive(s) 05/25/2018 3:34 PM Hospital Course Note HNO ID: [id number] Author: Christine Hernandez Service: Hospital Medicine Author Type: Physician Type: Discharge Summaries Filed: 05/28/2018 2:36 PM Note Text: DISCHARGE SUMMARY PATIENT NAME: Nancy Price Code Status: Not on file Highest Readmission Risk Score: 19 The 30 day readmissions risk score is derived from an internally validated risk model which evaluates patient level characteristics, utilization history, medication orders and lab results up until the day of discharge. Patients with a score of 40 or above are considered highest risk for readmission. Specific patient level drivers will be listed at the bottom of the summary. Admission Information Admission Information ADMIT DATE: 05/25/2018 DISCHARGE DATE: 05/28/2018 MY DOCTORS AND MEDICAL TEAM: My Main Hospital Doctor: Maren Hernandez Primary Care Provider: Shannon Cordova DO My Medical Team Members: Treatment Team: Attending Provider: Maren Hernandez MY CONDITION AT DISCHARGE: Stable REASON I WAS IN THE HOSPITAL: Syn (more content not included)... Reason for Referral Specialty Diagnoses / Procedures Referred By Contac t Referred To Contact CT IMAGING Diagnoses Encounter for other preprocedural examination Procedures CTA ABD/PEL W IVCON CT ANGIO ABD&PLVIS CNTRST MTRL W/WO CNTRST Armani Hitchcock, DO [address] [place] [address] Ct Imaging Referral ID Status Reason Start Date Expiration Date V isits Requested Visits Authorized [id number] Closed Auto-Generate d Referral 11/21/2021 12/21/2022 1 1 Specialty Diagnoses / Procedures Referred By Contac t Referred To Contact CT IMAGING Diagnoses Infrarenal abdominal aortic 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 Procedures CTA ABD/PEL WO/W IVCON CT ANGIO ABD&PLVIS CNTRST MTRL W/WO CNTRST Yelitza Duffy, METAL FURNACE OPERATOR.LEAK INSPECTOR [address] [address] [address] Imaging Referral ID Status Reason Start Date Expiration Date Visits Requested Visits Authorized [id number] Authorized Auto-Generat ed Referral 03/29/2023 1 1 Referral ID Status Reason Start Date Expiration Date V isits Requested Visits Authorized [id number] Closed Auto-Generate d Referral 02/27/2022 03/29/2023 1 1 Specialty Diagnoses / Procedures Referred By Contac t Referred To Contact CT IMAGING Diagnoses Infrarenal abdominal aortic 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 (HCC) S/P abdominal aortic aneurysm repair Procedures CTA ABD/PEL WO/W IVCON CT ANGIO ABD&PLVIS CNTRST MTRL W/WO CNTRST Yelitza Duffy, METAL FURNACE OPERATOR.LEAK INSPECTOR [address] [facility] [address] [place] [address] [place] [address] Referral ID Status Reason Start Date Expiration Date Visits Requested Visits Authorized [id number] Pending Review Auto-Generat ed Referral 09/01/2023 09/30/2024 1 1 Referral ID Status Reason Start Date Expiration Date V isits Requested Visits Authorized [id number] Closed Auto-Generate d Referral 09/01/2023 09/30/2024 1 1 Additional Source Comments (unrecognized sect ion and content) No Status Records FoundNo Status Records FoundNo Status Records FoundNo Status Records FoundNo Status Records FoundNo Status Records Found INFORMATION SOURCE (unrecogn ized section and content) DATE CREATED AUTHOR 10/24/2017 [facility] DATE CREATED AUTHOR AUTHOR'S ORGANIZ ATION 06/04/2018 [facility] DATE CREATED AUTHOR AUTHOR'S ORGANIZ ATION 11/27/2019 [facility] DATE CREATED AUTHOR AUTHOR'S ORGANIZ ATION 09/20/2024 [facility] DATE CREATED AUTHOR AUTHOR'S ORGANIZ ATION 10/13/2024 [facility] DATE CREATED AUTHOR AUTHOR'S ORGANIZ ATION 10/22/2024 [facility] Source Comments (unrecognize d section and content) In the event this informatio n is protected by the Federal Confidentiality of Alcohol and Drug Abuse Patient Records regulations: The Federal rules restrict any use of the information to criminally investigate or prosecute any alcohol or drug abuse patient.[facility] the event this information is protected by the Federal Confidentiality of Alcohol and Drug Abuse Patient Records regulations: The Federal rules restrict any use of the information to criminally investigate or prosecute any alcohol or drug abuse patient.[facility] CenterIn the event this information is protected by the Federal Confidentiality of Alcohol and Drug Abuse Patient Records regulations: The Federal rules restrict any use of the information to criminally investigate or prosecute any alcohol or drug abuse patient.[facility] CenterIn the event this information is protected by the Federal Confidentiality of Alcohol and Drug Abuse Patient Records regulations: The Federal rules restrict any use of the information to criminally investigate or prosecute any alcohol or drug abuse patient.[facility] CenterIn the event this information is protected by the Federal Confidentiality of Alcohol and Drug Abuse Patient Records regulations: The Federal rules restrict any use of the information to criminally investigate or prosecute any alcohol or drug abuse patient.[facility] CenterIn the event this information is protected by the Federal Confidentiality of Alcohol and Drug Abuse Patient Records regulations: The Federal rules restrict any use of the information to criminally investigate or prosecute any alcohol or drug abuse patient.[facility] CenterIn the event this information is protected by the Federal Confidentiality of Alcohol and Drug Abuse Patient Records regulations: The Federal rules restrict any use of the information to criminally investigate or prosecute any alcohol or drug abuse patient.[facility] CenterIn the event this information is protected by the Federal Confidentiality of Alcohol and Drug Abuse Patient Records regulations: The Federal rules restrict any use of the information to criminally investigate or prosecute any alcohol or drug abuse patient.[facility] CenterIn the event this information is protected by the Federal Confidentiality of Alcohol and Drug Abuse Patient Records regulations: The Federal rules restrict any use of the information to criminally investigate or prosecute any alcohol or drug abuse patient.[facility] CenterIn the event this information is protected by the Federal Confidentiality of Alcohol and Drug Abuse Patient Records regulations: The Federal rules restrict any use of the information to criminally investigate or prosecute any alcohol or drug abuse patient.[facility] CenterIn the event this information is protected by the Federal Confidentiality of Alcohol and Drug Abuse Patient Records regulations: The Federal rules restrict any use of the information to criminally investigate or prosecute any alcohol or drug abuse patient.[facility] CenterIn the event this information is protected by the Federal Confidentiality of Alcohol and Drug Abuse Patient Records regulations: The Federal rules restrict any use of the information to criminally investigate or prosecute any alcohol or drug abuse patient.[facility] CenterIn the event this information is protected by the Federal Confidentiality of Alcohol and Drug Abuse Patient Records regulations: The Federal rules restrict any use of the information to criminally investigate or prosecute any alcohol or drug abuse patient.[facility] CenterIn the event this information is protected by the Federal Confidentiality of Alcohol and Drug Abuse Patient Records regulations: The Federal rules restrict any use of the information to criminally investigate or prosecute any alcohol or drug abuse patient.[facility] CenterIn the event this information is protected by the Federal Confidentiality of Alcohol and Drug Abuse Patient Records regulations: The Federal rules restrict any use of the information to criminally investigate or prosecute any alcohol or drug abuse patient.[facility] CenterIn the event this information is protected by the Federal Confidentiality of Alcohol and Drug Abuse Patient Records regulations: The Federal rules restrict any use of the information to criminally investigate or prosecute any alcohol or drug abuse patient.[facility] CenterIn the event this information is protected by the Federal Confidentiality of Alcohol and Drug Abuse Patient Records regulations: The Federal rules restrict any use of the information to criminally investigate or prosecute any alcohol or drug abuse patient.[facility] CenterIn the event this information is protected by the Federal Confidentiality of Alcohol and Drug Abuse Patient Records regulations: The Federal rules restrict any use of the information to criminally investigate or prosecute any alcohol or drug abuse patient.[facility] CenterIn the event this information is protected by the Federal Confidentiality of Alcohol and Drug Abuse Patient Records regulations: The Federal rules restrict any use of the information to criminally investigate or prosecute any alcohol or drug abuse patient.[facility] CenterIn the event this information is protected by the Federal Confidentiality of Alcohol and Drug Abuse Patient Records regulations: The Federal rules restrict any use of the information to criminally investigate or prosecute any alcohol or drug abuse patient.[facility] CenterIn the event this information is protected by the Federal Confidentiality of Alcohol and Drug Abuse Patient Records regulations: The Federal rules restrict any use of the information to criminally investigate or prosecute any alcohol or drug abuse patient.[facility] CenterIn the event this information is protected by the Federal Confidentiality of Alcohol and Drug Abuse Patient Records regulations: The Federal rules restrict any use of the information to criminally investigate or prosecute any alcohol or drug abuse patient.[facility] CenterIn the event this information is protected by the Federal Confidentiality of Alcohol and Drug Abuse Patient Records regulations: The Federal rules restrict any use of the information to criminally investigate or prosecute any alcohol or drug abuse patient.[facility] CenterIn the event this information is protected by the Federal Confidentiality of Alcohol and Drug Abuse Patient Records regulations: The Federal rules restrict any use of the information to criminally investigate or prosecute any alcohol or drug abuse patient.[facility] CenterIn the event this information is protected by the Federal Confidentiality of Alcohol and Drug Abuse Patient Records regulations: The Federal rules restrict any use of the information to criminally investigate or prosecute any alcohol or drug abuse patient.[facility] CenterIn the event this information is protected by the Federal Confidentiality of Alcohol and Drug Abuse Patient Records regulations: The Federal rules restrict any use of the information to criminally investigate or prosecute any alcohol or drug abuse patient.[facility] CenterIn the event this information is protected by the Federal Confidentiality of Alcohol and Drug Abuse Patient Records regulations: The Federal rules restrict any use of the information to criminally investigate or prosecute any alcohol or drug abuse patient.[facility] CenterIn the event this information is protected by the Federal Confidentiality of Alcohol and Drug Abuse Patient Records regulations: The Federal rules restrict any use of the information to criminally investigate or prosecute any alcohol or drug abuse patient.[facility] CenterIn the event this information is protected by the Federal Confidentiality of Alcohol and Drug Abuse Patient Records regulations: The Federal rules restrict any use of the information to criminally investigate or prosecute any alcohol or drug abuse patient.[facility] CenterIn the event this information is protected by the Federal Confidentiality of Alcohol and Drug Abuse Patient Records regulations: The Federal rules restrict any use of the information to criminally investigate or prosecute any alcohol or drug abuse patient.[facility] CenterIn the event this information is protected by the Federal Confidentiality of Alcohol and Drug Abuse Patient Records regulations: The Federal rules restrict any use of the information to criminally investigate or prosecute any alcohol or drug abuse patient.[facility] CenterIn the event this information is protected by the Federal Confidentiality of Alcohol and Drug Abuse Patient Records regulations: The Federal rules restrict any use of the information to criminally investigate or prosecute any alcohol or drug abuse patient.[facility] CenterIn the event this information is protected by the Federal Confidentiality of Alcohol and Drug Abuse Patient Records regulations: The Federal rules restrict any use of the information to criminally investigate or prosecute any alcohol or drug abuse patient.[facility] CenterIn the event this information is protected by the Federal Confidentiality of Alcohol and Drug Abuse Patient Records regulations: The Federal rules restrict any use of the information to criminally investigate or prosecute any alcohol or drug abuse patient.[facility] CenterIn the event this information is protected by the Federal Confidentiality of Alcohol and Drug Abuse Patient Records regulations: The Federal rules restrict any use of the information to criminally investigate or prosecute any alcohol or drug abuse patient.[facility] CenterIn the event this information is protected by the Federal Confidentiality of Alcohol and Drug Abuse Patient Records regulations: The Federal rules restrict any use of the information to criminally investigate or prosecute any alcohol or drug abuse patient.[facility] CenterIn the event this information is protected by the Federal Confidentiality of Alcohol and Drug Abuse Patient Records regulations: The Federal rules restrict any use of the information to criminally investigate or prosecute any alcohol or drug abuse patient.[facility] CenterIn the event this information is protected by the Federal Confidentiality of Alcohol and Drug Abuse Patient Records regulations: The Federal rules restrict any use of the information to criminally investigate or prosecute any alcohol or drug abuse patient.[facility] Reason for Visit (unrecogniz ed section and content) Reason Comments Refill Request Reason Comments Results Reason Onset Date Comments Population Health Navigation Outreach 08/21/2021 HCC Reason Comments Lab Orders Reason Comments Patient Question Reason Comments ED Follow-up 09/10 abdominal pains Reason Comments Follow Up AAA Specialty Diagnoses / Procedures Referred By Lucioac t Referred To Contact CT IMAGING Diagnoses Encounter for other preprocedural examination Procedures CTA ABD/PEL W IVCON CT ANGIO ABD&PLVIS CNTRST MTRL W/WO CNTRST [employer] [facility], [address] [place] [address] Ct Imaging Referral ID Status Reason Start Date Expiration Date V isits Requested Visits Authorized [id number] Closed Auto-Generate d Referral 11/21/2021 12/21/2022 1 1 Reason Onset Date Comments Refill Request 12/18/2021 Reason Comments Schedule Surgery Reason Comments Follow Up 4-week follow-up for AAA 12/04/2021 Reason Onset Date Comments Transition Of Care 01/31/2022 Initial Outre ach ([facility] discharged 01/30/22) Reason Onset Date Comments Transition Of Care 02/13/2022 Follow Up Philipp l Reason Comments Post Op 01/29/22 EVAR Reason Onset Date Comments Transition Of Care 02/28/2022 Follow Up Philipp l Specialty Diagnoses / Procedures Referred By Contac t Referred To Contact CT IMAGING Diagnoses Infrarenal abdominal aortic 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 Procedures CTA ABD/PEL WO/W IVCON CT ANGIO ABD&PLVIS CNTRST MTRL W/WO CNTRST Yelitza Duffy, METAL FURNACE OPERATOR.LEAK INSPECTOR [address] [id number] [id number] [address] Imaging Referral ID Status Reason Start Date Expiration Date V isits Requested Visits Authorized [id number] Closed Auto-Generate d Referral 02/27/2022 03/29/2023 1 1 Reason Comments Medicare Wellness Exam Reason Comments Radiology CT Specialty Diagnoses / Procedures Referred By Lucioac t Referred To Contact CT IMAGING Diagnoses Infrarenal abdominal aortic 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 (HCC) S/P abdominal aortic aneurysm repair Procedures CTA ABD/PEL WO/W IVCON CT ANGIO ABD&PLVIS CNTRST MTRL W/WO CNTRST Yelitza Duffy, METAL FURNACE OPERATOR.LEAK INSPECTOR [address] [facility] [address] [place] [address] [place] [address] Referral ID Status Reason Start Date Expiration Date V isits Requested Visits Authorized [id number] Closed Auto-Generate d Referral 09/01/2023 09/30/2024 1 1 Reason Comments Follow Up EVAR - CTA done 09/16 Reason Comments Cough Started: comes and g oes for the past 3 weeksSymptoms: Dry cough, runny nose, fatigue, SOBTreatment: Nasal spray, dayquilCovid Test: none Reason Comments Release Of Medical Records Care Teams (unrecognized sec tion and content) Income Tax Manager Relationship Specialty Start Date End Date Sheets, Shannon Holguin DO PCP - General 12/06/14 Fifi Kirkland, DO [address] [place] [address] Peripheral Vascular 08/28/17 Income Tax Manager Relationship Specialty Start Date End Date Sheets, Shannon Holguin DO PCP - General 12/06/14 Fifi Kirkland, DO [address] [place] [address] Peripheral Vascular 08/28/17 Income Tax Manager Relationship Specialty Start Date End Date Sheets, Shannon Holguin DO PCP - General 12/06/14 Fifi Kirkland, DO [address] [place] [address] Peripheral Vascular 08/28/17 Income Tax Manager Relationship Specialty Start Date End Date Sheets, Shannon Holguin DO PCP - General 12/06/14 Fifi Kirkland, DO [address] [place] [address] Peripheral Vascular 08/28/17 Income Tax Manager Relationship Specialty Start Date End Date Sheets, Shannon Holguin DO PCP - General 12/06/14 Fifi Kirkland, DO [address] [place] [address] Peripheral Vascular 08/28/17 Income Tax Manager Relationship Specialty Start Date End Date Sheets, Shannon Holguin, DO PCP - General 12/06/14 Fifi Kirkland, DO [address] [place] [address] Peripheral Vascular 08/28/17 Income Tax Manager Relationship Specialty Start Date End Date Sheets, Shannon Holguin, DO PCP - General 12/06/14 Fifi Kirkland, DO [address] [place] [address] Peripheral Vascular 08/28/17 Income Tax Manager Relationship Specialty Start Date End Date Sheets, Shannon Holguin, DO PCP - General 12/06/14 Fifi Kirkland, DO [address] [place] [address] Peripheral Vascular 08/28/17 Income Tax Manager Relationship Specialty Start Date End Date Sheets, Shannon Holguin DO PCP - General 12/06/14 Fifi Kirkland, DO [address] [place] [address] Peripheral Vascular 08/28/17 Income Tax Manager Relationship Specialty Start Date End Date Sheets, Shannon Holguin DO PCP - General 12/06/14 Fifi Kirkland, DO [address] [place] [address] Peripheral Vascular 08/28/17 Income Tax Manager Relationship Specialty Start Date End Date Sheets, Shannon Holguin, DO PCP - General 12/06/14 Fifi Kirkland, DO [address] [place] [address] Peripheral Vascular 08/28/17 Income Tax Manager Relationship Specialty Start Date End Date Sheets, Shannon Holguin, DO PCP - General 12/06/14 Fifi Kirkland, DO [address] [facility] [address] Peripheral Vascular 08/28/17 Income Tax Manager Relationship Specialty Start Date End Date Sheets, Shannon Holguin DO PCP - General 12/06/14 Fifi Kirkland, DO [address] [place] [address] Peripheral Vascular 08/28/17 Nima Curry RN Primary Care Restaurant Hourly Manager 01/31/22 03/01/22 Income Tax Manager Relationship Specialty Start Date End Date Sheets, Shannon Holguin DO PCP - General 12/06/14 Fifi Kirkland, DO [address] [place] [address] Peripheral Vascular 08/28/17 Nima Curry RN Primary Care Restaurant Hourly Manager 01/31/22 03/01/22 Income Tax Manager Relationship Specialty Start Date End Date Sheets, Shannon Holguin, DO PCP - General 12/06/14 Fifi Kirkland, DO [address] [place] [address] Peripheral Vascular 08/28/17 Nima Curry, paediatric physiotherapist Restaurant Hourly Manager 01/31/22 03/01/22 Income Tax Manager Relationship Specialty Start Date End Date Sheets, Shannon Holguin DO PCP - General 12/06/14 Fifi Kirkland, DO [address] [place] [address] Peripheral Vascular 08/28/17 Nima Curry RN Primary Care Restaurant Hourly Manager 01/31/22 03/01/22 Income Tax Manager Relationship Specialty Start Date End Date Sheets, Shannon Holguin DO PCP - General 12/06/14 Fifi Kirkland, DO [address] [place] [address] Peripheral Vascular 08/28/17 Income Tax Manager Relationship Specialty Start Date End Date Sheets, Shannon Holguin DO PCP - General 12/06/14 Fifi Kirkland, DO [address] [place] [address] Peripheral Vascular 08/28/17 Income Tax Manager Relationship Specialty Start Date End Date Sheets, Shannon Holguin DO PCP - General 12/06/14 Fifi Kirkland, DO [address] [place] [address] Peripheral Vascular 08/28/17 Income Tax Manager Relationship Specialty Start Date End Date Sheets, Shannon Holguin DO PCP - General 12/06/14 Fifi Kirkland, DO [address] [place] [address] Peripheral Vascular 08/28/17 Income Tax Manager Relationship Specialty Start Date End Date Shannon Cordova DO PCP - General 12/06/14 Fifi Kirkland, DO [address] [place] [address] Peripheral Vascular 08/28/17 Income Tax Manager Relationship Specialty Start Date End Date Sheets, Shannon Holguin DO PCP - General 12/06/14 Fifi Kirkland, DO [address] [place] [address] Peripheral Vascular 08/28/17 Income Tax Manager Relationship Specialty Start Date End Date SheetsShannon DO PCP - General 12/06/14 Fifi Kirkland, [address] [place] [address] Peripheral Vascular 08/28/17 Income Tax Manager Relationship Specialty Start Date End Date Sheets, Shannon Holguin DO PCP - General 12/06/14 Fifi Kirkland, [address] [place] [address] Peripheral Vascular 08/28/17 Income Tax Manager Relationship Specialty Start Date End Date SheetsShannon DO PCP - General 12/06/14 Fifi Kirkland, DO [address] [place] [address] Peripheral Vascular 08/28/17 Income Tax Manager Relationship Specialty Start Date End Date Shannon Cordova DO PCP - General 12/06/14 Fifi Kirkland, [address] [place] [address] Peripheral Vascular 08/28/17 Income Tax Manager Relationship Specialty Start Date End Date Shannon Cordova DO PCP - General 12/06/14 Fifi Kirkland, [address] [facility] [address] Peripheral Vascular 08/28/17 Income Tax Manager Relationship Specialty Start Date End Date Shannon Cordova DO PCP - General 12/06/14 Fifi Kirkland DO [address] [place] [address] Peripheral Vascular 08/28/17 Income Tax Manager Relationship Specialty Start Date End Date Shannon Cordova DO PCP - General 12/06/14 Fifi Kirkland, DO [address] [facility] [address] Peripheral Vascular 08/28/17 Income Tax Manager Relationship Specialty Start Date End Date Shannon Cordova DO PCP - General 12/06/14 Fifi Kirkland DO [address] [place], [place] [id number] Peripheral Vascular 08/28/17 Team Status: Active Member Role/Relationship Status Dates Dr. Alvaro Ceron MD Primary Care Provider Active Team Status: Inactive Member Role/Relationship Status Dates Dr. Alvaro Ceron MD Primary Care Provider Active Start: October 04, 2024 End: October 04, 2024 Dr. Alvaro Ceron MD Attending Provider Active Start: October 04, 2024 End: October 04, 2024 Income Tax Manager Relationship Specialty Start Date End Date Alvaro Ceron Chi [address] [place] [id number] PCP - General Gerontology 09/19/24 [place] [address] [place], [place] [id number] Peripheral Vascular 08/28/17 Team Status: Inactive Member Role/Relationship Status Dates Dr. Alvaro Ceron MD Primary Care Provider Active Start: October 08, 2024 End: October 08, 2024 Dr. Alvaro Ceron MD Attending Provider Active Start: October 08, 2024 End: October 08, 2024 Dr. Alvaro Ceron MD Referring Provider Active Start: October 08, 2024 End: October 08, 2024 Team Status: Active Member Role/Relationship Status Dates Dr. Alvaro Ceron MD Primary Care Provider Active Start: October 14, 2024 Dr. Alvaro Ceron MD Attending Provider Active Start: October 14, 2024 Team Status: Inactive Member Role/Relationship Status Dates Dr. Alvaro Ceron MD Primary Care Provider Active Start: October 14, 2024 End: October 14, 2024 Dr. Alvaro Ceron MD Attending Provider Active Start: October 14, 2024 End: October 14, 2024 Goals (unrecognized section and content) Goals may be documented in a n alternate sectionGoals may be documented in an alternate sectionGoals may be documented in an alternate section FOR RECORDS PERTAINING TO PATIENTS WHO ARE OR HAVE BEEN ENROLLED IN A CHEMICAL DEPENDENCY/SUBSTANCEABUSE PROGRAM, SOME INFORMATION MAY BE OMITTED. This clinical summary was aggregated from multiple sources. Caution should be exercised in using it in the provision of clinical care. This summary normalizes information from multiple sources, and as a consequence, information in this document may materially change the coding, format and clinical context of patient data. In addition, data may be omitted in some cases. CLINICAL DECISIONS SHOULD BE BASED ON THE PRIMARY CLINICAL RECORDS. [employer] provides no warranty or guarantee of the accuracy or completeness of information in this document.
[2024-10-26 02:36] LABS: AST(SGOT) 24 U/L (<=37); Alanine Aminotransfer ALT/SGPT 17 U/L (<=46); Albumin, Serum 4.1 g/dL (3.4-4.8); Alkaline Phosphatase 88 U/L (40-129); Anion Gap 11 (5-15); BUN 14 mg/dL (4-19); BUN/Creat Ratio 10.8 RATIO (10-20); Calcium,Total 9.6 mg/dL (7.6-11.0); Carbon Dioxide 21.4 mmol/L (21.0-32.0); Chloride 105 mmol/L (98-108); Estimated Creatinine Clearance 41.34 ml/min (50-250); Globulin 2.3 g/dL (2.2-4.2); Glucose 93 mg/dL (70-99); Lipase 35 U/L (13-75); Potassium 3.9 mmol/L (3.3-5.1)
[2024-10-26 03:09] LABS: Mucous, Urine 0 SEEN /hpf (<or=2+); Red Blood Cells-Urine 0 SEEN /hpf (0-5); Squamous Epithelial Cells - UA 0 SEEN /hpf (0-5)
[2024-10-26 03:11] LABS: Color, Urine Yellow (Yellow); Glucose, Dipstick Normal (Normal); Ketone-Dipstick Negative (Negative); Leukocyte Esterase-Dipstick Negative /ul (Negative); Nitrite-Dipstick Negative (Negative); Occult Blood-Urine Negative /ul (Negative); Protein-Dipstick Negative (Negative); Specific Gravity, Urine 1.010 (1.002-1.030); Urine Bilirubin Dipstick Negative (Negative)
[2024-10-26] MEDS: fentaNYL 100 MCG/2 ML Ampul 50 MCG IV (03:21)
[2024-10-26] MEDS: Cefepime HCl 2 GM in 0.9% Normal Saline (100mL MB+) 100 ML IV (03:25)
--- OUTSIDE RECORDS SUMMARY | 2024-10-26 03:36 | XMS RPT_ITS | CCD ---
Author Organization [facility]ini[facility] Care Team Providers Care Maintenance And Engineering Manager Name Role Phone Michael, Matheus C [...] Primary Care Provider Fifi Kirkland DO Unavailable [phone] Sheets DO, Shannon C Primary Care Provider Fifi Kirkland DO Unavailable Sheets DO, Shannon C Primary Care Provider Nima Curry RN Unavailable Unavailable Sheets DO, Shannon C Primary Care Provider [phone] Fifi Kirkland DO Unavailable Sheets DO, Shannon [...] , Dr. Alvaro Red Primary Care Provider [phone] Osmany NAYLOR, Dr. Alvaro Red Attending Provider Osmany, Alvaro Chi Primary Care Provider Osmany NAYLOR, Dr. Alvaro Red Referring Provider Osmany, Alvaro Chi Attending Unavailable Osmany, Alvaro Chi Primary Care Unavailable Osmany, Alvaro Chi Primary Care Unavailable Osmany, Alvaro Chi Attending Unavailable Osmany, Alvaro Chi Referring Unavailable Osmany, Alvaro Chi Attending Unavailable Osmany, [...] adverse reactions to drug (disorder) [address] [facility] Other [place] Repository (20 sources) Penicillin G; Translations: [PENICILLIN G BENZATHINE] Drug Allergy [address] [facility] Medications Current Medications Medication Drug Class(es) Dates [...] rhinitis, unspecified seasonality, unspecified trigger Use 1 [place] in each nostril two times a day. [...] 10-14-2024 Urate [Mass/Vol] 8.2 mg/dL High 3.5-7.2 [facility] Comment on above: The drugs N-Acetylcy steine and Metamizole may falsely depress this assay. Uric Acidon 10-14-2024 URIC 8.2 mg/dL High 3.5-7.2 [facility] Comment on above: Result Comment: The drugs N-Acetylcysteine and Metamizole may falsely depress this assay. Performed By: #### L 501.1400 #### [facility] [address] [place], [address] [facility]) -------- NANCY PRICE ([id number]) 1940 M [facility] Date Time Provider Department 10/08/24 ARMANI BECERRA During your visit today, we recorded the following information about you: Puja Young RN 10/08/2024 3:54 PM Signed Called received from MRI department at [facility]. 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 . Operative report faxed to MRI department for review Faxed yo [phone] Transmission completed Allergies As of Date: 10/08/2024 [...] Status:Closed by PUJA YOUNG on 10/08/24 Normal [facility] Magnetic resonance imaging r eportOrdered By: Luigi Stewart on 10-08-2024 Study report [facility] Imaging Services [address] [place] [address] Upper Ext No Joint W/WO Cont MR#: [id number] Acct: [id number] Name: KAYLEEN PRICE Rep #: [id number] : 1940 M 84 From: Heidi Stewart MD PCP: Dr. Alvaro Ceron MD Status: REG C KAIT Study:Upper Ext No Joint W/WO Cont Date of E xam: 10/08/24 Exam# [id number] Ordering Dr: Alvaro Ceron MD PROCEDURE: UPPER [...] proximal interphalangeal joint, possibly cellulitis Reading Location: [place] [address] CC: Dr. Alvaro Ceron MD ~ Licensed Direct Entry Midwife: Signed [facility] Upper Ext No Joint W/WO Cont on 10-08-2024 Upper Ext No Joint W/WO Cont [facility] Imaging Services [address] [place], [place] [address] Upper Ext No Joint W/WO Cont MR#: [id number] Acct: [id number] Name: KAYLEEN PRICE Rep #: [id number] : 1940 M 84 From: Luigi cassidy MD PCP: Dr. Alvaro Ceron MD Status: REG CLI Study: Upper Ext No Joint W/WO Cont Date of Exam: Exam# [id number] Ordering Dr: Alvaro Ceron MD PROCEDURE: UPPER [...] proximal interphalangeal joint, possibly cellulitis Reading Location: [place] [address] CC: Dr. Alvaro Ceron MD Licensed Direct Entry Midwife: Signed Normal [facility] Absolute lymphocyte countOrd ered By: Alvaro Ceron on 10-04-2024 Lymphocytes Auto (Unsp spec) [#/Vol] 0.93 10*3/uL 0.83-4.51 [facility] Absolute neutrophil countOrd ered By: Alvaro Ceron on 10-04-2024 Neutrophils (Bld) [#/Vol] 2.4 10*3/uL 2.0-7.7 [facility] Anion gap in Serum or Plasma Ordered By: Alvaro Ceron on 10-04-2024 Anion gap [Moles/Vol] 8 mmol/L 5-15 [facility] Automated blood erythrocyte countOrdered By: Alvaro Ceron on 10-04-2024 RBC (Bld) [#/Vol] 3.37 10*6/uL Low 4.6-6.2 [facility] Comment on above: Performed By: #### L 501.9520, L506.1000, L3890.6300, L500.4050, L100.0100 #### [facility] [address] [place], [place], [id number] Automated blood hematocrit ( percentage)Ordered By: Alvaro Ceron on 10-04-2024 Hematocrit (Bld) [Volume fraction] 32.8 % Low 40-54 [facility] Comment on above: Performed By: #### L 501.9520, L506.1000, L3890.6300, L500.4050, L100.0100 #### [facility] [address] [place], [place], [address] Automated lymphocyte count a s percentage of total leukocytesOrdered By: Alvaro Ceron on 10-04-2024 Lymphocytes/100 WBC Auto (Unsp spec) 22.5 % 19-41 [facility] BUN/creatinine ratioOrdered By: Alvaro Ceron on 10-04-2024 Urea nitrogen/Creatinine [Mass ratio] 12.9 mg/mg 10-20 [facility] Basophil percentageOrdered B y: Alvaro Ceron on 10-04-2024 Basophils/100 WBC (Bld) 1.0 % Normal 0-1 [facility] Comment on above: Performed By: #### L 501.9520, L506.1000, L3890.6300, L500.4050, L100.0100 #### [facility] [address] [place], [address] Bilirubin, totalOrdered By: Alvaro Ceron on 10-04-2024 Bilirubin [Mass/Vol] 0.45 mg/dL Normal 0.00-1.30 [facility] Comment on above: Performed By: #### L 501.9520, L506.1000, L3890.6300, L500.4050, L100.0100 #### [facility] [address] [place], [place], [id number] CBC W/Diff, Automatedon 07-0 Absolute Lymph 0.93 X10 3/uL Normal 0.83-4.51 [facility] Comment on above: Performed By: #### L 501.9520, L506.1000, L3890.6300, L500.4050, L100.0100 #### [facility] [address] [place], [address] (612) Absolute Neut 2.4 X10 3/uL Normal 2.0-7.7 [facility] Comment on above: Performed By: #### L 501.9520, L506.1000, L3890.6300, L500.4050, L100.0100 #### [facility] [address] [place], [address] IG% 0.200 Normal 0.0-0.9 [facility] Comment on above: Result Comment: IG% - Immature Granulocytes (promyelocytes, myelocytes and metamyelocytes) > 1% indicates that a LEFT SHIFT is Present. Performed By: #### L 501.9520, L506.1000, L3890.6300, L500.4050, L100.0100 #### [facility] [address] [place], [address] Lymphocytes/100 WBC (Bld) 22.5 % Normal 19-41 [facility] Comment on above: Performed By: #### L 501.9520, L506.1000, L3890.6300, L500.4050, L100.0100 #### [facility] [address] [place], [address] Nucleated RBC (Bld) [#/Vol] 0 10*3/uL Normal 0-5 [facility] Comment on above: Performed By: #### L 501.9520, L506.1000, L3890.6300, L500.4050, L100.0100 #### [facility] [address] [place], [address] RDW SD 43.8 fl Normal 35.1-43.9 [facility] Comment on above: Performed By: #### L 501.9520, L506.1000, L3890.6300, L500.4050, L100.0100 #### [facility] [address] [place], [address] CRPon 10-04-2024 C-REACTIVE PROT 5.59 mg/L High 0.0-3.0 [facility] Comment on above: Performed By: #### L 501.9520, L506.1000, L3890.6300, L500.4050, L100.0100 #### [facility] [address] [place], [address] Calculated very low density lipoprotein (VLDL) cholesterol measurementOrdered By: Alvaro Ceron on 10-04-2024 Calculated very low density lipoprotein (VLDL) cholesterol measurement 14 mg/dL 5-40 [facility] Carbon dioxide, total [Moles /volume] in Central venous bloodOrdered By: Alvaro Ceron on 10-04-2024 CO2 [Moles/Vol] 24.7 mmol/L Normal 21.0-32.0 [facility] Comment on above: Performed By: #### L 501.9520, L506.1000, L3890.6300, L500.4050, L100.0100 #### [facility] [address] [place], [address] Chloride assayOrdered By: Filippo Ceron on 10-04-2024 Chloride [Moles/Vol] 108 mmol/L Normal 98-108 [facility] Comment on above: Performed By: #### L 501.9520, L506.1000, L3890.6300, L500.4050, L100.0100 #### [facility] [address] [place], [address] Comprehensive Metabolic Prof ilon 10-04-2024 ALK PHOS 91 U/L Normal 40-129 [facility] Comment on above: Performed By: #### L 501.9520, L506.1000, L3890.6300, L500.4050, L100.0100 #### [facility] [address] [place], [address] BUN/CRE 12.9 RATIO Normal 10-20 [facility] Comment on above: Performed By: #### L 501.9520, L506.1000, L3890.6300, L500.4050, L100.0100 #### [facility] [address] [place], [address] GAP 8 Normal 5-15 [facility] Comment on above: Performed By: #### L 501.9520, L506.1000, L3890.6300, L500.4050, L100.0100 #### [facility] [address] [place], [address] Potassium [Moles/Vol] 4.4 mmol/L Normal 3.3-5.1 [facility] Comment on above: Performed By: #### L 501.9520, L506.1000, L3890.6300, L500.4050, L100.0100 #### [facility] [address] [place], [address] T PROT 6.2 g/dL Normal 5.9-8.4 [facility] Comment on above: Performed By: #### L 501.9520, L506.1000, L3890.6300, L500.4050, L100.0100 #### [facility] [address] [place], [address] Comprehensive Metabolic Prof ilOrdered By: Alvaro Ceron on 10-04-2024 AST [Catalytic activity/Vol] 26 U/L Normal <=37 [facility] Comment on above: Performed By: #### L 501.9520, L506.1000, L3890.6300, L500.4050, L100.0100 #### [facility] [address] [place], [address] Eosinophil percentageOrdered By: Alvaro Ceron on 10-04-2024 Eosinophils/100 WBC (Bld) 3.4 % Normal 0-5 [facility] Comment on above: Performed By: #### L 501.9520, L506.1000, L3890.6300, L500.4050, L100.0100 #### [facility] [address] [place], [address] Erythrocyte Sed Rateon 10-04 SED RATE 10 mm/hr Normal 0-20 [facility] Comment on above: Performed By: #### L 501.9520, L506.1000, L3890.6300, L500.4050, L100.0100 #### [facility] [address] [place], [address] Erythrocyte distribution wid th ratioOrdered By: Alvaro Lojaok on 10-04-2024 Erythrocyte distribution width (RBC) [Ratio] 12.5 % Normal 11.6-14.6 [facility] Comment on above: Performed By: #### L 501.9520, L506.1000, L3890.6300, L500.4050, L100.0100 #### [facility] [address], [address] Erythrocyte distribution wid th standard deviationOrdered By: Alvaro Ceron on 10-04-2024 Erythrocyte distribution width (RBC) [Ratio] 43.8 fl 35.1-43.9 [facility] Erythrocyte sedimentation ra teOrdered By: Alvaro Osmany on 10-04-2024 ESR (Bld) [Velocity] 10 mm/h 0-20 [facility] Glomerular filtration rate ( GFR) estimation/1.73 sq m using serum, plasma, or whole bOrdered By: Alvaro Ceron on 10-04-2024 GFR/1.73 sq M.predicted among non-blacks MDRD (S/P/Bld) [Vol rate/Area] 48 mL/min/{1.73_m2} Low >60 [facility] Comment on above: mL/min/1.73m2 CKD-EP I Creatinine Equation (2020) Result Comment: mL/m in/1.73m2 CKD-EPI Creatinine Equation (2020) Performed By: #### L 501.9520, L506.1000, L3890.6300, L500.4050, L100.0100 #### [facility] [address] [place], [address] Hand Min 3 Viewson 5 Hand Min 3 Views [facility] Imaging Services [address] [place] [address] Hand Min 3 Views MR#: [id number] Acct: [id number] Name: KAYLEEN PRICE Rep #: [id number] : 1940 M 84 From: Ana Ayala PCP: Dr. Alvaro Ceron MD Status: REG CLI Study: Hand Min 3 Views Date of Exam: 10/04/24 Exam# [id number] Ordering Dr: Alvaro Ceron MD PROCEDURE: HAND [...] further evaluation if clinically warranted. Reading Location: [id number] CC: Dr. Alvaro Ceron MD Licensed Direct Entry Midwife: Signed Normal [facility] Hemoglobin measurementTomae d By: Alvaro Ceron on 10-04-2024 Hemoglobin (Bld) [Mass/Vol] 11.3 g/dL Low 13.0-16.5 [facility] Comment on above: Performed By: #### L 501.9520, L506.1000, L3890.6300, L500.4050, L100.0100 #### [facility] [address] [place], [address] Immature granulocytes/100 WB C Auto (Bld)Ordered By: Alvaro Ceron on 10-04-2024 Immature granulocytes/100 WBC (Bld) 0.200 % 0.0-0.9 [facility] Comment on above: IG% - Immature Granu locytes (promyelocytes, myelocytes and metamyelocytes) > 1% indicates that a LEFT SHIFT is Present. LDL calc ser/plasOrdered By: Alvaro Ceron on 10-04-2024 Cholesterol in LDL [Mass/Vol] 113 mg/dL Normal [facility] Comment on above: Jzfgzmpsxw=951-664 m g/dL & Higher Grwj=174 mg/dL or greater Result Comment: Bord glqwcr=840-345 mg/dL Higher Shml=640 mg/dL or greater Performed By: #### L 501.9520, L506.1000, L3890.6300, L500.4050, L100.0100 #### [facility] [address] [place], [address] Lipid Profileon 10-04-2024 CHOL:HDL 2.87 Normal [facility] Comment on above: Performed By: #### L 501.9520, L506.1000, L3890.6300, L500.4050, L100.0100 #### [facility] [address], [address] Cholesterol in VLDL [Mass/Vol] 14 mg/dL Normal 5-40 [facility] Comment on above: Performed By: #### L 501.9520, L506.1000, L3890.6300, L500.4050, L100.0100 #### [facility] [address] [facility] [place], [address] MCV (mean corpuscular volume ) determinationOrdered By: Alvaro Ceron on 10-04-2024 MCV (RBC) [Entitic vol] 97.3 fL High 80-94 [facility] Comment on above: Performed By: #### L 501.9520, L506.1000, L3890.6300, L500.4050, L100.0100 #### [facility] [address] [place], [place], [address] Mean corpuscular hemoglobin (MCH) determinationOrdered By: Alvaro Ceron on 10-04-2024 MCH (RBC) [Entitic mass] 33.5 pg High 27.0-32.0 [facility] Comment on above: Performed By: #### L 501.9520, L506.1000, L3890.6300, L500.4050, L100.0100 #### [facility] [address] [place], [address] Mean corpuscular hemoglobin concentration (MCHC) determinationOrdered By: Alvaro Ceron on 10-04-2024 MCHC (RBC) [Mass/Vol] 34.5 g/dL Normal 32-36 [facility] Comment on above: Performed By: #### L 501.9520, L506.1000, L3890.6300, L500.4050, L100.0100 #### [facility] [address] [place], [address] Mean platelet volume determi nationOrdered By: Alvaro Osmany on 10-04-2024 Platelet mean volume (Bld) [Entitic vol] 10.8 fL Normal 6.2-12.0 [facility] Comment on above: Performed By: #### L 501.9520, L506.1000, L3890.6300, L500.4050, L100.0100 #### [facility] [address] [place], [address] Monocyte percentageOrdered B y: Alvaro Ceron on 10-04-2024 Monocytes/100 WBC (Bld) 14.0 % High 0-10 [facility] Comment on above: Performed By: #### L 501.9520, L506.1000, L3890.6300, L500.4050, L100.0100 #### [facility] [address] [place], [address] Neutrophil percentageOrdered By: Alvaro Ceron on 10-04-2024 Neutrophils/100 WBC (Bld) 58.9 % Normal 47-70 [facility] Comment on above: Performed By: #### L 501.9520, L506.1000, L3890.6300, L500.4050, L100.0100 #### [facility] [address] [place], [address] Nucleated red blood cell per centageOrdered By: Alvaro Ceron on 10-04-2024 Nucleated RBC/100 WBC (Bld) [Ratio] 0 % 0-5 [facility] Platelet countOrdered By: Filippo Ceron on 10-04-2024 Platelets (Bld) [#/Vol] 175 10*3/uL Normal 150-450 [facility] Comment on above: Performed By: #### L 501.9520, L506.1000, L3890.6300, L500.4050, L100.0100 #### [facility] [address] [place], [address] Potassium measurement (mass/ volume)Ordered By: lAvaro Ceron on 10-04-2024 Potassium (Unsp spec) [Mass/Vol] 4.4 mmol/L 3.3-5.1 [facility] Screening total cholesterol/ high density lipoprotein (HDL) cholesterol ratioOrdered By: Alvaro Ceron on 10-04-2024 Cholesterol.total/Chol esterol in HDL [Mass ratio] 2.87 {ratio} [facility] Serum creatinine measurement (mass/volume)Ordered By: Alvaro Ceron on 10-04-2024 Creatinine [Mass/Vol] 1.44 mg/dL High 0.70-1.20 [facility] Comment on above: Performed By: #### L 501.9520, L506.1000, L3890.6300, L500.4050, L100.0100 #### [facility] [address] [place], [address] Serum globulin measurementOr dered By: Alvaro Ceron on 10-04-2024 Globulin (S) [Mass/Vol] 2.1 g/dL Low 2.2-4.2 [facility] Comment on above: Performed By: #### L 501.9520, L506.1000, L3890.6300, L500.4050, L100.0100 #### [facility] [address] [place], [place], [address] Serum glucose measurement (m ass/volume)Ordered By: Alvaro Ceron on 10-04-2024 Glucose [Mass/Vol] 111 mg/dL High 70-99 [facility] Comment on above: Performed By: #### L 501.9520, L506.1000, L3890.6300, L500.4050, L100.0100 #### [facility] [address] [place], [place], [address] Serum or plasma C reactive p rotein measurement (mass/volume)Ordered By: Alvaro Ceron on 10-04-2024 CRP [Mass/Vol] 5.59 mg/L High 0.0-3.0 [facility] Serum or plasma alanine oliver otransferase (ALT) measurementOrdered By: Alvaro Ceron on 10-04-2024 ALT [Catalytic activity/Vol] 15 U/L Normal <=46 [facility] Comment on above: Performed By: #### L 501.9520, L506.1000, L3890.6300, L500.4050, L100.0100 #### [facility] [address] [place], [address] Serum or plasma albumin ivan urement (mass/volume)Ordered By: Alvaro Ceron on 10-04-2024 Albumin [Mass/Vol] 4.1 g/dL Normal 3.4-4.8 [facility] Comment on above: Performed By: #### L 501.9520, L506.1000, L3890.6300, L500.4050, L100.0100 #### [facility] [address] [place], [place], [address] Serum or plasma albumin/glob ulin mass ratioOrdered By: Alvaro Ceron on 10-04-2024 Albumin/Globulin [Mass ratio] 1.9 {ratio} Normal 0.9-2.4 [facility] Comment on above: Performed By: #### L 501.9520, L506.1000, L3890.6300, L500.4050, L100.0100 #### [facility] [address] [place], [place], [address] Serum or plasma alkaline adelia sphatase measurementOrdered By: Alvaro Ceron on 10-04-2024 ALP [Catalytic activity/Vol] 91 U/L 40-129 [facility] Serum or plasma calcium ivan urement (mass/volume)Ordered By: Alvaro Ceron on 10-04-2024 Calcium [Mass/Vol] 9.6 mg/dL Normal 7.6-11.0 [facility] Comment on above: Performed By: #### L 501.9520, L506.1000, L3890.6300, L500.4050, L100.0100 #### [facility] [address] [place], [place], [address] Serum or plasma cholesterol in HDL measurement (mass/volume)Ordered By: Alvaro Osmany on 10-04-2024 Cholesterol in HDL [Mass/Vol] 68 mg/dL Normal [facility] Comment on above: National Cholesterol Education [...] L 501.9520, L506.1000, L3890.6300, L500.4050, L100.0100 #### [facility] [address] [place], [address] Serum or plasma cholesterol measurement (mass/volume)Ordered By: Alvaro Ceron on 10-04-2024 Cholesterol [Mass/Vol] 195 mg/dL Normal <=200 [facility] Comment on above: Cholesterol level, D esirable <200 mg/dLBorderline high cholesterol 200-239 mg/dLHigh cholesterol >=240 mg/dLRecommendations of the NCEP Adult Treatment Panel for the following risk-cutoff thresholds for the [place] population. Result Comment: Chol esterol level, Desirable <200 mg/dL Borderline high cholesterol 200-239 mg/dL High cholesterol >=240 mg/dL Recommendations of the NCEP Adult Treatment Panel for the following risk-cutoff thresholds for the [place] population. Performed By: #### L 501.9520, L506.1000, L3890.6300, L500.4050, L100.0100 #### [facility] [address] [place], [address] Serum or plasma urea nitroge n measurement (mass/volume)Ordered By: Alvaro Ceron on 10-04-2024 Urea nitrogen [Mass/Vol] 19 mg/dL Normal 4-19 [facility] Comment on above: Performed By: #### L 501.9520, L506.1000, L3890.6300, L500.4050, L100.0100 #### [facility] [address], [address] Serum or plasma uric acid me asurement (mass/volume)Ordered By: Alvaro Ceron on 10-04-2024 Urate [Mass/Vol] 7.5 mg/dL High 3.5-7.2 [facility] Comment on above: The drugs N-Acetylcy steine and Metamizole may falsely depress this assay. Sodium levelOrdered By: Alvaro Ceron on 10-04-2024 Sodium [Moles/Vol] 141 mmol/L Normal 133-145 [facility] Comment on above: Performed By: #### L 501.9520, L506.1000, L3890.6300, L500.4050, L100.0100 #### [facility] [address] [place], [address] TSH DL <= 0.005 mIU/L QnOrde red By: Alvaro Ceron on 10-04-2024 TSH Qn 4.390 uIU/mL High 0.300-4.200 [facility] Thyroid Stim Hormone (TSH)on 10-04-2024 TSH 4.390 uIU/mL High 0.300-4.200 [facility] Comment on above: Performed By: #### L 501.9520, L506.1000, L3890.6300, L500.4050, L100.0100 #### [facility] [address] [place], [place], [address] Total proteinOrdered By: Alvaro Ceron on 10-04-2024 Protein [Mass/Vol] 6.2 g/dL 5.9-8.4 [facility] Triglycerides measurementOrd ered By: Alvaro Ceron on 10-04-2024 Triglyceride [Mass/Vol] 71 mg/dL Normal [facility] Comment on above: The drugs N-Acetylcy [...] L 501.9520, L506.1000, L3890.6300, L500.4050, L100.0100 #### [facility] [address] [place], [address] Uric Acidon 10-04-2024 URIC 7.5 mg/dL High 3.5-7.2 [facility] Comment on above: Result Comment: The drugs N-Acetylcysteine and Metamizole may falsely depress this assay. Performed By: #### L 501.9520, L506.1000, L3890.6300, L500.4050, L100.0100 #### [facility] [address] [place], [address] Vitamin D,25 Hydroxyon 10-04 Vitamin D 25-OH 49.8 ng/mL Normal 30-100 [facility] Comment on above: Result Comment: Nika min D Status Deficiency: <20 ng/mL (50nmol/L) Insufficiency: 20-30 ng/mL (50-75 nmol/L) Sufficiency: 30-100 ng/mL (75-250 nmol/L) Toxicity: >100 ng/mL (>250 nmol/L) Performed By: #### L 501.9520, L506.1000, L3890.6300, L500.4050, L100.0100 #### [facility] [address] [place], [address] White blood cell (WBC) count Ordered By: Alvaro Ceron on 10-04-2024 WBC (Bld) [#/Vol] 4.1 10*3/uL Low 4.4-11.0 [facility] Comment on above: Performed By: #### L 501.9520, L506.1000, L3890.6300, L500.4050, L100.0100 #### [facility] [address] [place], [address] ED NOTEon 09-19-2024 ED NOTE HNO ID: [id number] Author: WILMER NOGUEIRA RN Service: Nursing Author [...] for worsening or life threatening symptoms. Normal [facility] ED NOTE HNO ID: [id number] Author: BLU BETANCOURT RN Service: Emergency Medicine [...] anything else to help you? No Normal [facility] ED NOTE HNO ID: [id number] Author: WILMER NOGUEIRA RN Service: Nursing Author [...] the sensation of a foreign body. Normal [facility] ED PROV NOTEon 09-19-2024 ED PROV NOTE HNO ID: [id number] Author: SONJA DODGE MD Service: Emergency Medicine [...] nursing note reviewed. Exam conducted with a wind farm support specialist present. Constitutional: General: He is not in [...] focal deficit (more content not included)... Normal [facility] CTA ABD/PELV W IVCONon 08-25 CTA ABD/PELV W IVCON * * *Final Report* * * DATE OF EXAM: Aug 25 2024 10:47AM [facility] 0311 - CTA ABD/PELV W IVCON / [...] significant nonvascular abnormalities identified on the study. Licensed Direct Entry Midwife: LEONIDAS Transcribe Date/Time: Aug 25 2024 3:19P Dictated by : JAY HU MD This examination was interpreted and the report reviewed and electronically signed by: JAY HU MD on Aug 25 2024 3:43PM EST [id number] Normal [facility] Creatinine + eGFR Pnl SerPlB ldon 08-25-2024 Creatinine and Glomerular filtration rate.predicted panel (S/P/Bld) 43 mL/min/1.73m??? Low >=60 [facility] Comment on above: Order Comment: Speci men Type: BLOOD SPECIMENOrdering Facility: [facility] Address: [address] [place] [address] Result Comment: Kiara mated Glomerular Filtration Rate [...] actual GFR. Performed By: #### 4 5066-8 ####[facility] LABCLIA [id number] [address] OF [facility] Creatinine and Glomerular fi ltration rate.predicted panel (S/P/Bld)on 08-25-2024 Creatinine [Mass/Vol] 1.58 mg/dL High 0.73-1.22 [facility] Comment on above: Order Comment: Speci men Type: BLOOD SPECIMENOrdering Facility: [facility] Address: [address] [place] [address] Performed By: #### 4 5066-8 ####[facility] LABCLIA [id number] [place] [address] [facility] Microalb:Creat Ratio,Random URon 05-05-2024 Creatinine [Mass/Vol] 166.00 mg/dL Normal NO RANGE EST . [facility] Comment on above: Performed By: #### L 500.3600, L502.0250, L509.1000, L506.1000 #### [facility] [address] [place], [address] MALB:CRE 34.3 mg/g CRE High <30 mg/g CRE [facility] Comment on above: Performed By: #### L 500.3600, L502.0250, L509.1000, L506.1000 #### [facility] [address] [place], [address] MICROALBUMIN,UR 56.9 mg/L Normal NO RANGE EST. [facility] Comment on above: Performed By: #### L 500.3600, L502.0250, L509.1000, L506.1000 #### [facility] [address] [place], [address] PTHINon 05-05-2024 PTH 90.8 pg/mL High 18.4-80.1 [facility] Comment on above: Performed By: #### L 500.3600, L502.0250, L509.1000, L506.1000 #### [facility] [address] [place], [address] Renal Profileon 05-05-2024 Albumin [Mass/Vol] 3.6 g/dL Normal 3.2-5.0 [facility] Comment on above: Performed By: #### L 500.3600, L502.0250, L509.1000, L506.1000 #### [facility] [address], [address] BUN/CRE 12.2 RATIO Normal 10-20 [facility] Comment on above: Performed By: #### L 500.3600, L502.0250, L509.1000, L506.1000 #### [facility] [address] [place], [address] CA,Total 9.7 mg/dL Normal 8.5-10.1 [facility] Comment on above: Performed By: #### L 500.3600, L502.0250, L509.1000, L506.1000 #### [facility] [address] [place], [address] Chloride [Moles/Vol] 110 mmol/L High 98-107 [facility] Comment on above: Performed By: #### L 500.3600, L502.0250, L509.1000, L506.1000 #### [facility] [address] [place], [address] CO2 [Moles/Vol] 26.0 mmol/L Normal 21.0-32.0 [facility] Comment on above: Performed By: #### L 500.3600, L502.0250, L509.1000, L506.1000 #### [facility] [address] [place], [address] Creatinine [Mass/Vol] 1.48 mg/dL High 0.70-1.30 [facility] Comment on above: Result Comment: The validity of the calculated GFR GFRAA in patients over 70 years has not been determined. Clinical correlation is essential. Performed By: #### L 500.3600, L502.0250, L509.1000, L506.1000 #### [facility] [address] [place], [address] EST GFR - AA 58 mL/min Low >60 [facility] Comment on above: Result Comment: Afri can [place] GFR Calc Performed By: #### L 500.3600, L502.0250, L509.1000, L506.1000 #### [facility] [address] [place], [address] GFR/1.73 sq M.predicted among non-blacks MDRD (S/P/Bld) [Vol rate/Area] 48 mL/min/{1.73_m2} Low >60 [facility] Comment on above: Result Comment: Non- GFR Calc Performed By: #### L 500.3600, L502.0250, L509.1000, L506.1000 #### [facility] [address] [place], [address] Glucose [Mass/Vol] 108 mg/dL High 74-106 [facility] Comment on above: Result Comment: Fast ing Glucose result from 100 to 125 mg/dL suggests IMPAIRED HOMEOSTASIS per A.D.A. criteria. Performed By: #### L 500.3600, L502.0250, L509.1000, L506.1000 #### [facility] [address] [place], [address] Phosphate [Mass/Vol] 3.0 mg/dL Normal 2.5-4.9 [facility] Comment on above: Performed By: #### L 500.3600, L502.0250, L509.1000, L506.1000 #### [facility] [address] [place], [address] Potassium [Moles/Vol] 4.2 mmol/L Normal 3.5-5.1 [facility] Comment on above: Performed By: #### L 500.3600, L502.0250, L509.1000, L506.1000 #### [facility] [address] [place], [address] Sodium [Moles/Vol] 140 mmol/L Normal 136-145 [facility] Comment on above: Performed By: #### L 500.3600, L502.0250, L509.1000, L506.1000 #### [facility] [address] [place], [address] Urea nitrogen [Mass/Vol] 18 mg/dL Normal 7-18 [facility] Comment on above: Performed By: #### L 500.3600, L502.0250, L509.1000, L506.1000 #### [facility] [address] [place], [address] Vitamin D,25 Hydroxyon 05-05 Vitamin D 25-OH 41.6 ng/mL Normal [facility] Comment on above: Result Comment: Nika min D 25(OH) Status Range Deficiency <20 ng/mL (50nmol/L) Insufficiency 20 - 30 ng/mL (50 - 75 nmol/L) Sufficiency 30 - 100 ng/mL (75 - 250 nmol/L) Toxicity >100 ng/mL (>250 nmol/L) Performed By: #### L 500.3600, L502.0250, L509.1000, L506.1000 #### [facility] [address] [place], [address] CBC W/Diff, Automatedon 0 Absolute Lymph 0.91 X10 3/uL Normal 0.83-4.51 [facility] Comment on above: Performed By: #### L 501.9520, L506.1000, L3890.6300, L500.4050, L100.0100 #### [facility] [address] [place], [address] Absolute Neut 3.1 X10 3/uL Normal 2.0-7.7 [facility] Comment on above: Performed By: #### L 501.9520, L506.1000, L3890.6300, L500.4050, L100.0100 #### [facility] [address] [place], [address] Basophils/100 WBC (Bld) 1.6 % High 0-1 [facility] Comment on above: Performed By: #### L 501.9520, L506.1000, L3890.6300, L500.4050, L100.0100 #### [facility] [address] [place], [address] Eosinophils/100 WBC (Bld) 3.6 % Normal 0-5 [facility] Comment on above: Performed By: #### L 501.9520, L506.1000, L3890.6300, L500.4050, L100.0100 #### [facility] [address] [place], [address] Erythrocyte distribution width (RBC) [Ratio] 12.7 % Normal 11.6-14.6 [facility] Comment on above: Performed By: #### L 501.9520, L506.1000, L3890.6300, L500.4050, L100.0100 #### [facility] [address] [place], [address] Hematocrit (Bld) [Volume fraction] 34.7 % Low 40-54 [facility] Comment on above: Performed By: #### L 501.9520, L506.1000, L3890.6300, L500.4050, L100.0100 #### [facility] [address] [place], [address] Hemoglobin (Bld) [Mass/Vol] 11.6 g/dL Low 13.0-16.5 [facility] Comment on above: Performed By: #### L 501.9520, L506.1000, L3890.6300, L500.4050, L100.0100 #### [facility] [address] [place], [address] IG% 0.400 Normal 0.0-0.9 [facility] Comment on above: Result Comment: IG% - Immature Granulocytes (promyelocytes, myelocytes and metamyelocytes) > 1% indicates that a LEFT SHIFT is Present. Performed By: #### L 501.9520, L506.1000, L3890.6300, L500.4050, L100.0100 #### [facility] [address] [place], [address] Lymphocytes/100 WBC (Bld) 18.2 % Low 19-41 [facility] Comment on above: Performed By: #### L 501.9520, L506.1000, L3890.6300, L500.4050, L100.0100 #### [facility] [address] [place], [address] MCH (RBC) [Entitic mass] 32.4 pg High 27.0-32.0 [facility] Comment on above: Performed By: #### L 501.9520, L506.1000, L3890.6300, L500.4050, L100.0100 #### [facility] [address] [place], [address] MCHC (RBC) [Mass/Vol] 33.4 g/dL Normal 32-36 [facility] Comment on above: Performed By: #### L 501.9520, L506.1000, L3890.6300, L500.4050, L100.0100 #### [facility] [address] [place], [address] MCV (RBC) [Entitic vol] 96.9 fL High 80-94 [facility] Comment on above: Performed By: #### L 501.9520, L506.1000, L3890.6300, L500.4050, L100.0100 #### [facility] [address] [place], [address] Monocytes/100 WBC (Bld) 14.2 % High 0-10 [facility] Comment on above: Performed By: #### L 501.9520, L506.1000, L3890.6300, L500.4050, L100.0100 #### [facility] [address] [place], [address] Neutrophils/100 WBC (Bld) 62.0 % Normal 47-70 [facility] Comment on above: Performed By: #### L 501.9520, L506.1000, L3890.6300, L500.4050, L100.0100 #### [facility] [address] [place], [address] Nucleated RBC (Bld) [#/Vol] 0 10*3/uL Normal 0-5 [facility] Comment on above: Performed By: #### L 501.9520, L506.1000, L3890.6300, L500.4050, L100.0100 #### [facility] [address] [place], [address] Platelet mean volume (Bld) [Entitic vol] 10.3 fL Normal 6.2-12.0 [facility] Comment on above: Performed By: #### L 501.9520, L506.1000, L3890.6300, L500.4050, L100.0100 #### [facility] [address] [place], [address] Platelets (Bld) [#/Vol] 210 10*3/uL Normal 150-450 [facility] Comment on above: Performed By: #### L 501.9520, L506.1000, L3890.6300, L500.4050, L100.0100 #### [facility] [address] [place], [address] RBC (Bld) [#/Vol] 3.58 10*6/uL Low 4.6-6.2 [facility] Comment on above: Performed By: #### L 501.9520, L506.1000, L3890.6300, L500.4050, L100.0100 #### [facility] [address] [place], [address] RDW SD 44.2 fl High 35.1-43.9 [facility] Comment on above: Performed By: #### L 501.9520, L506.1000, L3890.6300, L500.4050, L100.0100 #### [facility] [address] [place], [address] WBC (Bld) [#/Vol] 5.0 10*3/uL Normal 4.4-11.0 [facility] Comment on above: Performed By: #### L 501.9520, L506.1000, L3890.6300, L500.4050, L100.0100 #### [facility] [address] [place], [address] Comprehensive Metabolic Prof [facility] 04-06-2024 Albumin [Mass/Vol] 3.7 g/dL Normal 3.2-5.0 [facility] Comment on above: Performed By: #### L 501.9520, L506.1000, L3890.6300, L500.4050, L100.0100 #### [facility] [address] [place], [address] Albumin/Globulin [Mass ratio] 1.2 {ratio} Normal 0.9-2.4 [facility] Comment on above: Performed By: #### L 501.9520, L506.1000, L3890.6300, L500.4050, L100.0100 #### [facility] [address] [place], [address] ALK P 79 U/L Normal 45-117 [facility] Comment on above: Performed By: #### L 501.9520, L506.1000, L3890.6300, L500.4050, L100.0100 #### [facility] [address] [place], [address] ALT [Catalytic activity/Vol] 24 U/L Normal 16-61 [facility] Comment on above: Performed By: #### L 501.9520, L506.1000, L3890.6300, L500.4050, L100.0100 #### [facility] [address] [place], [address] AST [Catalytic activity/Vol] 20 U/L Normal 15-37 [facility] Comment on above: Performed By: #### L 501.9520, L506.1000, L3890.6300, L500.4050, L100.0100 #### [facility] [address] [place], [address] Bilirubin [Mass/Vol] 0.40 mg/dL Normal 0.20-1.00 [facility] Comment on above: Result Comment: For patients on eltrombopag therapy, use of Dimension [place] TBIL is not recommended. Performed By: #### L 501.9520, L506.1000, L3890.6300, L500.4050, L100.0100 #### [facility] [address] [place], [address] BUN/CRE 16.2 RATIO Normal 10-20 [facility] Comment on above: Performed By: #### L 501.9520, L506.1000, L3890.6300, L500.4050, L100.0100 #### [facility] [address] [place], [address] CA,Total 9.6 mg/dL Normal 8.5-10.1 [facility] Comment on above: Performed By: #### L 501.9520, L506.1000, L3890.6300, L500.4050, L100.0100 #### [facility] [address] [place], [address] Chloride [Moles/Vol] 110 mmol/L High 98-107 [facility] Comment on above: Performed By: #### L 501.9520, L506.1000, L3890.6300, L500.4050, L100.0100 #### [facility] [address] [place], [address] CO2 [Moles/Vol] 28.0 mmol/L Normal 21.0-32.0 [facility] Comment on above: Performed By: #### L 501.9520, L506.1000, L3890.6300, L500.4050, L100.0100 #### [facility] [address] [place], [address] Creatinine [Mass/Vol] 1.54 mg/dL High 0.70-1.30 [facility] Comment on above: Result Comment: The validity of the calculated GFR GFRAA in patients over 70 years has not been determined. Clinical correlation is essential. Performed By: #### L 501.9520, L506.1000, L3890.6300, L500.4050, L100.0100 #### [facility] [address] [place], [address] EST GFR - AA 56 mL/min Low >60 [facility] Comment on above: Result Comment: Afri can [place] GFR Calc Performed By: #### L 501.9520, L506.1000, L3890.6300, L500.4050, L100.0100 #### [facility] [address] [place], [address] GAP 3 Low 5-15 [facility] Comment on above: Performed By: #### L 501.9520, L506.1000, L3890.6300, L500.4050, L100.0100 #### [facility] [address] [place], [address] GFR/1.73 sq M.predicted among non-blacks MDRD (S/P/Bld) [Vol rate/Area] 46 mL/min/{1.73_m2} Low >60 [facility] Comment on above: Result Comment: Non- GFR Calc Performed By: #### L 501.9520, L506.1000, L3890.6300, L500.4050, L100.0100 #### [facility] [address] [place], [address] Globulin (S) [Mass/Vol] 3.1 g/dL Normal 2.2-4.2 [facility] Comment on above: Performed By: #### L 501.9520, L506.1000, L3890.6300, L500.4050, L100.0100 #### [facility] [address] [place], [address] Glucose [Mass/Vol] 112 mg/dL High 74-106 [facility] Comment on above: Result Comment: Fast ing Glucose result from 100 to 125 mg/dL suggests IMPAIRED HOMEOSTASIS per A.D.A. criteria. Performed By: #### L 501.9520, L506.1000, L3890.6300, L500.4050, L100.0100 #### [facility] [address] [place], [address] Potassium [Moles/Vol] 3.9 mmol/L Normal 3.5-5.1 [facility] Comment on above: Performed By: #### L 501.9520, L506.1000, L3890.6300, L500.4050, L100.0100 #### [facility] [address] [place], [address] Sodium [Moles/Vol] 140 mmol/L Normal 136-145 [facility] Comment on above: Performed By: #### L 501.9520, L506.1000, L3890.6300, L500.4050, L100.0100 #### [facility] [address] [place], [address] T PROT 6.8 g/dL Normal 6.4-8.2 [facility] Comment on above: Performed By: #### L 501.9520, L506.1000, L3890.6300, L500.4050, L100.0100 #### [facility] [address] [place], [address] Urea nitrogen [Mass/Vol] 25 mg/dL High 7-18 [facility] Comment on above: Performed By: #### L 501.9520, L506.1000, L3890.6300, L500.4050, L100.0100 #### [facility] [address] [place], [address] Hepatitis C Antibodyon 04-06 Hepatitis C AB Non-Reactive Normal Nonreactive [facility] Comment on above: Result Comment: Non Reactive: < 0.8 Equivocal: >/= 0.8 to < 1.0 Reactive: >/= 1.0 The CDC requires that a reactive/equivocal HCV antibody result be sent out for confirmation. HCV Quant by PCR testing. Performed By: #### L 501.9520, L506.1000, L3890.6300, L500.4050, L100.0100 #### [facility] [address] [place], [address] Thyroid Stim Hormone (TSH)on 04-06-2024 TSH 2.190 uIU/mL Normal 0.358-3.740 [facility] Comment on above: Performed By: #### L 501.9520, L506.1000, L3890.6300, L500.4050, L100.0100 #### [facility] [address] [place], [address] Vitamin D,25 Hydroxyon 04-06 Vitamin D 25-OH 44.5 ng/mL Normal [facility] Comment on above: Result Comment: Nika min D 25(OH) Status Range Deficiency <20 ng/mL (50nmol/L) Insufficiency 20 - 30 ng/mL (50 - 75 nmol/L) Sufficiency 30 - 100 ng/mL (75 - 250 nmol/L) Toxicity >100 ng/mL (>250 nmol/L) Performed By: #### L 501.9520, L506.1000, L3890.6300, L500.4050, L100.0100 #### [facility] [address] [place], [address] ED NOTEon 10-24-2023 ED NOTE HNO ID: [id number] Author: BLU BETANCOURT RN Service: Emergency Medicine [...] anything else to help you? No Normal [facility] ED NOTE HNO ID: [id number] Author: FRANCINE COOPER RN Service: Nursing Author Type: Registered Nurse Type: ED Notes Filed: 10/24/2023 10:27 Note Text: Pt arrives with report of face pain which he describes as a toothache and I don't have any teeth in my mouth. Pt reports recent issue with nasal drainage that has gone from clear to yellow. Pt recently started on Loratadine 10mg Normal [facility] ED PROV NOTEon 10-24-2023 ED PROV NOTE HNO ID: [id number] Author: WILFREDO WELCH MD Service: Emergency Medicine Author Type: Physician Type: ED Provider Notes Filed: 10/24/2023 11:02 Note Text: ED Provider Note Patient Name: Nancy Price : 1940 SERVICE DATE: 10/24/23 History Patient presents with: Sinus Problem Presents the emergency department for concerns over sinus faction. Patient has been trying [id number]-fjupfmg medications, including Claritin, nasal spray, Flonase, for [...] / C (more content not included)... 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 Normal [facility] CTA Abdominal vessels and Pe lvis vessels [...] 5.3 x 5.4 cm in February 2022). Licensed Direct Entry Midwife: [facility] Transcribe Date/Time: Sep 17 2023 2:30P Dictated by : JARAD LOMBARDO MD This examination was interpreted and the report reviewed and electronically signed by: JARAD LOMBARDO MD on Sep 17 2023 2:45PM [facility] DIVISION OF RADIOLOGY * * *Final Report* * * DATE OF EXAM: Sep 17 2023 2:00PM [facility] 0467 - CTA ABD/PELV WO/W IVCON [...] spine is noted. DIVISION OF RADIOLOGY Provider, [facility] - 09/17/2023 * * *Final Report* * * DATE OF EXAM: Sep 17 2023 2:00PM [facility] 0467 - CTA ABD/PELV WO/W IVCON [...] 5.3 x 5.4 cm in February 2022). Licensed Direct Entry Midwife: [facility] Transcribe Date/Time: Sep 17 2023 2:30P Dictated by : JARAD LOMBARDO MD This examination was interpreted and the report reviewed and electronically signed by: JARAD LOMBARDO MD on Sep 17 2023 2:45PM EST [facility] Radiology Study observation (narrative) [facility] CTA Abdominal vessels and Pe lvis vessels WO and W contrast IVOrdered By: [facility] Provider on 09-17-[address] [facility] URIC ACID BLOODon 09-16-2022 Urate [Mass/Vol] 6.8 mg/dL 4.0 - 8.1 mg/dL [facility] CONFIRM BLOOD TYPEon 022 ABO A [facility] Rh Nom (Bld) Negative [facility] TSH BLDon 12-31-2021 TSH Qn 3.560 m[IU]/L 0.270 - 4.200 mIU/L [facility] Basic Panelon 11-26-2019 Anion gap [Moles/Vol] 7 mmol/L Low 9-18 [facility] Comment on above: Performed By: #### P 14 #### [facility] [address] [place], [place] [address] Calcium [Mass/Vol] 9.9 mg/dL Normal 8.5-10.2 [facility] Comment on above: Performed By: #### P 14 #### [facility] [address] [place], [place] [address] Chloride [Moles/Vol] 108 mmol/L High 97-105 [facility] [place] Comment on above: Performed By: #### P 14 #### [facility] [address] [place], [place] [address] CO2 Blood 27 mmol/L Normal 22-30 [facility] Comment on above: Performed By: #### P 14 #### [facility] [address] [place], [place] [address] Creatinine [Mass/Vol] 1.42 mg/dL High 0.73-1.22 [facility] Comment on above: Performed By: #### P 14 #### [facility] [address] [place], [place] [address] Glucose [Mass/Vol] 99 mg/dL Normal 74-99 [facility] Comment on above: Result Comment: The [place] Diabetes Association (ADA) provides guidance for cutoff [...] Standards of Medical Care in Diabetes 2016; [place] [employer]. Diabetes Care. 2016;39(Suppl 1). Performed By: #### P 14 #### [facility] [address] [place] [address] Potassium [Moles/Vol] 4.4 mmol/L Normal 3.7-5.1 [facility] Comment on above: Performed By: #### P 14 #### [facility] [address] [place], [place] [address] Sodium [Moles/Vol] 142 mmol/L Normal 136-144 [facility] Comment on above: Performed By: #### P 14 #### [facility] [address] [place], [place] [address] Urea nitrogen [Mass/Vol] 24 mg/dL Normal 9-24 [facility] Comment on above: Performed By: #### P 14 #### [facility] [address] [place], [place] [address] Hemogramon 11-26-2019 Erythrocyte distribution width (RBC) [Ratio] 12.2 % Normal 11.5-15.9 [facility] Comment on above: Performed By: #### P 14 #### [facility] [address] [place], [place] [address] Hematocrit (Bld) [Volume fraction] 36.2 % Low 42.0-52.0 [facility] Comment on above: Performed By: #### P 14 #### [address] [address] Hemoglobin (Bld) [Mass/Vol] 11.9 g/dL Low 14.0-18.0 [facility] Comment on above: Performed By: #### P 14 #### [facility] [address] [place] [address] MCH (RBC) [Entitic mass] 32.7 pg High 27.0-31.0 [facility] Comment on above: Performed By: #### P 14 #### [facility] [address] [place] [address] MCHC (RBC) [Mass/Vol] 32.9 % Normal 32.0-36.0 [facility] Comment on above: Performed By: #### P 14 #### [facility] [address] [place] [address] MCV (RBC) [Entitic vol] 99.5 fL High 80.0-94.0 [facility] Comment on above: Performed By: #### P 14 #### [facility] [address] [place] [address] Platelet mean volume (Bld) [Entitic vol] 11.4 fL High 7.1-10.5 [facility] Comment on above: Performed By: #### P 14 #### [facility] [address] [place] [address] Platelets (Bld) [#/Vol] 141 thou/cmm Low 150-400 [facility] Comment on above: Performed By: #### P 14 #### [facility] [address] [place] [address] RBC (Bld) [#/Vol] 3.64 mil/cmm Low 4.60-6.20 [facility] Comment on above: Performed By: #### P 14 #### [facility] [address] [place] [address] WBC (Bld) [#/Vol] 4.2 thou/cmm Low 4.8-10.5 [facility] Comment on above: Performed By: #### P 14 #### [facility] [address] [place] [address] MDRD eGFRon 11-26-2019 GFR/1.73 sq M predicted among non-blacks MDRD (S/P/Bld) [Vol rate/Area] 51.14 mL/min/{1.73_m2} Normal >60mL/min/1.7 3m2 [facility] Comment on above: Result Comment: If t he patient is , multiply the result by 1.210. Performed By: #### P 14 #### [facility] [address] [place] [address] Basic Panelon 08-24-2019 Anion gap [Moles/Vol] 9 mmol/L Normal 9-18 [facility] Comment on above: Performed By: #### P 14 #### [facility] [address] [place] [address] Calcium [Mass/Vol] 9.7 mg/dL Normal 8.5-10.2 [facility] Comment on above: Performed By: #### P 14 #### [facility] [address] [place] [address] Chloride [Moles/Vol] 107 mmol/L High 97-105 [facility] [place] Comment on above: Performed By: #### P 14 #### [facility] [address] [place] [address] CO2 Blood 27 mmol/L Normal 22-30 [facility] Comment on above: Performed By: #### P 14 #### [facility] [address] [place], [place] [address] Creatinine [Mass/Vol] 1.36 mg/dL High 0.73-1.22 [facility] Comment on above: Performed By: #### P 14 #### [facility] [address] [place] [id number] Glucose [Mass/Vol] 110 mg/dL High 74-99 [facility] Comment on above: Result Comment: The [place] Diabetes [employer] (ADA) provides guidance for cutoff [...] Standards of Medical Care in Diabetes 2016; [place] [employer]. Diabetes Care. 2016;39(Suppl 1). Performed By: #### P 14 #### [facility] [address] [place], [place] [address] Potassium [Moles/Vol] 4.2 mmol/L Normal 3.7-5.1 [facility] Comment on above: Performed By: #### P 14 #### [facility] [address] [place], [place] [address] Sodium [Moles/Vol] 143 mmol/L Normal 136-144 [facility] Comment on above: Performed By: #### P 14 #### [facility] [address] [place] [address] Urea nitrogen [Mass/Vol] 22 mg/dL Normal 9-24 [facility] Comment on above: Performed By: #### P 14 #### [facility] [address] [place] [address] Hemogramon 08-24-2019 Erythrocyte distribution width (RBC) [Ratio] 12.1 % Normal 11.5-15.9 [facility] Comment on above: Performed By: #### P 14 #### [facility] [address] [place] [address] Hematocrit (Bld) [Volume fraction] 37.6 % Low 42.0-52.0 [facility] Comment on above: Performed By: #### P 14 #### [facility] [address] [place], [place] [address] Hemoglobin (Bld) [Mass/Vol] 12.4 g/dL Low 14.0-18.0 [facility] Comment on above: Performed By: #### P 14 #### [facility] [address] [place], [place] [address] MCH (RBC) [Entitic mass] 32.5 pg High 27.0-31.0 [facility] Comment on above: Performed By: #### P 14 #### [address] [address] MCHC (RBC) [Mass/Vol] 33.0 % Normal 32.0-36.0 [facility] Comment on above: Performed By: #### P 14 #### [facility] [address] [place] [address] MCV (RBC) [Entitic vol] 98.7 fL High 80.0-94.0 [facility] Comment on above: Performed By: #### P 14 #### [facility] [address] [place] [address] Platelet mean volume (Bld) [Entitic vol] 11.1 fL High 7.1-10.5 [facility] Comment on above: Performed By: #### P 14 #### [place] [address] Platelets (Bld) [#/Vol] 151 thou/cmm Normal 150-400 [facility] Comment on above: Performed By: #### P 14 #### [place] [address] RBC (Bld) [#/Vol] 3.81 mil/cmm Low 4.60-6.20 [facility] Comment on above: Performed By: #### P 14 #### [place] [address] WBC (Bld) [#/Vol] 4.0 thou/cmm Low 4.8-10.5 [facility] Comment on above: Performed By: #### P 14 #### [place] [address] Basic Panelon 04-12-2019 Creatinine [Mass/Vol] 1.31 mg/dL High 0.67-1.17 [facility] Comment on above: Performed By: #### P 14 #### [place] [address] Anion gap [Moles/Vol] 8 mmol/L Normal 8-16 [facility] Comment on above: Performed By: #### P 14 #### [facility] [address] [place], [place] [address] Calcium [Mass/Vol] 9.4 mg/dL Normal 8.5-10.1 [facility] Comment on above: Performed By: #### P 14 #### [facility] [address] [place], [place] [address] CO2 [Moles/Vol] 28 mmol/L Normal 21-32 [facility] Comment on above: Performed By: #### P 14 #### [facility] [address] [place], [place] [address] Glucose [Mass/Vol] 92 mg/dL Normal 70-99 [facility] Comment on above: Performed By: #### P 14 #### [facility] [address] [place], [place] [address] Urea nitrogen [Mass/Vol] 23 mg/dL High 7-18 [facility] Comment on above: Performed By: #### P 14 #### [facility] [address] [place], [place] [address] Chloride [Moles/Vol] 111 mmol/L High 98-107 [facility] [place] Comment on above: Performed By: #### P 14 #### [facility] [address] [place], [place] [address] Potassium [Moles/Vol] 4.8 mmol/L Normal 3.5-5.1 [facility] Comment on above: Performed By: #### P 14 #### [facility] [address] [place], [place] [address] Sodium [Moles/Vol] 142 mmol/L Normal 136-145 [facility] Comment on above: Performed By: #### P 14 #### [facility] [address] [place], [place] [address] Hemogramon 04-12-2019 Erythrocyte distribution width (RBC) [Ratio] 12.0 % Normal 11.5-15.9 [facility] Comment on above: Performed By: #### P 14 #### [facility] [address] [place], [place] [address] Hematocrit (Bld) [Volume fraction] 33.9 % Low 42.0-52.0 [facility] Comment on above: Performed By: #### P 14 #### [facility] [address] [place] [address] Hemoglobin (Bld) [Mass/Vol] 11.3 g/dL Low 14.0-18.0 [facility] Comment on above: Performed By: #### P 14 #### [facility] [address] [place] [address] MCH (RBC) [Entitic mass] 32.5 pg High 27.0-31.0 [facility] Comment on above: Performed By: #### P 14 #### [facility] [address] [place] [address] MCHC (RBC) [Mass/Vol] 33.3 % Normal 32.0-36.0 [facility] Comment on above: Performed By: #### P 14 #### [place] [address] MCV (RBC) [Entitic vol] 97.4 fL High 80.0-94.0 [facility] Comment on above: Performed By: #### P 14 #### [place] [address] Platelet mean volume (Bld) [Entitic vol] 10.2 fL Normal 7.1-10.5 [facility] Comment on above: Performed By: #### P 14 #### [place] [address] Platelets (Bld) [#/Vol] 165 thou/cmm Normal 150-400 [facility] Comment on above: Performed By: #### P 14 #### [facility] [address] [place] [address] RBC (Bld) [#/Vol] 3.48 mil/cmm Low 4.60-6.20 [facility] Comment on above: Performed By: #### P 14 #### [facility] [address] [place] [address] WBC (Bld) [#/Vol] 3.6 thou/cmm Low 4.8-10.5 [facility] Comment on above: Performed By: #### P 14 #### [place] [address] MDRD GFRon 04-12-2019 GFR/1.73 sq M predicted among non-blacks MDRD (S/P/Bld) [Vol rate/Area] 52.90 mL/min/{1.73_m2} Normal >60mL/min/1.7 3m2 [facility] Comment on above: Result Comment: If t he patient is , multiply the result by 1.210. Performed By: #### P 14 #### [place] [address] PTH, Intacton 02-09-2019 PTH, Intact 68.3 pg/mL Normal 18.5-88.0 [facility] Comment on above: Performed By: #### P 14 #### [place] [address] Total 25-OH Vitamin Don 01-29 Total 25-OH Vitamin D 48.0 ng/mL Normal 30.0-100.0 [facility] Comment on above: Performed By: #### 2 5VD1 #### [place] [address] MDRD GFRon 02-08-2019 GFR/1.73 sq M predicted among non-blacks MDRD (S/P/Bld) [Vol rate/Area] 47.45 mL/min/{1.73_m2} Normal >60mL/min/1.7 2 [facility] Comment on above: Result Comment: If t he patient is , multiply the result by 1.210. Performed By: #### G FR #### [place] [address] Microalb/Creat, Randomon MA/Creat Ratio 4.14 mg/g Normal 0.10-30.00 [facility] Comment on above: Performed By: #### M ALBR #### [place] [address] Microalbumin,Random 0.55 mg/dL Normal 0.20-2.50 [facility] Comment on above: Performed By: #### M ALBR #### [place] [address] Creatinine,Urine 133.0 mg/dL Normal [facility] Comment on above: Performed By: #### M ALBR #### [facility] [address] [place], [place] [address] Renal Panelon 02-08-2019 Phosphate [Mass/Vol] 2.8 mg/dL Normal 2.5-4.9 [facility] [place] Comment on above: Performed By: #### R ENAL #### [facility] [address] [place], [place] [address] Creatinine [Mass/Vol] 1.44 mg/dL High 0.67-1.17 [facility] Comment on above: Performed By: #### R ENAL #### [address] [address] Albumin [Mass/Vol] 3.5 g/dL Normal 3.4-5.0 [facility] Comment on above: Performed By: #### R ENAL #### [place] [address] Anion gap [Moles/Vol] 9 mmol/L Normal 8-16 [facility] Comment on above: Performed By: #### R ENAL #### [place] [address] CO2 [Moles/Vol] 26 mmol/L Normal 21-32 [facility] Comment on above: Performed By: #### R ENAL #### [address] [address] Glucose [Mass/Vol] 95 mg/dL Normal 70-99 [facility] Comment on above: Performed By: #### R ENAL #### [facility] [address] [place], [place] [address] Urea nitrogen [Mass/Vol] 25 mg/dL High 7-18 [facility] Comment on above: Performed By: #### R ENAL #### [place] [address] Calcium [Mass/Vol] 9.3 mg/dL Normal 8.5-10.1 [facility] Comment on above: Performed By: #### R ENAL #### [address] [place], [place] [address] Chloride [Moles/Vol] 109 mmol/L High 98-107 [facility] [place] Comment on above: Performed By: #### R ENAL #### [facility] [address] [place] [address] Potassium [Moles/Vol] 4.1 mmol/L Normal 3.5-5.1 [facility] Comment on above: Performed By: #### R ENAL #### [facility] [address] [place] [address] Sodium [Moles/Vol] 140 mmol/L Normal 136-145 [facility] Comment on above: Performed By: #### R ENAL #### [facility] [address] [place] [address] Urinalysis Routineon 019 Appearance (U) CLEAR Normal [facility] Comment on above: Performed By: #### L URIN #### [place] [address] Bilirubin Urine Negative Normal Negative [facility] Comment on above: Performed By: #### L URIN #### [place] [address] Color (U) YELLOW Normal [facility] Comment on above: Performed By: #### L URIN #### [place] [address] Ep Cells Urine NONE Normal 0-5 [facility] Comment on above: Performed By: #### L URIN #### [place] [address] Glucose Ql (U) Negative Normal Negative [facility] Comment on above: Performed By: #### L URIN #### [place] [address] Hemoglobin,Urine Negative Normal Negative [facility] Comment on above: Performed By: #### L URIN #### [place] [address] Ketone Urine Negative Normal Negative [facility] Comment on above: Performed By: #### L URIN #### [address], [place] [address] Leukocytes Esterase Negative Normal Negative [facility] Comment on above: Performed By: #### L URIN #### [place] [address] Mucus Threads FEW Normal None [facility] Comment on above: Performed By: #### L URIN #### [place] [address] Nitrites Urine Negative Normal Negative [facility] Comment on above: Performed By: #### L URIN #### [place] [address] pH (U) 5.5 [pH] Normal 5.0-8.0 [facility] Comment on above: Performed By: #### L URIN #### [place] [address] Protein (U) [Mass/Vol] Negative Normal Negative [facility] Comment on above: Performed By: #### L URIN #### [place] [address] RBC LM.HPF (Urine sed) [#/Area] NONE Normal 0-3 [facility] Comment on above: Performed By: #### L URIN #### [place] [address] Specific [place], Ur 1.015 Normal 1.005-1.030 [facility] Comment on above: Performed By: #### L URIN #### [place] [address] Urobilinogen,Ur 0.2 EU/dL Normal 0.2-1.0 [facility] Comment on above: Performed By: #### L URIN #### [place] [address] WBC LM.HPF (Urine sed) [#/Area] NONE Normal 0-5 [facility] Comment on above: Performed By: #### L URIN #### [place] [address] CT CHEST WO IVCONon 01-12-[address] CHEST WO IVCON * * *Final Report* * * DATE OF EXAM: Jan 11 2019 1:16PM [facility] 0541 - CT CHEST WO IVCON / [...] pleural effusion. 3. Diffuse coronary artery calcifications. Licensed Direct Entry Midwife: LEONIDAS Transcribe Date/Time: Jan 12 2019 12:10P Dictated by : MYRA BRITO MD This examination was interpreted and the report reviewed and electronically signed by: MYRA BRITO MD on Jan 12 2019 12:25PM EST Normal [facility] Comprehensive Panelon 2018 ALP [Catalytic activity/Vol] 78 U/L Normal 45-117 [facility] Comment on above: Performed By: #### P 14 #### [facility] [address] [place], [place] [address] Bilirubin [Mass/Vol] 0.5 mg/dL Normal 0.2-1.0 [facility] [place] Comment on above: Performed By: #### P 14 #### [facility] [address] [place], [place] [address] Protein [Mass/Vol] 6.7 g/dL Normal 6.4-8.2 [facility] Comment on above: Performed By: #### P 14 #### [facility] [address] [place], [place] [address] ALT [Catalytic activity/Vol] 23 U/L Normal 12-78 [facility] Comment on above: Performed By: #### P 14 #### [facility] [address] [place], [place] [address] AST [Catalytic activity/Vol] 22 U/L Normal 15-37 [facility] Comment on above: Performed By: #### P 14 #### [facility] [address] [place], [place] [address] Creatinine [Mass/Vol] 1.36 mg/dL High 0.67-1.17 [facility] Comment on above: Performed By: #### P 14 #### [facility] [address] [place], [place] [address] Anion gap [Moles/Vol] 9 mmol/L Normal 8-16 [facility] Comment on above: Performed By: #### P 14 #### [facility] [address] [place], [place] [address] CO2 [Moles/Vol] 27 mmol/L Normal 21-32 [facility] Comment on above: Performed By: #### P 14 #### [facility] [address] [place], [place] [address] Albumin [Mass/Vol] 3.6 g/dL Normal 3.4-5.0 [facility] Comment on above: Performed By: #### P 14 #### [facility] [address] [place], [place] [address] Calcium [Mass/Vol] 9.3 mg/dL Normal 8.5-10.1 [facility] Comment on above: Performed By: #### P 14 #### [facility] [address] [place], [place] [address] Glucose [Mass/Vol] 96 mg/dL Normal 70-99 [facility] Comment on above: Performed By: #### P 14 #### [facility] [address] [place], [place] [address] Urea nitrogen [Mass/Vol] 23 mg/dL High 7-18 [facility] Comment on above: Performed By: #### P 14 #### [facility] [address] [place], [place] [address] Chloride [Moles/Vol] 110 mmol/L High 98-107 [facility] [place] Comment on above: Performed By: #### P 14 #### [facility] [address] [place], [place] [address] Potassium [Moles/Vol] 4.4 mmol/L Normal 3.5-5.1 [facility] Comment on above: Performed By: #### P 14 #### [facility] [address] [place], [place] [address] Sodium [Moles/Vol] 142 mmol/L Normal 136-145 [facility] Comment on above: Performed By: #### P 14 #### [facility] [address] [place], [place] [address] Hemogramon 01-04-2019 Erythrocyte distribution width (RBC) [Ratio] 12.5 % Normal 11.5-15.9 [facility] Comment on above: Performed By: #### L CBC #### [facility] [address] [place], [place] [address] Hematocrit (Bld) [Volume fraction] 35.1 % Low 42.0-52.0 [facility] Comment on above: Performed By: #### L CBC #### [facility] [address] [place], [place] [address] Hemoglobin (Bld) [Mass/Vol] 11.7 g/dL Low 14.0-18.0 [facility] Comment on above: Performed By: #### L CBC #### [facility] [address] [place], [place] [address] MCH (RBC) [Entitic mass] 33.1 pg High 27.0-31.0 [facility] Comment on above: Performed By: #### L CBC #### [facility] [address] [place], [place] [address] MCHC (RBC) [Mass/Vol] 33.3 % Normal 32.0-36.0 [facility] Comment on above: Performed By: #### L CBC #### [facility] [address] [place] [address] MCV (RBC) [Entitic vol] 99.2 fL High 80.0-94.0 [facility] Comment on above: Performed By: #### L CBC #### [facility] [address] [place] [address] Platelet mean volume (Bld) [Entitic vol] 11.1 fL High 7.1-10.5 [facility] Comment on above: Performed By: #### L CBC #### [facility] [address] [place] [address] Platelets (Bld) [#/Vol] 158 thou/cmm Normal 150-400 [facility] Comment on above: Performed By: #### L CBC #### [facility] [address] [place] [address] RBC (Bld) [#/Vol] 3.54 mil/cmm Low 4.60-6.20 [facility] Comment on above: Performed By: #### L CBC #### [facility] [address] [place] [address] WBC (Bld) [#/Vol] 3.3 thou/cmm Low 4.8-10.5 [facility] Comment on above: Performed By: #### L CBC #### [facility] [address] [place] [address] MDRD GFRon 01-04-2019 GFR/1.73 sq M predicted among non-blacks MDRD (S/P/Bld) [Vol rate/Area] 50.70 mL/min/{1.73_m2} Normal >60mL/min/1.7 3m2 [facility] Comment on above: Result Comment: If t he patient is , multiply the result by 1.210. Performed By: #### G FR #### [facility] [address] [place] [address] Vitamin B12on 01-04-2019 Cobalamin (Vitamin B12) [Mass/Vol] 371 pg/mL Normal 193-986 [facility] Comment on above: Performed By: #### B 12 #### [facility] [address] [place] [address] CNCOon 06-02-2018 CNCO Letter Text Normal [facility] Basic Metabolic Panlon 05-28 Anion gap molar conc 10 mmol/L Normal 9-18 [facility] Comment on above: Performed By: #### T SH #### [facility] [address] [place] [address] Calcium mass conc 9.0 mg/dL Normal 8.5-10.2 [facility] Comment on above: Performed By: #### T SH #### [facility] [address] [place] [address] Chloride molar conc 110 mmol/L High 97-105 [facility] Comment on above: Performed By: #### T SH #### [facility] [address] [place] [address] CO2 molar conc 21 mmol/L Low 22-30 [facility] Comment on above: Performed By: #### T SH #### [facility] [address] [place] [address] Creatinine mass conc 1.17 mg/dL Normal 0.73-1.22 [facility] Comment on above: Performed By: #### T SH #### [facility] [address] [place] [address] eGFR- Amer. >60 Normal [facility] Comment on above: Performed By: #### T SH #### [facility] [address] [place] [address] GFR/1.73 sq M predicted among non-blacks MDRD vol rate/area (S/P/Bld) mL/min/{1.73_m2} Normal [facility] Comment on above: Result Comment: eGFR [...] GFR. Performed By: #### T SH #### [facility] [address] Glucose mass conc 106 mg/dL High 74-99 [facility] Comment on above: Result Comment: The [place] [employer] (ADA) provides guidance for cutoff [...] Standards of Medical Care in Diabetes 2016, [place] [employer]. Diabetes Care. 2016.39(Suppl 1). Performed By: #### T SH #### [facility] [address] [place], [place] [id number] Potassium molar conc 3.8 mmol/L Normal 3.7-5.1 [facility] Comment on above: Performed By: #### T SH #### [facility] [address] [place] [address] Sodium molar conc 141 mmol/L Normal 136-144 [facility] Comment on above: Performed By: #### T SH #### [facility] [address] Urea nitrogen mass conc 22 mg/dL Normal 9-24 [facility] Comment on above: Performed By: #### T SH #### [facility] [address] CASE MANAGEMon 05-28-2018 CASE MANAGEM HNO ID: [id number] Author: Cami (Rn) Brittany RN Service: Care [...] Cordova DO? PCP - General Family Practice [phone] [place] [address] [place] [address] TRANSPORTATION ARRANGEMENTS: Car via ADDITIONAL CONTACT RESOURCES: Tanisha Price ([facility] [place]) [phone] (H) Discharge Information Row Name Admission (Current) from 05/25/2018 in [facility]ation Medical Follow-Up Appointment Specialty PCP Provider Name Shannon Cordova DO Address [address] [place], [place] [id number] Appointment Date 06/04/18 Appointment Time 2:05PM Additonal [...] 28, 2018 TIME: 10:13 AM PAGER/CONTACT #: [phone] Normal [facility] CBCon 05-28-2018 Erythrocyte distribution width Ratio (RBC) 12.5 % Normal 11.5-15.0 [facility] Comment on above: Performed By: #### T SH #### [facility] [address] [place] [address] Hematocrit Volume Fraction (Bld) 30.5 % Low 39.0-51.0 [facility] Comment on above: Performed By: #### T SH #### [facility] [address] [place] [address] Hemoglobin mass conc (Bld) 10.0 g/dL Low 13.0-17.0 [facility] Comment on above: Performed By: #### T SH #### [facility] [address] [place] [address] MCH Entitic mass (RBC) 31.6 pG Normal 26.0-34.0 [facility] Comment on above: Performed By: #### T SH #### [facility] [address] [place] [address] MCHC mass conc (RBC) 32.8 g/dL Normal 30.5-36.0 [facility] Comment on above: Performed By: #### T SH #### [facility] [address] [place] [address] MCV Entitic volume (RBC) 96.5 fL Normal 80.0-100.0 [facility] [facility] Comment on above: Performed By: #### T SH #### [facility] [address] [place] [address] Platelet mean volume Entitic volume (Bld) 11.6 fL Normal 9.0-12.7 [facility] Comment on above: Performed By: #### T SH #### [facility] [address] [place] [address] Platelets #/vol (Bld) 91 10*3/uL Low 150-400 [facility] Comment on above: Performed By: #### T SH #### [facility] [address] [place] [address] RBC #/vol (Bld) 3.16 10*6/uL Low 4.20-6.00 [facility] Comment on above: Performed By: #### T SH #### [facility] [address] [place] [address] WBC #/vol (Bld) 3.46 10*3/uL Low 3.70-11.00 [facility] Comment on above: Performed By: #### T SH #### [facility] [address] [place] [address] Magnesiumon 05-28-2018 Magnesium mass conc 1.9 mg/dL Normal 1.7-2.3 [facility] Comment on above: Performed By: #### T #### [facility] [address] [facility] [phone] NURSING PROGon 05-28-2018 Protein mass conc HNO ID: [id number] Author: Romulo Bower) ANNA Munoz Service: (none) Author Type: Registered Nurse Type: Nursing Progress Note Filed: 05/28/2018 10:11 AM Note Text: Nursing Progress Note Patient Name: Nancy Price Patient Location: [place] [address] [address] Daily Note: Dr Hernandez vs-discharge written. HL removed intact 1005-Discharge instructions reviewed with patient AND spouse with adequate knowledge-home meds returned 1020-Off floor via w/c This note was completed by: Romulo Munoz RN [facility] THERAPY NTon 05-28-2018 THERAPY NT HNO ID: [id number] Author: Ct Blake Service: Occupational Therapy Author Type: Occupational Therapist Type: Therapy (PT/OT/Speech/Resp) Filed: 05/28/2018 9:57 AM Note Text: OCCUPATIONAL THERAPY MISSED VISIT SERVICE DATE: 05/28/2018 SERVICE TIME: 947 to 950 ROOM: [place] [address] Attempted Evaluation. Patient with active discharge orders. [...] DATE: May 28, 2018 TIME: 9:55 AM [facility] Basic Metabolic Panlon 05-27 Anion gap molar conc 7 mmol/L Low 12-16 [facility] Comment on above: Performed By: #### T NT #### [facility] [address] [place] [phone] Calcium mass conc 8.6 mg/dL Normal 8.5-10.2 [facility] Comment on above: Performed By: #### T NT #### [facility] [address] [place] [address] Chloride molar conc 108 mmol/L High 97-105 [facility] Comment on above: Performed By: #### T NT #### [facility] [address] [place] [address] CO2 molar conc 24 mmol/L Normal 22-30 [facility] Comment on above: Performed By: #### T NT #### [facility] [address] [place] [address] Creatinine mass conc 1.29 mg/dL High 0.73-1.22 [facility] Comment on above: Performed By: #### T NT #### [facility] [address] [place] [address] eGFR- Amer. >60 Normal [facility] Comment on above: Performed By: #### T NT #### [facility] [address] [place] [address] GFR/1.73 sq M predicted among non-blacks MDRD vol rate/area (S/P/Bld) 54 . Normal [facility] Comment on above: Result Comment: eGFR [...] GFR. Performed By: #### T NT #### [facility] [address] [place] [phone] Glucose mass conc 119 mg/dL High 74-99 [facility] Comment on above: Result Comment: The [place] Diabetes Association (ADA) provides guidance for cutoff [...] Standards of Medical Care in Diabetes 2016, [place] [employer]. Diabetes Care. 2016.39(Suppl 1). Performed By: #### T NT #### [facility] [address] [place] [address] Potassium molar conc 3.7 mmol/L Normal 3.7-5.1 [facility] Comment on above: Performed By: #### T NT #### [facility] [address] [place] [address] Sodium molar conc 139 mmol/L Normal 136-144 [facility] Comment on above: Performed By: #### T NT #### [facility] [address] [place] [address] Urea nitrogen mass conc 20 mg/dL Normal 9-24 [facility] Comment on above: Performed By: #### T NT #### [facility] [address] [place] [address] CASE MANAGEMon 05-27-2018 CASE MANAGEM HNO ID: [id number] Author: Vannesa Schmidt (Sw) Service: (none) Author Type: Commanding [employer] Type: Care Mgt Progress Note Filed: 05/27/2018 [...] 27, 2018 TIME: 4:02 PM PAGER/CONTACT #: [phone] Normal [facility] CBCon 05-27-2018 Erythrocyte distribution width Ratio (RBC) 12.8 % Normal 11.5-15.0 [facility] Comment on above: Performed By: #### T NT #### [facility] [address] [place] [address] Hematocrit Volume Fraction (Bld) 32.5 % Low 39.0-51.0 [facility] Comment on above: Performed By: #### T NT #### [facility] [address] [place] [address] Hemoglobin mass conc (Bld) 10.7 g/dL Low 13.0-17.0 [facility] Comment on above: Performed By: #### T NT #### [facility] [address] [place] [address] MCH Entitic mass (RBC) 31.9 pG Normal 26.0-34.0 [facility] Comment on above: Performed By: #### T NT #### [facility] [address] [place] [address] MCHC mass conc (RBC) 32.9 g/dL Normal 30.5-36.0 [facility] Comment on above: Performed By: #### T NT #### [facility] [address] [place] [address] MCV Entitic volume (RBC) 97.0 fL Normal 80.0-100.0 [facility] Comment on above: Performed By: #### T NT #### [facility] [address] [place] [address] Platelet mean volume Entitic volume (Bld) 11.3 fL Normal 9.0-12.7 [facility] Comment on above: Performed By: #### T NT #### [facility] [address] [place] [address] Platelets #/vol (Bld) 93 10*3/uL Low 150-400 [facility] Comment on above: Performed By: #### T NT #### [facility] [address] [place] [address] RBC #/vol (Bld) 3.35 10*6/uL Low 4.20-6.00 [facility] Comment on above: Performed By: #### T NT #### [facility] [address] [place] [address] WBC #/vol (Bld) 3.45 10*3/uL Low 3.70-11.00 [facility] Comment on above: Performed By: #### T NT #### [facility] [address] [facility] [phone] Magnesiumon 05-27-2018 Magnesium mass conc 1.9 mg/dL Normal 1.7-2.3 [facility] Comment on above: Performed By: #### T NT #### [facility] [address] [facility] [phone] NURSING PROGon 05-27-2018 Protein mass conc HNO ID: [id number] Author: Romulo WileyRn) Alexander, ANNA Service: (none) Author Type: Registered Nurse Type: Nursing Progress Note Filed: 05/27/2018 5:17 PM Note Text: Nursing Progress Note Patient Name: Nancy Price Patient Location: [place] [address]/[id number]- Daily Note: Isolation maintained for + Flu-denies [...] maintained. Patient resting in bed-hospitalist paged x2. 1572-Patients status changed to INPATIENT This note was completed by: Romulo Munoz RN Normal [facility] Protein mass conc HNO ID: [id number] Author: Alexandra WileyRn) ANNA Pereyra Service: (none) Author Type: Registered Nurse Type: Nursing Progress Note Filed: 05/27/2018 5:54 AM Note Text: Nursing Progress Note Patient Name: Nancy Price [place] [facility] [id number] Daily Note: 1900 resting without c/o's dizziness, [...] note was completed by: Alexandra Pereyra RN [facility] PROGRESSon 05-27-2018 Protein mass conc HNO ID: [id number] Author: Maren Hernandez Service: Hospital Medicine Author Type: Physician Type: Progress Notes Filed: 05/27/2018 3:07 PM Note Text: SERVICE DATE: 05/27/2018 SERVICE TIME: 3:07 PM HOSPITAL MEDICINE PROGRESS NOTE NIGHT AND WEEKEND COVERAGE: Nights: Please contact pager [phone]. SUBJECTIVE Patient seen and examined. Feeling worse [...] kidney disease) stage 3, GFR 30-59 ml/min ([facility]) 07/08/2017 - Present Current Assessment AND Plan Assessment: Renal function stable, possibly secondary to dehydration. PLAN: -IV hydration -BMP daily Medication and Non-Pharmacologic VTE Prophylaxis/Anticoagulan ts 05/25/18 1530 pneumatic compression stockings (nj,oh) VTE Prophylaxis: VTE prophylaxis appropriate Plan of care discussed with: Patient and RN SIGNATURE: Maren Hernandez MD PATIENT NAME: Nancy Price DATE: May 27, 2018 TIME: 3:07 PM PAGER/CONTACT #: [facility] THERAPY NTon 05-27-2018 THERAPY NT HNO ID: [id number] Author: Nicole (Pt) Dana Service: Physical Therapy Author Type: Physical Therapist Type: Therapy (PT/OT/Speech/Resp) Filed: 05/27/2018 4:24 PM Note Text: Physical Therapy Evaluation SERVICE DATE: 05/27/2018 SERVICE TIME: 929 to 958 ROOM: [place] [address] Recommended Discharge Disposition: Home Recommended Discharge Disposition [...] Diagnosis: Reduced mobility-other Interventions Provided: Evaluation;Therapeutic Activity (80736);Gait Training (56576) $ Evaluation-Low (39894) Billed Units: 1 unit Therapeutic Activity (09702) Treatment Minutes: 10 1 unit Skilled Intervention(s): [...] IADL's Education regarding activity dosing. Gait Training (34273) Treatment Minutes: 4 0 units Skilled Intervention(s): [...] tub Laundry: main level laundry Equipment Owned: [employer] Bars-Shower;Shower Chair Prior Functional Level: Within Functional [...] DATE: May 27, 2018 TIME: 4:18 PM [facility] Basic Metabolic Panlon 02-26 -2019 Anion gap molar conc 7 mmol/L Low 9-18 [facility] Comment on above: Performed By: #### C BC, BMP, MG1 #### [facility] [address] [place] [address] Calcium mass conc 9.0 mg/dL Normal 8.5-10.2 [facility] Comment on above: Performed By: #### C BC, BMP, MG1 #### [facility] [address] [place] [address] Chloride molar conc 103 mmol/L Normal 97-105 [facility] Comment on above: Performed By: #### C BC, BMP, MG1 #### [facility] [address] [place] [address] CO2 molar conc 24 mmol/L Normal 22-30 [facility] Comment on above: Performed By: #### C BC, BMP, MG1 #### [facility] [address] [place] [address] Creatinine mass conc 1.58 mg/dL High 0.73-1.22 [facility] Comment on above: Performed By: #### C BC, BMP, MG1 #### [facility] [address] [place] [address] eGFR- Amer. 52 Normal [facility] Comment on above: Performed By: #### C BC, BMP, MG1 #### [facility] [address] [place] [address] GFR/1.73 sq M predicted among non-blacks MDRD vol rate/area (S/P/Bld) 43 . Normal [facility] Comment on above: Result Comment: eGFR [...] By: #### C BC, BMP, MG1 #### [facility] [address] [place] [address] Glucose mass conc 100 mg/dL High 74-99 [facility] Comment on above: Result Comment: The [place] Diabetes Association (ADA) provides guidance for cutoff [...] Standards of Medical Care in Diabetes 2016, [place] [employer]. Diabetes Care. 2016.39(Suppl 1). Performed By: #### C BROOK NEWMAN, MG1 #### [facility] [address] [place] [address] Potassium molar conc 3.9 mmol/L Normal 3.7-5.1 [facility] Comment on above: Performed By: #### C PATY BMP, MG1 #### [facility] [address] [place] [address] Sodium molar conc 134 mmol/L Low 136-144 [facility] Comment on above: Performed By: #### C BC, BMP, MG1 #### [facility] [address] [place], [place] [phone] Urea nitrogen mass conc 33 mg/dL High 9-24 [facility] Comment on above: Performed By: #### C PATY BMP, MG1 #### [facility] [address] [place] [address] CASE MGT INIT DIEGOESon 2018 CASE MGT INIT ASSEL HNO ID: [id number] Author: Vannesa Schmidt (Sw) Service: (none) Author Type: Commanding Officer Homicide Squad Type: Care Mgt Initial Assessment Filed: 05/26/2018 11:55 AM Note Text: CARE MANAGEMENT: ASSESSMENT AND DISCHARGE PLAN SERVICE DATE: 05/26/2018 SERVICE TIME: 11:30am PRIMARY CARE PHYSICIAN: Shannon Cordova DO - confirmed with patient ADMISSION STATUS: Observation Needs Prior to Discharge: None MEDICAL: Patient/Bus Person Dishwasher Stated Goals: To have reduction in symptoms To return home to life as it was Health Insurance: MADDY VARGHESEH-art ([place]PP) [facility] [place] Health Issues Impacting Discharge Plan: Positive Flu B, COPD, CKD stage 3 Last Admission Date: Previous admit date: 08/23/2016 Is this Within the Past 30 days? No Advance Directive: Current Advance Directive: Health Care Power of Paint Preparer;Living Will In Chart: No Enterprise Systems Administrator Attempted to Assist with AD Completion: Yes [...] None Has the Patient Been in a Penitentiary Facility in the Past 30 days? No [...] 0 I feel financially burdened by my ozi-go-nefzbo expenses for my prescription medication: Disagree completely [...] 26, 2018 TIME: 11:45 AM PAGER/CONTACT #: [phone] Normal [facility] CBCon 05-26-2018 Erythrocyte distribution width Ratio (RBC) 12.9 % Normal 11.5-15.0 [facility] Comment on above: Performed By: #### C BROOK NEWMAN, MG1 #### [facility] [address] [place] [address] Hematocrit Volume Fraction (Bld) 34.7 % Low 39.0-51.0 [facility] Comment on above: Performed By: #### C BROOK NEWMAN, MG1 #### [facility] [address] [place] [address] Hemoglobin mass conc (Bld) 11.4 g/dL Low 13.0-17.0 [facility] Comment on above: Performed By: #### C PATY BMP, MG1 #### [facility] [address] [place], [place] [phone] MCH Entitic mass (RBC) 32.0 pG Normal 26.0-34.0 [facility] Comment on above: Performed By: #### C PATY BMP, MG1 #### [facility] [address] [place] [address] MCHC mass conc (RBC) 32.9 g/dL Normal 30.5-36.0 [facility] Comment on above: Performed By: #### C PATY BMP, MG1 #### [facility] [address] [place], [place] [phone] MCV Entitic volume (RBC) 97.5 fL Normal 80.0-100.0 [facility] Comment on above: Performed By: #### C PATY BMP, MG1 #### [facility] [address] [place], [place] [phone] Platelet mean volume Entitic volume (Bld) 11.5 fL Normal 9.0-12.7 [facility] Comment on above: Performed By: #### C PATY BMP, MG1 #### [facility] [address] [place], [place] [phone] Platelets #/vol (Bld) 83 10*3/uL Low 150-400 [facility] Comment on above: Performed By: #### C BROOK NEWMAN, MG1 #### [facility] [address] [place], [place] [phone] RBC #/vol (Bld) 3.56 10*6/uL Low 4.20-6.00 [facility] Comment on above: Performed By: #### C BROOK NEWMAN, MG1 #### [facility] [address] [place], [place] [phone] WBC #/vol (Bld) 4.28 10*3/uL Normal 3.70-11.00 [facility] Comment on above: Performed By: #### BROOK GARCIA MG1 #### [facility] [address] [place], [place] [phone] Magnesiumon 05-26-2018 Magnesium mass conc 2.0 mg/dL Normal 1.7-2.3 [facility] Comment on above: Performed By: #### BROOK GARCIA, MG1 #### [facility] [address] [place], [place] [phone] NURSING PROGon 05-26-2018 Protein mass conc HNO ID: [id number] Author: Мария (Rn) ANNA Fuller Service: (none) Author Type: Registered Nurse Type: Nursing Progress Note Filed: 05/26/2018 5:59 PM Note Text: Nursing Progress Note Patient Name: Nancy Price Patient Location: [place] [id number] Daily Note: 0700: Assumed care of pt. [...] note was completed by: Мария Fuller RN [facility] Protein mass conc HNO ID: [id number] Author: Alexandra WileyRn) ANNA Pereyra Service: (none) Author Type: Registered Nurse Type: Nursing Progress Note Filed: 05/26/2018 4:52 AM Note Text: Nursing Progress Note Patient Name: Nancy Price Patient Location: [place] [id number] Daily Note: 1900 assumed care of pt [...] note was completed by: Alexandra Pereyra RN [facility] PROGRESSon 05-26-2018 Protein mass conc HNO ID: [id number] Author: Kevin Boykin Service: Hospital Medicine Author Type: Nurse Practitioner Type: Progress Notes Filed: 05/26/2018 4:34 PM Note Text: SERVICE DATE: 05/26/2018 SERVICE TIME: 4:34 PM HOSPITAL MEDICINE PROGRESS NOTE NIGHT AND WEEKEND COVERAGE: Nights: Please contact pager [phone]. HPI 78 yr old male with PMH [...] acute intracranial process. Findings suggestive of sinusitis. Licensed Direct Entry Midwife: LEONIDAS ? Transcribe Date/Time: May 25 2018 [...] kidney disease) stage 3, GFR 30-59 ml/min ([facility]) 07/08/2017 - Present Current Assessment AND Plan Assessment: Renal function stable, possibly secondary to dehydration. PLAN: -IV hydration -BMP daily Medication and Non-Pharmacologic VTE Prophylaxis/Anticoagulan ts 05/25/18 1530 pneumatic compression stockings (nj,oh) VTE Prophylaxis: VTE prophylaxis appropriate Plan of care discussed with: Attending and Patient SIGNATURE: Kevin Boykin APRN.CNP PATIENT NAME: Nancy Price DATE: May 26, 2018 TIME: 4:34 PM PAGER/CONTACT #: [phone] Normal [facility] Troponin Ton 05-26-2018 Troponin T.cardiac mass conc ug/L Normal 0.000-0.029 [facility] Comment on above: Performed By: #### T NT #### [facility] [address] [facility] [phone] HISTORY PHYSICALon 9 HISTORY PHYSICAL HNO ID: [id number] Author: Kevin Boykin Service: Hospital Medicine Author Type: Nurse Practitioner Type: HANDP Filed: 05/25/2018 5:35 PM Note Text: -------- Attestation signed by Maren Hernandez at 05/26/2018 8:38 AM Attending Note I have personally reviewed the PA/COMMUNITY ENGAGEMENT COORDINATOR note. Agree with above assessment and plan. Other additions or changes: None SIGNATURE: Maren Hernandez MD DATE: May 26, 2018 TIME: 8:38 AM -------- SERVICE DATE: 05/25/2018 SERVICE TIME: 5:34 PM HOSPITAL MEDICINE HISTORY AND PHYSICAL PCP: Shannon Cordova, DO NIGHT AND WEEKEND COVERAGE: Nights: Please contact pager [phone]. SUBJECTIVE Chief Complaint: syncope HPI: 78 yr [...] kidney disease) stage 3, GFR 30-59 ml/min ([facility]) 07/08/2017 - Present Current Assessment AND Plan Assessment: Renal function decreased today, possibly secondary to dehydration. Has had limited oral intake over last 2 days. PLAN: -IV hydration -BMP daily Medication and Non-Pharmacologic VTE Prophylaxis/Anticoagulan ts 05/25/18 1530 pneumatic compression stockings (nj,oh) VTE Prophylaxis: VTE prophylaxis appropriate SIGNATURE: Kevin Boykin APRN.CNP PATIENT NAME: Nancy Price DATE: May 25, 2018 TIME: 5:34 PM PAGER/CONTACT #: [phone] [facility] NURSING PROGon 05-25-2018 Protein mass conc HNO ID: [id number] Author: Jayde (Rn) ANNA Burgess Service: Nursing Author Type: Registered Nurse Type: Nursing Progress Note Filed: 05/25/2018 6:26 PM Note Text: Nursing Progress Note Patient Name: Nancy Price Patient Location[place] [facility] [place]/[id number] Daily Note: 1400- Patient arrived on the unit in stable condition from [place] ED. Patient denies pain, LH and dizziness but c/o all body weakness. 1600- Patient awake in bed with no c/o pain or SOB. Denies LH and dizziness. 1645- Patient medicated with tylenol for fever and NAVA. See MAR. This note was completed by: Jayde Burgess RN Normal [facility] TSHon 05-25-2018 Thyrotropin Qn 1.960 uU/mL Normal 0.400-5.500 [facility] Comment on above: Performed By: #### T SH #### [facility] [address] [facility] [phone] Troponin Ton 05-25-2018 Troponin T.cardiac mass conc ug/L Normal 0.000-0.029 [facility] Comment on above: Performed By: #### T NT #### [facility] [address] [facility] [phone] Clinic Note - Heme Oncon Clinic Note [...] placed on Synthroid and has done well [id number]. On November 11 2012 CBC revealed WBC [...] orally once a week , Start Date: 13-Xpz-1579rxxcdrybbrjpt 25 mcg (0.025 mg) oral tablet: Last [...] Results CBC date/time WBC HGB HCT PLT Cchz63-Lts-5450 11:21 4.3(L) 12.4 37.1(L) 198 2.39 BMP date/time NA K CL CO2 BUN [id number]-Cpa-9379 10:43 139 4.8 104 N/A 21 1.27 LDH date/time [id number]-Zib-8056 10:43 N/A CBC on October 02, 2017 [...] week for 8 weeksfollowed by vitamin D3 vkpd-uuy-qzrykhs thousand units per day. The patientunderstood appreciated [...] DO 05-Jun-2017 10:34 Note Recipients: LindaShannon, - [phone] Yes when ready to send to Provider(s) Listed Above: Note sent toproviders named above Electronic Signatures:Matheus Rodriguez) (Signed 15-Oct-2017 13:40)Authored: History of Present Illness, Review of Systems, Allergies andOutpatient Medication Profile, Problem List, Social History, PerformanceAssessments, Vitals and Measurements, Physical Exam, Results, Assessment andPlan, To Send Document via Auto Fax Last Updated: 15-Oct-2017 13:40 by Matheus Rdoriguez) References:1. Data Referenced From Clinic Note - Heme Onc 06/05/2017 10:22 AM Normal [facility] Clinic Note - Intakeon 10-15 Clinic Note [...] orally once a week , Start Date: 33-Rnr-3214nfqxdvoazaxcs 25 mcg (0.025 mg) oral tablet: Last Dose Taken: , 1 tab(s)orally once a daypantoprazole 40 mg oral delayed release tablet: Last Dose Taken: , 1 tab(s)orally once a day Each Visit:Have you fallen in the last 6 months?noDo you have a fear of falling?noIs the patient using an assistive devicenoDo you feel you need assistance?no Electronic Signatures:Windy Bridges ([employer]) (Signed 15-Oct-2017 10:03)Authored: Patient Visit Information, Vital Signs, Allergies, OutpatientMedication Profile, Adult Admission Risk Screen Last Updated: 15-Oct-2017 10:03 by Windy Bridges ([employer]ST) Normal [facility] Clinic Note - Heme Oncon Clinic Note - Heme Onc History of Presen t Illness:Interval History:This patient was referred to me for further evaluation and management ofpancytopenia.History of present illness:The patient is a 77-year-old man with past history of anemia, hypothyroidism,and long-term history of smoking. The patient was previously evaluated andfound to have hypothyroidism and placed on Synthroid and has done well [id number]. On November 11 2012 CBC revealed WBC [...] 2017 revealed WBC 3.0, hemoglobin 11 g/dL, rnanscihu682,000/mm?. BUN 21 g/dL, creatinine 1.28 mg/dLA CT [...] week for 8 weeksfollowed by vitamin D3 uksz-tuf-txaevmi thousand units per day. The patientunderstood appreciated [...] DO 01-May-2017 10:57Note Recipients: Shannon Cordova, - [id number] Yes when ready to send to Provider(s) [...] - Heme Onc 05/01/2017 10:47 AM Normal [facility] Clinic Note - Intakeon 06-05 Clinic Note [...] feel you need assistance? noElectronic Signatures:Windy Bridges ([employer]) (Signed 05-Jun-2017 10:10) Authored: Patient Visit Information, Vital Signs, Allergies, OutpatientMedication Profile, Adult Admission Risk ScreenLast Updated: 05-Jun-2017 10:10 by Windy Bridges ([employer]OL[employer] MECHANIC ASST) Normal [facility] ROMY PATH REVIEWon 04-21-2017 PATH REVIEW-ROMY [facility] Comment on above: Result Comment: By h er/his signature above, the Pathologist listed as making the final interpretation certifies that she/he has personally reviewed this case. Performed By: #### T SH2 ####[facility] [place] [address] PROTEIN ELECTROPHORESIS + IM MUNOFIXATION, SERUMon 04-21-2017 IMMUNOFIXATION INTERP NORMAL Normal [facility] Comment on above: Result Comment: NO D EFINITE MONOCLONAL PROTEINS DETECTED BY IMMUNOFIXATION. Performed By: #### T SH2 ####[facility] [place] [address] INTERPRETATION NORMAL Normal [facility] Comment on above: Performed By: #### T SH2 ####[facility] [place] [address] Protein NONE DETECTED Normal [facility] Comment on above: Performed By: #### T SH2 ####[facility] [id number] SPE PATH REVIEWon 04-21-2017 PATH REVIEW-SPE C.RODNEY Normal [facility] Comment on above: Result Comment: By h er/his signature above, the Pathologist listed as making the final interpretation certifies that she/he has personally reviewed this case. Performed By: #### T SH2 ####[facility] [place] [address] ANCAon 04-19-2017 ANCA <1:20 Normal <1:20 [facility] Comment on above: Result Comment: The ANCA IFA is <1:20; therefore, no further testing will beperformed.INTERPRETIVE INFORMATION: Anti-Neutrophil Cyto Ab, IgGNeutrophil Cytoplasmic Antibodies (C-ANCA = granular cytoplasmicstaining, P-ANCA = perinuclear staining) are found in the serum ofover 90 percent of patients with certain necrotizing systemicvasculitides, and usually in less than 5 percent of patients withcollagen vascular disease or arthritis.Performed by [employer],[address] [place] [address] cdw.[employer], Erick Moore MD - Lab. Director Performed By: #### T SH2 ####[facility] [place] [address] ANTINUCLEAR ANTIBODYon 04-18 ANTINUCLEAR ANTIBODY Negative Normal NEGATIVE [facility] Comment on above: Performed By: #### T SH2 ####[facility] [place] [address] FOLATE-RBCon 04-18-2017 FOLATE-RBC 1094 ng/mL Normal >280 [facility] Comment on above: Result Comment: Shelley ents receiving more than 5 mg/day of biotin may have interference in test results. A sample should be taken no sooner than eight hours after previous dose. Contact [phone] for additional information. Performed By: #### T SH2 ####[facility] [place] [address] PROTEIN ELECTROPHORESIS + IM MUNOFIXATION, SERUMon 04-18-2017 Albumin 3.5 g/dL Normal 3.4 - 5.0 [facility] Comment on above: Performed By: #### T SH2 ####[facility] [place] [address] ALPHA 1 GLOBULIN 0.4 g/dL Normal 0.2 - 0.6 [facility] Comment on above: Performed By: #### T SH2 ####[facility] [place] [address] ALPHA 2 GLOBULIN 0.8 g/dL Normal 0.4 - 1.1 [facility] Comment on above: Performed By: #### T SH2 ####[facility] [place] [address] BETA GLOBULIN 0.8 g/dL Normal 0.5 - 1.2 [facility] Comment on above: Performed By: #### T SH2 ####[facility] [place] [address] GAMMA GLOBULIN 0.9 g/dL Normal 0.5 - 1.4 [facility] Comment on above: Performed By: #### T SH2 ####[facility] [place] [address] COMPREHENSIVE PANELon 2017 Alanine aminotransferase (ALT) 26 U/L Normal 10 - 52 [facility] Comment on above: Result Comment: Shelley ents treated with Sulfasalazine may generate falsely decreased results for ALT. Performed By: #### C MP ####[facility] [place] [address] Albumin 3.7 g/dL Normal 3.4 - 5.0 [facility] Comment on above: Performed By: #### C MP ####[facility] [place] [address] Alkaline phosphatase (ALP) 117 U/L Normal 33 - 136 [facility] Comment on above: Performed By: #### C MP ####[facility] [place] [address] Anion gap 9 mmol/L Low 10 - 20 [facility] Comment on above: Performed By: #### C MP ####[facility] [place] [address] Aspartate aminotransferase (AST) 21 U/L Normal 9 - 39 [facility] Comment on above: Performed By: #### C MP ####[facility] [place] [address] Bicarbonate (HCO3) 31 mmol/L Normal 21 - 32 [facility] Comment on above: Performed By: #### C MP ####[facility] [place] [address] Bilirubin (total) 0.6 mg/dL Normal 0.0 - 1.2 [facility] Comment on above: Performed By: #### C MP ####[facility] [place] [address] Calcium 9.5 mg/dL Normal 8.6 - 10.6 [facility] Comment on above: Performed By: #### C MP ####[facility] [place] [address] Chloride 104 mmol/L Normal 98 - 107 [facility] Comment on above: Performed By: #### C MP ####[facility] [place] [address] Creatinine 1.27 mg/dL Normal 0.50 - 1.30 [facility] Comment on above: Performed By: #### C MP ####[facility] [place] [address] GFR- AM. 67 mL/min/1.73m2 Normal >60 [facility] Comment on above: Result Comment: CALC ULATIONS OF ESTIMATED GFR ARE PERFORMED USING THE MDRD STUDY EQUATION FOR THE IDMS-TRACEABLE CREATININE METHODS. CLIN CHEM 2007;53:766-72 Performed By: #### C MP ####[facility] [place] [address] GFR-NON AM. 55 mL/min/1.73m2 Abnormal >60 [facility] Comment on above: Performed By: #### C MP ####[facility] [place] [address] Glucose mass conc 98 mg/dL Normal 74 - 99 [facility] Comment on above: Performed By: #### C MP ####[facility] [place] [address] Potassium molar conc 4.8 mmol/L Normal 3.5 - 5.3 [facility] Comment on above: Performed By: #### C MP ####[facility] [place] [address] Sodium 139 mmol/L Normal 136 - 145 [facility] Comment on above: Performed By: #### C MP ####[facility] [place] [address] Urea nitrogen 21 mg/dL Normal 6 - 23 [facility] Comment on above: Performed By: #### C MP ####[facility] [place] [address] FERRITINon 04-17-2017 FERRITIN 944 ug/L High 20 - 300 [facility] Comment on above: Performed By: #### F ERRI ####[facility] [place] [address] FOLATE, SERUMon 04-17-2017 FOLATE, SERUM 19.0 ng/mL Normal >5.0 [facility] Comment on above: Result Comment: Shelley ents receiving more than 5 mg/day of biotin may have interference in test results. A sample should be taken no sooner than eight hours after previous dose. Contact [phone] for additional information. Performed By: #### F OLA2 ####[facility] [place] [address] HAPTOGLOBINon 04-17-2017 HAPTOGLOBIN 222 mg/dL High 30 - 200 [facility] Comment on above: Performed By: #### H APTO ####[facility] [place] [address] HEPATITIS B SURF ABon 2017 HEP B SURF AB < 3.1 Normal <10 [facility] Comment on above: Result Comment: INTE RPRETIVE CRITERIA:<10 mIU/mL....NONREACTIVE>=10 mIU/mL...REACTIVE. Patients receiving more than 5 mg/day of biotin may have interference in test results. A sample should be taken no sooner than eight hours after previous dose. Contact [phone] for additional information. Performed By: #### H BAB3 ####[facility] [place] [address] HEPATITIS C ABon 04-17-2017 HEPATITIS C AB NON-REACTIVE Normal NONREACTIVE [facility] Comment on above: Result Comment: Shelley ents receiving more than 5 mg/day of biotin may have interference in test results. A sample should be taken no sooner than eight hours after previous dose. Contact [phone] for additional information. Performed By: #### T SH2 ####[facility] [place] [address] IRON + TIBCon 04-17-2017 % SATURATION 52 % High 25 - 45 [facility] Comment on above: Performed By: #### I RONT ####[facility] [place] [address] Iron 144 ug/dL Normal 35 - 150 [facility] Comment on above: Performed By: #### I RONT ####[facility] [place] [address] TIBC 279 ug/dL Normal 240 - 445 [facility] Comment on above: Performed By: #### I RONT ####[facility] [place] [address] LDHon 04-17-2017 LDH 130 U/L Normal 84 - 246 [facility] Comment on above: Performed By: #### L DH ####[facility] [place] [address] PROTEIN ELECTROPHORESIS + IM MUNOFIXATION, SERUMon 04-17-2017 Protein 6.4 g/dL Normal 6.4 - 8.2 [facility] Comment on above: Performed By: #### T SH2 ####[facility] [place] [address] Performed By: #### C MP ####[facility] [place] [address] TSHon 04-17-2017 Thyroid stimulating hormone (TSH) 3.25 m[IU]/L Normal 0.44 - 3.98 [facility] Comment on above: Result Comment: TSH testing is performed using different testing methodology at [facility] than at other [facility]. Direct result comparisons should only be made within the same method.. Patients receiving more than 5 mg/day of biotin may have interference in test results. A sample should be taken no sooner than eight hours after previous dose. Contact [phone] for additional information. Performed By: #### T SH2 ####[facility] [place] [address] Lab Specimen Source Normal [facility] Comment on above: Performed By: #### T SH2 ####[facility] [place] [address] Performed By: #### I BRITTNEYT ####[facility] [place] [address] Performed By: #### H BAB3 ####[facility] [place] [address] Performed By: #### F OLA2 ####[facility] [place] [address] Performed By: #### V TDOH ####[facility] [place] [address] Performed By: #### L DH ####[facility] [place] [address] Performed By: #### C MP ####[facility] [place] [address] Performed By: #### F ERRI ####[facility] [place] [address] Performed By: #### H APTO ####[facility] [place] [address] Performed By: #### V TB12 ####[facility] [place] [address] VITAMIN B12on 04-17-2017 Cobalamins (Vitamin B12) 659 pg/mL Normal 211 - 911 [facility] Comment on above: Performed By: #### V TB12 ####[facility] [place] [address] VITAMIN D, 25-HYDROXYon 03-31 VITAMIN D, 25-HYDROXY 26 ng/mL Abnormal [facility] Comment on above: Result Comment: .DEF ICIENCY: < 20 NG/MLINSUFFICIENCY: 20-29 NG/MLOPTIMUM LEVEL: 30-80 NG/MLPOSSIBLE TOXICITY: > 80 NG/MLTHIS ASSAY ACCURATELY QUANTIFIES THE SUM OFVITAMIN D3, 25-HYDROXY AND VIT D2,25-HYDROXY. Performed By: #### V TDOH ####[facility] [place] [address] Vital Signs Date Time Vital Sign Value Performing Clinician Bob rebolledo 10-16-2023 08:10-0400 Body height 175.3 cm Bria Queden [employer]OX SEALING MACHINE FEEDER.SUPERVIS[employer] Work Phone: [facility] 10-16-2023 08:10-0400 Body mass index (BMI) [Ratio] 24.37 kg/m2 Bria Queden [employer] SEALING MACHINE FEEDER.SUPERVIS[employer] Work Phone: [facility] 10-16-2023 08:10-0400 Body temperature 98.01 [degF] Bria Queden [employer]OX SEALING MACHINE FEEDER.SUPERVISOR [employer] Work Phone: [facility] 10-16-2023 08:10-0400 Body weight 74.84 kg Bria Queden [employer]OX SEALING MACHINE FEEDER.SUPERVISOR [employer] Work Phone: [facility] 10-16-2023 08:10-0400 Diastolic blood pressure 62 mm[Hg] Bria Queden BOX SEALING MACHINE FEEDER.SUPERVISOR [employer] Work Phone: [facility] 10-16-2023 08:10-0400 Heart rate 52 /min Bria Queden [employer]OX SEALING MACHINE FEEDER.SUPERVISOR [employer] Work Phone: [facility] 10-16-2023 08:10-0400 Respiratory rate 18 /min Bria Queden [employer]OX SEALING MACHINE FEEDER.SUPERVISOR [employer] Work Phone: [facility] 10-16-2023 08:10-0400 SaO2% (BldA) [Mass fraction] 99 % Bria Queden [employer]OX SEALING MACHINE FEEDER.SUPERVISOR [employer] Work Phone: [facility] 10-16-2023 08:10-0400 Systolic blood pressure 122 mm[Hg] Bria Queden BOX SEALING MACHINE FEEDER.SUPERVISOR [employer] Work Phone: [facility] 02-10-2023 10:09-0500 Body height 175.3 cm Shannon Sheets DO Work Phone: [facility] 02-10-2023 10:09-0500 Body temperature 97.59 [degF] Shannon Sheets DO Work Phone: [facility] 02-10-2023 10:09-0500 Body weight 77.84 kg Shannon Sheets DO Work Phone: [facility] 02-10-2023 10:09-0500 Diastolic blood pressure 66 mm[Hg] Shannon Sheets DO Work Phone: [facility] 02-10-2023 10:09-0500 Heart rate 72 /min Shannon Sheets DO Work Phone: [facility] 02-10-2023 10:09-0500 Respiratory rate 16 /min Shannon Sheets DO Work Phone: [facility] 02-10-2023 10:09-0500 SaO2% (BldA) [Mass fraction] 99 % Shannon Sheets DO Work Phone: [facility] 02-10-2023 10:09-0500 Systolic blood pressure 128 mm[Hg] Shannon Sheets DO Work Phone: [facility] 02-27-2022 10:54-0500 Body height 175.3 cm Yelitza Montenegro APRN.SUPERVISOR [employer] Work Phone: [facility] 02-27-2022 10:54-0500 Body weight 79.83 kg Yelitza Montenegro APRN.SUPERVISOR [employer] Work Phone: [facility] 02-27-2022 10:54-0500 Diastolic blood pressure 58 mm[Hg] Yelitza Montenegro APRN.SUPERVISOR [employer] Work Phone: [facility] 02-27-2022 10:54-0500 Heart rate 56 /min Yelitza Montenegro APRN.SUPERVISOR [employer] Work Phone: [facility] 02-27-2022 10:54-0500 Respiratory rate 18 /min Yelitza Montenegro APRN.SUPERVISOR [employer] Work Phone: [facility] 02-27-2022 10:54-0500 SaO2% (BldA) [Mass fraction] 99 % Yelitza Montenegro APRN.SUPERVISOR [employer] Work Phone: [facility] 02-27-2022 10:54-0500 Systolic blood pressure 110 mm[Hg] Yelitza Montenegro APRN.SUPERVISOR [employer] Work Phone: [facility] 01-22-2022 11:26-0400 Body height 175.3 cm Pst [address] [facility] 01-22-2022 11:26-0400 Body temperature 98.4 [degF] Pst 1 [facility] 01-22-2022 11:26-0400 Body weight 79.38 kg Pst [address] [facility] 01-22-2022 11:26-0400 Diastolic blood pressure 82 mm[Hg] Pst [address] [facility] 01-22-2022 11:26-0400 Heart rate 68 /min Pst [address] [facility] 01-22-2022 11:26-0400 Respiratory rate 16 /min Pst 1 [facility] 01-22-2022 11:26-0400 SaO2% (BldA) [Mass fraction] 92 % Pst [address] [facility] 01-22-2022 11:26-0400 Systolic blood pressure 140 mm[Hg] Pst [address] [facility] 12-27-2021 15:54-0400 Body height 175.3 cm Shannon Sheets DO Work Phone: [facility] 12-27-2021 15:54-0400 Body temperature 98.2 [degF] Shannon Sheets DO Work Phone: [facility] 12-27-2021 15:54-0400 Body weight 79.83 kg Shannon Sheets DO Work Phone: [facility] 12-27-2021 15:54-0400 Diastolic blood pressure 67 mm[Hg] Shannon Sheets DO Work Phone: [facility] 12-27-2021 15:54-0400 Heart rate 59 /min Shannon Sheets DO Work Phone: [facility] 12-27-2021 15:54-0400 Respiratory rate 18 /min Shannon Sheets DO Work Phone: [facility] 12-27-2021 15:54-0400 SaO2% (BldA) [Mass fraction] 98 % Shannon Sheets DO Work Phone: [facility] 12-27-2021 15:54-0400 Systolic blood pressure 145 mm[Hg] Shannon Sheets DO Work Phone: [facility] 12-19-2021 10:36-0400 Body height 175.3 cm Yelitza Montenegro APRN.SUPERVISOR [employer] Work Phone: [facility] 12-19-2021 10:36-0400 Body weight 79.74 kg Yelitzacarolin Montenegro BOX SEALING MACHINE FEEDER.SUPERVISOR [employer] Work Phone: [facility] 12-19-2021 10:36-0400 Diastolic blood pressure 64 mm[Hg] Yelitza Montenegro BOX SEALING MACHINE FEEDER.SUPERVISOR [employer] Work Phone: [facility] 12-19-2021 10:36-0400 Heart rate 57 /min Yelitza Montenegro BOX SEALING MACHINE FEEDER.SUPERVISOR [employer] Work Phone: [facility] 12-19-2021 10:36-0400 SaO2% (BldA) [Mass fraction] 98 % Yelitza Montenegro BOX SEALING MACHINE FEEDER.SUPERVISOR [employer] Work Phone: [facility] 12-19-2021 10:36-0400 Systolic blood pressure 112 mm[Hg] Yelitza Montenegro BOX SEALING MACHINE FEEDER.SUPERVISOR [employer] Work Phone: [facility] 10-30-2021 08:37-0400 Body weight 78.93 kg Fifi Kirkland DO Work Phone: [facility] 10-30-2021 08:37-0400 Diastolic blood pressure 72 mm[Hg] Fifi Kirkland DO Work Phone: [facility] 10-30-2021 08:37-0400 Heart rate 54 /min Fifi Kirkland DO Work Phone: [facility] 10-30-2021 08:37-0400 SaO2% (BldA) [Mass fraction] 97 % Fifi Kirkland DO Work Phone: [facility] 10-30-2021 08:37-0400 Systolic blood pressure 155 mm[Hg] Fifi Kirkland DO Work Phone: [facility] 09-18-2021 14:13-0400 Body height 172.7 cm Bria Wu MD Work Phone: [facility] 09-18-2021 14:13-0400 Body weight 78.02 kg Bria Wu MD Work Phone: [facility] 09-18-2021 14:13-0400 Diastolic blood pressure 76 mm[Hg] Bria Wu MD Work Phone: [facility] 09-18-2021 14:13-0400 Heart rate 74 /min Bria uW MD Work Phone: [facility] 09-18-2021 14:13-0400 Systolic blood pressure 144 mm[Hg] Bria Wu MD Work Phone: [facility] Encounters Encounter Date Encounter Type Care Provider Facility Start: 11-15-2024 ambulatory Alvaro [facility] [place] Facility:[facility] Start: 11-11-2024 ambulatory [facility] Facility:[facility] Start: 10-14-2024 End: 10-14-[address] Alvaro Ceron MD Work Phone: -[facility]rd Flr Start: 10-14-2024 End: 10-14-[address] Alvaro Ceron MD -Labor[facility] 3rd Flr Start: 10-14-2024 End: 10-14-2024 ambulatory Alvaro Chi [place] Facility:[facility] Start: 10-08-2024 End: 10-08-[address] Alvaro Ceron MD Work Phone: -[facility] Start: 10-08-2024 End: 10-08-[address] Alvaro Ceron MD -[facility] Work Phone: Start: 10-08-2024 End: 10-08-2024 Telephone encounter Armani Becerra DO Work Phone: Vascular Surgery Comment on above: Release Of Medical R ecords Start: 10-08-2024 End: 10-08-2024 ambulatory Alvaro Chi [place] Facility:[facility] Start: 10-04-2024 End: 10-04-[address] Alvaro Ceron MD Work Phone: -[facility]y [facility] 3rd Flr Start: 10-04-2024 End: 10-04-[address] Alvaro Ceron MD -Laboratory [facility]y [facility] 3rd Flr Start: 10-04-2024 End: 10-04-2024 ambulatory [facility] Facility:[facility] Start: 09-19-2024 End: 09-19-2024 [facility] Start: 09-15-2024 End: 09-15-2024 ambulatory YELITZA MONTENEGRO Facility:[facility] Start: 08-25-2024 End: 08-25-2024 Subsequent hospital visit by physician [facility] Work Phone: [facility] Comment on above: History of AAA (abdo benjamin aortic aneurysm) repair [Z98.890] Start: 08-25-2024 End: 08-25-2024 ambulatory [facility] Start: 08-16-2024 End: 08-16-2024 Orders Only Yelitzacarolin Paniaguaews BOX SEALING MACHINE FEEDER.SUPERVISOR [employer] Work Phone: [facility] Comment on above: History of AAA (abdo benjamin aortic aneurysm) repair (Primary Dx); Infrarenal abdominal aortic 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 Start: 05-05-2024 End: 05-05-2024 ambulatory [facility] Facility:[facility] Start: 04-06-2024 End: 04-06-2024 ambulatory [facility] Facility:[facility] Start: 10-24-2023 End: 10-24-2023 Emergency department patient visit SHANNON CORDOVA Facility:[facility] Start: 10-16-2023 End: 10-16-2023 Patient encounter procedure Bria Arana BOX SEALING MACHINE FEEDER.SUPERVIS[employer] Work Phone: [facility] Comment on above: Allergic rhinitis, u nspecified seasonality, unspecified trigger (Primary Dx); Eustachian tube dysfunction, bilateral; Dry cough; Bilateral impacted cerumen Start: 10-16-2023 End: 10-16-2023 ambulatory BRIA ARANA Facility:[facility] Start: 10-08-2023 End: 10-08-2023 Telemedicine consultation with patient Yelitza Montenegro LEYLA.SUPER[employer]OR [employer] Work Phone: [facility] Start: 10-08-2023 End: 10-08-2023 ambulatory Yelitza Montenegro LEYLA.SUPERVISOR [employer] Work Phone: [facility] Comment on above: History of AAA (abdo benjamin aortic aneurysm) repair (Primary Dx) Start: 09-17-2023 End: 09-17-2023 Subsequent hospital visit by physician [facility] Work Phone: [facility] Comment on above: Infrarenal abdominal aortic 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 (HCC) [I71.43] Start: 09-01-2023 Orders Only Yelitza Ruth bethany BOX SEALING MACHINE FEEDER.SUPERVISOR BURLING AND JOINING Work Phone: [facility] Comment on above: Infrarenal abdominal aortic 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 (HCC) (Primary Dx); S/P abdominal aortic aneurysm repair Start: 02-28-2023 Refill Shannon C She ets DO Work Phone: [facility] Comment on above: Refill Request Start: 02-10-2023 End: 02-10-2023 Patient encounter procedure Shannon C Sheets DO Work Phone: [facility] Comment on above: Medicare annual well ness visit, subsequent (Primary Dx); Hypothyroidism, acquired; Hyperlipidemia, mixed; Panlobular emphysema (HCC); Infrarenal abdominal aortic 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 (HCC); 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); Stage 3 chronic kidney disease, unspecified whether stage 3a or 3b CKD (HCC); Platelets decreased (HCC) Start: 01-08-2023 Telephone encounter Shannon C Sheets DO Work Phone: [facility] Comment on above: Patient Question Start: 10-30-2022 Telephone encounter Shannon C Sheets DO Work Phone: [facility] Comment on above: Results Start: 09-17-2022 Telephone encounter Shannon C Sheets DO Work Phone: [facility] Comment on above: Lab Orders Start: 09-13-2022 ambulatory Shannon Harris ets DO Work Phone: [facility] Comment on above: Gout Issues Continue Start: 09-03-2022 Telephone encounter Shannon Holguin Sheets DO Work Phone: [facility] Comment on above: Results Start: 08-30-2022 End: 08-30-2022 Subsequent hospital visit by physician [facility] Comment on above: Pain and swelling of toe of right foot [M79.674, M79.89] Start: 04-24-2022 Telephone encounter Shannon Cordova DO Work Phone: [facility] Comment on above: Results Start: 03-13-2022 End: 03-13-2022 Subsequent hospital visit by physician [facility] Work Phone: [facility] Comment on above: Infrarenal abdominal aortic 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 [I71.43] Start: 02-28-2022 ambulatory Nima MONTESINOS VN S Start: 02-28-2022 Follow-up encounter Nima Curry R N AG Child Welfare Counselor Comment on above: Transition Of Care ( Follow Up Call) Start: 02-27-2022 End: 02-27-2022 Patient encounter procedure Yelitza Montenegro APRN.SUPERVISOR [employer] Work Phone: [facility] Comment on above: S/P abdominal aortic aneurysm repair (Primary Dx); Infrarenal abdominal aortic 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 Start: 02-19-2022 Refill Shannon Harris ets DO Work Phone: [facility] Comment on above: Refill Request Start: 02-13-2022 ambulatory iNma MONTESINOS VN S Start: 02-13-2022 Follow-up encounter Nima Curry R N AG Child Welfare Counselor Comment on above: Transition Of Care ( Follow Up Call) Start: 01-31-2022 Patient Outreach Nima Dennis G Child Welfare Counselor Comment on above: Transition Of Care ( Initial Outreach ([facility] discharged 01/30/22)) Start: 01-22-2022 End: 01-22-2022 Admission to establishment [facility] [address] [facility] Start: 01-22-2022 End: 01-22-2022 ambulatory Pst [...] encounter procedure Shannon Cordova DO Work Phone: [facility] Comment on above: Well adult exam (Ramón eugenio Dx); Gout with manifestations; Hypothyroidism, acquired Start: 12-27-2021 End: 12-27-2021 Patient encounter status Shannon Holguin Sheets DO Work Phone: [facility] Start: 12-19-2021 Telephone encounter Armani Becerra DO Work Phone: [facility] Comment on above: Schedule Surgery Start: 12-19-2021 End: 12-19-2021 Patient encounter procedure Yelitza Montenegro APRN.SUPERVISOR [employer] Work Phone: [facility] Comment on above: AAA (abdominal aorti c aneurysm) without rupture (Primary Dx); Pre-op evaluation Start: 12-19-2021 End: 12-19-2021 Preprocedural examination done Yelitza Montenegro APRN.SUPERVISOR [employer] Work Phone: [facility] Start: 12-18-2021 Refill Shannon C She ets DO Work Phone: [facility] Comment on above: Refill Request Start: 12-04-2021 End: 12-04-[address] [facility] Work Phone: [facility] Start: 12-04-2021 End: 12-04-2021 Subsequent hospital visit by physician [facility] Work Phone: [facility] Comment on above: Encounter for other preprocedural examination [Z01.818] Start: 11-20-2021 Refill Shannon Harris ets DO Work Phone: [facility] Comment on above: Refill Request Start: 10-30-2021 End: 10-30-2021 Patient encounter procedure Fifi Saldaña Kirkland DO Work Phone: Vascular Surgery Comment on above: Abdominal aortic ane urysm (AAA) without rupture (HCC) (Primary Dx) Start: 10-23-2021 Refill Shannon Harris ets DO Work Phone: [facility] Comment on above: Refill Request Start: 09-18-2021 End: 09-18-2021 Patient encounter procedure Bria Wu MD Work Phone: General Surgery Comment on above: Symptomatic cholelit hiasis (Primary Dx) Start: 09-11-2021 ambulatory Adriana Kitchen MA [facility] Start: 09-10-2021 Telephone encounter Shannon Holguin Linda DO Work Phone: [facility] Comment on above: Lab Orders Patient Question Start: 08-21-2021 ambulatory [facility] [place] Comment on above: Population Health Na vigation Outreach (HCC) Start: 07-10-2021 Telephone encounter Shannon Holguin Sheets DO Work Phone: [facility] Comment on above: Results Start: 07-03-2021 Refill Shannon C She ets DO Work Phone: [facility] Comment on above: Refill Request Start: 05-25-2018 End: 05-28-2018 Evaluation and management of inpatient FARHAN JANG) [facility] Start: 10-15-2017 Patient encounter Matheus Rodriguez Fac ility:[facility] Start: 06-05-2017 Patient encounter Matheus Rodriguez Fac ility:[facility] Start: 05-01-2017 Patient encounter Matheus Rodriguez Fac ility:[facility] Start: 04-17-2017 Patient encounter Matheus Rodriguez Fac ility:[facility] Procedures Date Procedure Procedure Detail [...] ntrst mtrl w/wo cntrst img Yelitza Montenegro BOX SEALING MACHINE FEEDER.SUPERVISOR [employer] Work Phone: Start: 02-07-2021 Adult depression scr eening assessment Shannon Cordova DO Work Phone: Plan of Treatment Date Care Activity Detail Author Start: 04-07-2034 Urine microalbumin profile DTaP,Tdap,Td Vaccine (2 - Td or Tdap) [facility] Start: 10-29-2025 DIABETES SCREEN DIABETES SCREEN [facility] Start: 10-29-2025 Diabetes Screening Diabetes Screenin g [facility] Start: 01-30-2025 DIABETES SCREEN DIABETES SCREEN [facility] Start: 12-31-2024 DIABETES SCREEN DIABETES SCREEN [facility] Start: 11-29-2024 Influenza vaccination [facility] Start: 10-14-2024 [facility] Start: 09-15-2024 End: 09-15-2024 ambulatory 09/15/2024 2:30 PM EDT [facility] [address] [phone] Yelitza Montenegro, LEYLA.SUPERVISOR [employer] JOINING [address] [facility] [address] [place], [place] [phone] PP ([phone]) [facility] Comment on above: PP ([phone])* * Start: 09-10-2024 DIABETES SCREEN DIABETES SCREEN [facility] Start: 08-16-2024 End: 11-15-2024 Creatinine and Glomerular filtration rate.predicted panel - Serum, Plasma or Blood CREATININE BLD Lab Routine History of AAA (abdominal aortic aneurysm) repair Infrarenal abdominal aortic 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 Expected: 08/16/2024, Expires: 11/15/[address] [facility] Comment on above: Expected: 08/16/2024 , Expires: 11/15/2024 Start: 03-31-2024 Advance Directive Discussion Advance Directive Discussion [facility] Start: 03-31-2024 Medicare Advantage Annual Wellness Visit Medicare Advantage Annual Wellness Visit [facility] Start: 02-11-2024 Urine microalbumin profile DTaP,Tdap,Td Vaccine (1 - Tdap) [facility] Comment on above: Postponed from 02/14 (Declined at this time) Start: 12-07-2023 DIABETES SCREEN DIABETES SCREEN [facility] Start: 11-30-2023 Influenza vaccination Influenza Vacc ine (#1) [facility] Start: 10-08-2023 End: 10-08-2023 Patient encounter procedure 10/08/2023 2:00 PM EDT Office Visit [facility] [address] [phone] Yelitza Montenegro, LEYLA.SUPERVISOR [employer]ING [address] [facility] [address] [place], [place] [phone] to reveiw testing CTA AP on 09/16 [facility] Comment on above: to reveiw testing CT A AP on 09/16 Start: 09-28-2023 Influenza vaccination Influenza Vacc ine (#1) [facility] Comment on above: Postponed from 11/29 (Declined at this time) Start: 09-01-2023 End: 12-01-2023 CREATININE BLD CREATININE BLD Lab Routine Infrarenal abdominal aortic 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 (HCC) S/P abdominal aortic aneurysm repair Expected: 09/01/2023, Expires: 12/01/[address] [facility] Comment on above: Expected: 09/01/2023 , Expires: 12/01/2023 Start: 03-31-2023 Advance Directive Discussion Advance Directive Discussion [facility] Start: 02-10-2023 End: 05-12-2023 CBC panel - Blood by Automated count CBC Lab Routine Hypothyroidism, acquired Expected: 02/10/2023, Expires: 05/12/2023 [facility] Work Phone: Comment on above: Expected: 02/10/2023 , Expires: 05/12/2023 Start: 02-10-2023 End: 05-12-2023 Lipid 1996 panel - Serum or Plasma LIPID PANEL BASIC Lab Routine Hyperlipidemia, mixed Expected: 02/10/2023, Expires: 05/12/2023 [facility] Work Phone: Comment on above: Expected: 02/10/2023 , Expires: 05/12/2023 Start: 02-10-2023 End: 05-12-2023 Thyrotropin [Units/volume] in Serum or Plasma TSH BLD Lab Routine Hypothyroidism, acquired Expected: 02/10/2023, Expires: 05/12/2023 [facility] Work Phone: Comment on above: Expected: 02/10/2023 , Expires: 05/12/2023 Start: 01-30-2023 HEMOGLOBIN/HEMATOCRIT HEMOGLOBIN/HEM [facility] Start: 01-30-2023 SERUM CREATININE SERUM CREATININE [facility] Start: 12-31-2022 HEMOGLOBIN/HEMATOCRIT HEMOGLOBIN/HEM [facility] Start: 12-31-2022 SERUM CREATININE SERUM CREATININE [facility] Start: 12-27-2022 ANNUAL PCP TEAM PUBLIC HEALTH STAFF NURSE JANETH DISEASE VISIT ANNUAL PCP TEAM CHRONIC DISEASE VISIT [facility] Start: 11-29-2022 Covid-19 Vaccine ( season) Covid-19 Vaccine () [facility] Start: 11-29-2022 Influenza vaccination [facility] Start: 11-21-2022 SERUM CREATININE SERUM CREATININE [facility] Start: 09-10-2022 HEMOGLOBIN/HEMATOCRIT HEMOGLOBIN/HEM ATOCRIT [facility] Start: 09-10-2022 SERUM CREATININE SERUM CREATININE [facility] Start: 05-07-2022 HEMOGLOBIN/HEMATOCRIT HEMOGLOBIN/HEM ATOCRIT [facility] Start: 05-07-2022 SERUM CREATININE SERUM CREATININE [facility] Start: 03-31-2022 ADVANCE DIRECTIVE DISCUSSION ADVANCE DIRECTIVE DISCUSSION [facility] Start: 02-07-2022 Adult depression screening assessment DEPRESSION SCREENING [facility] Start: 02-07-2022 ANNUAL PCP TEAM PUBLIC HEALTH STAFF NURSE JANETH DISEASE VISIT ANNUAL PCP TEAM CHRONIC DISEASE VISIT [facility] Start: 12-19-2021 End: 12-19-2022 Basic metabolic 2000 panel - Serum or Plasma BASIC METABOLIC PNL Lab Routine AAA (abdominal aortic aneurysm) without rupture (HCC) Expected: 12/19/2021, Expires: 12/19/2022 [facility] Work Phone: Comment on above: Expected: 12/19/2021 , Expires: 12/19/2022 Start: 12-19-2021 End: 12-19-2022 CBC panel - Blood by Automated count CBC Lab Routine AAA (abdominal aortic aneurysm) without rupture (HCC) Expected: 12/19/2021, Expires: 12/19/2022 [facility] Work Phone: Comment on above: Expected: 12/19/2021 , Expires: 12/19/2022 Start: 12-19-2021 End: 02-18-2022 TYPE AND SCREEN,30 DAY TYPE AND SCREEN,30 DAY Blood Bank Routine AAA (abdominal aortic aneurysm) without rupture (HCC) Expected: 12/19/2021, Expires: 02/18/2022 [facility] Work Phone: Comment on above: Expected: 12/19/2021 , Expires: 02/18/2022 Start: 11-29-2021 Influenza vaccination INFLUENZA (#1) [facility] Start: 09-10-2021 End: 11-10-2021 Thyrotropin [Units/volume] in Serum or Plasma TSH BLD Lab Routine Hypothyroidism, acquired Expected: 09/10/2021, Expires: 11/10/2021 [facility] Work Phone: Comment on above: Expected: 09/10/2021 , Expires: 11/10/2021 Start: 09-07-2021 COVID-19 VACCINE (5 - Booster for Moderna series) COVID-19 VACCINE (5 - Booster for Moderna series) [facility] Start: 09-07-2021 COVID-19 VACCINE (5 - Moderna series) COVID-19 VACCINE (5 - Moderna series) [facility] Start: 07-03-2021 End: 09-02-2021 Thyrotropin [Units/volume] in Serum or Plasma TSH BLD Lab Routine Hypothyroidism, acquired Expected: 07/03/2021, Expires: 09/02/2021 [facility] Work Phone: Comment on above: Expected: 07/03/2021 , Expires: 09/02/2021 Start: 06-03-2021 COVID-19 VACCINE (4 - Booster for Moderna series) COVID-19 VACCINE (4 - Booster for Moderna series) [facility] Start: 03-31-2021 ADVANCE DIRECTIVE DISCUSSION ADVANCE DIRECTIVE DISCUSSION [facility] Start: 02-15-1960 Urine microalbumin profile [facility] Start: 1959 Anxiety Screening Anxiety Screening [facility] Start: 1959 Depression Screening Depression Scre ening [facility] Start: 1946 PNEUMOCOCCAL: 65+ (1 - PCV) PNEUMOCOCCAL: 65+ (1 - PCV) [facility] End: 12-04-2021 Ct angio abd&plvis cntrst mtrl w/wo cntrst img [facility] Work Phone: Comment on above: 1 Occurrences starti ng 12/04/2021 until 12/04/2021 End: 03-29-2023 Ct angio abd&plvis cntrst mtrl w/wo cntrst img CTA ABD/PEL WO/W IVCON Radiology Routine Infrarenal abdominal aortic 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 1 Occurrences starting 02/27/2022 until 03/29/2023 [facility] Work Phone: Comment on above: 1 Occurrences starti ng 02/27/2022 until 03/29/2023 End: 03-13-2022 Ct angio abd&plvis cntrst mtrl w/wo cntrst img [facility] Work Phone: Comment on above: 1 Occurrences starti ng 03/13/2022 until 03/13/2022 End: 09-30-2024 CTA Abdominal vessels and Pelvis vessels WO and W contrast IV CTA ABD/PEL WO/W IVCON Radiology Routine Infrarenal abdominal aortic 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 (HCC) S/P abdominal aortic aneurysm repair 1 Occurrences starting 09/01/2023 until 09/30/2024 [facility] Work Phone: Comment on above: 1 Occurrences starti ng 09/01/2023 until 09/30/2024 End: 09-15-2025 CTA Abdominal vessels and Pelvis vessels WO and W contrast IV CTA ABD/PEL WO/W IVCON Radiology Routine History of AAA (abdominal aortic aneurysm) repair Infrarenal abdominal aortic 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 1 Occurrences starting 08/16/2024 until 09/15/2025 [facility] Work Phone: Comment on above: 1 Occurrences starti ng 08/16/2024 until 09/15/2025 H&P for surgery H&P FOR SURGERY Procedures Routine AAA (abdominal aortic aneurysm) without rupture (HCC) Ordered: 12/19/2021 [facility] Work Phone: Comment on above: Ordered: 12/19/2021 Removal impacted cerumen irrigation/lvg unilat AMBULATORY EAR LAVAGE/IRRIGATION Procedures Routine Bilateral impacted cerumen Ordered: 10/16/2023 [facility] Work Phone: Comment on above: Ordered: 10/16/2023 End: 12-19-2022 STRESS ECHO TREADMILL STRESS ECHO TREADMILL Cardiology Routine AAA (abdominal aortic aneurysm) without rupture Pre-op evaluation 1 Occurrences starting 12/19/2021 until 12/19/2022 [facility] Work Phone: Comment on above: 1 Occurrences starti ng 12/19/2021 until 12/19/2022 End: 08-30-2022 XR FOOT GENERAL 3V AP/LAT/OBL RIGHT [facility] Work Phone: Comment on above: 1 Occurrences starti ng 08/30/2022 until 08/30/2022 [facility] Immunizations Immunization Date Immunization Notes Care Provider Liset [facility] 01-21-2024 influenza virus vacc ine, unspecified formulation Armani Becerra DO Work Phone: [facility] 03-13-2023 influenza virus vacc ine, unspecified formulation Yelitza Montenegro APRN.SUPERVISOR [employer] Work Phone: [facility] 12-31-2021 influenza (HD-IIV4) vaccine, age 65+ yr, high dose, quadrivalent, PF (FLUZONE HIGH-DOSE) Shannon Sheets DO Work Phone: [facility] Work Phone: 12-31-2021 influenza virus vacc ine, unspecified formulation Shannon Sheets DO Work Phone: [facility] 01-30-2021 influenza, high-dose , quadrivalent vaccine (FLUZONE HIGH DOSE QUADRIVALENT) Shannon Sheets DO Work Phone: [facility] Work Phone: 2020 zoster vaccine recombinant Shannon Sheets DO Work Phone: [facility] 01-19-2020 influenza, high-dose , quadrivalent vaccine (FLUZONE HIGH DOSE QUADRIVALENT) Shannon Sheets DO Work Phone: [facility] 11-29-2019 zoster vaccine recombinant Shannon Sheets DO Work Phone: [facility] 12-31-2018 pneumococcal polysaccharide vaccine, 23 valent Shannon Sheets DO Work Phone: [facility] 12-18-2018 influenza, high dose seasonal, preservative-free Shannon Sheets DO Work Phone: [facility] 01-27-2017 influenza, high dose seasonal, preservative-free Shannon Sheets DO Work Phone: [facility] 01-30-2016 influenza, high dose seasonal, preservative-free Shannon Sheets DO Work Phone: [facility] 01-30-2016 pneumococcal conjuga te vaccine, 13 valent Shannon Sheets DO Work Phone: [facility] 01-12-2014 influenza, seasonal, injectable Shannon Sheets DO Work Phone: [facility] 04-27-2013 influenza, seasonal, injectable Shannon Sheets DO Work Phone: [facility] 01-09-2012 influenza, seasonal, injectable Shannon Sheets DO Work Phone: [facility] 10-08-2010 influenza, seasonal, injectable Shannon Sheets DO Work Phone: [facility] 01-16-2010 influenza, seasonal, injectable Shannon Sheets DO Work Phone: [facility] 01-29-2006 pneumococcal polysaccharide vaccine, 23 valent Shannon Sheets DO Work Phone: [facility] Payers Date Payer Category Payer Self-pay 2024 Unknown [id number] 2018 Medicare (Managed Care) [id number]. [id number] 2018 Unknown [facility] ANTHLUC AMBROCIO O [id number] 2018-Present [phone] [address] [place] [address] [facility] [id number] 2018 Unknown [id number] 2018 Medicare [id number] Unknown [id number] Unknown [id number] Unknown [id number] Unknown [id number] Unknown [id number] Unknown [id number] Unknown [id number] Unknown [id number] Social History Date Type Detail Facility Start: 03-11-2017 End: 12-19-2021 Tobacco smoking status NHIS Ex-smoker [facility] Start: 03-31-1955 End: 03-31-2002 History of tobacco use Current smoker [facility] Start: 03-31-1955 End: 03-31-2002 History of tobacco use Cigarette Smoker [facility] Start: 04-17-2021 End: 10-08-2024 Alcohol intake Current non-drinker of alcohol (finding) [facility] Start: 1940 Sex Assigned At Not on file [facility] Start: 06-30-2021 End: 02-27-2022 Exposure to SARS-CoV-2 (event) Not sure [facility] Start: 03-11-2017 End: 12-19-2021 Tobacco use and exposure Smokeless tobacco non-user [facility] Start: 08-30-2022 End: 02-10-2023 History of Social function [facility] Start: 08-30-2022 End: 02-10-2023 Tobacco use panel [facility] Adult Depression Screening Assessment [address] [facility] Has the [employer], [employer], [employer], or water company threatened to shut off services in your home in past 12Mo No [facility] Are you now , , , , never or living with a partner? [facility] How often to you hav e a drink containing alcohol? Never [facility] Do you feel stress - tense, restless, nervous, or anxious, or unable to sleep at night because your mind is troubled all the time - these days [OSQ] Not at all [facility] (I/We) worried wheth er (my/our) food would run out before (I/we) got money to buy more. Never true [facility] Tobacco smoking stat us NHIS Unknown if ever smoked [facility] Work Phone: Start: 1940 Sex Assigned At Male W [facility] Medical Equipment Procedure Code Equipment Code Equipment Origin al Text Equipment Identifier Dates Endograft Contralateral Leg 12mm X 10cm [id number] Start: 01-29-2022 Graft [place] Exclu bandar 14.5mm 10cm Endovascular Contralateral Leg - [id number] Start: 01-29-2022 Excluder Conform able Aaa Endoprostesis 32mm X 14.5mm X [id number] Start: 01-29-2022 Functional Status Date Assessment Result Facility 01-30-2022 Are you deaf, or do you have serious difficulty hearing No 01/30/2022 1:50 PM Brigida Garcia, ANNA [facility] 01-30-2022 Are you blind, or do you have serious difficulty seeing, even when wearing glasses No 01/30/2022 1:50 PM Brigida Garcia, ANNA No [facility] 01-30-2022 Do you have serious difficulty walking or climbing stairs No 01/30/2022 1:50 PM Brigida Garcia, ANNA No [facility] 01-30-2022 Do you have difficul ty dressing or bathing No 01/30/2022 1:50 PM Brigida Garcia, ANNA [facility] 01-30-2022 Because of a physica l, mental, or emotional condition, do you have difficulty doing errands alone such as visiting a physician's office or shopping No 01/30/2022 1:50 PM Brigida Garcia, ANNA No [facility] Mental Status Date Assessment Result Facility 01-30-2022 Because of a physica l, mental, or emotional condition, do you have serious difficulty concentrating, remembering, or making decisions No 01/30/2022 1:50 PM EDT Brigida Ortiz RN No [facility] Clinical Notes 05-27-2018 to 10-08-2024 Telephone Encounter - Puja Young RN - 10/08/2024 3:52 PM EDTTelephone Encounter - Puja Young RN - 10/08/2024 3:52 PM EDTTAdriana rueda RT(R) - 08/25/2024 11:00 AM EDT Note Date & Type Note Facility 10-08-2024 Telephone encounter Note Called received from MRI department at [facility]. 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 . Operative report faxed to MRI department for review Faxed yo [phone] Transmission completed [facility] 10-08-2024 Miscellaneous Notes Called received from MRI department at [facility]. 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 . Operative report faxed to MRI department for review Faxed yo [phone] Transmission completed documented in this encounter [facility] 10-04-2024 Radiology Diagnostic study note [facility] Imaging Services [address] [place] [address] Hand Min 3 Views MR#: [id number] Acct: [id number] Name: KAYLEEN PRICE Rep #: [id number] : 1940 M 84 From: Wilfredo Grant DO PCP: Dr. Alvaro Ceron MD Status: NEIL CARBALLO Study:Hand Min 3 Views Date of Exam: 10/22 Exam# [id number] Ordering Dr: Alvaro Ceron MD PROCEDURE: HAND [...] further evaluation if clinically warranted. Reading Location: [id number] CC: Dr. Alvaro Ceron MD ~ Licensed Direct Entry Midwife: Signed [facility] 08-25-2024 History of Present illness Narrative [...] PATIENT PRESENTS WITH AN IMPLANTABLE OR ATTACHED METER SUPERVISOR: No ALLERGIES: Reviewed and unchanged CONTRAST ALLERGY: [...] TIME: 10:48 AM documented in this encounter [facility] 08-25-2024 Note HNO ID: [id number] Author: ADRIANA SHEPHERD RT (R) Service: Radiology Author Type: Solutions Operator Type: Progress Notes Filed: 08/25/2024 10:49 Note [...] PATIENT PRESENTS WITH AN IMPLANTABLE OR ATTACHED METER SUPERVISOR: No ALLERGIES: Reviewed and unchanged CONTRAST ALLERGY: [...] DATE: August 25, 2024 TIME: 10:48 AM [facility] 10-16-2023 Nurse Note Ambulatory Ear Lavage Pre-treatment: No pre-treatment Treatment: Both ears Equipment and Irrigation solution and Volume used: Single use syringe with single use irrigation tip Water Return flow appearance: Brown Yellow Patient tolerated procedure: yes Tympanic membrane assessment: Tympanic membrane assessed by LIP pre and post procedure Adriana Kitchen MA [facility] 10-16-2023 Nurse Note Ambulatory Ear Lavage Pre-treatment: No pre-treatment Treatment: Both ears Equipment and Irrigation solution and Volume used: Single use syringe with single use irrigation tip Water Return flow appearance: Brown Yellow Patient tolerated procedure: yes Tympanic membrane assessment: Tympanic membrane assessed by LIP pre and post procedure Adriana Kitchen MA documented in this encounter [facility] 10-16-2023 Note HNO ID: [id number] Author: BRIA ARANA APRN.SUPERVISOR BURLING AND JOINING Service: ? Author Type: Nurse Practitioner Type: [...] place, and time. (more content not included)... [facility] 10-16-2023 History of Present illness Narrative CHIEF [...] Bria Arana APRN.MELINDA documented in this encounter [facility] 10-08-2023 Note HNO ID: [id number] Author: YELITZA MONTENEGRO APRN.MELINDA Service: ? Author [...] visit. Either the patient or their legal wire rope sales representative has been informed of the risks [...] and not having to come in to [place]! Data Reviewed: CTA a/p 09/17/23 CTA a/p [...] Time Spent: 11-20 minutes Yelitza Montenegro APRN.MELINDA [facility] 10-08-2023 History of Present illness Narrative TELEPHONE [...] visit. Either the patient or their legal wire rope sales representative has been informed of the risks [...] and not having to come in to [place]! Data Reviewed: CTA a/p 09/17/23 CTA a/p [...] Yelitza Montenegro APRN.CNP documented in this encounter [facility] 09-17-2023 History of Present illness Narrative Radiology [...] PATIENT PRESENTS WITH AN IMPLANTABLE OR ATTACHED METER SUPERVISOR: No ALLERGIES: Reviewed and unchanged CONTRAST ALLERGY: [...] TIME: 3:52 PM documented in this encounter [facility] 02-28-2023 Miscellaneous Notes pharm requesting refills: Last [...] mouth once daily. Please review and advise. Eugenio Cheng MA documented in this encounter [facility] 02-10-2023 History of Present illness Narrative Nancy [...] Shannon Cordova DO documented in this encounter [facility] 01-08-2023 Miscellaneous Notes Patient informed and states [...] Shannon Cordova DO documented in this encounter [facility] 10-30-2022 Miscellaneous Notes All results left on patients voicemail. Advised to call back with any questions. Eugenio Cheng MA ----- Message from William Padgett APRN.CNP sent at 10/30/2022 7:28 AM EDT ----- Kidney function stable. Uric acid level at goal. Continue allopurinol. William Padgett APRN.CNP documented in this encounter [facility] 09-17-2022 Miscellaneous Notes Already done. William Padgett APRN.CNP ----- Message from Eugenio Cheng MA sent at 09/03/2022 2:16 PM EDT ----- Remind pt. Time to check his uric acid level (for gout) KT may start him on medication. Eugenio Cheng MA documented in this encounter [facility] 09-03-2022 Miscellaneous Notes Left message on patients [...] for 2 weeks Thank you. William Padgett APRN.SUPERVISOR BURLING AND JOINING Patient notified and is still in pain is there anything else he can take. Eugenio Cheng MA ----- Message from William Padgett APRN.MELINDA sent at 09/02/2022 5:55 PM EDT ----- Soft tissue swelling, gout. William Padgett APRN.SUPERVISOR BURLING AND JOINING documented in this encounter [facility] 08-30-2022 History of Present illness Narrative Radiology [...] 2022 10:41 AM documented in this encounter [facility] 04-24-2022 Miscellaneous Notes Patient notified and voiced [...] Shannon Cordova DO documented in this encounter [facility] 02-28-2022 History of Present illness Narrative TRANSITION CARE MANAGEMENT (TCM) FOLLOW-UP NOTE Provider Action/FYI Chart reviewed. Saw surgeon 02/27. Summary: Call placed to patient. No answer. Message left on identified voicemail regarding call to check on patient's health status. Nurse's number left to call with any questions/concerns. [facility] plan for next outreach: No further follow up needed at this time Signature Nima Curry RN February 28, 2022 documented in this encounter [facility] 02-27-2022 History of Present illness Narrative Nancy Price 82 year old male S/P Endovascular aortic aneurysm repair with [place] excluder (32mm conformable main body, 14.5mm right limb, 12mm left limb); Ultrasound guided bilateral common femoral access PROCEDURE: EVAR by Dr. eBcerra DATE: 01/29/22 SUBJECTIVE: Nancy Price returns to [...] Yelitza Montenegro APRN.CNP documented in this encounter [facility] 02-27-2022 Instructions Yelitza Montenegro APRN.CNP - 02/27/2022 [...] an informed decision. documented in this encounter [facility] 02-20-2022 Miscellaneous Notes pharmacy electronically requesting refills [...] Elaine Cruz MA documented in this encounter [facility] 02-13-2022 History of Present illness Narrative TRANSITION CARE MANAGEMENT (TCM) FOLLOW-UP NOTE Provider Action/FYI Summary: Call placed to patient. No answer. Message left on identified voicemail regarding call to check on patient's health status. Nurse's number left to call with any questions/concerns. [facility] plan for next outreach: Will follow up in 1-2 weeks Signature Nima Curry RN February 13, 2022 documented in this encounter [facility] 01-31-2022 History of Present illness Narrative TRANSITIONAL CARE MANAGEMENT (TCM) COMMUNITY MONITORING PROGRAM - TIFFANIE Provider Action/FYI: [facility] d/c 01/30 Elective AAA Declined [...] d/t having CKD. SUMMARY: Pt discharged from [facility] on 01/30/22. Admitted for: Elective AAA HOSPITAL COURSE: (copied and pasted from 01/30/22 discharge summary) Pt presented to [facility] for an elective EVAR. Pt monitored overnight in the ICU. Perioperative course uncomplicated. Pt was discharged home on ASA on 01/30/2022 in stable condition. Contact made with patient: Yes Hi my name is Nima Curry RN and I am calling from the [facility] on behalf of your PCP, Shannon [...] like to speak with a social work steamboat pilot to help give you support for any [...] I will send your request to a imaging scheduler who will contact and assist you [...] TCM Home Visit Referral Source of Stratification: [facility] Admission Status: Discharged Readmission Risk Score: 20 RAMÓN Score: 10 Patient meets program referral criteria: No Patient does not qualify for High Risk TCM Home Visit program due to: Discharged home, does not meet program criteria Nima Curry RN January 31, 2022 2:06 PM documented in this encounter [facility] 01-22-2022 History and physical note HISTORY AND [...] or any previous visit (from the past 62756 hour(s)). Assessment No problem-specific Assessment & Plan [...] at this time: primary care/internal medicine (In [facility] 01/10/2022). Planned Anesthetic: general Implantable Devices: [...] Been Initiated: No orders per surgeon in [facility]. ABO confirmation ordered by CYRIL in [...] PM PAGER/CONTACT #: documented in this encounter [facility] 01-21-2022 Instructions Yulia Lopez APRN.CNP - 01/21/2022 2:29 PM EDT PATIENT PREOPERATIVE INSTRUCTIONS Dr. Becerra has scheduled you for your procedure at this surgery center: [facility]: [phone], [address] [id number] Please read below carefully for your personalized [...] or the morning of surgery. Use the [employer] body wash supplied to you along with [...] surgery. - YOU MUST HAVE A RESPONSIBLE FILTER PRESS PUMPER TAKE YOU HOME. A SQUEEGEE OPERATOR, CAB OR UBER FILTER PRESS PUMPER CANNOT BE MADE A RESPONSIBLE FILTER PRESS PUMPER. - We recommend that a responsible person [...] in our PACU area unless a minor, scale and skip car operator or a special circumstance. Each patient is [...] Lopez APRN.CNP 01/21/22 documented in this encounter [facility] 12-27-2021 History of Present illness Narrative SUBJECTIVE: 81 year old male for annual routine checkup. I have fully reviewed the past medical, surgical, social and family history and [facility] the [facility]. He will be having vascular surgery by [...] Shannon Cordova DO documented in this encounter [facility] 12-19-2021 History of Present illness Narrative CHIEF COMPLAINT: AAA - f/up CTA a/p done 12/04/21 HISTORY OF PRESENT ILLNESS: Mr. Price is a 81 year old male with known AAA. He saw Dr. Becerra about a month ago, for recommendations regarding surgical intervention, as AAA had enlarged to 5.5cm on non-contrast CT scan. He has been following with Dr. Kirkland in [place], and would like to resume care in [place] following any intervention. CTA was requested to [...] Denies history of chest pain or recent [place]. Former smoker, quit 2002. No aspirin, statin [...] with more than 50% of the total [id number] time of the visit in counseling / coordination of care. Yelitza Montenegro APRN.SUPERVISOR BURLING AND JOINING documented in this encounter [facility] 12-19-2021 Miscellaneous Notes Orders signed. Thank you, Yelitza Montenegro APRN.SUPERVISOR BURLING AND JOINING documented in this encounter [facility] 12-18-2021 Miscellaneous Notes Patient requesting refills as [...] Adriana Kitchen MA documented in this encounter [facility] 11-21-2021 Miscellaneous Notes pharmacy electronically requesting refills [...] Elaine Cruz MA documented in this encounter [facility] 10-31-2021 History of Present illness Narrative This office note has been dictated. Fifi Kirkland DO NAME: PR[facility]NCY [facility] NO: [id number] DATE OF SERVICE: 10/30/2021 Subjective: Nancy is [...] is 5.5. Assessment/Plan: We discussed referral to [facility] for possible infrarenal abdominal aortic aneurysm repair. He does have some chronic kidney disease and he sees Dr. Trevino. He may need hydration prior to CTA. We will have the office help arrange and schedule. Fifi Kirkland D.O. KB/089 Audio #: [id number] Date Dictated: 10/30/2021 07:19:07 Date Typed: 10/31/2021 13:47:04 Date Revised: documented in this encounter [facility] 10-23-2021 Miscellaneous Notes Pharmacy requesting refills: Last office visit 02/08 2021 Last refill 07/10/2021 nov Pending Prescriptions Disp Refills LEVOTHYROXINE 50 MCG TABLET 30 tablet 1 Sig: Take 1 tablet by mouth once daily. ANGELA: Yes Please review and advise. Eugenio Cheng MA documented in this encounter [facility] 09-18-2021 History of Present illness Narrative New [...] of dysuria, frequency or incontinence. ENDOCRINE: None FLOUR DISTRIBUTOR:Denies any concerns FLOUR DISTRIBUTOR: N/A MUSCULOSKELETAL: Negative for joint pain or swelling, back pain or muscle pain. NEUROLOGIC:Negative for focal numbness or weakness, headaches and dizziness or syncope. HEMATOLOGIC/LYMPHATIC/IMMUNOLOGIC: Negative for prolonged bleeding, bruising easily or swollen nodes. Jayde Chung CMA documented in this encounter [facility] 09-11-2021 History of Present illness Narrative ED Follow Up: Left message for patient to call back if he needs anything Patient discharged from [facility] ED on 09/10/21. 1. How are you [...] you able to contact the office or international freight forwarder provider prior to your ED visit? Not applicable 5. Is there anything else I can do for you today? Not applicable Adriana Kitchen MA documented in this encounter [facility] 09-10-2021 Miscellaneous Notes Patient called stating that he has been having left side abdominal pain under his ribs and he wanted to make sure if he needs to go to ER. Spoke with PCP and she aggreed for him to go to the ER. Adriana Kitchen MA documented in this encounter [facility] 09-10-2021 Miscellaneous Notes Message left on patients voicemail with all information. Eugenio Cheng MA Orders attached Shannon Cordova DO ----- Message from Suzie Cartagena MA sent at 07/10/2021 1:10 PM EDT ----- Recheck TSH Suzie Cartagena MA documented in this encounter [facility] 08-21-2021 History of Present illness Narrative POPULATION HEALTH NAVIGATION OUTREACH Action/FYI Called patient to schedule medicare wellness visit. Pt identified by name and : NO Outreach Outcome/Action Unable to reach patient: Left message Reason for Outreach HCC or suspected condition Payer: Payor: [employer] [place] / Plan: the grafter HMO / Product Type: HMO / Care [...] 2021 10:27 AM documented in this encounter [facility] 07-10-2021 Miscellaneous Notes Called patient and informed [...] in the morning on an empty stomach? hSannon Cordova DO documented in this encounter [facility] 07-03-2021 Miscellaneous Notes Patient informed. Adriana Kitchen MA Pt due for TSH - order attached Shannon Cordova DO Pharmacy requesting refills as follows: Last Office Visit 02/07/21. Last Refill 04/06/21. Pending Prescriptions Disp Refills LEVOTHYROXINE 25 MCG TABLET 90 tablet 0 Sig: TAKE 1 TABLET BY MOUTH ONCE DAILY ANGELA: Yes Please review and advise. Adriana Kitchen MA documented in this encounter [facility] 05-27-2018 History of Past i llness Narrative [...] of this encounter (statuses as of 07/03/2021) [facility] History of Past illness Narrative* Problem Noted [...] of this encounter (statuses as of 07/10/2021) [facility] History of Past illness Narrative* Problem Noted [...] of this encounter (statuses as of 08/21/2021) [facility] History of Past illness Narrative* Problem Noted [...] of this encounter (statuses as of 09/10/2021) [facility] History of Past illness Narrative* Problem Noted [...] of this encounter (statuses as of 09/10/2021) [facility] History of Past illness Narrative* Problem Noted [...] of this encounter (statuses as of 09/11/2021) [facility] History of Past illness Narrative* Problem Noted [...] of this encounter (statuses as of 09/18/2021) [facility] History of Past illness Narrative* Problem Noted [...] of this encounter (statuses as of 10/23/2021) [facility] History of Past illness Narrative* Problem Noted [...] of this encounter (statuses as of 10/31/2021) [facility] History of Past illness Narrative* Problem Noted [...] of this encounter (statuses as of 11/21/2021) [facility] History of Past illness Narrative* Problem Noted [...] of this encounter (statuses as of 12/05/2021) [facility] of Past illness Narrative* Problem Noted [...] of this encounter (statuses as of 12/18/2021) [facility] of Past illness Narrative* Problem Noted [...] of this encounter (statuses as of 12/19/2021) [facility] of Past illness Narrative* Problem Noted [...] of this encounter (statuses as of 12/19/2021) [facility] of Past illness Narrative* Problem Noted [...] of this encounter (statuses as of 01/05/2022) [facility] of Past illness Narrative* Problem Noted [...] of this encounter (statuses as of 01/22/2022) [facility] of Past illness Narrative* Problem Noted [...] of this encounter (statuses as of 01/31/2022) [facility] of Past [facility] Narrative* Problem Noted [...] of this encounter (statuses as of 02/13/2022) [facility] of Past [facility] Narrative* Problem Noted [...] of this encounter (statuses as of 02/20/2022) [facility] of [facility] Narrative* Problem Noted [...] of this encounter (statuses as of 02/27/2022) [facility] Narrative* Problem Noted [...] of this encounter (statuses as of 02/28/2022) [facility] Narrative* Problem Noted [...] of this encounter (statuses as of 03/14/2022) [facility] Narrative* Problem Noted [...] of this encounter (statuses as of 04/24/2022) [facility] Narrative* Problem Noted [...] of this encounter (statuses as of 08/31/2022) [facility] Past [facility] Narrative* Problem Noted [...] of this encounter (statuses as of 09/03/2022) [facility] of Past [facility] Narrative* Problem Noted [...] of this encounter (statuses as of 09/16/2022) [facility] of Past [facility] Narrative* Problem Noted [...] of this encounter (statuses as of 09/17/2022) [facility] of Past illness Narrative* Problem Noted [...] of this encounter (statuses as of 10/30/2022) [facility] of Past [facility] Narrative* Problem Noted [...] of this encounter (statuses as of 01/08/2023) [facility] of Past [facility] Narrative* Problem Noted [...] of this encounter (statuses as of 02/13/2023) [facility] of Past illness Narrative* Problem Noted [...] of this encounter (statuses as of 02/28/2023) [facility] Hypothyroidism, acquired Unspecified hypothyroidism [facility] Hypothyroidism, acquired Unspecified hypothy[facility] Diagnosis Hypothyroidism, acquired- Primary Unspecified hypothyroidism [facility]* Diagnosis Symptomatic cholelithiasis- Primary Calculus of gallbladder without mention of cholecystitis or obstruction [facility] Diagnosis Hypothyroidism, acquired Unspecified hypothyroidism [facility] Diagnosis Abdominal aortic 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 (HCC)- Primary [facility] Diagnosis Ulcer of esophagus without bleeding [facility] Diagnosis Encounter for other preprocedural examination [facility] Diagnosis Ulcer of esophagus without bleeding Hypothyroidism, acquired Unspecified hypothyroidism [facility] Diagnosis AAA (abdominal aortic aneurysm) without rupture- Primary Abdominal aneurysm without mention of rupture AAA (abdominal aortic aneurysm) without rupture Abdominal aneurysm without mention of rupture [facility] Diagnosis AAA (abdominal aortic aneurysm) without rupture- Primary Abdominal aneurysm without mention of rupture Pre-op evaluation Preoperative examination, unspecified AAA (abdominal aortic aneurysm) without rupture Abdominal aneurysm without mention of rupture [facility] Diagnosis Well adult exam- Primary Routine general medical examination at a [facility] care facility Gout with manifestations Gout with other specified manifestations Hypothyroidism, acquired Unspecified hypothyroidism AAA (abdominal aortic aneurysm) without rupture Abdominal aneurysm without mention of rupture [facility] Diagnosis Preop examination- Primary Preoperative examination, [...] mention of rupture [facility] Diagnosis Hypothyroidism, acquired Unspecified hypothyroidism Ulcer of esophagus without bleeding [facility] hospital note* Diagnosis S/P abdominal aortic aneurysm repair- Primary Other postprocedural status Infrarenal abdominal aortic 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 [facility] Diagnosis Infrarenal abdominal aortic 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 [facility] Diagnosis Pain and swelling of toe of right foot Great toe pain, right [facility] Diagnosis Great toe pain, right- Primary [facility] Diagnosis Acute gout of right foot, unspecified cause- Primary Gout with manifestations Gout with other specified manifestations [facility]* Diagnosis Hypothyroidism, acquired Unspecified hypothyroidism Ulcer of esophagus without bleeding [facility] Diagnosis Medicare annual wellness visit, subsequent- Primary Routine general medical examination at a 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 Diagnosis Infrarenal abdominal aortic 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 (HCC) S/P abdominal aortic aneurysm repair Other postprocedural status [facility]* Diagnosis History of AAA (abdominal aortic aneurysm) repair- Primary Other postprocedural status documented in this [facility] Diagnosis Allergic rhinitis, unspecified seasonality, unspecified trigger- Primary Eustachian tube dysfunction, bilateral Dry cough Cough Bilateral impacted cerumen Impacted cerumen documented [facility] Diagnosis CKD (chronic kidney disease) stage 3, GFR 30-59 ml/min ([facility]) Chronic kidney disease, Stage III (moderate) Hypothyroidism, [...] (AAA) without rupture documented in this encounter [facility] note* Diagnosis CKD (chronic kidney disease) [...] (AAA) without rupture documented in this encounter [facility] noteNo assessment information availableWKettering [facility] Work Phone: Reason for referral (narrative)* Outpatient Procedure (Routine) - Authorized Specialty Diagnoses / Procedures Referred By Maximiliano oconnor Referred To Contact [facility] Diagnoses AAA (abdominal aortic aneurysm) without rupture Pre-op evaluation Procedures STRESS ECHO TREADMILL ECHO TTHRC R-T 2D W/WO M-MODE COMPLETE REST&Yelitza Caba APRN.SUPERVISOR BURLING AND JOINING [address] [facility] [address] [place] [address] Heart [facility] Vascular [place] [address] [place] [address] Referral ID Status Reason Start Date Expiration Date Visits Requested Visits Authorized [id number] Authorized Auto-Generat ed Referral 12/19/2021 12/19/2022 1 1 [facility] for referral (narrative)* Diagnostic Procedure Only (Routine) - Closed Specialty Diagnoses / Procedures Referred By Maximiliano oconnor Referred To Contact XR IMAGING Diagnoses Pain and swelling of toe of right foot Great toe pain, right Procedures XR FOOT GENERAL 3V AP/LAT/OBL RIGHT RADEX FOOT COMPLETE MINIMUM 3 VIEWS William Padgett APRN.SUPERVISOR [employer] [address] [place] [address] Xr Imaging Referral ID Status Reason Start Date Expiration Date V isits Requested Visits Authorized [id number] Closed Auto-Generate d Referral 08/30/2022 09/29/2023 1 1 [facility] for referral (narrative)No reason for referral information availableWKettering [facility] Work Phone: Reason for visit Narrative* Diagnostic Procedure Only (Routine) - Closed Specialty Diagnoses / Procedures Referred By Contac t Referred To Contact XR IMAGING Diagnoses Pain and swelling of toe of right foot Great toe pain, right Procedures XR FOOT GENERAL 3V AP/LAT/OBL RIGHT RADEX FOOT COMPLETE MINIMUM 3 VIEWS William Padgett, BOX SEALING MACHINE FEEDER.SUPERVISOR [employer] JOINING [address] [place] [address] Xr Imaging Referral ID Status Reason Start Date Expiration Date V isits Requested Visits Authorized [id number] Closed Auto-Generate d Referral 08/30/2022 09/29/2023 1 1 [facility] for visit Narrative* MRI/CT (Routine) - Closed Specialty Diagnoses / Procedures Referred By Contac t Referred To Contact CT IMAGING Diagnoses History of AAA (abdominal aortic aneurysm) repair Infrarenal abdominal aortic 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 Procedures CTA ABD/PEL WO/W IVCON CT ANGIO ABD&PLVIS CNTRST MTRL W/WO CNTRST Yelitza Duffy, BOX SEALING MACHINE FEEDER.SUPERVISOR [employer]URLING [employer] JOINING [address] [facility] [address] [place] [address] Phone: tel: fax: [place] [address] Referral ID Status Reason Start Date Expiration Date V isits Requested Visits Authorized [id number] Closed Auto-Generate d Referral 08/16/2024 09/15/2025 [address] [facility] Summary Purpose Family History No Family History Records FoundNo Family History Records FoundNo Family History Records FoundNo Family History Records FoundNo Family History Records FoundNo Family History Records Found Advance Directives No Advanced Directives Records FoundDocuments on File Type Date Recorded Patient Bus Person Dishwasher Expl anation Advance Directive(s) 05/25/2018 9:37 AM Advance Directive(s) 05/25/2018 9:36 AM Advance Directive(s) 05/25/2018 3:34 PM Documents on File Type Date Recorded Patient Bus Person Dishwasher Expl anation Advance Directive(s) 09/10/2021 1:15 PM Advance Directive(s) 05/25/2018 9:37 AM Advance Directive(s) 05/25/2018 9:36 AM Advance Directive(s) 05/25/2018 3:34 PM Hospital Course Note HNO ID: [id number] Author: Christine Hernandez Service: Hospital Medicine Author [...] MTRL W/WO CNTRST Armani Hitchcock, DO [address] [place] [address] Ct Imaging Referral ID Status Reason Start Date Expiration Date V isits Requested Visits Authorized [id number] Closed Auto-Generate d Referral 11/21/2021 12/21/2022 1 1 Specialty Diagnoses / Procedures Referred By Contac t Referred To Contact CT IMAGING Diagnoses Infrarenal abdominal aortic 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 Procedures CTA ABD/PEL WO/W IVCON CT ANGIO ABD&PLVIS CNTRST MTRL W/WO CNTRST Yelitza Duffy, BOX SEALING MACHINE FEEDER.SUPERVISOR [employer] JOINING [address] [address] [address] Imaging Referral ID Status Reason Start Date Expiration Date Visits Requested Visits Authorized [id number] Authorized Auto-Generat ed Referral 03/29/2023 1 1 Referral ID Status Reason Start Date Expiration Date V isits Requested Visits Authorized [id number] Closed Auto-Generate d Referral 02/27/2022 03/29/2023 1 1 Specialty Diagnoses / Procedures Referred By Contac t Referred To Contact CT IMAGING Diagnoses Infrarenal abdominal aortic 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 (HCC) S/P abdominal aortic aneurysm repair Procedures CTA ABD/PEL WO/W IVCON CT ANGIO ABD&PLVIS CNTRST MTRL W/WO CNTRST Yelitza Duffy, BOX SEALING MACHINE FEEDER.SUPERVISOR [employer]URLING [employer] JOINING [address] [facility] [address] [place] [address] [place] [address] Referral ID Status Reason Start Date Expiration Date Visits Requested Visits Authorized [id number] Pending Review Auto-Generat ed Referral 09/01/2023 09/30/2024 1 1 Referral ID Status Reason Start Date Expiration Date V isits Requested Visits Authorized [id number] Closed Auto-Generate d Referral 09/01/2023 09/30/2024 1 1 Additional Source Comments (unrecognized sect ion and content) No Status Records FoundNo Status Records FoundNo Status Records FoundNo Status Records FoundNo Status Records FoundNo Status Records Found INFORMATION SOURCE (unrecogn ized section and content) DATE CREATED AUTHOR 10/24/2017 [facility] DATE CREATED AUTHOR AUTHOR'S ORGANIZ ATION 06/04/2018 [facility] DATE CREATED AUTHOR AUTHOR'S ORGANIZ ATION 11/27/2019 [facility] DATE CREATED AUTHOR AUTHOR'S ORGANIZ ATION 09/20/2024 [facility] DATE CREATED AUTHOR AUTHOR'S ORGANIZ ATION 10/13/2024 [facility] DATE CREATED AUTHOR AUTHOR'S ORGANIZ ATION 10/22/2024 [facility] Source Comments (unrecognize d section and content) In the event this informatio n is protected by the Federal Confidentiality of Alcohol and Drug Abuse Patient Records regulations: The Federal rules restrict any use of the information to criminally investigate or prosecute any alcohol or drug abuse patient.[facility] Hospital[facility] the event this information is protected by the Federal Confidentiality of Alcohol and Drug Abuse Patient Records regulations: The Federal rules restrict any use of the information to criminally investigate or prosecute any alcohol or drug abuse patient.[facility] HospitalIn the event this information is protected by the Federal Confidentiality of Alcohol and Drug Abuse Patient Records regulations: The Federal rules restrict any use of the information to criminally investigate or prosecute any alcohol or drug abuse patient.[facility] HospitalIn the event this information is protected by the Federal Confidentiality of Alcohol and Drug Abuse Patient Records regulations: The Federal rules restrict any use of the information to criminally investigate or prosecute any alcohol or drug abuse patient.[facility] HospitalIn the event this information is protected by the Federal Confidentiality of Alcohol and Drug Abuse Patient Records regulations: The Federal rules restrict any use of the information to criminally investigate or prosecute any alcohol or drug abuse patient.[facility] HospitalIn the event this information is protected by the Federal Confidentiality of Alcohol and Drug Abuse Patient Records regulations: The Federal rules restrict any use of the information to criminally investigate or prosecute any alcohol or drug abuse patient.[facility] HospitalIn the event this information is protected by the Federal Confidentiality of Alcohol and Drug Abuse Patient Records regulations: The Federal rules restrict any use of the information to criminally investigate or prosecute any alcohol or drug abuse patient.[facility] HospitalIn the event this information is protected by the Federal Confidentiality of Alcohol and Drug Abuse Patient Records regulations: The Federal rules restrict any use of the information to criminally investigate or prosecute any alcohol or drug abuse patient.[facility] HospitalIn the event this information is protected by the Federal Confidentiality of Alcohol and Drug Abuse Patient Records regulations: The Federal rules restrict any use of the information to criminally investigate or prosecute any alcohol or drug abuse patient.[facility] HospitalIn the event this information is protected by the Federal Confidentiality of Alcohol and Drug Abuse Patient Records regulations: The Federal rules restrict any use of the information to criminally investigate or prosecute any alcohol or drug abuse patient.[facility] HospitalIn the event this information is protected by the Federal Confidentiality of Alcohol and Drug Abuse Patient Records regulations: The Federal rules restrict any use of the information to criminally investigate or prosecute any alcohol or drug abuse patient.[facility] HospitalIn the event this information is protected by the Federal Confidentiality of Alcohol and Drug Abuse Patient Records regulations: The Federal rules restrict any use of the information to criminally investigate or prosecute any alcohol or drug abuse patient.[facility] HospitalIn the event this information is protected by the Federal Confidentiality of Alcohol and Drug Abuse Patient Records regulations: The Federal rules restrict any use of the information to criminally investigate or prosecute any alcohol or drug abuse patient.[facility] HospitalIn the event this information is protected by the Federal Confidentiality of Alcohol and Drug Abuse Patient Records regulations: The Federal rules restrict any use of the information to criminally investigate or prosecute any alcohol or drug abuse patient.[facility] HospitalIn the event this information is protected by the Federal Confidentiality of Alcohol and Drug Abuse Patient Records regulations: The Federal rules restrict any use of the information to criminally investigate or prosecute any alcohol or drug abuse patient.[facility] HospitalIn the event this information is protected by the Federal Confidentiality of Alcohol and Drug Abuse Patient Records regulations: The Federal rules restrict any use of the information to criminally investigate or prosecute any alcohol or drug abuse patient.[facility] HospitalIn the event this information is protected by the Federal Confidentiality of Alcohol and Drug Abuse Patient Records regulations: The Federal rules restrict any use of the information to criminally investigate or prosecute any alcohol or drug abuse patient.[facility] HospitalIn the event this information is protected by the Federal Confidentiality of Alcohol and Drug Abuse Patient Records regulations: The Federal rules restrict any use of the information to criminally investigate or prosecute any alcohol or drug abuse patient.[facility] HospitalIn the event this information is protected by the Federal Confidentiality of Alcohol and Drug Abuse Patient Records regulations: The Federal rules restrict any use of the information to criminally investigate or prosecute any alcohol or drug abuse patient.[facility] HospitalIn the event this information is protected by the Federal Confidentiality of Alcohol and Drug Abuse Patient Records regulations: The Federal rules restrict any use of the information to criminally investigate or prosecute any alcohol or drug abuse patient.[facility] HospitalIn the event this information is protected by the Federal Confidentiality of Alcohol and Drug Abuse Patient Records regulations: The Federal rules restrict any use of the information to criminally investigate or prosecute any alcohol or drug abuse patient.[facility] HospitalIn the event this information is protected by the Federal Confidentiality of Alcohol and Drug Abuse Patient Records regulations: The Federal rules restrict any use of the information to criminally investigate or prosecute any alcohol or drug abuse patient.[facility] HospitalIn the event this information is protected by the Federal Confidentiality of Alcohol and Drug Abuse Patient Records regulations: The Federal rules restrict any use of the information to criminally investigate or prosecute any alcohol or drug abuse patient.[facility] HospitalIn the event this information is protected by the Federal Confidentiality of Alcohol and Drug Abuse Patient Records regulations: The Federal rules restrict any use of the information to criminally investigate or prosecute any alcohol or drug abuse patient.[facility] HospitalIn the event this information is protected by the Federal Confidentiality of Alcohol and Drug Abuse Patient Records regulations: The Federal rules restrict any use of the information to criminally investigate or prosecute any alcohol or drug abuse patient.[facility] HospitalIn the event this information is protected by the Federal Confidentiality of Alcohol and Drug Abuse Patient Records regulations: The Federal rules restrict any use of the information to criminally investigate or prosecute any alcohol or drug abuse patient.[facility] HospitalIn the event this information is protected by the Federal Confidentiality of Alcohol and Drug Abuse Patient Records regulations: The Federal rules restrict any use of the information to criminally investigate or prosecute any alcohol or drug abuse patient.[facility] HospitalIn the event this information is protected by the Federal Confidentiality of Alcohol and Drug Abuse Patient Records regulations: The Federal rules restrict any use of the information to criminally investigate or prosecute any alcohol or drug abuse patient.[facility] HospitalIn the event this information is protected by the Federal Confidentiality of Alcohol and Drug Abuse Patient Records regulations: The Federal rules restrict any use of the information to criminally investigate or prosecute any alcohol or drug abuse patient.[facility] HospitalIn the event this information is protected by the Federal Confidentiality of Alcohol and Drug Abuse Patient Records regulations: The Federal rules restrict any use of the information to criminally investigate or prosecute any alcohol or drug abuse patient.[facility] HospitalIn the event this information is protected by the Federal Confidentiality of Alcohol and Drug Abuse Patient Records regulations: The Federal rules restrict any use of the information to criminally investigate or prosecute any alcohol or drug abuse patient.[facility] HospitalIn the event this information is protected by the Federal Confidentiality of Alcohol and Drug Abuse Patient Records regulations: The Federal rules restrict any use of the information to criminally investigate or prosecute any alcohol or drug abuse patient.[facility] HospitalIn the event this information is protected by the Federal Confidentiality of Alcohol and Drug Abuse Patient Records regulations: The Federal rules restrict any use of the information to criminally investigate or prosecute any alcohol or drug abuse patient.[facility] HospitalIn the event this information is protected by the Federal Confidentiality of Alcohol and Drug Abuse Patient Records regulations: The Federal rules restrict any use of the information to criminally investigate or prosecute any alcohol or drug abuse patient.[facility] HospitalIn the event this information is protected by the Federal Confidentiality of Alcohol and Drug Abuse Patient Records regulations: The Federal rules restrict any use of the information to criminally investigate or prosecute any alcohol or drug abuse patient.[facility] HospitalIn the event this information is protected by the Federal Confidentiality of Alcohol and Drug Abuse Patient Records regulations: The Federal rules restrict any use of the information to criminally investigate or prosecute any alcohol or drug abuse patient.[facility] HospitalIn the event this information is protected by the Federal Confidentiality of Alcohol and Drug Abuse Patient Records regulations: The Federal rules restrict any use of the information to criminally investigate or prosecute any alcohol or drug abuse patient.[facility] HospitalIn the event this information is protected by the Federal Confidentiality of Alcohol and Drug Abuse Patient Records regulations: The Federal rules restrict any use of the information to criminally investigate or prosecute any alcohol or drug abuse patient.[facility] Reason for Visit (unrecogniz ed section and [...] CNTRST MTRL W/WO CNTRST Armani Hitchcock, [address] [place] [address] Ct Imaging Referral ID Status Reason Start Date Expiration Date V isits Requested Visits Authorized [id number] Closed Auto-Generate d Referral 11/21/2021 12/21/2022 1 1 Reason Onset Date Comments Refill Request 12/18/2021 Reason Comments Schedule Surgery Reason Comments Follow Up 4-week follow-up for AAA 12/04/2021 Reason Onset Date Comments Transition Of Care 01/31/2022 Initial Outre ach ([facility] discharged 01/30/22) Reason Onset Date [...] ABD&PLVIS CNTRST MTRL W/WO CNTRST Yelitza Duffy, BOX SEALING MACHINE FEEDER.SUPERVISOR BURLING [employer] JOINING 1 [facility] [address] [place] [id number] [address] Imaging Referral ID Status Reason Start Date Expiration Date V isits Requested Visits Authorized [id number] Closed Auto-Generate d Referral 02/27/2022 03/29/2023 1 1 Reason Comments Medicare Wellness Exam Reason Comments Radiology CT Specialty Diagnoses / Procedures Referred By Lucioac t Referred To Contact CT IMAGING Diagnoses Infrarenal abdominal aortic 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 (HCC) S/P abdominal aortic aneurysm repair Procedures CTA ABD/PEL WO/W IVCON CT ANGIO ABD&PLVIS CNTRST MTRL W/WO CNTRST Yelitza Duffy, BOX SEALING MACHINE FEEDER.SUPERVISOR [employer]URLING [employer] JOINING 1 [employer] [address] [place] [address] [place] [address] Referral ID Status Reason Start Date Expiration Date V isits Requested Visits Authorized [id number] Closed Auto-Generate d Referral 09/01/2023 09/30/2024 1 1 Reason Comments Follow Up EVAR - CTA done 09/16 Reason Comments Cough Started: comes and g oes for the past 3 weeksSymptoms: Dry cough, runny nose, fatigue, SOBTreatment: Nasal spray, dayquilCovid Test: none Reason Comments Release Of Medical Records Care Teams (unrecognized sec tion and content) Maintenance And Engineering Manager Relationship Specialty Start Date End Date Sheets, Shannon Holguin DO PCP - General 12/06/14 Fifi Kirkland, DO [address] [place] [address] Peripheral Vascular 08/28/17 Maintenance And Engineering Manager Relationship Specialty Start Date End Date Sheets, Shannon Holguin DO PCP - General 12/06/14 Fifi Kirkland, DO [address] [place] [address] Peripheral Vascular 08/28/17 Maintenance And Engineering Manager Relationship Specialty Start Date End Date Sheets, Shannon Holguin DO PCP - General 12/06/14 Fifi Kirkland, DO [address] [place] [address] Peripheral Vascular 08/28/17 Maintenance And Engineering Manager Relationship Specialty Start Date End Date Sheets, Shannon Holguin DO PCP - General 12/06/14 Fifi Kirkland, DO [address] [place] [address] Peripheral Vascular 08/28/17 Maintenance And Engineering Manager Relationship Specialty Start Date End Date Sheets, Shannon Holguin DO PCP - General 12/06/14 Fifi Kirkland, DO [address] [place] [address] Peripheral Vascular 08/28/17 Maintenance And Engineering Manager Relationship Specialty Start Date End Date Sheets, Shannon Holguin, DO PCP - General 12/06/14 Fifi Kirkland, DO [address] [place] [address] Peripheral Vascular 08/28/17 Maintenance And Engineering Manager Relationship Specialty Start Date End Date Sheets, Shannon Holguin, DO PCP - General 12/06/14 Fifi Kirkland, DO [address] [place] [address] Peripheral Vascular 08/28/17 Maintenance And Engineering Manager Relationship Specialty Start Date End Date Sheets, Shannon Holguin, DO PCP - General 12/06/14 Fifi Kirkland, DO [address] [place] [address] Peripheral Vascular 08/28/17 Maintenance And Engineering Manager Relationship Specialty Start Date End Date Sheets, Shannon Holguin DO PCP - General 12/06/14 Fifi Kirkland, DO [address] [place] [address] Peripheral Vascular 08/28/17 Maintenance And Engineering Manager Relationship Specialty Start Date End Date Sheets, Shannon Holguin DO PCP - General 12/06/14 Fifi Kirkland, DO [address] [place] [address] Peripheral Vascular 08/28/17 Maintenance And Engineering Manager Relationship Specialty Start Date End Date Sheets, Shannon Holguin, DO PCP - General 12/06/14 Fifi Kirkland, DO [address] [place] [address] Peripheral Vascular 08/28/17 Maintenance And Engineering Manager Relationship Specialty Start Date End Date Sheets, Shannon Holguin, DO PCP - General 12/06/14 Fifi Kirkland, DO [address] [place] [address] Peripheral Vascular 08/28/17 Maintenance And Engineering Manager Relationship Specialty Start Date End Date Sheets, Shannon Holguin DO PCP - General 12/06/14 Fifi Kirkland, DO [address] [place] [address] Peripheral Vascular 08/28/17 Nima Curry RN Primary Care Wire Winding Machine Tender 01/31/22 03/01/22 Maintenance And Engineering Manager Relationship Specialty Start Date End Date Sheets, Shannon Holguin DO PCP - General 12/06/14 Fifi Kirkland, DO [address] [place] [address] Peripheral Vascular 08/28/17 Nima Curry RN Primary Care Wire Winding Machine Tender 01/31/22 03/01/22 Maintenance And Engineering Manager Relationship Specialty Start Date End Date Sheets, Shannon Holguin, DO PCP - General 12/06/14 Fifi Kirkland, DO [address] [place] [address] Peripheral Vascular 08/28/17 Nima Curry, coat feller Wire Winding Machine Tender 01/31/22 03/01/22 Maintenance And Engineering Manager Relationship Specialty Start Date End Date Sheets, Shannon Holguin DO PCP - General 12/06/14 Fifi Kirkland, DO [address] [place] [address] Peripheral Vascular 08/28/17 Nima Curry RN Primary Care Wire Winding Machine Tender 01/31/22 03/01/22 Maintenance And Engineering Manager Relationship Specialty Start Date End Date Sheets, Shannon Holguin DO PCP - General 12/06/14 Fifi Kirkland, DO [address] [place] [address] Peripheral Vascular 08/28/17 Maintenance And Engineering Manager Relationship Specialty Start Date End Date Sheets, Shannon Holguin DO PCP - General 12/06/14 Fifi Kirkland, DO [address] [place] [address] Peripheral Vascular 08/28/17 Maintenance And Engineering Manager Relationship Specialty Start Date End Date Sheets, Shannon Holguin DO PCP - General 12/06/14 Fifi Kirkland, DO [address] [place] [address] Peripheral Vascular 08/28/17 Maintenance And Engineering Manager Relationship Specialty Start Date End Date Sheets, Shannon Holguin DO PCP - General 12/06/14 Fifi Kirkland, DO [address] [place] [address] Peripheral Vascular 08/28/17 Maintenance And Engineering Manager Relationship Specialty Start Date End Date Shannon Cordova DO PCP - General 12/06/14 Fifi Kirkland, DO [address] [place] [address] Peripheral Vascular 08/28/17 Maintenance And Engineering Manager Relationship Specialty Start Date End Date Sheets, Shannon Holguin DO PCP - General 12/06/14 Fifi Kirkland, DO [address] [place] [address] Peripheral Vascular 08/28/17 Maintenance And Engineering Manager Relationship Specialty Start Date End Date SheetsShannon DO PCP - General 12/06/14 Fifi Kirkland, [address] [place] [address] Peripheral Vascular 08/28/17 Maintenance And Engineering Manager Relationship Specialty Start Date End Date Sheets, Shannon Holguin DO PCP - General 12/06/14 Fifi Kirkland, [address] [place] [address] Peripheral Vascular 08/28/17 Maintenance And Engineering Manager Relationship Specialty Start Date End Date SheetsShannon DO PCP - General 12/06/14 Fifi Kirkland, DO [address] [place] [address] Peripheral Vascular 08/28/17 Maintenance And Engineering Manager Relationship Specialty Start Date End Date Shannon Cordova DO PCP - General 12/06/14 Fifi Kirkland, [address] [place] [address] Peripheral Vascular 08/28/17 Maintenance And Engineering Manager Relationship Specialty Start Date End Date Shannon Cordova DO PCP - General 12/06/14 Fifi Kirkland, [address] [place] [address] Peripheral Vascular 08/28/17 Maintenance And Engineering Manager Relationship Specialty Start Date End Date Shannon Cordova DO PCP - General 12/06/14 Fifi Kirkland DO [address] [place] [address] Peripheral Vascular 08/28/17 Maintenance And Engineering Manager Relationship Specialty Start Date End Date Shannon Cordova DO PCP - General 12/06/14 Fifi Kirkland, DO [address] [place] [address] Peripheral Vascular 08/28/17 Maintenance And Engineering Manager Relationship Specialty Start Date End Date Shannon Cordova DO PCP - General 12/06/14 Fifi Kirkland DO [address], [place] [id number] Peripheral Vascular 08/28/17 Team Status: Active Member Role/Relationship Status Dates Dr. Alvaro Ceron MD Primary Care Provider Active Team Status: Inactive Member Role/Relationship Status Dates Dr. Alvaro Ceron MD Primary Care Provider Active Start: October 04, 2024 End: October 04, 2024 Dr. Alvaro Ceron MD Attending Provider Active Start: October 04, 2024 End: October 04, 2024 Maintenance And Engineering Manager Relationship Specialty Start Date End Date Alvaro Ceron Chi [address] [place] [id number] PCP - General Gerontology 09/19/24 Fifi Kirkland, DO [address] [place], [place] [id number] Peripheral Vascular 08/28/17 Team Status: Inactive Member [...] BE BASED ON THE PRIMARY CLINICAL RECORDS. [employer] provides no warranty or guarantee of the accuracy or completeness of information in this document.
--- OUTSIDE RECORDS SUMMARY | 2024-10-26 03:55 | XMS RPT_ITS | CCD ---
Author Organization [facility] CliniSymd Care Team Providers Care Children'S Attendant Name Role Phone Michael, Matheus C Unavailable [...] Primary Care Provider Fifi Kirkland DO Unavailable [phone] Sheets [...] adverse reactions to drug (disorder) 7 Rash [facility] Other [facility] (20 sources) Penicillin G; Translations: [PENICILLIN G BENZATHINE] Drug Allergy 2 Hives [facility] Medications Current Medications Medication Drug Class(es) Dates [...] rhinitis, unspecified seasonality, unspecified trigger Use 1 [place] in each nostril two times a day. [...] 10-14-2024 Urate [Mass/Vol] 8.2 mg/dL High 3.5-7.[address] [facility] Comment on above: The drugs N-Acetylcy steine and Metamizole may falsely depress this assay. Uric Acidon 10-14-2024 URIC 8.2 mg/dL High 3.5-7.[address] [facility] Comment on above: Result Comment: The drugs N-Acetylcysteine and Metamizole may falsely depress this assay. Performed By: #### L 501.1400 #### [facility] Laboratory [address] [place], [address] [facility]08[facility] -------- NANCY PRICE ([id number]) 1940 M [facility] Date Time Provider Department 10/08/24 ARMANI BECERRA [...] to MRI department for review Faxed yo [phone] Transmission completed Allergies As of Date: 10/08/2024 [...] Status:Closed by PUJA YOUNG on 10/08/24 Normal [facility] Magnetic resonance imaging r eportOrdered By: Luigi Stewart on 10-08-2024 Study report [facility] Imaging Services [address] [place] [address] Upper Ext No Joint W/WO Cont MR#: [id number] Acct: [id number] Name: KAYLEEN PRICE Rep #: [id number] : 1940 M 84 From: Heidi Stewart MD PCP: Dr. Alvaro Ceron MD Status: REG C KAIT Study:Upper Ext No Joint W/WO Cont Date of E xam: 10/08/24 Exam# [id number] Ordering Dr: Alvaro Ceron MD PROCEDURE: UPPER [...] proximal interphalangeal joint, possibly cellulitis Reading Location: [place] [address] CC: Dr. Alvaro Ceron MD ~ Flume Ride Operator: Signed [facility] Upper Ext No Joint W/WO Cont on 10-08-2024 Upper Ext No Joint W/WO Cont [facility] Imaging Services [address] [place] [place], [place] [address] Upper Ext No Joint W/WO Cont MR#: [id number] Acct: [id number] Name: KAYLEEN PRICE Rep #: [id number] : 1940 M 84 From: Luigi cassidy MD PCP: Dr. Alvaro Ceron MD Status: REG CLI Study: Upper Ext No Joint W/WO Cont Date of Exam: Exam# [id number] Ordering Dr: Alvaro Ceron MD PROCEDURE: UPPER [...] proximal interphalangeal joint, possibly cellulitis Reading Location: [place] [address] CC: Dr. Alvaro Ceron MD Flume Ride Operator: Signed Normal [facility] Absolute lymphocyte countOrd ered By: Alvaro Ceron on 10-04-2024 Lymphocytes Auto (Unsp spec) [#/Vol] 0.93 10*3/uL 0.83-4.[address] [facility] Absolute neutrophil countOrd ered By: Alvaro Ceron on 10-04-2024 Neutrophils (Bld) [#/Vol] 2.4 10*3/uL 2.0-7.[address] [facility] Anion gap in Serum or Plasma Ordered By: Alvaro Ceron on 10-04-2024 Anion gap [Moles/Vol] 8 mmol/L 5-15 [facility] Automated blood erythrocyte countOrdered By: Alvaro Ceron on 10-04-2024 RBC (Bld) [#/Vol] 3.37 10*6/uL Low 4.6-6.2 [facility] Comment on above: Performed By: #### L 501.9520, L506.1000, L3890.6300, L500.4050, L100.0100 #### [facility] Laboratory [address] [place], [place], [address] Automated blood hematocrit ( percentage)Ordered By: Alvaro Ceron on 10-04-2024 Hematocrit (Bld) [Volume fraction] 32.8 % Low 40-[address] [facility] Comment on above: Performed By: #### L 501.9520, L506.1000, L3890.6300, L500.4050, L100.0100 #### [facility] Laboratory [address] [place], [place], [address] Automated lymphocyte count a s percentage of total leukocytesOrdered By: Alvaro Ceron on 10-04-2024 Lymphocytes/100 WBC Auto (Unsp spec) 22.5 % 19-[address] [facility] BUN/creatinine ratioOrdered By: Alvaro Ceron on 10-04-2024 Urea nitrogen/Creatinine [Mass ratio] 12.9 mg/mg 10-[address] [facility] Basophil percentageOrdered B y: Alvaro Ceron on 10-04-2024 Basophils/100 WBC (Bld) 1.0 % Normal 0-[address] [facility] Comment on above: Performed By: #### L 501.9520, L506.1000, L3890.6300, L500.4050, L100.0100 #### [facility] Laboratory [address] [place], [address] Bilirubin, totalOrdered By: Alvaro Ceron on 10-04-2024 Bilirubin [Mass/Vol] 0.45 mg/dL Normal 0.00-1.30 [facility] Comment on above: Performed By: #### L 501.9520, L506.1000, L3890.6300, L500.4050, L100.0100 #### [facility] Laboratory [address] [place], [place], [id number] CBC W/Diff, Automatedon 07-0 Absolute Lymph 0.93 X10 3/uL Normal 0.83-4.[address] [facility] Comment on above: Performed By: #### L 501.9520, L506.1000, L3890.6300, L500.4050, L100.0100 #### [facility] [address] [place], [address] (877) Absolute Neut 2.4 X10 3/uL Normal 2.0-7.[address] [facility] Comment on above: Performed By: #### L 501.9520, L506.1000, L3890.6300, L500.4050, L100.0100 #### [facility] [address] [place], [address] IG% 0.200 Normal 0.0-0.[address] [facility] Comment on above: Result Comment: IG% - Immature Granulocytes (promyelocytes, myelocytes and metamyelocytes) > 1% indicates that a LEFT SHIFT is Present. Performed By: #### L 501.9520, L506.1000, L3890.6300, L500.4050, L100.0100 #### [facility] [address] [place], [address] Lymphocytes/100 WBC (Bld) 22.5 % Normal 19-[address] [facility] Comment on above: Performed By: #### L 501.9520, L506.1000, L3890.6300, L500.4050, L100.0100 #### [facility] [address] [place], [address] Nucleated RBC (Bld) [#/Vol] 0 10*3/uL Normal 0-[address] [facility] Comment on above: Performed By: #### L 501.9520, L506.1000, L3890.6300, L500.4050, L100.0100 #### [facility] [address] [place], [address] RDW SD 43.8 fl Normal 35.1-43.[address] [facility] Comment on above: Performed By: #### L 501.9520, L506.1000, L3890.6300, L500.4050, L100.0100 #### [facility] [address] [place], [address] CRPon 10-04-2024 C-REACTIVE PROT 5.59 mg/L High 0.0-3.[address] [facility] Comment on above: Performed By: #### L 501.9520, L506.1000, L3890.6300, L500.4050, L100.0100 #### [facility] [address] [place], [address] Calculated very low density lipoprotein (VLDL) cholesterol measurementOrdered By: Alvaro Creon on 10-04-2024 Calculated very low density lipoprotein (VLDL) cholesterol measurement 14 mg/dL 5-[address] [facility] Carbon dioxide, total [Moles /volume] in Central venous bloodOrdered By: Alvaro Ceron on 10-04-2024 CO2 [Moles/Vol] 24.7 mmol/L Normal 21.0-32.[address] [facility] Comment on above: Performed By: #### L 501.9520, L506.1000, L3890.6300, L500.4050, L100.0100 #### [facility] [address] [place], [address] Chloride assayOrdered By: Filippo Ceron on 10-04-2024 Chloride [Moles/Vol] 108 mmol/L Normal 98-108 [facility] Comment on above: Performed By: #### L 501.9520, L506.1000, L3890.6300, L500.4050, L100.0100 #### [facility] [address] [place], [address] Comprehensive Metabolic Prof ilon 10-04-2024 ALK PHOS 91 U/L Normal 40-[address] [facility] Comment on above: Performed By: #### L 501.9520, L506.1000, L3890.6300, L500.4050, L100.0100 #### [facility] [address] [place], [address] BUN/CRE 12.9 RATIO Normal 10-[address] [facility] Comment on above: Performed By: #### L 501.9520, L506.1000, L3890.6300, L500.4050, L100.0100 #### [facility] [address] [place], [address] GAP 8 Normal 5-[address] [facility] Comment on above: Performed By: #### L 501.9520, L506.1000, L3890.6300, L500.4050, L100.0100 #### [facility] [address] [place], [address] Potassium [Moles/Vol] 4.4 mmol/L Normal 3.3-5.1 [facility] Comment on above: Performed By: #### L 501.9520, L506.1000, L3890.6300, L500.4050, L100.0100 #### [facility] [address] [place], [address] T PROT 6.2 g/dL Normal 5.9-8.[address] [facility] Comment on above: Performed By: #### L 501.9520, L506.1000, L3890.6300, L500.4050, L100.0100 #### [facility] [address] [place], [address] Comprehensive Metabolic Prof ilOrdered By: Alvaro Ceron on 10-04-2024 AST [Catalytic activity/Vol] 26 U/L Normal <=[address] [facility] Comment on above: Performed By: #### L 501.9520, L506.1000, L3890.6300, L500.4050, L100.0100 #### [facility] [address] [place], [address] Eosinophil percentageOrdered By: Alvaro Ceron on 10-04-2024 Eosinophils/100 WBC (Bld) 3.4 % Normal 0-[address] [facility] Comment on above: Performed By: #### L 501.9520, L506.1000, L3890.6300, L500.4050, L100.0100 #### [facility] [address] [place], [address] Erythrocyte Sed Rateon 10-04 SED RATE 10 mm/hr Normal 0-[address] [facility] Comment on above: Performed By: #### L 501.9520, L506.1000, L3890.6300, L500.4050, L100.0100 #### [facility] [address] [place], [address] Erythrocyte distribution wid th ratioOrdered By: Alvaro Lojaok on 10-04-2024 Erythrocyte distribution width (RBC) [Ratio] 12.5 % Normal 11.6-14.[address] [facility] Comment on above: Performed By: #### L 501.9520, L506.1000, L3890.6300, L500.4050, L100.0100 #### [facility] [address], [address] Erythrocyte distribution wid th standard deviationOrdered By: Alvaro Ceron on 10-04-2024 Erythrocyte distribution width (RBC) [Ratio] 43.8 fl 35.1-43.[address] [facility] Erythrocyte sedimentation ra teOrdered By: Alvaro Osmany on 10-04-2024 ESR (Bld) [Velocity] 10 mm/h 0-20 [facility] Glomerular filtration rate ( GFR) estimation/1.73 sq m using serum, plasma, or whole bOrdered By: Alvaro Ceron on 10-04-2024 GFR/1.73 sq M.predicted among non-blacks MDRD (S/P/Bld) [Vol rate/Area] 48 mL/min/{1.73_m2} Low >[address] [facility] Comment on above: mL/min/1.73m2 CKD-EP I Creatinine Equation (2020) Result Comment: mL/m in/1.73m2 CKD-EPI Creatinine Equation (2020) Performed By: #### L 501.9520, L506.1000, L3890.6300, L500.4050, L100.0100 #### [facility] Laboratory [address] [place], [address] Hand Min 3 Viewson 5 Hand Min 3 Views [facility] Imaging Services [address] [place] [address] Hand Min 3 Views MR#: [id number] Acct: [id number] Name: KAYLEEN PRICE Rep #: [id number] : 1940 M 84 From: Ana Ayala PCP: Dr. Alvaro Ceron MD Status: REG CLI Study: Hand Min 3 Views Date of Exam: 10/04/24 Exam# [id number] Ordering Dr: Alvaro Ceron MD PROCEDURE: HAND [...] further evaluation if clinically warranted. Reading Location: [id number] CC: Dr. Alvaro Ceron MD Flume Ride Operator: Signed Normal [facility] Hemoglobin measurementTomae d By: Alvaro Ceron on 10-04-2024 Hemoglobin (Bld) [Mass/Vol] 11.3 g/dL Low 13.0-16.[address] [facility] Comment on above: Performed By: #### L 501.9520, L506.1000, L3890.6300, L500.4050, L100.0100 #### [facility] [address] [facility] [place], [address] Immature granulocytes/100 WB C Auto (Bld)Ordered By: Alvaro Ceron on 10-04-2024 Immature granulocytes/100 WBC (Bld) 0.200 % 0.0-0.[address] [facility] Comment on above: IG% - Immature Granu locytes (promyelocytes, myelocytes and metamyelocytes) > 1% indicates that a LEFT SHIFT is Present. LDL calc ser/plasOrdered By: Alvaro Ceron on 10-04-2024 Cholesterol in LDL [Mass/Vol] 113 mg/dL Normal [facility] Comment on above: Wzozqgijow=240-981 m g/dL & Higher Wyoi=761 mg/dL or greater Result Comment: Bord insxwr=366-304 mg/dL Higher Mlyq=955 mg/dL or greater Performed By: #### L 501.9520, L506.1000, L3890.6300, L500.4050, L100.0100 #### [facility] [address] [place], [address] Lipid Profileon 10-04-2024 CHOL:HDL 2.[address] [facility] Comment on above: Performed By: #### L 501.9520, L506.1000, L3890.6300, L500.4050, L100.0100 #### [facility] [address] [place], [address] Cholesterol in VLDL [Mass/Vol] 14 mg/dL Normal 5-[address] [facility] Comment on above: Performed By: #### L 501.9520, L506.1000, L3890.6300, L500.4050, L100.0100 #### [facility] [address] [facility] [place], [address] MCV (mean corpuscular volume ) determinationOrdered By: Alvaro Ceron on 10-04-2024 MCV (RBC) [Entitic vol] 97.3 fL High 80-[address] [facility] Comment on above: Performed By: #### L 501.9520, L506.1000, L3890.6300, L500.4050, L100.0100 #### [facility] [address] [place], [place], [address] Mean corpuscular hemoglobin (MCH) determinationOrdered By: Alvaro Ceron on 10-04-2024 MCH (RBC) [Entitic mass] 33.5 pg High 27.0-32.[address] [facility] Comment on above: Performed By: #### L 501.9520, L506.1000, L3890.6300, L500.4050, L100.0100 #### [facility] [address] [place], [address] Mean corpuscular hemoglobin concentration (MCHC) determinationOrdered By: Alvaro Ceron on 10-04-2024 MCHC (RBC) [Mass/Vol] 34.5 g/dL Normal 32-36 [facility] Comment on above: Performed By: #### L 501.9520, L506.1000, L3890.6300, L500.4050, L100.0100 #### [facility] [address] [place], [address] Mean platelet volume determi nationOrdered By: Alvaro Osmany on 10-04-2024 Platelet mean volume (Bld) [Entitic vol] 10.8 fL Normal 6.2-12.[address] [facility] Comment on above: Performed By: #### L 501.9520, L506.1000, L3890.6300, L500.4050, L100.0100 #### [facility] Laboratory [address] [place], [address] Monocyte percentageOrdered B y: Alvaro Ceron on 10-04-2024 Monocytes/100 WBC (Bld) 14.0 % High 0-[address] [facility] Comment on above: Performed By: #### L 501.9520, L506.1000, L3890.6300, L500.4050, L100.0100 #### [facility] [address] [place], [address] Neutrophil percentageOrdered By: Alvaro Ceron on 10-04-2024 Neutrophils/100 WBC (Bld) 58.9 % Normal 47-[address] [facility] Comment on above: Performed By: #### L 501.9520, L506.1000, L3890.6300, L500.4050, L100.0100 #### [facility] [address] [place], [address] Nucleated red blood cell per centageOrdered By: Alvaro Ceron on 10-04-2024 Nucleated RBC/100 WBC (Bld) [Ratio] 0 % 0-[address] [facility] Platelet countOrdered By: Filippo Ceron on 10-04-2024 Platelets (Bld) [#/Vol] 175 10*3/uL Normal 150-[address] [facility] Comment on above: Performed By: #### L 501.9520, L506.1000, L3890.6300, L500.4050, L100.0100 #### [facility] [address] [place], [address] Potassium measurement (mass/ volume)Ordered By: Alvaro Ceron on 10-04-2024 Potassium (Unsp spec) [Mass/Vol] 4.4 mmol/L 3.3-5.[address] [facility] Screening total cholesterol/ high density lipoprotein (HDL) cholesterol ratioOrdered By: Alvaro Ceron on 10-04-2024 Cholesterol.total/Chol esterol in HDL [Mass ratio] 2.87 {ratio} [facility] Serum creatinine measurement (mass/volume)Ordered By: Alvaro Ceron on 10-04-2024 Creatinine [Mass/Vol] 1.44 mg/dL High 0.70-1.20 [facility] Comment on above: Performed By: #### L 501.9520, L506.1000, L3890.6300, L500.4050, L100.0100 #### [facility] [address] [place], [address] Serum globulin measurementOr dered By: Alvaro Ceron on 10-04-2024 Globulin (S) [Mass/Vol] 2.1 g/dL Low 2.2-4.[address] [facility] Comment on above: Performed By: #### L 501.9520, L506.1000, L3890.6300, L500.4050, L100.0100 #### [facility] [address] [place], [place], [address] Serum glucose measurement (m ass/volume)Ordered By: Alvaro Ceron on 10-04-2024 Glucose [Mass/Vol] 111 mg/dL High 70-99 [facility] Comment on above: Performed By: #### L 501.9520, L506.1000, L3890.6300, L500.4050, L100.0100 #### [facility] [address] [place], [place], [id number] Serum or plasma C reactive p rotein measurement (mass/volume)Ordered By: Alvaro Ceron on 10-04-2024 CRP [Mass/Vol] 5.59 mg/L High 0.0-3.[address] [facility] Serum or plasma alanine oliver otransferase (ALT) measurementOrdered By: Alvaro Ceron on 10-04-2024 ALT [Catalytic activity/Vol] 15 U/L Normal <=[address] [facility] Comment on above: Performed By: #### L 501.9520, L506.1000, L3890.6300, L500.4050, L100.0100 #### [facility] [address] [place], [address] Serum or plasma albumin ivan urement (mass/volume)Ordered By: Alvaro Ceron on 10-04-2024 Albumin [Mass/Vol] 4.1 g/dL Normal 3.4-4.8 [facility] Comment on above: Performed By: #### L 501.9520, L506.1000, L3890.6300, L500.4050, L100.0100 #### [facility] [address] [place], [place], [address] Serum or plasma albumin/glob ulin mass ratioOrdered By: Alvaro Ceron on 10-04-2024 Albumin/Globulin [Mass ratio] 1.9 {ratio} Normal 0.9-2.[address] [facility] Comment on above: Performed By: #### L 501.9520, L506.1000, L3890.6300, L500.4050, L100.0100 #### [facility] [address] [place], [place], [address] Serum or plasma alkaline adelia sphatase measurementOrdered By: Alvaro Ceron on 10-04-2024 ALP [Catalytic activity/Vol] 91 U/L 40-[address] [facility] Serum or plasma calcium ivan urement (mass/volume)Ordered By: Alvaro Ceron on 10-04-2024 Calcium [Mass/Vol] 9.6 mg/dL Normal 7.6-11.0 [facility] Comment on above: Performed By: #### L 501.9520, L506.1000, L3890.6300, L500.4050, L100.0100 #### [facility] [address] [place], [place], [address] Serum or plasma cholesterol in HDL measurement (mass/volume)Ordered By: Alvaro Osmany on 10-04-2024 Cholesterol in HDL [Mass/Vol] 68 mg/dL Normal [facility] Comment on above: National Cholesterol Education Program [...] L 501.9520, L506.1000, L3890.6300, L500.4050, L100.0100 #### [facility] [address] [place], [address] Serum or plasma cholesterol measurement (mass/volume)Ordered By: Alvaro Ceron on 10-04-2024 Cholesterol [Mass/Vol] 195 mg/dL Normal <=200 [facility] Comment on above: Cholesterol level, D esirable <200 mg/dLBorderline high cholesterol 200-239 mg/dLHigh cholesterol >=240 mg/dLRecommendations of the NCEP Adult Treatment Panel for the following risk-cutoff thresholds for the [place] population. Result Comment: Chol esterol level, Desirable <200 mg/dL Borderline high cholesterol 200-239 mg/dL High cholesterol >=240 mg/dL Recommendations of the NCEP Adult Treatment Panel for the following risk-cutoff thresholds for the [place] population. Performed By: #### L 501.9520, L506.1000, L3890.6300, L500.4050, L100.0100 #### [facility] [address] [facility] [place], [address] Serum or plasma urea nitroge n measurement (mass/volume)Ordered By: Alvaro Ceron on 10-04-2024 Urea nitrogen [Mass/Vol] 19 mg/dL Normal 4-[address] [facility] Comment on above: Performed By: #### L 501.9520, L506.1000, L3890.6300, L500.4050, L100.0100 #### [facility] [address] [place], [address] Serum or plasma uric acid me asurement (mass/volume)Ordered By: Alvaro Ceron on 10-04-2024 Urate [Mass/Vol] 7.5 mg/dL High 3.5-7.[address] [facility] Comment on above: The drugs N-Acetylcy steine and Metamizole may falsely depress this assay. Sodium levelOrdered By: Alvaro Ceron on 10-04-2024 Sodium [Moles/Vol] 141 mmol/L Normal 133-145 [facility] Comment on above: Performed By: #### L 501.9520, L506.1000, L3890.6300, L500.4050, L100.0100 #### [facility] [address] [place], [address] TSH DL <= 0.005 mIU/L QnOrde red By: Alvaro Ceron on 10-04-2024 TSH Qn 4.390 uIU/mL High 0.300-4.[address] [facility] Thyroid Stim Hormone (TSH)on 10-04-2024 TSH 4.390 uIU/mL High 0.300-4.[address] [facility] Comment on above: Performed By: #### L 501.9520, L506.1000, L3890.6300, L500.4050, L100.0100 #### [facility] [address] [place], [place], [address] Total proteinOrdered By: Alvaro Ceron on 10-04-2024 Protein [Mass/Vol] 6.2 g/dL 5.9-8.4 [facility] Triglycerides measurementOrd ered By: Alvaro Ceron on 10-04-2024 Triglyceride [Mass/Vol] 71 mg/dL Normal [facility] Comment on above: The drugs N-Acetylcy steine and Metamizole may falsely depress this assay. Normal range: <150 mg/dLBorderline High: 150-199 mg/dLHigh: 200-499 mg/dLVery High: >500 mg/dL Result Comment: The drugs N-Acetylcysteine and Metamizole may falsely depress this assay. Normal range: <150 mg/dL Borderline High: 150-199 mg/dL High: 200-499 mg/dL Very High: >500 mg/dL Performed By: #### L 501.9520, L506.1000, L3890.6300, L500.4050, L100.0100 #### [facility] [address] [place], [address] Uric Acidon 10-04-2024 URIC 7.5 mg/dL High 3.5-7.[address] [facility] Comment on above: Result Comment: The drugs N-Acetylcysteine and Metamizole may falsely depress this assay. Performed By: #### L 501.9520, L506.1000, L3890.6300, L500.4050, L100.0100 #### [facility] [address] [place], [address] Vitamin D,25 Hydroxyon 10-04 Vitamin D 25-OH 49.8 ng/mL Normal 30-[address] [facility] Comment on above: Result Comment: Nika min D Status Deficiency: <20 ng/mL (50nmol/L) Insufficiency: 20-30 ng/mL (50-75 nmol/L) Sufficiency: 30-100 ng/mL (75-250 nmol/L) Toxicity: >100 ng/mL (>250 nmol/L) Performed By: #### L 501.9520, L506.1000, L3890.6300, L500.4050, L100.0100 #### [facility] [address] [place], [place] [address] White blood cell (WBC) count Ordered By: Alvaro Ceron on 10-04-2024 WBC (Bld) [#/Vol] 4.1 10*3/uL Low 4.4-11.0 [facility] Comment on above: Performed By: #### L 501.9520, L506.1000, L3890.6300, L500.4050, L100.0100 #### [facility] [address] [place], [address] ED NOTEon 09-19-2024 ED NOTE HNO ID: [id number] Author: WILMER NOGUEIRA RN Service: Nursing Author [...] for worsening or life threatening symptoms. Normal [facility] ED NOTE HNO ID: [id number] Author: BLU BETANCOURT RN Service: Emergency Medicine [...] anything else to help you? No Normal [facility] ED NOTE HNO ID: [id number] Author: WILMER NOGUEIRA RN Service: Nursing Author [...] the sensation of a foreign body. Normal [facility] ED PROV NOTEon 09-19-2024 ED PROV NOTE HNO ID: [id number] Author: SONJA DODGE MD Service: Emergency Medicine [...] nursing note reviewed. Exam conducted with a setter machine present. Constitutional: General: He is not in [...] focal deficit (more content not included)... Normal [facility] CTA ABD/PELV W IVCONon 08-25 CTA ABD/PELV W IVCON * * *Final Report* * * DATE OF EXAM: Aug 25 2024 10:47AM [facility] 0311 - CTA ABD/PELV W IVCON [...] significant nonvascular abnormalities identified on the study. Flume Ride Operator: LEONIDAS Transcribe Date/Time: Aug 25 2024 3:19P Dictated by : JAY HU MD This examination was interpreted and the report reviewed and electronically signed by: JAY HU MD on Aug 25 2024 3:43PM EST [id number] Normal [facility] Creatinine + eGFR Pnl SerPlB ldon 08-25-2024 Creatinine and Glomerular filtration rate.predicted panel (S/P/Bld) 43 mL/min/1.73m??? Low >=60 [facility] Comment on above: Order Comment: Speci men Type: BLOOD SPECIMENOrdering Facility: [facility] Address: [address] [place] [address] Result Comment: Kiara mated Glomerular Filtration Rate [...] actual GFR. Performed By: #### 4 5066-8 ####[facility] [id number] [address] [facility] Creatinine and Glomerular fi ltration rate.predicted panel (S/P/Bld)on 08-25-2024 Creatinine [Mass/Vol] 1.58 mg/dL High 0.73-1.22 [facility] Comment on above: Order Comment: Speci men Type: BLOOD SPECIMENOrdering Facility: [facility] Address: [address] [place] [address] Performed By: #### 4 5066-8 ####[facility] LABCLIA [id number] [place] [address] [facility] Microalb:Creat Ratio,Random URon 05-05-2024 Creatinine [Mass/Vol] 166.00 mg/dL Normal NO RANGE EST . [facility] Comment on above: Performed By: #### L 500.3600, L502.0250, L509.1000, L506.1000 #### [facility] [address] [place], [address] MALB:CRE 34.3 mg/g CRE High <30 mg/g CRE [facility] Comment on above: Performed By: #### L 500.3600, L502.0250, L509.1000, L506.1000 #### [facility] [address] [place], [address] MICROALBUMIN,UR 56.9 mg/L Normal NO RANGE EST. [facility] Comment on above: Performed By: #### L 500.3600, L502.0250, L509.1000, L506.1000 #### [facility] [address] [place], [address] PTHINon 05-05-2024 PTH 90.8 pg/mL High 18.4-80.[address] [facility] Comment on above: Performed By: #### L 500.3600, L502.0250, L509.1000, L506.1000 #### [facility] [address] [place], [address] Renal Profileon 05-05-2024 Albumin [Mass/Vol] 3.6 g/dL Normal 3.2-5.0 [facility] Comment on above: Performed By: #### L 500.3600, L502.0250, L509.1000, L506.1000 #### [facility] [address] [place], [address] BUN/CRE 12.2 RATIO Normal 10-[address] [facility] Comment on above: Performed By: #### L 500.3600, L502.0250, L509.1000, L506.1000 #### [facility] [address] [place], [address] CA,Total 9.7 mg/dL Normal 8.5-10.[address] [facility] Comment on above: Performed By: #### L 500.3600, L502.0250, L509.1000, L506.1000 #### [facility] [address] [place], [address] Chloride [Moles/Vol] 110 mmol/L High 98-107 [facility] Comment on above: Performed By: #### L 500.3600, L502.0250, L509.1000, L506.1000 #### [facility] [address] [place], [address] CO2 [Moles/Vol] 26.0 mmol/L Normal 21.0-32.[address] [facility] Comment on above: Performed By: #### L 500.3600, L502.0250, L509.1000, L506.1000 #### [facility] [address] [place], [address] Creatinine [Mass/Vol] 1.48 mg/dL High 0.70-1.30 [facility] Comment on above: Result Comment: The validity of the calculated GFR GFRAA in patients over 70 years has not been determined. Clinical correlation is essential. Performed By: #### L 500.3600, L502.0250, L509.1000, L506.1000 #### [facility] [address] [place], [address] EST GFR - AA 58 mL/min Low >[address] [facility] Comment on above: Result Comment: Afri can Welsh GFR Calc Performed By: #### L 500.3600, L502.0250, L509.1000, L506.1000 #### [facility] [address] [place], [address] GFR/1.73 sq M.predicted among non-blacks MDRD (S/P/Bld) [Vol rate/Area] 48 mL/min/{1.73_m2} Low >[address] [facility] Comment on above: Result Comment: Non- GFR Calc Performed By: #### L 500.3600, L502.0250, L509.1000, L506.1000 #### [facility] [address] [place], [address] Glucose [Mass/Vol] 108 mg/dL High 74-106 [facility] Comment on above: Result Comment: Fast ing Glucose result from 100 to 125 mg/dL suggests IMPAIRED HOMEOSTASIS per A.D.A. criteria. Performed By: #### L 500.3600, L502.0250, L509.1000, L506.1000 #### [facility] [address] [place], [address] Phosphate [Mass/Vol] 3.0 mg/dL Normal 2.5-4.9 [facility] Comment on above: Performed By: #### L 500.3600, L502.0250, L509.1000, L506.1000 #### [facility] [address] [place], [address] Potassium [Moles/Vol] 4.2 mmol/L Normal 3.5-5.1 [facility] Comment on above: Performed By: #### L 500.3600, L502.0250, L509.1000, L506.1000 #### [facility] [address] [place], [address] Sodium [Moles/Vol] 140 mmol/L Normal 136-145 [facility] Comment on above: Performed By: #### L 500.3600, L502.0250, L509.1000, L506.1000 #### [facility] [address] [place], [address] Urea nitrogen [Mass/Vol] 18 mg/dL Normal 7-[address] [facility] Comment on above: Performed By: #### L 500.3600, L502.0250, L509.1000, L506.1000 #### [facility] [address] [place], [address] Vitamin D,25 Hydroxyon 05-05 Vitamin D 25-OH 41.6 ng/mL Normal [facility] Comment on above: Result Comment: Nika min D 25(OH) Status Range Deficiency <20 ng/mL (50nmol/L) Insufficiency 20 - 30 ng/mL (50 - 75 nmol/L) Sufficiency 30 - 100 ng/mL (75 - 250 nmol/L) Toxicity >100 ng/mL (>250 nmol/L) Performed By: #### L 500.3600, L502.0250, L509.1000, L506.1000 #### [facility] [address] [place], [address] CBC W/Diff, Automatedon 0 Absolute Lymph 0.91 X10 3/uL Normal 0.83-4.[address] [facility] Comment on above: Performed By: #### L 501.9520, L506.1000, L3890.6300, L500.4050, L100.0100 #### [facility] [address] [place], [address] Absolute Neut 3.1 X10 3/uL Normal 2.0-7.[address] [facility] Comment on above: Performed By: #### L 501.9520, L506.1000, L3890.6300, L500.4050, L100.0100 #### [facility] [address] [place], [address] Basophils/100 WBC (Bld) 1.6 % High 0-[address] [facility] Comment on above: Performed By: #### L 501.9520, L506.1000, L3890.6300, L500.4050, L100.0100 #### [facility] [address] [place], [address] Eosinophils/100 WBC (Bld) 3.6 % Normal 0-[address] [facility] Comment on above: Performed By: #### L 501.9520, L506.1000, L3890.6300, L500.4050, L100.0100 #### [facility] [address] [place], [address] Erythrocyte distribution width (RBC) [Ratio] 12.7 % Normal 11.6-14.[address] [facility] Comment on above: Performed By: #### L 501.9520, L506.1000, L3890.6300, L500.4050, L100.0100 #### [facility] [address] [place], [address] Hematocrit (Bld) [Volume fraction] 34.7 % Low 40-[address] [facility] Comment on above: Performed By: #### L 501.9520, L506.1000, L3890.6300, L500.4050, L100.0100 #### [facility] [address] [place], [address] Hemoglobin (Bld) [Mass/Vol] 11.6 g/dL Low 13.0-16.[address] [facility] Comment on above: Performed By: #### L 501.9520, L506.1000, L3890.6300, L500.4050, L100.0100 #### [facility] [address] [place], [address] IG% 0.400 Normal 0.0-0.[address] [facility] Comment on above: Result Comment: IG% - Immature Granulocytes (promyelocytes, myelocytes and metamyelocytes) > 1% indicates that a LEFT SHIFT is Present. Performed By: #### L 501.9520, L506.1000, L3890.6300, L500.4050, L100.0100 #### [facility] [address] [place], [address] Lymphocytes/100 WBC (Bld) 18.2 % Low 19-[address] [facility] Comment on above: Performed By: #### L 501.9520, L506.1000, L3890.6300, L500.4050, L100.0100 #### [facility] [address] [place], [address] MCH (RBC) [Entitic mass] 32.4 pg High 27.0-32.[address] [facility] Comment on above: Performed By: #### L 501.9520, L506.1000, L3890.6300, L500.4050, L100.0100 #### [facility] [address] [place], [address] MCHC (RBC) [Mass/Vol] 33.4 g/dL Normal 32-36 [facility] Comment on above: Performed By: #### L 501.9520, L506.1000, L3890.6300, L500.4050, L100.0100 #### [facility] [address] [place], [address] MCV (RBC) [Entitic vol] 96.9 fL High 80-[address] [facility] Comment on above: Performed By: #### L 501.9520, L506.1000, L3890.6300, L500.4050, L100.0100 #### [facility] [address] [place], [address] Monocytes/100 WBC (Bld) 14.2 % High 0-[address] [facility] Comment on above: Performed By: #### L 501.9520, L506.1000, L3890.6300, L500.4050, L100.0100 #### [facility] [address] [place], [address] Neutrophils/100 WBC (Bld) 62.0 % Normal 47-[address] [facility] Comment on above: Performed By: #### L 501.9520, L506.1000, L3890.6300, L500.4050, L100.0100 #### [facility] [address] [place], [address] Nucleated RBC (Bld) [#/Vol] 0 10*3/uL Normal 0-[address] [facility] Comment on above: Performed By: #### L 501.9520, L506.1000, L3890.6300, L500.4050, L100.0100 #### [facility] [address] [place], [address] Platelet mean volume (Bld) [Entitic vol] 10.3 fL Normal 6.2-12.[address] [facility] Comment on above: Performed By: #### L 501.9520, L506.1000, L3890.6300, L500.4050, L100.0100 #### [facility] [address] [place], [address] Platelets (Bld) [#/Vol] 210 10*3/uL Normal 150-[address] [facility] Comment on above: Performed By: #### L 501.9520, L506.1000, L3890.6300, L500.4050, L100.0100 #### [facility] [address] [place], [address] RBC (Bld) [#/Vol] 3.58 10*6/uL Low 4.6-6.2 [facility] Comment on above: Performed By: #### L 501.9520, L506.1000, L3890.6300, L500.4050, L100.0100 #### [facility] [address] [place], [address] RDW SD 44.2 fl High 35.1-43.[address] [facility] Comment on above: Performed By: #### L 501.9520, L506.1000, L3890.6300, L500.4050, L100.0100 #### [facility] [address] [place], [address] WBC (Bld) [#/Vol] 5.0 10*3/uL Normal 4.4-11.0 [facility] Comment on above: Performed By: #### L 501.9520, L506.1000, L3890.6300, L500.4050, L100.0100 #### [facility] [address] [place], [address] Comprehensive Metabolic Prof [facility] 04-06-2024 Albumin [Mass/Vol] 3.7 g/dL Normal 3.2-5.0 [facility] Comment on above: Performed By: #### L 501.9520, L506.1000, L3890.6300, L500.4050, L100.0100 #### [facility] [address] [place], [address] Albumin/Globulin [Mass ratio] 1.2 {ratio} Normal 0.9-2.[address] [facility] Comment on above: Performed By: #### L 501.9520, L506.1000, L3890.6300, L500.4050, L100.0100 #### [facility] [address] [place], [address] ALK P 79 U/L Normal 45-[address] [facility] Comment on above: Performed By: #### L 501.9520, L506.1000, L3890.6300, L500.4050, L100.0100 #### [facility] [address] [place], [address] ALT [Catalytic activity/Vol] 24 U/L Normal 16-[address] [facility] Comment on above: Performed By: #### L 501.9520, L506.1000, L3890.6300, L500.4050, L100.0100 #### [facility] [address] [place], [address] AST [Catalytic activity/Vol] 20 U/L Normal 15-[address] [facility] Comment on above: Performed By: #### L 501.9520, L506.1000, L3890.6300, L500.4050, L100.0100 #### [facility] [address] [place], [address] Bilirubin [Mass/Vol] 0.40 mg/dL Normal 0.20-1.00 [facility] Comment on above: Result Comment: For patients on eltrombopag therapy, use of Dimension [place] TBIL is not recommended. Performed By: #### L 501.9520, L506.1000, L3890.6300, L500.4050, L100.0100 #### [facility] [address] [place], [address] BUN/CRE 16.2 RATIO Normal 10-[address] [facility] Comment on above: Performed By: #### L 501.9520, L506.1000, L3890.6300, L500.4050, L100.0100 #### [facility] [address] [place], [address] CA,Total 9.6 mg/dL Normal 8.5-10.[address] [facility] Comment on above: Performed By: #### L 501.9520, L506.1000, L3890.6300, L500.4050, L100.0100 #### [facility] [address] [place], [address] Chloride [Moles/Vol] 110 mmol/L High 98-107 [facility] Comment on above: Performed By: #### L 501.9520, L506.1000, L3890.6300, L500.4050, L100.0100 #### [facility] [address] [place], [address] CO2 [Moles/Vol] 28.0 mmol/L Normal 21.0-32.[address] [facility] Comment on above: Performed By: #### L 501.9520, L506.1000, L3890.6300, L500.4050, L100.0100 #### [facility] [address] [place], [address] Creatinine [Mass/Vol] 1.54 mg/dL High 0.70-1.30 [facility] Comment on above: Result Comment: The validity of the calculated GFR GFRAA in patients over 70 years has not been determined. Clinical correlation is essential. Performed By: #### L 501.9520, L506.1000, L3890.6300, L500.4050, L100.0100 #### [facility] [address] [place], [address] EST GFR - AA 56 mL/min Low >[address] [facility] Comment on above: Result Comment: Afri can Welsh GFR Calc Performed By: #### L 501.9520, L506.1000, L3890.6300, L500.4050, L100.0100 #### [facility] [address] [place], [address] GAP 3 Low 5-[address] [facility] Comment on above: Performed By: #### L 501.9520, L506.1000, L3890.6300, L500.4050, L100.0100 #### [facility] [address] [place], [address] GFR/1.73 sq M.predicted among non-blacks MDRD (S/P/Bld) [Vol rate/Area] 46 mL/min/{1.73_m2} Low >[address] [facility] Comment on above: Result Comment: Non- GFR Calc Performed By: #### L 501.9520, L506.1000, L3890.6300, L500.4050, L100.0100 #### [facility] [address] [place], [address] Globulin (S) [Mass/Vol] 3.1 g/dL Normal 2.2-4.[address] [facility] Comment on above: Performed By: #### L 501.9520, L506.1000, L3890.6300, L500.4050, L100.0100 #### [facility] [address] [place], [address] Glucose [Mass/Vol] 112 mg/dL High 74-106 [facility] Comment on above: Result Comment: Fast ing Glucose result from 100 to 125 mg/dL suggests IMPAIRED HOMEOSTASIS per A.D.A. criteria. Performed By: #### L 501.9520, L506.1000, L3890.6300, L500.4050, L100.0100 #### [facility] [address] [place], [address] Potassium [Moles/Vol] 3.9 mmol/L Normal 3.5-5.1 [facility] Comment on above: Performed By: #### L 501.9520, L506.1000, L3890.6300, L500.4050, L100.0100 #### [facility] [address] [place], [address] Sodium [Moles/Vol] 140 mmol/L Normal 136-145 [facility] Comment on above: Performed By: #### L 501.9520, L506.1000, L3890.6300, L500.4050, L100.0100 #### [facility] [address] [place], [address] T PROT 6.8 g/dL Normal 6.4-8.[address] [facility] Comment on above: Performed By: #### L 501.9520, L506.1000, L3890.6300, L500.4050, L100.0100 #### [facility] [address] [place], [address] Urea nitrogen [Mass/Vol] 25 mg/dL High 7-[address] [facility] Comment on above: Performed By: #### L 501.9520, L506.1000, L3890.6300, L500.4050, L100.0100 #### [facility] [address] [place], [address] Hepatitis C Antibodyon 04-06 Hepatitis C AB Non-Reactive Normal Nonreactive [facility] Comment on above: Result Comment: Non Reactive: < 0.8 Equivocal: >/= 0.8 to < 1.0 Reactive: >/= 1.0 The CDC requires that a reactive/equivocal HCV antibody result be sent out for confirmation. HCV Quant by PCR testing. Performed By: #### L 501.9520, L506.1000, L3890.6300, L500.4050, L100.0100 #### [facility] [address] [place], [address] Thyroid Stim Hormone (TSH)on 04-06-2024 TSH 2.190 uIU/mL Normal 0.358-3.[address] [facility] Comment on above: Performed By: #### L 501.9520, L506.1000, L3890.6300, L500.4050, L100.0100 #### [facility] [address] [place], [address] Vitamin D,25 Hydroxyon 04-06 Vitamin D 25-OH 44.5 ng/mL Normal [facility] Comment on above: Result Comment: Nika min D 25(OH) Status Range Deficiency <20 ng/mL (50nmol/L) Insufficiency 20 - 30 ng/mL (50 - 75 nmol/L) Sufficiency 30 - 100 ng/mL (75 - 250 nmol/L) Toxicity >100 ng/mL (>250 nmol/L) Performed By: #### L 501.9520, L506.1000, L3890.6300, L500.4050, L100.0100 #### [facility] [address] [place], [address] ED NOTEon 10-24-2023 ED NOTE HNO ID: [id number] Author: BLU BETANCOURT RN Service: Emergency Medicine [...] anything else to help you? No Normal [facility] ED NOTE HNO ID: [id number] Author: FRANCINE COOPER RN Service: Nursing Author Type: Registered Nurse Type: ED Notes Filed: 10/24/2023 10:27 Note Text: Pt arrives with report of face pain which he describes as a toothache and I don't have any teeth in my mouth. Pt reports recent issue with nasal drainage that has gone from clear to yellow. Pt recently started on Loratadine 10mg Normal [facility] ED PROV NOTEon 10-24-2023 ED PROV NOTE HNO ID: [id number] Author: WILFREDO WELCH MD Service: Emergency Medicine Author Type: Physician Type: ED Provider Notes Filed: 10/24/2023 11:02 Note Text: ED Provider Note Patient Name: Nancy Price : 1940 SERVICE DATE: 10/24/23 History Patient presents with: Sinus Problem Presents the emergency department for concerns over sinus faction. Patient has been trying bjjw-lcz-fwsirzc medications, including Claritin, nasal spray, Flonase, for [...] / C (more content not included)... Normal [facility] CNOVon 10-16-2023 CNOV Office Visit (HAILEE JACKSON) -------- NANCY PRICE ([id number]) 1940 M DEF Date Time Provider Department 10/16/23 8:20 AM BRIA ARANA During your visit today, we recorded the following information about you: Temperature Pulse Respiration Blood pressure 98 degrees 52/minute 18/minute 122/62 Weight Height 74.8 kg 1.753 m Bria Arana, CHARGE OPERATOR.FIELD LABORER 10/16/2023 10:13 AM Signed CHIEF COMPLAINT: Nancy [...] Breath sound (more content not included)... Normal [facility] CTA Abdominal vessels and Pe [...] 5.3 x 5.4 cm in February 2022). Flume Ride Operator: [facility] Transcribe Date/Time: Sep 17 2023 2:30P Dictated by : JARAD LOMBARDO MD This examination was interpreted and the report reviewed and electronically signed by: JARAD LOMBARDO MD on Sep 17 2023 2:45PM [facility] DIVISION OF RADIOLOGY * * *Final Report* * * DATE OF EXAM: Sep 17 2023 2:00PM [facility] 0467 - CTA ABD/PELV WO/W IVCON / [...] spine is noted. DIVISION OF RADIOLOGY Provider, [facility] - 09/17/2023 * * *Final Report* * * DATE OF EXAM: Sep 17 2023 2:00PM [facility] 0467 - CTA ABD/PELV WO/W IVCON / [...] 5.3 x 5.4 cm in February 2022). Flume Ride Operator: [facility] Transcribe Date/Time: Sep 17 2023 2:30P Dictated by : JARAD LOMBARDO MD This examination was interpreted and the report reviewed and electronically signed by: JARAD LOMBARDO MD on Sep 17 2023 2:45PM EST [facility] Radiology Study observation (narrative) [facility] CTA Abdominal vessels and Pe lvis vessels WO and W contrast IVOrdered By: [facility] Provider on 09-17-2023 [facility] URIC ACID BLOODon 09-16-2022 Urate [Mass/Vol] 6.8 mg/dL 4.0 - 8.1 mg/dL [facility] CONFIRM BLOOD TYPEon 022 ABO A [facility] Rh Nom (Bld) Negative [facility] TSH BLDon 12-31-2021 TSH Qn 3.560 m[IU]/L 0.270 - 4.200 mIU/L [facility] Basic Panelon 11-26-2019 Anion gap [Moles/Vol] 7 mmol/L Low 9-18 [facility] Comment on above: Performed By: #### P 14 #### [facility] [address] [place], [place] [address] Calcium [Mass/Vol] 9.9 mg/dL Normal 8.5-10.2 [facility] Comment on above: Performed By: #### P 14 #### [facility] [address] [place], [place] [address] Chloride [Moles/Vol] 108 mmol/L High 97-105 [facility] Comment on above: Performed By: #### P 14 #### [facility] [address] [place], [place] [address] CO2 Blood 27 mmol/L Normal 22-30 [facility] Comment on above: Performed By: #### P 14 #### [facility] [address] [place], [place] [address] Creatinine [Mass/Vol] 1.42 mg/dL High 0.73-1.22 [facility] Comment on above: Performed By: #### P 14 #### [facility] [address] [place], [place] [address] Glucose [Mass/Vol] 99 mg/dL Normal 74-99 [facility] Comment on above: Result Comment: The [place] Diabetes Association (ADA) provides guidance for cutoff [...] Standards of Medical Care in Diabetes 2016; [employer] Diabetes [employer]. Diabetes Care. 2016;39(Suppl 1). Performed By: #### P 14 #### [facility] [address] [place] [address] Potassium [Moles/Vol] 4.4 mmol/L Normal 3.7-5.1 [facility] Comment on above: Performed By: #### P 14 #### [facility] [address] [place], [place] [address] Sodium [Moles/Vol] 142 mmol/L Normal 136-144 [facility] Comment on above: Performed By: #### P 14 #### [facility] [address] [place], [place] [address] Urea nitrogen [Mass/Vol] 24 mg/dL Normal 9-24 [facility] Comment on above: Performed By: #### P 14 #### [facility] [address] [place], [place] [address] Hemogramon 11-26-2019 Erythrocyte distribution width (RBC) [Ratio] 12.2 % Normal 11.5-15.9 [facility] Comment on above: Performed By: #### P 14 #### [facility] [address] [place], [place] [address] Hematocrit (Bld) [Volume fraction] 36.2 % Low 42.0-52.0 [facility] Comment on above: Performed By: #### P 14 #### [address] [address] Hemoglobin (Bld) [Mass/Vol] 11.9 g/dL Low 14.0-18.0 [facility] Comment on above: Performed By: #### P 14 #### [facility] [address] [place] [address] MCH (RBC) [Entitic mass] 32.7 pg High 27.0-31.0 [facility] Comment on above: Performed By: #### P 14 #### [facility] [address] [place] [address] MCHC (RBC) [Mass/Vol] 32.9 % Normal 32.0-36.0 [facility] Comment on above: Performed By: #### P 14 #### [facility] [address] [place] [address] MCV (RBC) [Entitic vol] 99.5 fL High 80.0-94.0 [facility] Comment on above: Performed By: #### P 14 #### [facility] [address] [place] [address] Platelet mean volume (Bld) [Entitic vol] 11.4 fL High 7.1-10.5 [facility] Comment on above: Performed By: #### P 14 #### [facility] [address] [place] [address] Platelets (Bld) [#/Vol] 141 thou/cmm Low 150-400 [facility] Comment on above: Performed By: #### P 14 #### [facility] [address] [place] [address] RBC (Bld) [#/Vol] 3.64 mil/cmm Low 4.60-6.20 [facility] Comment on above: Performed By: #### P 14 #### [facility] [address] [place] [address] WBC (Bld) [#/Vol] 4.2 thou/cmm Low 4.8-10.5 [facility] Comment on above: Performed By: #### P 14 #### [facility] [address] [place] [address] MDRD eGFRon 11-26-2019 GFR/1.73 sq M predicted among non-blacks MDRD (S/P/Bld) [Vol rate/Area] 51.14 mL/min/{1.73_m2} Normal >60mL/min/1.7 3m2 [facility] Comment on above: Result Comment: If t he patient is , multiply the result by 1.210. Performed By: #### P 14 #### [facility] [address] [place] [address] Basic Panelon 08-24-2019 Anion gap [Moles/Vol] 9 mmol/L Normal 9-18 [facility] Comment on above: Performed By: #### P 14 #### [facility] [address] [place] [address] Calcium [Mass/Vol] 9.7 mg/dL Normal 8.5-10.2 [facility] Comment on above: Performed By: #### P 14 #### [facility] [address] [place] [address] Chloride [Moles/Vol] 107 mmol/L High 97-105 [facility] Comment on above: Performed By: #### P 14 #### [facility] [address] [place] [address] CO2 Blood 27 mmol/L Normal 22-30 [facility] Comment on above: Performed By: #### P 14 #### [facility] [address] [place], [place] [address] Creatinine [Mass/Vol] 1.36 mg/dL High 0.73-1.22 [facility] Comment on above: Performed By: #### P 14 #### [facility] [address] [place] [id number] Glucose [Mass/Vol] 110 mg/dL High 74-99 [facility] Comment on above: Result Comment: The [place] Diabetes Association (ADA) provides guidance for cutoff [...] Standards of Medical Care in Diabetes 2016; [place] Diabetes Association. Diabetes Care. 2016;39(Suppl 1). Performed By: #### P 14 #### [facility] [address] [place], [place] [address] Potassium [Moles/Vol] 4.2 mmol/L Normal 3.7-5.1 [facility] Comment on above: Performed By: #### P 14 #### [facility] [address] [place], [place] [address] Sodium [Moles/Vol] 143 mmol/L Normal 136-144 [facility] Comment on above: Performed By: #### P 14 #### [facility] [address] [place] [address] Urea nitrogen [Mass/Vol] 22 mg/dL Normal 9-24 [facility] Comment on above: Performed By: #### P 14 #### [facility] [address] [place] [address] Hemogramon 08-24-2019 Erythrocyte distribution width (RBC) [Ratio] 12.1 % Normal 11.5-15.9 [facility] Comment on above: Performed By: #### P 14 #### [facility] [address] [place] [address] Hematocrit (Bld) [Volume fraction] 37.6 % Low 42.0-52.0 [facility] Comment on above: Performed By: #### P 14 #### [facility] [address] [place], [place] [address] Hemoglobin (Bld) [Mass/Vol] 12.4 g/dL Low 14.0-18.0 [facility] Comment on above: Performed By: #### P 14 #### [facility] [address] [place], [place] [address] MCH (RBC) [Entitic mass] 32.5 pg High 27.0-31.0 [facility] Comment on above: Performed By: #### P 14 #### [address] [address] MCHC (RBC) [Mass/Vol] 33.0 % Normal 32.0-36.0 [facility] Comment on above: Performed By: #### P 14 #### [facility] [address] [place] [address] MCV (RBC) [Entitic vol] 98.7 fL High 80.0-94.0 [facility] Comment on above: Performed By: #### P 14 #### [facility] [address] [place] [address] Platelet mean volume (Bld) [Entitic vol] 11.1 fL High 7.1-10.5 [facility] Comment on above: Performed By: #### P 14 #### [place] [address] Platelets (Bld) [#/Vol] 151 thou/cmm Normal 150-400 [facility] Comment on above: Performed By: #### P 14 #### [place] [address] RBC (Bld) [#/Vol] 3.81 mil/cmm Low 4.60-6.20 [facility] Comment on above: Performed By: #### P 14 #### [place] [address] WBC (Bld) [#/Vol] 4.0 thou/cmm Low 4.8-10.5 [facility] Comment on above: Performed By: #### P 14 #### [place] [address] Basic Panelon 04-12-2019 Creatinine [Mass/Vol] 1.31 mg/dL High 0.67-1.17 [facility] Comment on above: Performed By: #### P 14 #### [place] [address] Anion gap [Moles/Vol] 8 mmol/L Normal 8-16 [facility] Comment on above: Performed By: #### P 14 #### [facility] [address] [place], [place] [address] Calcium [Mass/Vol] 9.4 mg/dL Normal 8.5-10.1 [facility] Comment on above: Performed By: #### P 14 #### [facility] [address] [place], [place] [address] CO2 [Moles/Vol] 28 mmol/L Normal 21-32 [facility] Comment on above: Performed By: #### P 14 #### [facility] [address] [place], [place] [address] Glucose [Mass/Vol] 92 mg/dL Normal 70-99 [facility] Comment on above: Performed By: #### P 14 #### [facility] [address] [place], [place] [address] Urea nitrogen [Mass/Vol] 23 mg/dL High 7-18 [facility] Comment on above: Performed By: #### P 14 #### [facility] [address] [place], [place] [address] Chloride [Moles/Vol] 111 mmol/L High 98-107 [facility] Comment on above: Performed By: #### P 14 #### [facility] [address] [place], [place] [address] Potassium [Moles/Vol] 4.8 mmol/L Normal 3.5-5.1 [facility] Comment on above: Performed By: #### P 14 #### [facility] [address] [place], [place] [address] Sodium [Moles/Vol] 142 mmol/L Normal 136-145 [facility] Comment on above: Performed By: #### P 14 #### [facility] [address] [place], [place] [address] Hemogramon 04-12-2019 Erythrocyte distribution width (RBC) [Ratio] 12.0 % Normal 11.5-15.9 [facility] Comment on above: Performed By: #### P 14 #### [facility] [address] [place], [place] [address] Hematocrit (Bld) [Volume fraction] 33.9 % Low 42.0-52.0 [facility] Comment on above: Performed By: #### P 14 #### [facility] [address] [place] [address] Hemoglobin (Bld) [Mass/Vol] 11.3 g/dL Low 14.0-18.0 [facility] Comment on above: Performed By: #### P 14 #### [facility] [address] [place] [address] MCH (RBC) [Entitic mass] 32.5 pg High 27.0-31.0 [facility] Comment on above: Performed By: #### P 14 #### [facility] [address] [place] [address] MCHC (RBC) [Mass/Vol] 33.3 % Normal 32.0-36.0 [facility] Comment on above: Performed By: #### P 14 #### [place] [address] MCV (RBC) [Entitic vol] 97.4 fL High 80.0-94.0 [facility] Comment on above: Performed By: #### P 14 #### [place] [address] Platelet mean volume (Bld) [Entitic vol] 10.2 fL Normal 7.1-10.5 [facility] Comment on above: Performed By: #### P 14 #### [place] [address] Platelets (Bld) [#/Vol] 165 thou/cmm Normal 150-400 [facility] Comment on above: Performed By: #### P 14 #### [facility] [address] [place] [address] RBC (Bld) [#/Vol] 3.48 mil/cmm Low 4.60-6.20 [facility] Comment on above: Performed By: #### P 14 #### [facility] [address] [place] [address] WBC (Bld) [#/Vol] 3.6 thou/cmm Low 4.8-10.5 [facility] Comment on above: Performed By: #### P 14 #### [place] [address] MDRD GFRon 04-12-2019 GFR/1.73 sq M predicted among non-blacks MDRD (S/P/Bld) [Vol rate/Area] 52.90 mL/min/{1.73_m2} Normal >60mL/min/1.7 3m2 [facility] Comment on above: Result Comment: If t he patient is , multiply the result by 1.210. Performed By: #### P 14 #### [place] [address] PTH, Intacton 02-09-2019 PTH, Intact 68.3 pg/mL Normal 18.5-88.0 [facility] Comment on above: Performed By: #### P 14 #### [place] [address] Total 25-OH Vitamin Don 01-29 Total 25-OH Vitamin D 48.0 ng/mL Normal 30.0-100.0 [facility] Comment on above: Performed By: #### 2 5VD1 #### [place] [address] MDRD GFRon 02-08-2019 GFR/1.73 sq M predicted among non-blacks MDRD (S/P/Bld) [Vol rate/Area] 47.45 mL/min/{1.73_m2} Normal >60mL/min/1.7 2 [facility] Comment on above: Result Comment: If t he patient is , multiply the result by 1.210. Performed By: #### G FR #### [place] [address] Microalb/Creat, Randomon MA/Creat Ratio 4.14 mg/g Normal 0.10-30.00 [facility] Comment on above: Performed By: #### M ALBR #### [place] [address] Microalbumin,Random 0.55 mg/dL Normal 0.20-2.50 [facility] Comment on above: Performed By: #### M ALBR #### [place] [address] Creatinine,Urine 133.0 mg/dL Normal [facility] Comment on above: Performed By: #### M ALBR #### [facility] [address] [place], [place] [address] Renal Panelon 02-08-2019 Phosphate [Mass/Vol] 2.8 mg/dL Normal 2.5-4.9 [facility] Comment on above: Performed By: #### R ENAL #### [facility] [address] [place], [place] [address] Creatinine [Mass/Vol] 1.44 mg/dL High 0.67-1.17 [facility] Comment on above: Performed By: #### R ENAL #### [address] [address] Albumin [Mass/Vol] 3.5 g/dL Normal 3.4-5.0 [facility] Comment on above: Performed By: #### R ENAL #### [place] [address] Anion gap [Moles/Vol] 9 mmol/L Normal 8-16 [facility] Comment on above: Performed By: #### R ENAL #### [place] [address] CO2 [Moles/Vol] 26 mmol/L Normal 21-32 [facility] Comment on above: Performed By: #### R ENAL #### [address] [address] Glucose [Mass/Vol] 95 mg/dL Normal 70-99 [facility] Comment on above: Performed By: #### R ENAL #### [facility] [address] [place], [place] [address] Urea nitrogen [Mass/Vol] 25 mg/dL High 7-18 [facility] Comment on above: Performed By: #### R ENAL #### [place] [address] Calcium [Mass/Vol] 9.3 mg/dL Normal 8.5-10.1 [facility] Comment on above: Performed By: #### R ENAL #### [address] [place], [place] [address] Chloride [Moles/Vol] 109 mmol/L High 98-107 [facility] Comment on above: Performed By: #### R ENAL #### [facility] [address] [place] [address] Potassium [Moles/Vol] 4.1 mmol/L Normal 3.5-5.1 [facility] Comment on above: Performed By: #### R ENAL #### [facility] [address] [place] [address] Sodium [Moles/Vol] 140 mmol/L Normal 136-145 [facility] Comment on above: Performed By: #### R ENAL #### [facility] [address] [place] [address] Urinalysis Routineon 019 Appearance (U) CLEAR Normal [facility] Comment on above: Performed By: #### L URIN #### [place] [address] Bilirubin Urine Negative Normal Negative [facility] Comment on above: Performed By: #### L URIN #### [place] [address] Color (U) YELLOW Normal [facility] Comment on above: Performed By: #### L URIN #### [place] [address] Ep Cells Urine NONE Normal 0-5 [facility] Comment on above: Performed By: #### L URIN #### [place] [address] Glucose Ql (U) Negative Normal Negative [facility] Comment on above: Performed By: #### L URIN #### [place] [address] Hemoglobin,Urine Negative Normal Negative [facility] Comment on above: Performed By: #### L URIN #### [place] [address] Ketone Urine Negative Normal Negative [facility] Comment on above: Performed By: #### L URIN #### [address], [place] [address] Leukocytes Esterase Negative Normal Negative [facility] Comment on above: Performed By: #### L URIN #### [place] [address] Mucus Threads FEW Normal None [facility] Comment on above: Performed By: #### L URIN #### [place] [address] Nitrites Urine Negative Normal Negative [facility] Comment on above: Performed By: #### L URIN #### [place] [address] pH (U) 5.5 [pH] Normal 5.0-8.0 [facility] Comment on above: Performed By: #### L URIN #### [place] [address] Protein (U) [Mass/Vol] Negative Normal Negative [facility] Comment on above: Performed By: #### L URIN #### [place] [address] RBC LM.HPF (Urine sed) [#/Area] NONE Normal 0-3 [facility] Comment on above: Performed By: #### L URIN #### [place] [address] Specific [place], Ur 1.015 Normal 1.005-1.030 [facility] Comment on above: Performed By: #### L URIN #### [place] [address] Urobilinogen,Ur 0.2 EU/dL Normal 0.2-1.0 [facility] Comment on above: Performed By: #### L URIN #### [place] [address] WBC LM.HPF (Urine sed) [#/Area] NONE Normal 0-5 [facility] Comment on above: Performed By: #### L URIN #### [place] [address] CT CHEST WO IVCONon 01-12-[address] CHEST WO IVCON * * *Final Report* * * DATE OF EXAM: Jan 11 2019 1:16PM [facility] 0541 - CT CHEST WO IVCON [...] pleural effusion. 3. Diffuse coronary artery calcifications. Flume Ride Operator: LEONIDAS Transcribe Date/Time: Jan 12 2019 12:10P Dictated by : MYRA BRITO MD This examination was interpreted and the report reviewed and electronically signed by: MYRA BRITO MD on Jan 12 2019 12:25PM EST Normal [facility] Comprehensive Panelon 2018 ALP [Catalytic activity/Vol] 78 U/L Normal 45-117 [facility] Comment on above: Performed By: #### P 14 #### [facility] [address] [place], [place] [address] Bilirubin [Mass/Vol] 0.5 mg/dL Normal 0.2-1.0 [facility] Comment on above: Performed By: #### P 14 #### [facility] [address] [place], [place] [address] Protein [Mass/Vol] 6.7 g/dL Normal 6.4-8.2 [facility] Comment on above: Performed By: #### P 14 #### [facility] [address] [place], [place] [address] ALT [Catalytic activity/Vol] 23 U/L Normal 12-78 [facility] Comment on above: Performed By: #### P 14 #### [facility] [address] [place], [place] [address] AST [Catalytic activity/Vol] 22 U/L Normal 15-37 [facility] Comment on above: Performed By: #### P 14 #### [facility] [address] [place], [place] [address] Creatinine [Mass/Vol] 1.36 mg/dL High 0.67-1.17 [facility] Comment on above: Performed By: #### P 14 #### [facility] [address] [place], [place] [address] Anion gap [Moles/Vol] 9 mmol/L Normal 8-16 [facility] Comment on above: Performed By: #### P 14 #### [facility] [address] [place], [place] [address] CO2 [Moles/Vol] 27 mmol/L Normal 21-32 [facility] Comment on above: Performed By: #### P 14 #### [facility] [address] [place], [place] [address] Albumin [Mass/Vol] 3.6 g/dL Normal 3.4-5.0 [facility] Comment on above: Performed By: #### P 14 #### [facility] [address] [place], [place] [address] Calcium [Mass/Vol] 9.3 mg/dL Normal 8.5-10.1 [facility] Comment on above: Performed By: #### P 14 #### [facility] [address] [place], [place] [address] Glucose [Mass/Vol] 96 mg/dL Normal 70-99 [facility] Comment on above: Performed By: #### P 14 #### [facility] [address] [place], [place] [address] Urea nitrogen [Mass/Vol] 23 mg/dL High 7-18 [facility] Comment on above: Performed By: #### P 14 #### [facility] [address] [place], [place] [address] Chloride [Moles/Vol] 110 mmol/L High 98-107 [facility] Comment on above: Performed By: #### P 14 #### [facility] [address] [place], [place] [address] Potassium [Moles/Vol] 4.4 mmol/L Normal 3.5-5.1 [facility] Comment on above: Performed By: #### P 14 #### [facility] [address] [place], [place] [address] Sodium [Moles/Vol] 142 mmol/L Normal 136-145 [facility] Comment on above: Performed By: #### P 14 #### [facility] [address] [place], [place] [address] Hemogramon 01-04-2019 Erythrocyte distribution width (RBC) [Ratio] 12.5 % Normal 11.5-15.9 [facility] Comment on above: Performed By: #### L CBC #### [facility] [address] [place], [place] [address] Hematocrit (Bld) [Volume fraction] 35.1 % Low 42.0-52.0 [facility] Comment on above: Performed By: #### L CBC #### [facility] [address] [place], [place] [address] Hemoglobin (Bld) [Mass/Vol] 11.7 g/dL Low 14.0-18.0 [facility] Comment on above: Performed By: #### L CBC #### [facility] [address] [place], [place] [address] MCH (RBC) [Entitic mass] 33.1 pg High 27.0-31.0 [facility] Comment on above: Performed By: #### L CBC #### [facility] [address] [place], [place] [address] MCHC (RBC) [Mass/Vol] 33.3 % Normal 32.0-36.0 [facility] Comment on above: Performed By: #### L CBC #### [facility] [address] [place] [address] MCV (RBC) [Entitic vol] 99.2 fL High 80.0-94.0 [facility] Comment on above: Performed By: #### L CBC #### [facility] [address] [place] [address] Platelet mean volume (Bld) [Entitic vol] 11.1 fL High 7.1-10.5 [facility] Comment on above: Performed By: #### L CBC #### [facility] [address] [place] [address] Platelets (Bld) [#/Vol] 158 thou/cmm Normal 150-400 [facility] Comment on above: Performed By: #### L CBC #### [facility] [address] [place] [address] RBC (Bld) [#/Vol] 3.54 mil/cmm Low 4.60-6.20 [facility] Comment on above: Performed By: #### L CBC #### [facility] [address] [place] [address] WBC (Bld) [#/Vol] 3.3 thou/cmm Low 4.8-10.5 [facility] Comment on above: Performed By: #### L CBC #### [facility] [address] [place] [address] MDRD GFRon 01-04-2019 GFR/1.73 sq M predicted among non-blacks MDRD (S/P/Bld) [Vol rate/Area] 50.70 mL/min/{1.73_m2} Normal >60mL/min/1.7 3m2 [facility] Comment on above: Result Comment: If t he patient is , multiply the result by 1.210. Performed By: #### G FR #### [facility] [address] [place] [address] Vitamin B12on 01-04-2019 Cobalamin (Vitamin B12) [Mass/Vol] 371 pg/mL Normal 193-986 [facility] Comment on above: Performed By: #### B 12 #### [facility] [address] [place] [address] CNCOon 06-02-2018 CNCO Letter Text Normal [facility] Basic Metabolic Panlon 05-28 Anion gap molar conc 10 mmol/L Normal 9-18 [facility] Comment on above: Performed By: #### T SH #### [facility] [address] [place] [address] Calcium mass conc 9.0 mg/dL Normal 8.5-10.2 [facility] Comment on above: Performed By: #### T SH #### [facility] [address] [place] [address] Chloride molar conc 110 mmol/L High 97-105 [facility] Comment on above: Performed By: #### T SH #### [facility] [address] [place] [address] CO2 molar conc 21 mmol/L Low 22-30 [facility] Comment on above: Performed By: #### T SH #### [facility] [address] [place] [address] Creatinine mass conc 1.17 mg/dL Normal 0.73-1.22 [facility] Comment on above: Performed By: #### T SH #### [facility] [address] [place] [address] eGFR- Amer. >60 Normal [facility] Comment on above: Performed By: #### T SH #### [facility] [address] [place] [address] GFR/1.73 sq M predicted among non-blacks MDRD vol rate/area (S/P/Bld) mL/min/{1.73_m2} Normal [facility] Comment on above: Result Comment: eGFR [...] GFR. Performed By: #### T SH #### [facility] [address] Glucose mass conc 106 mg/dL High 74-99 [facility] Comment on above: Result Comment: The [employer] Diabetes [employer] (ADA) provides guidance for cutoff [...] Standards of Medical Care in Diabetes 2016, [place] [employer]. Diabetes Care. 2016.39(Suppl 1). Performed By: #### T SH #### [facility] [address] [place], [place] [id number] Potassium molar conc 3.8 mmol/L Normal 3.7-5.1 [facility] Comment on above: Performed By: #### T SH #### [facility] [address] [place] [id number] Sodium molar conc 141 mmol/L Normal 136-144 [facility] Comment on above: Performed By: #### T SH #### [facility] [address] Urea nitrogen mass conc 22 mg/dL Normal 9-24 [facility] Comment on above: Performed By: #### T SH #### [facility] [address] CASE MANAGEMon 05-28-2018 CASE MANAGEM HNO ID: [id number] Author: Cami (Rn) Brittany RN Service: Care [...] Cordova DO? PCP - General Family Practice [phone] [place] [address] [place] [address] TRANSPORTATION ARRANGEMENTS: Car via ADDITIONAL CONTACT RESOURCES: Tanisha Price ([facility] [place]) [phone] (D) Discharge Information Row Name Admission (Current) from 05/25/2018 in [facility] Observation Medical Follow-Up Appointment Specialty PCP Provider Name Shannon Cordova DO Address [address] [place], [place] [id number] Appointment Date 06/04/18 Appointment Time 2:05PM Additonal [...] 28, 2018 TIME: 10:13 AM PAGER/CONTACT #: [phone] Normal [facility] CBCon 05-28-2018 Erythrocyte distribution width Ratio (RBC) 12.5 % Normal 11.5-15.0 [facility] Comment on above: Performed By: #### T SH #### [facility] [address] [place] [address] Hematocrit Volume Fraction (Bld) 30.5 % Low 39.0-51.0 [facility] Comment on above: Performed By: #### T SH #### [facility] [address] [place] [address] Hemoglobin mass conc (Bld) 10.0 g/dL Low 13.0-17.0 [facility] Comment on above: Performed By: #### T SH #### [facility] [address] [place] [address] MCH Entitic mass (RBC) 31.6 pG Normal 26.0-34.0 [facility] [facility] Comment on above: Performed By: #### T SH #### [facility] [address] [address] MCHC mass conc (RBC) 32.8 g/dL Normal 30.5-36.0 [facility] Comment on above: Performed By: #### T SH #### [facility] [address] [place] [address] MCV Entitic volume (RBC) 96.5 fL Normal 80.0-100.0 [facility] Comment on above: Performed By: #### T SH #### [facility] [address] [place] [address] Platelet mean volume Entitic volume (Bld) 11.6 fL Normal 9.0-12.7 [facility] Comment on above: Performed By: #### T SH #### [facility] [address] [place] [address] Platelets #/vol (Bld) 91 10*3/uL Low 150-400 [facility] Comment on above: Performed By: #### T SH #### [facility] [address] [place] [address] RBC #/vol (Bld) 3.16 10*6/uL Low 4.20-6.00 [facility] Comment on above: Performed By: #### T SH #### [facility] [address] [place] [address] WBC #/vol (Bld) 3.46 10*3/uL Low 3.70-11.00 [facility] Comment on above: Performed By: #### T SH #### [facility] [address] [place] [address] Magnesiumon 05-28-2018 Magnesium mass conc 1.9 mg/dL Normal 1.7-2.3 [facility] Comment on above: Performed By: #### T #### [facility] [address] [facility] [phone] NURSING PROGon 05-28-2018 Protein mass conc HNO ID: [id number] Author: Romulo Bower) ANNA Munoz Service: (none) Author Type: Registered Nurse Type: Nursing Progress Note Filed: 05/28/2018 10:11 AM Note Text: Nursing Progress Note Patient Name: Nancy Price Patient Location: [place] [address] [address] Daily Note: Dr Hernandez vs-discharge written. HL removed intact 1005-Discharge instructions reviewed with patient AND spouse with adequate knowledge-home meds returned 1020-Off floor via w/c This note was completed by: Romulo Munoz RN [facility] THERAPY NTon 05-28-2018 THERAPY NT HNO ID: [id number] Author: Ct Blake Service: Occupational Therapy Author Type: Occupational Therapist Type: Therapy (PT/OT/Speech/Resp) Filed: 05/28/2018 9:57 AM Note Text: OCCUPATIONAL THERAPY MISSED VISIT SERVICE DATE: 05/28/2018 SERVICE TIME: 947 to 950 ROOM: [place] [address] Attempted Evaluation. Patient with active discharge orders. [...] DATE: May 28, 2018 TIME: 9:55 AM [facility] Basic Metabolic Panlon 05-27 Anion gap molar conc 7 mmol/L Low 12-16 [facility] Comment on above: Performed By: #### T NT #### [facility] [address] [phone] Calcium mass conc 8.6 mg/dL Normal 8.5-10.2 [facility] Comment on above: Performed By: #### T NT #### [facility] [address] [address] Chloride molar conc 108 mmol/L High 97-105 [facility] Comment on above: Performed By: #### T NT #### [facility] [address] [address] CO2 molar conc 24 mmol/L Normal 22-30 [facility] Comment on above: Performed By: #### T NT #### [facility] [address] [address] Creatinine mass conc 1.29 mg/dL High 0.73-1.22 [facility] Comment on above: Performed By: #### T NT #### [facility] [address] [address] eGFR- Amer. >60 Normal [facility] Comment on above: Performed By: #### T NT #### [facility] [address] [address] GFR/1.73 sq M predicted among non-blacks MDRD vol rate/area (S/P/Bld) 54 . Normal [facility] Comment on above: Result Comment: eGFR [...] GFR. Performed By: #### T NT #### [facility] [address] [phone] Glucose mass conc 119 mg/dL High 74-99 [facility] Comment on above: Result Comment: The [place] Diabetes Association (ADA) provides guidance for cutoff [...] Standards of Medical Care in Diabetes 2016, [place] [employer]. Diabetes Care. 2016.39(Suppl 1). Performed By: #### T NT #### [facility] [address] [address] Potassium molar conc 3.7 mmol/L Normal 3.7-5.1 [facility] Comment on above: Performed By: #### T NT #### [facility] [address] [address] Sodium molar conc 139 mmol/L Normal 136-144 [facility] Comment on above: Performed By: #### T NT #### [facility] [address] [address] Urea nitrogen mass conc 20 mg/dL Normal 9-24 [facility] Comment on above: Performed By: #### T NT #### [facility] [address] [place] [address] CASE MANAGEMon 05-27-2018 CASE MANAGEM HNO ID: [id number] Author: Vannesa Schmidt (Sw) Service: (none) Author Type: Tester Operator Type: Care Mgt Progress Note Filed: 05/27/2018 [...] 27, 2018 TIME: 4:02 PM PAGER/CONTACT #: [phone] Normal [facility] CBCon 05-27-2018 Erythrocyte distribution width Ratio (RBC) 12.8 % Normal 11.5-15.0 [facility] Comment on above: Performed By: #### T NT #### [facility] [address] [address] Hematocrit Volume Fraction (Bld) 32.5 % Low 39.0-51.0 [facility] Comment on above: Performed By: #### T NT #### [facility] [address] [address] Hemoglobin mass conc (Bld) 10.7 g/dL Low 13.0-17.0 [facility] Comment on above: Performed By: #### T NT #### [facility] [address] [address] MCH Entitic mass (RBC) 31.9 pG Normal 26.0-34.0 [facility] Comment on above: Performed By: #### T NT #### [facility] [address] [address] MCHC mass conc (RBC) 32.9 g/dL Normal 30.5-36.0 [facility] Comment on above: Performed By: #### T NT #### [facility] [address] [place] [address] MCV Entitic volume (RBC) 97.0 fL Normal 80.0-100.0 [facility] Comment on above: Performed By: #### T NT #### [facility] [address] [place] [address] Platelet mean volume Entitic volume (Bld) 11.3 fL Normal 9.0-12.7 [facility] Comment on above: Performed By: #### T NT #### [facility] [address] [place] [address] Platelets #/vol (Bld) 93 10*3/uL Low 150-400 [facility] Comment on above: Performed By: #### T NT #### [facility] [address] [place] [address] RBC #/vol (Bld) 3.35 10*6/uL Low 4.20-6.00 [facility] Comment on above: Performed By: #### T NT #### [facility] [address] [place] [address] WBC #/vol (Bld) 3.45 10*3/uL Low 3.70-11.00 [facility] Comment on above: Performed By: #### T NT #### [facility] [address] [facility] [phone] Magnesiumon 05-27-2018 Magnesium mass conc 1.9 mg/dL Normal 1.7-2.3 [facility] Comment on above: Performed By: #### T NT #### [facility] [address] [facility] [phone] NURSING PROGon 05-27-2018 Protein mass conc HNO ID: [id number] Author: Romulo WileyRn) Alexander, ANNA Service: (none) Author Type: Registered Nurse Type: Nursing Progress Note Filed: 05/27/2018 5:17 PM Note Text: Nursing Progress Note Patient Name: Nancy Price Patient Location: [place] [address]/[id number] Daily Note: Isolation maintained for + Flu-denies [...] maintained. Patient resting in bed-hospitalist paged x2. 9421-Patients status changed to INPATIENT This note was completed by: Romulo Munoz RN Normal [facility] Protein mass conc HNO ID: [id number] Author: Alexandra WileyRn) ANNA Pereyra Service: (none) Author Type: Registered Nurse Type: Nursing Progress Note Filed: 05/27/2018 5:54 AM Note Text: Nursing Progress Note Patient Name: Nancy Price [place] [facility] [id number] Daily Note: 1900 resting without c/o's dizziness, [...] note was completed by: Alexandra Pereyra RN [facility] PROGRESSon 05-27-2018 Protein mass conc HNO ID: [id number] Author: Maren Hernandez Service: Hospital Medicine Author Type: Physician Type: Progress Notes Filed: 05/27/2018 3:07 PM Note Text: SERVICE DATE: 05/27/2018 SERVICE TIME: 3:07 PM HOSPITAL MEDICINE PROGRESS NOTE NIGHT AND WEEKEND COVERAGE: Nights: Please contact pager [phone]. SUBJECTIVE Patient seen and examined. Feeling worse [...] kidney disease) stage 3, GFR 30-59 ml/min ([facility]) 07/08/2017 - Present Current Assessment AND Plan Assessment: Renal function stable, possibly secondary to dehydration. PLAN: -IV hydration -BMP daily Medication and Non-Pharmacologic VTE Prophylaxis/Anticoagulan ts 05/25/18 1530 pneumatic compression stockings (nc,oh) VTE Prophylaxis: VTE prophylaxis appropriate Plan of care discussed with: Patient and RN SIGNATURE: Maren Hernandez MD PATIENT NAME: Nancy Price DATE: May 27, 2018 TIME: 3:07 PM PAGER/CONTACT #: [facility] THERAPY NTon 05-27-2018 THERAPY NT HNO ID: [id number] Author: Nicole (Pt) Dana Service: Physical Therapy Author Type: Physical Therapist Type: Therapy (PT/OT/Speech/Resp) Filed: 05/27/2018 4:24 PM Note Text: Physical Therapy Evaluation SERVICE DATE: 05/27/2018 SERVICE TIME: 929 to 958 ROOM: [place] [address] Recommended Discharge Disposition: Home Recommended Discharge Disposition [...] Diagnosis: Reduced mobility-other Interventions Provided: Evaluation;Therapeutic Activity (09965);Gait Training (02770) $ Evaluation-Low (96614) Billed Units: 1 unit Therapeutic Activity (54431) Treatment Minutes: 10 1 unit Skilled Intervention(s): [...] IADL's Education regarding activity dosing. Gait Training (98519) Treatment Minutes: 4 0 units Skilled Intervention(s): [...] tub Laundry: main level laundry Equipment Owned: [employer] Bars-Shower;Shower Chair Prior Functional Level: Within Functional [...] DATE: May 27, 2018 TIME: 4:18 PM [facility] Basic Metabolic Panlon 02-26 -2019 Anion gap molar conc 7 mmol/L Low 9-18 [facility] Comment on above: Performed By: #### C BC, BMP, MG1 #### [facility] [address] [address] Calcium mass conc 9.0 mg/dL Normal 8.5-10.2 [facility] Comment on above: Performed By: #### C BC, BMP, MG1 #### [facility] [address] [address] Chloride molar conc 103 mmol/L Normal 97-105 [facility] Comment on above: Performed By: #### C BC, BMP, MG1 #### [facility] [address] [address] CO2 molar conc 24 mmol/L Normal 22-30 [facility] Comment on above: Performed By: #### C BC, BMP, MG1 #### [facility] [address] [address] Creatinine mass conc 1.58 mg/dL High 0.73-1.22 [facility] Comment on above: Performed By: #### C BC, BMP, MG1 #### [facility] [address] [address] eGFR- Amer. 52 Normal [facility] Comment on above: Performed By: #### C BC, BMP, MG1 #### [facility] [address] [place] [address] GFR/1.73 sq M predicted among non-blacks MDRD vol rate/area (S/P/Bld) 43 . Normal [facility] Comment on above: Result Comment: eGFR [...] By: #### C BC, BMP, MG1 #### [facility] [address] [address] Glucose mass conc 100 mg/dL High 74-99 [facility] Comment on above: Result Comment: The [place] Diabetes Association (ADA) provides guidance for cutoff [...] Standards of Medical Care in Diabetes 2016, [place] [employer]. Diabetes Care. 2016.39(Suppl 1). Performed By: #### C BROOK NEWMAN, MG1 #### [facility] [address] [place] [address] Potassium molar conc 3.9 mmol/L Normal 3.7-5.1 [facility] Comment on above: Performed By: #### C PATY BMP, MG1 #### [facility] [address] [place] [address] Sodium molar conc 134 mmol/L Low 136-144 [facility] Comment on above: Performed By: #### C BC, BMP, MG1 #### [facility] [address] [place], [place] [phone] Urea nitrogen mass conc 33 mg/dL High 9-24 [facility] Comment on above: Performed By: #### C PATY BMP, MG1 #### [facility] [address] [place] [address] CASE MGT INIT DIEGOESon 2018 CASE MGT INIT ASSEL HNO ID: [id number] Author: Vannesa Schmidt (Sw) Service: (none) Author Type: Tester Operator Type: Care Mgt Initial Assessment Filed: 05/26/2018 11:55 AM Note Text: CARE MANAGEMENT: ASSESSMENT AND DISCHARGE PLAN SERVICE DATE: 05/26/2018 SERVICE TIME: 11:30am PRIMARY CARE PHYSICIAN: Shannon Cordova DO - confirmed with patient ADMISSION STATUS: Observation Needs Prior to Discharge: None MEDICAL: Patient/Customer Experience Consultant Stated Goals: To have reduction in symptoms To return home to life as it was Health Insurance: [employer] [facility] [place] [facility] None Health Issues Impacting Discharge Plan: Positive Flu B, COPD, CKD stage 3 Last Admission Date: Previous admit date: 08/23/2016 Is this Within the Past 30 days? No Advance Directive: Current Advance Directive: Health Care Power of Bicycle Subassembler;Living Will In Chart: No Experimental Box Tester Attempted to Assist with AD Completion: Yes [...] None Has the Patient Been in a Alf Facility in the Past 30 days? No [...] 0 I feel financially burdened by my sho-th-mhfkar expenses for my prescription medication: Disagree completely [...] 26, 2018 TIME: 11:45 AM PAGER/CONTACT #: [phone] Normal [facility] CBCon 05-26-2018 Erythrocyte distribution width Ratio (RBC) 12.9 % Normal 11.5-15.0 [facility] Comment on above: Performed By: #### C BROOK NEWMAN, MG1 #### [facility] [address] [address] Hematocrit Volume Fraction (Bld) 34.7 % Low 39.0-51.0 [facility] Comment on above: Performed By: #### C BROOK NEWMAN, MG1 #### [facility] [address] [place] [address] Hemoglobin mass conc (Bld) 11.4 g/dL Low 13.0-17.0 [facility] Comment on above: Performed By: #### C PATY BMP, MG1 #### [facility] [address] [place], [place] [phone] MCH Entitic mass (RBC) 32.0 pG Normal 26.0-34.0 [facility] Comment on above: Performed By: #### C PATY BMP, MG1 #### [facility] [address] [place] [address] MCHC mass conc (RBC) 32.9 g/dL Normal 30.5-36.0 [facility] Comment on above: Performed By: #### C PATY BMP, MG1 #### [facility] [address] [place], [place] [phone] MCV Entitic volume (RBC) 97.5 fL Normal 80.0-100.0 [facility] Comment on above: Performed By: #### C PATY BMP, MG1 #### [facility] [address] [place], [place] [phone] Platelet mean volume Entitic volume (Bld) 11.5 fL Normal 9.0-12.7 [facility] Comment on above: Performed By: #### C PATY BMP, MG1 #### [facility] [address] [place], [place] [phone] Platelets #/vol (Bld) 83 10*3/uL Low 150-400 [facility] Comment on above: Performed By: #### C BROOK NEWMAN, MG1 #### [facility] [address] [place], [place] [phone] RBC #/vol (Bld) 3.56 10*6/uL Low 4.20-6.00 [facility] Comment on above: Performed By: #### C BROOK NEWMAN, MG1 #### [facility] [address] [place], [place] [address] WBC #/vol (Bld) 4.28 10*3/uL Normal 3.70-11.00 [facility] Comment on above: Performed By: #### BROOK GARCIA MG1 #### [facility] [address] [place], [place] [address] Magnesiumon 05-26-2018 Magnesium mass conc 2.0 mg/dL Normal 1.7-2.3 [facility] Comment on above: Performed By: #### BROOK GARCIA, MG1 #### [facility] [address] [place], [place] [phone] NURSING PROGon 05-26-2018 Protein mass conc HNO ID: [id number] Author: Мария (Rn) ANNA Fuller Service: (none) Author Type: Registered Nurse Type: Nursing Progress Note Filed: 05/26/2018 5:59 PM Note Text: Nursing Progress Note Patient Name: Nancy Price Patient Location: [place] [id number] Daily Note: 0700: Assumed care of pt. [...] note was completed by: Мария Fuller RN [facility] Protein mass conc HNO ID: [id number] Author: Alexandra WileyRn) ANNA Pereyra Service: (none) Author Type: Registered Nurse Type: Nursing Progress Note Filed: 05/26/2018 4:52 AM Note Text: Nursing Progress Note Patient Name: Nancy Price Patient Location: [place] [id number] Daily Note: 1900 assumed care of pt [...] note was completed by: Alexandra Pereyra RN [facility] PROGRESSon 05-26-2018 Protein mass conc HNO ID: [id number] Author: Kevin Boykin Service: Hospital Medicine Author Type: Nurse Practitioner Type: Progress Notes Filed: 05/26/2018 4:34 PM Note Text: SERVICE DATE: 05/26/2018 SERVICE TIME: 4:34 PM HOSPITAL MEDICINE PROGRESS NOTE NIGHT AND WEEKEND COVERAGE: Nights: Please contact pager [phone]. HPI 78 yr old male with PMH [...] acute intracranial process. Findings suggestive of sinusitis. Flume Ride Operator: LEONIDAS ? Transcribe Date/Time: May 25 2018 [...] kidney disease) stage 3, GFR 30-59 ml/min ([facility]) 07/08/2017 - Present Current Assessment AND Plan Assessment: Renal function stable, possibly secondary to dehydration. PLAN: -IV hydration -BMP daily Medication and Non-Pharmacologic VTE Prophylaxis/Anticoagulan ts 05/25/18 1530 pneumatic compression stockings (nc,oh) VTE Prophylaxis: VTE prophylaxis appropriate Plan of care discussed with: Attending and Patient SIGNATURE: Kevin Boykin APRN.CNP PATIENT NAME: Nancy Price DATE: May 26, 2018 TIME: 4:34 PM PAGER/CONTACT #: [phone] Normal [facility] Troponin Ton 05-26-2018 Troponin T.cardiac mass conc ug/L Normal 0.000-0.029 [facility] Comment on above: Performed By: #### T NT #### [facility] [address] [facility] [phone] HISTORY PHYSICALon 9 HISTORY PHYSICAL HNO ID: [id number] Author: Kevin Boykin Service: Hospital Medicine Author Type: Nurse Practitioner Type: HANDP Filed: 05/25/2018 5:35 PM Note Text: -------- Attestation signed by Maren Hernandez at 05/26/2018 8:38 AM Attending Note I have personally reviewed the PA/TEACHER PRIVATE note. Agree with above assessment and plan. Other additions or changes: None SIGNATURE: Maren Hernandez MD DATE: May 26, 2018 TIME: 8:38 AM -------- SERVICE DATE: 05/25/2018 SERVICE TIME: 5:34 PM HOSPITAL MEDICINE HISTORY AND PHYSICAL PCP: Shannon Cordova, DO NIGHT AND WEEKEND COVERAGE: Nights: Please contact pager [phone]. SUBJECTIVE Chief Complaint: syncope HPI: 78 yr [...] kidney disease) stage 3, GFR 30-59 ml/min ([facility]) 07/08/2017 - Present Current Assessment AND Plan Assessment: Renal function decreased today, possibly secondary to dehydration. Has had limited oral intake over last 2 days. PLAN: -IV hydration -BMP daily Medication and Non-Pharmacologic VTE Prophylaxis/Anticoagulan ts 05/25/18 1530 pneumatic compression stockings (nc,oh) VTE Prophylaxis: VTE prophylaxis appropriate SIGNATURE: Kevin Boykin APRN.CNP PATIENT NAME: Nancy Price DATE: May 25, 2018 TIME: 5:34 PM PAGER/CONTACT #: [phone] [facility] NURSING PROGon 05-25-2018 Protein mass conc HNO ID: [id number] Author: Jayde (Rn) ANNA Burgess Service: Nursing Author Type: Registered Nurse Type: Nursing Progress Note Filed: 05/25/2018 6:26 PM Note Text: Nursing Progress Note Patient Name: Nancy Price Patient [place] [facility] [id number] Daily Note: 1400- Patient arrived on the unit in stable condition from [place] ED. Patient denies pain, LH and dizziness but c/o all body weakness. 1600- Patient awake in bed with no c/o pain or SOB. Denies LH and dizziness. 1645- Patient medicated with tylenol for fever and NAVA. See MAR. This note was completed by: Jayde Burgess RN Normal [facility] TSHon 05-25-2018 Thyrotropin Qn 1.960 uU/mL Normal 0.400-5.500 [facility] Comment on above: Performed By: #### T SH #### [facility] [address] [facility] [phone] Troponin Ton 05-25-2018 Troponin T.cardiac mass conc ug/L Normal 0.000-0.029 [facility] Comment on above: Performed By: #### T NT #### [facility] [address] [facility] [phone] Clinic Note - Heme Oncon Clinic Note [...] placed on Synthroid and has done well [id number]. On November 11 2012 CBC revealed WBC [...] orally once a week , Start Date: 94-Kgp-8355nrtgrveoyshpr 25 mcg (0.025 mg) oral tablet: Last [...] Results CBC date/time WBC HGB HCT PLT [id number]-Eow-4582 11:21 4.3(L) 12.4 37.1(L) 198 2.39 BMP date/time NA K CL CO2 BUN [id number] 10:43 139 4.8 104 N/A 21 1.27 LDH date/time [id number] 10:43 N/A CBC on October 02, 2017 [...] week for 8 weeksfollowed by vitamin D3 mpgt-ihk-dbnbinx thousand units per day. The patientunderstood appreciated [...] DO 05-Jun-2017 10:34 Note Recipients: LindaShannon, - [id number] Yes when ready to send to Provider(s) [...] - Heme Onc 06/05/2017 10:22 AM Normal [facility] Clinic Note - Intakeon 10-15 [...] orally once a week , Start Date: 21-Smi-4413ghkltowypunui 25 mcg (0.025 mg) oral tablet: Last Dose Taken: , 1 tab(s)orally once a daypantoprazole 40 mg oral delayed release tablet: Last Dose Taken: , 1 tab(s)orally once a day Each Visit:Have you fallen in the last 6 months?noDo you have a fear of falling?noIs the patient using an assistive devicenoDo you feel you need assistance?no Electronic Signatures:Windy Bridges (CASTING AGENT ASST) (Signed 15-Oct-2017 10:03)Authored: Patient Visit Information, Vital Signs, Allergies, OutpatientMedication Profile, Adult Admission Risk Screen Last Updated: 15-Oct-2017 10:03 by Windy Bridges (CASTING AGENT ASST) Normal [facility] Clinic Note - Heme Oncon [...] placed on Synthroid and has done well [id number]. On November 11 2012 CBC revealed WBC [...] 2017 revealed WBC 3.0, hemoglobin 11 g/dL, ,000/mm?. BUN 21 g/dL, creatinine 1.28 mg/dLA CT [...] week for 8 weeksfollowed by vitamin D3 rxru-lsz-wdllouu thousand units per day. The patientunderstood appreciated [...] DO 01-May-2017 10:57Note Recipients: Shannon Cordova, - [phone] Yes when ready to send to Provider(s) [...] - Heme Onc 05/01/2017 10:47 AM Normal [facility] Clinic Note - Intakeon 06-05 [...] you feel you need assistance? noElectronic Signatures:Windy Birdges (CASTING AGENT ASST) (Signed 05-Jun-2017 10:10) Authored: Patient Visit Information, Vital Signs, Allergies, OutpatientMedication Profile, Adult Admission Risk ScreenLast Updated: 05-Jun-2017 10:10 by Windy Bridges (CASTING AGENT ASST) Normal [facility] ROMY PATH REVIEWon 04-21-2017 PATH REVIEW-ROMY [facility] Comment on above: Result Comment: By h er/his signature above, the Pathologist listed as making the final interpretation certifies that she/he has personally reviewed this case. Performed By: #### T SH2 ####[facility] [place] [address] PROTEIN ELECTROPHORESIS + IM MUNOFIXATION, SERUMon 04-21-2017 IMMUNOFIXATION INTERP NORMAL Normal [facility] Comment on above: Result Comment: NO D EFINITE MONOCLONAL PROTEINS DETECTED BY IMMUNOFIXATION. Performed By: #### T SH2 ####[facility] [place] [address] INTERPRETATION NORMAL Normal [facility] Comment on above: Performed By: #### T SH2 ####[facility] [place] [address] Protein NONE DETECTED Normal [facility] Comment on above: Performed By: #### T SH2 ####[facility] [id number] SPE PATH REVIEWon 04-21-2017 PATH REVIEW-SPE C.RODNEY Normal [facility] Comment on above: Result Comment: By h er/his signature above, the Pathologist listed as making the final interpretation certifies that she/he has personally reviewed this case. Performed By: #### T SH2 ####[facility] [place] [address] ANCAon 04-19-2017 ANCA <1:20 Normal <1:20 [facility] Comment on above: Result Comment: The ANCA IFA is <1:20; therefore, no further testing will beperformed.INTERPRETIVE INFORMATION: Anti-Neutrophil Cyto Ab, IgGNeutrophil Cytoplasmic Antibodies (C-ANCA = granular cytoplasmicstaining, P-ANCA = perinuclear staining) are found in the serum ofover 90 percent of patients with certain necrotizing systemicvasculitides, and usually in less than 5 percent of patients withcollagen vascular disease or arthritis.Performed by [facility],[address] [place] [address] lmo.Vouch, Erick Moore MD - Lab. Director Performed By: #### T SH2 ####[facility] [place] [address] ANTINUCLEAR ANTIBODYon 04-18 ANTINUCLEAR ANTIBODY Negative Normal NEGATIVE [facility] Comment on above: Performed By: #### T SH2 ####[facility] [place] [address] FOLATE-RBCon 04-18-2017 FOLATE-RBC 1094 ng/mL Normal >280 [facility] Comment on above: Result Comment: Shelley ents receiving more than 5 mg/day of biotin may have interference in test results. A sample should be taken no sooner than eight hours after previous dose. Contact [phone] for additional information. Performed By: #### T SH2 ####[facility] [place] [address] PROTEIN ELECTROPHORESIS + IM MUNOFIXATION, SERUMon 04-18-2017 Albumin 3.5 g/dL Normal 3.4 - 5.0 [facility] Comment on above: Performed By: #### T SH2 ####[facility] [place] [address] ALPHA 1 GLOBULIN 0.4 g/dL Normal 0.2 - 0.6 [facility] Comment on above: Performed By: #### T SH2 ####[facility] [place] [address] ALPHA 2 GLOBULIN 0.8 g/dL Normal 0.4 - 1.1 [facility] Comment on above: Performed By: #### T SH2 ####[facility] [place] [address] BETA GLOBULIN 0.8 g/dL Normal 0.5 - 1.2 [facility] Comment on above: Performed By: #### T SH2 ####[facility] [place] [address] GAMMA GLOBULIN 0.9 g/dL Normal 0.5 - 1.4 [facility] Comment on above: Performed By: #### T SH2 ####[facility] [place] [address] COMPREHENSIVE PANELon 2017 Alanine aminotransferase (ALT) 26 U/L Normal 10 - 52 [facility] Comment on above: Result Comment: Shelley ents treated with Sulfasalazine may generate falsely decreased results for ALT. Performed By: #### C MP ####[facility] [place] [address] Albumin 3.7 g/dL Normal 3.4 - 5.0 [facility] Comment on above: Performed By: #### C MP ####[facility] [place] [address] Alkaline phosphatase (ALP) 117 U/L Normal 33 - 136 [facility] Comment on above: Performed By: #### C MP ####[facility] [place] [address] Anion gap 9 mmol/L Low 10 - 20 [facility] Comment on above: Performed By: #### C MP ####[facility] [place] [address] Aspartate aminotransferase (AST) 21 U/L Normal 9 - 39 [facility] Comment on above: Performed By: #### C MP ####[facility] [place] [address] Bicarbonate (HCO3) 31 mmol/L Normal 21 - 32 [facility] Comment on above: Performed By: #### C MP ####[facility] [place] [address] Bilirubin (total) 0.6 mg/dL Normal 0.0 - 1.2 [facility] Comment on above: Performed By: #### C MP ####[facility] [place] [address] Calcium 9.5 mg/dL Normal 8.6 - 10.6 [facility] Comment on above: Performed By: #### C MP ####[facility] [place] [address] Chloride 104 mmol/L Normal 98 - 107 [facility] Comment on above: Performed By: #### C MP ####[facility] [place] [address] Creatinine 1.27 mg/dL Normal 0.50 - 1.30 [facility] Comment on above: Performed By: #### C MP ####[facility] [place] [address] GFR- AM. 67 mL/min/1.73m2 Normal >60 [facility] Comment on above: Result Comment: CALC ULATIONS OF ESTIMATED GFR ARE PERFORMED USING THE MDRD STUDY EQUATION FOR THE IDMS-TRACEABLE CREATININE METHODS. CLIN CHEM 2007;53:766-72 Performed By: #### C MP ####[facility] [place] [address] GFR-NON AM. 55 mL/min/1.73m2 Abnormal >60 [facility] Comment on above: Performed By: #### C MP ####[facility] [place] [address] Glucose mass conc 98 mg/dL Normal 74 - 99 [facility] Comment on above: Performed By: #### C MP ####[facility] [place] [address] Potassium molar conc 4.8 mmol/L Normal 3.5 - 5.3 [facility] Comment on above: Performed By: #### C MP ####[facility] [place] [address] Sodium 139 mmol/L Normal 136 - 145 [facility] Comment on above: Performed By: #### C MP ####[facility] [place] [address] Urea nitrogen 21 mg/dL Normal 6 - 23 [facility] Comment on above: Performed By: #### C MP ####[facility] [place] [address] FERRITINon 04-17-2017 FERRITIN 944 ug/L High 20 - 300 [facility] Comment on above: Performed By: #### F ERRI ####[facility] [place] [address] FOLATE, SERUMon 04-17-2017 FOLATE, SERUM 19.0 ng/mL Normal >5.0 [facility] Comment on above: Result Comment: Shelley ents receiving more than 5 mg/day of biotin may have interference in test results. A sample should be taken no sooner than eight hours after previous dose. Contact [phone] for additional information. Performed By: #### F OLA2 ####[facility] [place] [address] HAPTOGLOBINon 04-17-2017 HAPTOGLOBIN 222 mg/dL High 30 - 200 [facility] Comment on above: Performed By: #### H APTO ####[facility] [place] [address] HEPATITIS B SURF ABon 2017 HEP B SURF AB < 3.1 Normal <10 [facility] Comment on above: Result Comment: INTE RPRETIVE CRITERIA:<10 mIU/mL....NONREACTIVE>=10 mIU/mL...REACTIVE. Patients receiving more than 5 mg/day of biotin may have interference in test results. A sample should be taken no sooner than eight hours after previous dose. Contact [phone] for additional information. Performed By: #### H BAB3 ####[facility] [place] [address] HEPATITIS C ABon 04-17-2017 HEPATITIS C AB NON-REACTIVE Normal NONREACTIVE [facility] Comment on above: Result Comment: Shelley ents receiving more than 5 mg/day of biotin may have interference in test results. A sample should be taken no sooner than eight hours after previous dose. Contact [phone] for additional information. Performed By: #### T SH2 ####[facility] [place] [address] IRON + TIBCon 04-17-2017 % SATURATION 52 % High 25 - 45 [facility] Comment on above: Performed By: #### I RONT ####[facility] [place] [address] Iron 144 ug/dL Normal 35 - 150 [facility] Comment on above: Performed By: #### I RONT ####[facility] [place] [address] TIBC 279 ug/dL Normal 240 - 445 [facility] Comment on above: Performed By: #### I RONT ####[facility] [place] [address] LDHon 04-17-2017 LDH 130 U/L Normal 84 - 246 [facility] Comment on above: Performed By: #### L DH ####[facility] [place] [address] PROTEIN ELECTROPHORESIS + IM MUNOFIXATION, SERUMon 04-17-2017 Protein 6.4 g/dL Normal 6.4 - 8.2 [facility] Comment on above: Performed By: #### T SH2 ####[facility] [place] [address] Performed By: #### C MP ####[facility] [place] [address] TSHon 04-17-2017 Thyroid stimulating hormone (TSH) 3.25 m[IU]/L Normal 0.44 - 3.98 [facility] Comment on above: Result Comment: TSH testing is performed using different testing methodology at [facility] than at other [facility]. Direct result comparisons should only be made within the same method.. Patients receiving more than 5 mg/day of biotin may have interference in test results. A sample should be taken no sooner than eight hours after previous dose. Contact [phone] for additional information. Performed By: #### T SH2 ####[facility] [place] [address] Lab Specimen Source Normal [facility] Comment on above: Performed By: #### T SH2 ####[facility] [place] [address] Performed By: #### I BRITTNEYT ####[facility] [place] [address] Performed By: #### H BAB3 ####[facility] [place] [address] Performed By: #### F OLA2 ####[facility] [place] [address] Performed By: #### V TDOH ####[facility] [place] [address] Performed By: #### L DH ####[facility] [place] [address] Performed By: #### C MP ####[facility] [place] [address] Performed By: #### F ERRI ####[facility] [place] [address] Performed By: #### H APTO ####[facility] [place] [address] Performed By: #### V TB12 ####[facility] [place] [address] VITAMIN B12on 04-17-2017 Cobalamins (Vitamin B12) 659 pg/mL Normal 211 - 911 [facility] Comment on above: Performed By: #### V TB12 ####[facility] [place] [address] VITAMIN D, 25-HYDROXYon 03-31 VITAMIN D, 25-HYDROXY 26 ng/mL Abnormal [facility] Comment on above: Result Comment: .DEF ICIENCY: < 20 NG/MLINSUFFICIENCY: 20-29 NG/MLOPTIMUM LEVEL: 30-80 NG/MLPOSSIBLE TOXICITY: > 80 NG/MLTHIS ASSAY ACCURATELY QUANTIFIES THE SUM OFVITAMIN D3, 25-HYDROXY AND VIT D2,25-HYDROXY. Performed By: #### V TDOH ####[facility] [place] [address] Vital Signs Date Time Vital Sign Value Performing Clinician Bob rebolledo 10-16-2023 08:10-0400 Body height 175.3 cm Bria Queden CHARGE OPERATOR.FIELD LABORER Work Phone: [facility] 10-16-2023 08:10-0400 Body mass index (BMI) [Ratio] 24.37 kg/m2 Bria Queden CHARGE OPERATOR.FIELD LABORER Work Phone: [facility] 10-16-2023 08:10-0400 Body temperature 98.01 [degF] Bria Queden CHARGE OPERATOR.FIELD LABORER Work Phone: [facility] 10-16-2023 08:10-0400 Body weight 74.84 kg Bria Queden CHARGE OPERATOR.FIELD LABORER Work Phone: [facility] 10-16-2023 08:10-0400 Diastolic blood pressure 62 mm[Hg] Bria Queden CHARGE OPERATOR.FIELD LABORER Work Phone: [facility] 10-16-2023 08:10-0400 Heart rate 52 /min Bria Queden CHARGE OPERATOR.FIELD LABORER Work Phone: [facility] 10-16-2023 08:10-0400 Respiratory rate 18 /min Bria Queden CHARGE OPERATOR.FIELD LABORER Work Phone: [facility] 10-16-2023 08:10-0400 SaO2% (BldA) [Mass fraction] 99 % Bria Queden CHARGE OPERATOR.FIELD LABORER Work Phone: [facility] 10-16-2023 08:10-0400 Systolic blood pressure 122 mm[Hg] Bria Queden CHARGE OPERATOR.FIELD LABORER Work Phone: [facility] 02-10-2023 10:09-0500 Body height 175.3 cm Shannon Sheets DO Work Phone: [facility] 02-10-2023 10:09-0500 Body temperature 97.59 [degF] Shannon Sheets DO Work Phone: [facility] 02-10-2023 10:09-0500 Body weight 77.84 kg Shannon Sheets DO Work Phone: [facility] 02-10-2023 10:09-0500 Diastolic blood pressure 66 mm[Hg] Shannon Sheets DO Work Phone: [facility] 02-10-2023 10:09-0500 Heart rate 72 /min Shannon Sheets DO Work Phone: [facility] 02-10-2023 10:09-0500 Respiratory rate 16 /min Shannon Sheets DO Work Phone: [facility] 02-10-2023 10:09-0500 SaO2% (BldA) [Mass fraction] 99 % Shannon Sheets DO Work Phone: [facility] 02-10-2023 10:09-0500 Systolic blood pressure 128 mm[Hg] Shannon Sheets DO Work Phone: [facility] 02-27-2022 10:54-0500 Body height 175.3 cm Yelitza Montenegro APRN.FIELD LABORER Work Phone: [facility] 02-27-2022 10:54-0500 Body weight 79.83 kg Yelitza Montenegro APRN.FIELD LABORER Work Phone: [facility] 02-27-2022 10:54-0500 Diastolic blood pressure 58 mm[Hg] Yelitza Montenegro APRN.FIELD LABORER Work Phone: [facility] 02-27-2022 10:54-0500 Heart rate 56 /min Yelitza Montenegro APRN.FIELD LABORER Work Phone: [facility] 02-27-2022 10:54-0500 Respiratory rate 18 /min Yelitza Montenegro APRN.FIELD LABORER Work Phone: [facility] 02-27-2022 10:54-0500 SaO2% (BldA) [Mass fraction] 99 % Yelitza Montenegro APRN.FIELD LABORER Work Phone: [facility] 02-27-2022 10:54-0500 Systolic blood pressure 110 mm[Hg] Yelitza Montenegro APRN.FIELD LABORER Work Phone: [facility] 01-22-2022 11:26-0400 Body height 175.3 cm Pst 1 [facility] 01-22-2022 11:26-0400 Body temperature 98.4 [degF] Pst [address] [facility] 01-22-2022 11:26-0400 Body weight 79.38 kg Pst 1 [facility] 01-22-2022 11:26-0400 Diastolic blood pressure 82 mm[Hg] Pst 1 [facility] 01-22-2022 11:26-0400 Heart rate 68 /min Pst 1 [facility] 01-22-2022 11:26-0400 Respiratory rate 16 /min Pst [address] [facility] 01-22-2022 11:26-0400 SaO2% (BldA) [Mass fraction] 92 % Pst 1 [facility] 01-22-2022 11:26-0400 Systolic blood pressure 140 mm[Hg] Pst 1 [facility] 12-27-2021 15:54-0400 Body height 175.3 cm Shannon Sheets DO Work Phone: [facility] 12-27-2021 15:54-0400 Body temperature 98.2 [degF] Shannon Sheets DO Work Phone: [facility] 12-27-2021 15:54-0400 Body weight 79.83 kg Shannon Sheets DO Work Phone: [facility] 12-27-2021 15:54-0400 Diastolic blood pressure 67 mm[Hg] Shannon Sheets DO Work Phone: [facility] 12-27-2021 15:54-0400 Heart rate 59 /min Shannon Sheets DO Work Phone: [facility] 12-27-2021 15:54-0400 Respiratory rate 18 /min Shannon Sheets DO Work Phone: [facility] 12-27-2021 15:54-0400 SaO2% (BldA) [Mass fraction] 98 % Shannon Sheets DO Work Phone: [facility] 12-27-2021 15:54-0400 Systolic blood pressure 145 mm[Hg] Shannon Sheets DO Work Phone: [facility] 12-19-2021 10:36-0400 Body height 175.3 cm Yelitza Montenegro APRN.FIELD LABORER Work Phone: [facility] 12-19-2021 10:36-0400 Body weight 79.74 kg Yelitzacarolin Montenegro CHARGE OPERATOR.FIELD LABORER Work Phone: [facility] 12-19-2021 10:36-0400 Diastolic blood pressure 64 mm[Hg] Yelitza Montenegro CHARGE OPERATOR.FIELD LABORER Work Phone: [facility] 12-19-2021 10:36-0400 Heart rate 57 /min Yelitza Montenegro CHARGE OPERATOR.FIELD LABORER Work Phone: [facility] 12-19-2021 10:36-0400 SaO2% (BldA) [Mass fraction] 98 % Yelitza Montenegro CHARGE OPERATOR.FIELD LABORER Work Phone: [facility] 12-19-2021 10:36-0400 Systolic blood pressure 112 mm[Hg] Yelitza Montenegro CHARGE OPERATOR.FIELD LABORER Work Phone: [facility] 10-30-2021 08:37-0400 Body weight 78.93 kg Fifi Kirkland DO Work Phone: [facility] 10-30-2021 08:37-0400 Diastolic blood pressure 72 mm[Hg] Fifi Kirkland DO Work Phone: [facility] 10-30-2021 08:37-0400 Heart rate 54 /min Fifi Kirkland DO Work Phone: [facility] 10-30-2021 08:37-0400 SaO2% (BldA) [Mass fraction] 97 % Fifi Kirkland DO Work Phone: [facility] 10-30-2021 08:37-0400 Systolic blood pressure 155 mm[Hg] Fifi Kirkland DO Work Phone: [facility] 09-18-2021 14:13-0400 Body height 172.7 cm Bria Wu MD Work Phone: [facility] 09-18-2021 14:13-0400 Body weight 78.02 kg Bria Wu MD Work Phone: [facility] 09-18-2021 14:13-0400 Diastolic blood pressure 76 mm[Hg] Bria Wu MD Work Phone: [facility] 09-18-2021 14:13-0400 Heart rate 74 /min Bria Wu MD Work Phone: [facility] 09-18-2021 14:13-0400 Systolic blood pressure 144 mm[Hg] Bria Wu MD Work Phone: [facility] Encounters Encounter Date Encounter Type Care Provider Facility Start: 11-15-2024 ambulatory Alvaro Chi [place] Facility:[facility] Start: 11-11-2024 ambulatory [facility] Facility:[facility] Start: 10-14-2024 End: 10-14-[address] Alvaro Ceron MD Work Phone: -[facility] Start: 10-14-2024 End: 10-14-[address] Alvaro Ceron MD -[facility] Start: 10-14-2024 End: 10-14-2024 ambulatory Alvaro Chi [place] Facility:[facility] Start: 10-08-2024 End: 10-08-[address] Alvaro Ceron MD Work Phone: -[facility] Start: 10-08-2024 End: 10-08-[address] Alvaro Ceron MD -[facility] Work Phone: Start: 10-08-2024 End: 10-08-2024 Telephone encounter Armani Becerra DO Work Phone: Vascular Surgery Comment on above: Release Of Medical R ecords Start: 10-08-2024 End: 10-08-2024 ambulatory Alvaro Chi O[place]any Facility:[facility] Start: 10-04-2024 End: 10-04-[address] Alvaro Ceron MD Work Phone: -[facility] Start: 10-04-2024 End: 10-04-[address] Alvaro Ceron MD -[facility] 3rd Fl[facility] Start: 10-04-2024 End: 10-04-2024 ambulatory [facility] Facility:[facility] Start: 09-19-2024 End: 09-19-2024 [facility] Start: 09-15-2024 End: 09-15-2024 ambulatory YELITZA MONTENEGRO [facility] Start: 08-25-2024 End: 08-25-2024 Subsequent hospital visit by physician [facility] Work Phone: [facility] Comment on above: History of AAA (abdo benjamin aortic aneurysm) repair [Z98.890] Start: 08-25-2024 End: 08-25-2024 ambulatory [facility] Start: 08-16-2024 End: 08-16-2024 Orders Only Yeiltzacarolin Paniaguaews CHARGE OPERATOR.FIELD LABORER Work Phone: [facility] Comment on above: History of AAA (abdo benjamin aortic aneurysm) repair (Primary Dx); Infrarenal abdominal aortic 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 Start: 05-05-2024 End: 05-05-2024 ambulatory [facility] Facility:[facility] Start: 04-06-2024 End: 04-06-2024 ambulatory [facility] Facility:[facility] Start: 10-24-2023 End: 10-24-2023 Emergency department patient visit SHANNON CORDOVA Facility:[facility] Start: 10-16-2023 End: 10-16-2023 Patient encounter procedure Bria Arana CHARGE OPERATOR.FIELD LABORER Work Phone: [facility] Comment on above: Allergic rhinitis, u nspecified seasonality, unspecified trigger (Primary Dx); Eustachian tube dysfunction, bilateral; Dry cough; Bilateral impacted cerumen Start: 10-16-2023 End: 10-16-2023 ambulatory BRIA ARANA Facility:[facility] Start: 10-08-2023 End: 10-08-2023 Telemedicine consultation with patient Yelitza Montenegro LEYLA.FIELD LABORER Work Phone: [facility] Start: 10-08-2023 End: 10-08-2023 ambulatory Yelitza Montenegro LEYLA.FIELD LABORER Work Phone: [facility] Comment on above: History of AAA (abdo benjamin aortic aneurysm) repair (Primary Dx) Start: 09-17-2023 End: 09-17-2023 Subsequent hospital visit by physician [facility] ([facility]) Work Phone: [facility] Comment on above: Infrarenal abdominal aortic 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 (HCC) [I71.43] Start: 09-01-2023 Orders Only Yelitza Ruth bethany CHARGE OPERATOR.FIELD LABORER Work Phone: [facility] Comment on above: Infrarenal abdominal aortic 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 (HCC) (Primary Dx); S/P abdominal aortic aneurysm repair Start: 02-28-2023 Refill Shannon C She ets DO Work Phone: [facility] Comment on above: Refill Request Start: 02-10-2023 End: 02-10-2023 Patient encounter procedure Shannon C Sheets DO Work Phone: [facility] Comment on above: Medicare annual well ness visit, subsequent (Primary Dx); Hypothyroidism, acquired; Hyperlipidemia, mixed; Panlobular emphysema (HCC); Infrarenal abdominal aortic 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 (HCC); 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); Stage 3 chronic kidney disease, unspecified whether stage 3a or 3b CKD (HCC); Platelets decreased (HCC) Start: 01-08-2023 Telephone encounter Shannon C Sheets DO Work Phone: [facility] Comment on above: Patient Question Start: 10-30-2022 Telephone encounter Shannon C Sheets DO Work Phone: [facility] Comment on above: Results Start: 09-17-2022 Telephone encounter Shannon C Sheets DO Work Phone: [facility] Comment on above: Lab Orders Start: 09-13-2022 ambulatory Shannon Harris ets DO Work Phone: [facility] Comment on above: Gout Issues Continue Start: 09-03-2022 Telephone encounter Shannon Holguin Sheets DO Work Phone: [facility] Comment on above: Results Start: 08-30-2022 End: 08-30-2022 Subsequent hospital visit by physician [facility] Comment on above: Pain and swelling of toe of right foot [M79.674, M79.89] Start: 04-24-2022 Telephone encounter Shannon Cordova DO Work Phone: [facility] Comment on above: Results Start: 03-13-2022 End: 03-13-2022 Subsequent hospital visit by physician [facility] Work Phone: [facility] Comment on above: Infrarenal abdominal aortic 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 [I71.43] Start: 02-28-2022 ambulatory Nima MONTESINOS VN S Start: 02-28-2022 Follow-up encounter Nima Curry R N AG [facility] Comment on above: Transition Of Care ( Follow Up Call) Start: 02-27-2022 End: 02-27-2022 Patient encounter procedure Yelitza Montenegro APRN.FIELD LABORER Work Phone: [facility] Comment on above: S/P abdominal aortic aneurysm repair (Primary Dx); Infrarenal abdominal aortic 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 Start: 02-19-2022 Refill Shannon Harris ets DO Work Phone: [facility] Comment on above: Refill Request Start: 02-13-2022 ambulatory Nima MONTESINOS VN S Start: 02-13-2022 Follow-up encounter Nima Curry R N AG Order Packer Comment on above: Transition Of Care ( Follow Up Call) Start: 01-31-2022 Patient Outreach Nima Dennis G Order Packer Comment on above: Transition Of Care ( Initial Outreach ([facility] discharged 01/30/22)) Start: 01-22-2022 End: 01-22-2022 Admission to establishment [facility] Start: 01-22-2022 End: 01-22-2022 ambulatory Pst [...] encounter procedure Shannon Cordova DO Work Phone: [facility] Comment on above: Well adult exam (Ramón eugenio Dx); Gout with manifestations; Hypothyroidism, acquired Start: 12-27-2021 End: 12-27-2021 Patient encounter status Shannon Holguni Sheets DO Work Phone: [facility] Start: 12-19-2021 Telephone encounter Armani Becerra DO Work Phone: [facility] Comment on above: Schedule Surgery Start: 12-19-2021 End: 12-19-2021 Patient encounter procedure Yelitza Montenegro APRN.FIELD LABORER Work Phone: [facility] Comment on above: AAA (abdominal aorti c aneurysm) without rupture (Primary Dx); Pre-op evaluation Start: 12-19-2021 End: 12-19-2021 Preprocedural examination done Yelitza Montenegro APRN.FIELD LABORER Work Phone: [facility] Start: 12-18-2021 Refill Shannon C She ets DO Work Phone: [facility] Comment on above: Refill Request Start: 12-04-2021 End: 12-04-[address] [facility] Work Phone: [facility] Start: 12-04-2021 End: 12-04-2021 Subsequent hospital visit by physician [facility] Work Phone: [facility] Comment on above: Encounter for other preprocedural examination [Z01.818] Start: 11-20-2021 Refill Shannon Harris ets DO Work Phone: [facility] Comment on above: Refill Request Start: 10-30-2021 End: 10-30-2021 Patient encounter procedure Fifi Saldaña Kirkland DO Work Phone: Vascular Surgery Comment on above: Abdominal aortic ane urysm (AAA) without rupture (HCC) (Primary Dx) Start: 10-23-2021 Refill Shannon Harris ets DO Work Phone: [facility] Comment on above: Refill Request Start: 09-18-2021 End: 09-18-2021 Patient encounter procedure Bria Wu MD Work Phone: General Surgery Comment on above: Symptomatic cholelit hiasis (Primary Dx) Start: 09-11-2021 ambulatory Adriana Kitchen MA [facility] Start: 09-10-2021 Telephone encounter Shannon Holguin Linda DO Work Phone: [facility] Comment on above: Lab Orders Patient Question Start: 08-21-2021 ambulatory [facility] [place] Comment on above: Population Health Na vigation Outreach (HCC) Start: 07-10-2021 Telephone encounter Shannon Holguin Sheets DO Work Phone: [facility] Comment on above: Results Start: 07-03-2021 Refill Shannon C She ets DO Work Phone: [facility] Comment on above: Refill Request Start: 05-25-2018 End: 05-28-2018 Evaluation and management of inpatient FARHAN JANG) [facility] Start: 10-15-2017 Patient encounter Matheus Rodriguez Fac ility:[facility] Start: 06-05-2017 Patient encounter Matheus Rodriguez Fac ility:[facility] Start: 05-01-2017 Patient encounter Matheus Rodriguez Fac ility:[facility] Start: 04-17-2017 Patient encounter Matheus Rodriguez Fac ility:[facility] Procedures Date Procedure Procedure Detail [...] ntrst mtrl w/wo cntrst img Yelitza Montenegro CHARGE OPERATOR.FIELD LABORER Work Phone: Start: 02-07-2021 Adult depression scr eening assessment Shannon Cordova DO Work Phone: Plan of Treatment Date Care Activity Detail Author Start: 04-07-2034 Urine microalbumin profile DTaP,Tdap,Td Vaccine (2 - Td or Tdap) [facility] Start: 10-29-2025 DIABETES SCREEN DIABETES SCREEN [facility] Start: 10-29-2025 Diabetes Screening Diabetes Screenin g [facility] Start: 01-30-2025 DIABETES SCREEN DIABETES SCREEN [facility] Start: 12-31-2024 DIABETES SCREEN DIABETES SCREEN [facility] Start: 11-29-2024 Influenza vaccination [facility] Start: 10-14-2024 [facility] Start: 09-15-2024 End: 09-15-2024 ambulatory 09/15/2024 2:30 PM EDT [facility] [address] [id number] Yelitza Montenegro, LEYLA.FIELD LABORER 1 [facility] [address] [place], [place] [id number] PP ([phone]) [facility] Comment on above: PP ([phone])* * Start: 09-10-2024 DIABETES SCREEN DIABETES SCREEN [facility] Start: 08-16-2024 End: 11-15-2024 Creatinine and Glomerular filtration rate.predicted panel - Serum, Plasma or Blood CREATININE BLD Lab Routine History of AAA (abdominal aortic aneurysm) repair Infrarenal abdominal aortic 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 Expected: 08/16/2024, Expires: 11/15/2024 [facility] Comment on above: Expected: 08/16/2024 , Expires: 11/15/2024 Start: 03-31-2024 Advance Directive Discussion Advance Directive Discussion [facility] Start: 03-31-2024 Medicare Advantage Annual Wellness Visit Medicare Advantage Annual Wellness Visit [facility] Start: 02-11-2024 Urine microalbumin profile DTaP,Tdap,Td Vaccine (1 - Tdap) [facility] Comment on above: Postponed from 02/14 (Declined at this time) Start: 12-07-2023 DIABETES SCREEN DIABETES SCREEN [facility] Start: 11-30-2023 Influenza vaccination Influenza Vacc ine (#1) [facility] Start: 10-08-2023 End: 10-08-2023 Patient encounter procedure 10/08/2023 2:00 PM EDT Office Visit [facility] [address] [id number] Yelitza Montenegro, LEYLA.FIELD LABORER 1 [facility] [address] [place], [place] [phone] to reveiw testing CTA AP on 09/16 [facility] Comment on above: to reveiw testing CT A AP on 09/16 Start: 09-28-2023 Influenza vaccination Influenza Vacc ine (#1) [facility] Comment on above: Postponed from 11/29 (Declined at this time) Start: 09-01-2023 End: 12-01-2023 CREATININE BLD CREATININE BLD Lab Routine Infrarenal abdominal aortic 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 (HCC) S/P abdominal aortic aneurysm repair Expected: 09/01/2023, Expires: 12/01/2023 [facility] Comment on above: Expected: 09/01/2023 , Expires: 12/01/2023 Start: 03-31-2023 Advance Directive Discussion Advance Directive Discussion [facility] Start: 02-10-2023 End: 05-12-2023 CBC panel - Blood by Automated count CBC Lab Routine Hypothyroidism, acquired Expected: 02/10/2023, Expires: 05/12/2023 [facility] Work Phone: Comment on above: Expected: 02/10/2023 , Expires: 05/12/2023 Start: 02-10-2023 End: 05-12-2023 Lipid 1996 panel - Serum or Plasma LIPID PANEL BASIC Lab Routine Hyperlipidemia, mixed Expected: 02/10/2023, Expires: 05/12/2023 [facility] Work Phone: Comment on above: Expected: 02/10/2023 , Expires: 05/12/2023 Start: 02-10-2023 End: 05-12-2023 Thyrotropin [Units/volume] in Serum or Plasma TSH BLD Lab Routine Hypothyroidism, acquired Expected: 02/10/2023, Expires: 05/12/2023 [facility] Work Phone: Comment on above: Expected: 02/10/2023 , Expires: 05/12/2023 Start: 01-30-2023 HEMOGLOBIN/HEMATOCRIT HEMOGLOBIN/HEM [facility] Start: 01-30-2023 SERUM CREATININE SERUM CREATININE [facility] Start: 12-31-2022 HEMOGLOBIN/HEMATOCRIT HEMOGLOBIN/HEM [facility] Start: 12-31-2022 SERUM CREATININE SERUM CREATININE [facility] Start: 12-27-2022 ANNUAL PCP TEAM CARAMEL CANDY MAKER JANETH DISEASE VISIT ANNUAL PCP TEAM CHRONIC DISEASE VISIT [facility] Start: 11-29-2022 Covid-19 Vaccine ( season) Covid-19 Vaccine () [facility] Start: 11-29-2022 Influenza vaccination [facility] Start: 11-21-2022 SERUM CREATININE SERUM CREATININE [facility] Start: 09-10-2022 HEMOGLOBIN/HEMATOCRIT HEMOGLOBIN/HEM ATOCRIT [facility] Start: 09-10-2022 SERUM CREATININE SERUM CREATININE [facility] Start: 05-07-2022 HEMOGLOBIN/HEMATOCRIT HEMOGLOBIN/HEM ATOCRIT [facility] Start: 05-07-2022 SERUM CREATININE SERUM CREATININE [facility] Start: 03-31-2022 ADVANCE DIRECTIVE DISCUSSION ADVANCE DIRECTIVE DISCUSSION [facility] Start: 02-07-2022 Adult depression screening assessment DEPRESSION SCREENING [facility] Start: 02-07-2022 ANNUAL PCP TEAM CARAMEL CANDY MAKER JANETH DISEASE VISIT ANNUAL PCP TEAM CHRONIC DISEASE VISIT [facility] Start: 12-19-2021 End: 12-19-2022 Basic metabolic 2000 panel - Serum or Plasma BASIC METABOLIC PNL Lab Routine AAA (abdominal aortic aneurysm) without rupture (HCC) Expected: 12/19/2021, Expires: 12/19/2022 [facility] Work Phone: Comment on above: Expected: 12/19/2021 , Expires: 12/19/2022 Start: 12-19-2021 End: 12-19-2022 CBC panel - Blood by Automated count CBC Lab Routine AAA (abdominal aortic aneurysm) without rupture (HCC) Expected: 12/19/2021, Expires: 12/19/2022 [facility] Work Phone: Comment on above: Expected: 12/19/2021 , Expires: 12/19/2022 Start: 12-19-2021 End: 02-18-2022 TYPE AND SCREEN,30 DAY TYPE AND SCREEN,30 DAY Blood Bank Routine AAA (abdominal aortic aneurysm) without rupture (HCC) Expected: 12/19/2021, Expires: 02/18/2022 [facility] Work Phone: Comment on above: Expected: 12/19/2021 , Expires: 02/18/2022 Start: 11-29-2021 Influenza vaccination INFLUENZA (#1) [facility] Start: 09-10-2021 End: 11-10-2021 Thyrotropin [Units/volume] in Serum or Plasma TSH BLD Lab Routine Hypothyroidism, acquired Expected: 09/10/2021, Expires: 11/10/2021 [facility] Work Phone: Comment on above: Expected: 09/10/2021 , Expires: 11/10/2021 Start: 09-07-2021 COVID-19 VACCINE (5 - Booster for Moderna series) COVID-19 VACCINE (5 - Booster for Moderna series) [facility] Start: 09-07-2021 COVID-19 VACCINE (5 - Moderna series) COVID-19 VACCINE (5 - Moderna series) [facility] Start: 07-03-2021 End: 09-02-2021 Thyrotropin [Units/volume] in Serum or Plasma TSH BLD Lab Routine Hypothyroidism, acquired Expected: 07/03/2021, Expires: 09/02/2021 [facility] Work Phone: Comment on above: Expected: 07/03/2021 , Expires: 09/02/2021 Start: 06-03-2021 COVID-19 VACCINE (4 - Booster for Moderna series) COVID-19 VACCINE (4 - Booster for Moderna series) [facility] Start: 03-31-2021 ADVANCE DIRECTIVE DISCUSSION ADVANCE DIRECTIVE DISCUSSION [facility] Start: 02-15-1960 Urine microalbumin profile [facility] Start: 1959 Anxiety Screening Anxiety Screening [facility] Start: 1959 Depression Screening Depression Scre ening [facility] Start: 1946 PNEUMOCOCCAL: 65+ (1 - PCV) PNEUMOCOCCAL: 65+ (1 - PCV) [facility] End: 12-04-2021 Ct angio abd&plvis cntrst mtrl w/wo cntrst img [facility] Work Phone: Comment on above: 1 Occurrences starti ng 12/04/2021 until 12/04/2021 End: 03-29-2023 Ct angio abd&plvis cntrst mtrl w/wo cntrst img CTA ABD/PEL WO/W IVCON Radiology Routine Infrarenal abdominal aortic 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 1 Occurrences starting 02/27/2022 until 03/29/2023 [facility] Work Phone: Comment on above: 1 Occurrences starti ng 02/27/2022 until 03/29/2023 End: 03-13-2022 Ct angio abd&plvis cntrst mtrl w/wo cntrst img [facility] Work Phone: Comment on above: 1 Occurrences starti ng 03/13/2022 until 03/13/2022 End: 09-30-2024 CTA Abdominal vessels and Pelvis vessels WO and W contrast IV CTA ABD/PEL WO/W IVCON Radiology Routine Infrarenal abdominal aortic 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 (HCC) S/P abdominal aortic aneurysm repair 1 Occurrences starting 09/01/2023 until 09/30/2024 [facility] Work Phone: Comment on above: 1 Occurrences starti ng 09/01/2023 until 09/30/2024 End: 09-15-2025 CTA Abdominal vessels and Pelvis vessels WO and W contrast IV CTA ABD/PEL WO/W IVCON Radiology Routine History of AAA (abdominal aortic aneurysm) repair Infrarenal abdominal aortic 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 1 Occurrences starting 08/16/2024 until 09/15/2025 [facility] Work Phone: Comment on above: 1 Occurrences starti ng 08/16/2024 until 09/15/2025 H&P for surgery H&P FOR SURGERY Procedures Routine AAA (abdominal aortic aneurysm) without rupture (HCC) Ordered: 12/19/2021 [facility] Work Phone: Comment on above: Ordered: 12/19/2021 Removal impacted cerumen irrigation/lvg unilat AMBULATORY EAR LAVAGE/IRRIGATION Procedures Routine Bilateral impacted cerumen Ordered: 10/16/2023 [facility] Work Phone: Comment on above: Ordered: 10/16/2023 End: 12-19-2022 STRESS ECHO TREADMILL STRESS ECHO TREADMILL Cardiology Routine AAA (abdominal aortic aneurysm) without rupture Pre-op evaluation 1 Occurrences starting 12/19/2021 until 12/19/2022 [facility] Work Phone: Comment on above: 1 Occurrences starti ng 12/19/2021 until 12/19/2022 End: 08-30-2022 XR FOOT GENERAL 3V AP/LAT/OBL RIGHT [facility] Work Phone: Comment on above: 1 Occurrences starti ng 08/30/2022 until 08/30/2022 [facility] Immunizations Immunization Date Immunization Notes Care Provider Liset [facility] 01-21-2024 influenza virus vacc ine, unspecified formulation Armani Becerra DO Work Phone: [facility] 03-13-2023 influenza virus vacc ine, unspecified formulation Yelitza Montenegro APRN.FIELD LABORER Work Phone: [facility] 12-31-2021 influenza (HD-IIV4) vaccine, age 65+ yr, high dose, quadrivalent, PF (FLUZONE HIGH-DOSE) Shannon Sheets DO Work Phone: [facility] Work Phone: 12-31-2021 influenza virus vacc ine, unspecified formulation Shannon Sheets DO Work Phone: [facility] 01-30-2021 influenza, high-dose , quadrivalent vaccine (FLUZONE HIGH DOSE QUADRIVALENT) Shannon Sheets DO Work Phone: [facility] Work Phone: 2020 zoster vaccine recombinant Shannon Sheets DO Work Phone: [facility] 01-19-2020 influenza, high-dose , quadrivalent vaccine (FLUZONE HIGH DOSE QUADRIVALENT) Shannon Sheets DO Work Phone: [facility] 11-29-2019 zoster vaccine recombinant Shannon Sheets DO Work Phone: [facility] 12-31-2018 pneumococcal polysaccharide vaccine, 23 valent Shannon Sheets DO Work Phone: [facility] 12-18-2018 influenza, high dose seasonal, preservative-free Shannon Sheets DO Work Phone: [facility] 01-27-2017 influenza, high dose seasonal, preservative-free Shannon Sheets DO Work Phone: [facility] 01-30-2016 influenza, high dose seasonal, preservative-free Shannon Sheets DO Work Phone: [facility] 01-30-2016 pneumococcal conjuga te vaccine, 13 valent Shannon Sheets DO Work Phone: [facility] 01-12-2014 influenza, seasonal, injectable Shannon Sheets DO Work Phone: [facility] 04-27-2013 influenza, seasonal, injectable Shannon Sheets DO Work Phone: [facility] 01-09-2012 influenza, seasonal, injectable Shannon Sheets DO Work Phone: [facility] 10-08-2010 influenza, seasonal, injectable Shannon Sheets DO Work Phone: [facility] 01-16-2010 influenza, seasonal, injectable Shannon Sheets DO Work Phone: [facility] 01-29-2006 pneumococcal polysaccharide vaccine, 23 valent Shannon Sheets DO Work Phone: [facility] Payers Date Payer Category Payer Self-pay 2024 Unknown [id number] 2018 Medicare (Managed Care) [id number]. [id number] 2018 Unknown [facility] ANTHLUC AMBROCIO O [id number] 2018-Present [phone] [address] [place] [address] [facility] [id number] 2018 Unknown [id number] 2018 Medicare [id number] Unknown [id number] Unknown [id number] Unknown [id number] Unknown [id number] Unknown [id number] Unknown [id number] Unknown [id number] Unknown [id number] Social History Date Type Detail Facility Start: 03-11-2017 End: 12-19-2021 Tobacco smoking status NHIS Ex-smoker [facility] Start: 03-31-1955 End: 03-31-2002 History of tobacco use Current smoker [facility] Start: 03-31-1955 End: 03-31-2002 History of tobacco use Cigarette Smoker [facility] Start: 04-17-2021 End: 10-08-2024 Alcohol intake Current non-drinker of alcohol (finding) [facility] Start: 1940 Sex Assigned At Not on file [facility] Start: 06-30-2021 End: 02-27-2022 Exposure to SARS-CoV-2 (event) Not sure [facility] Start: 03-11-2017 End: 12-19-2021 Tobacco use and exposure Smokeless tobacco non-user [facility] Start: 08-30-2022 End: 02-10-2023 History of Social function [facility] Start: 08-30-2022 End: 02-10-2023 Tobacco use panel [facility] Adult Depression Screening Assessment 0 [facility] Has the [employer], [employer], [employer], or water company threatened to shut off services in your home in past 12Mo No [facility] Are you now , , , , never or living with a partner? [facility] How often to you hav e a drink containing alcohol? Never [facility] Do you feel stress - tense, restless, nervous, or anxious, or unable to sleep at night because your mind is troubled all the time - these days [OSQ] Not at all [facility] (I/We) worried wheth er (my/our) food would run out before (I/we) got money to buy more. Never true [facility] Tobacco smoking stat us NHIS Unknown if ever smoked [facility] Work Phone: Start: 1940 Sex Assigned At Male W [facility] Medical Equipment Procedure Code Equipment Code Equipment Origin al Text Equipment Identifier Dates Endograft Contralateral Leg 12mm X 10cm [id number] Start: 01-29-2022 Graft [place] Exclu bandar 14.5mm 10cm Endovascular Contralateral Leg - [id number] Start: 01-29-2022 Excluder Conform able Aaa Endoprostesis 32mm X 14.5mm X [id number] Start: 01-29-2022 Functional Status Date Assessment Result Facility 01-30-2022 Are you deaf, or do you have serious difficulty hearing No 01/30/2022 1:50 PM Brigida Garcia, ANNA [facility] 01-30-2022 Are you blind, or do you have serious difficulty seeing, even when wearing glasses No 01/30/2022 1:50 PM Brigida Garcia, ANNA No [facility] 01-30-2022 Do you have serious difficulty walking or climbing stairs No 01/30/2022 1:50 PM Brigida Garcia, ANNA No [facility] 01-30-2022 Do you have difficul ty dressing or bathing No 01/30/2022 1:50 PM Brigida Garcia, ANNA [facility] 01-30-2022 Because of a physica l, mental, or emotional condition, do you have difficulty doing errands alone such as visiting a physician's office or shopping No 01/30/2022 1:50 PM Brigida Garcia, ANNA No [facility] Mental Status Date Assessment Result Facility 01-30-2022 Because of a physica l, mental, or emotional condition, do you have serious difficulty concentrating, remembering, or making decisions No 01/30/2022 1:50 PM EDT Brigida Ortiz RN No [facility] Clinical Notes 05-27-2018 to 10-08-2024 Telephone Encounter [...] to MRI department for review Faxed yo [phone] Transmission completed [facility] 10-08-2024 Miscellaneous Notes Called received from MRI department at [facility]. 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 . Operative report faxed to MRI department for review Faxed yo [phone] Transmission completed documented in this encounter [facility] 10-04-2024 Radiology Diagnostic study note [facility] Imaging Services [address] [place] [address] Hand Min 3 Views MR#: [id number] Acct: [id number] Name: KAYLEEN PRICE Rep #: [id number] : 1940 M 84 From: Wilfredo Grant DO PCP: Dr. Alvaro Ceron MD Status: NEIL CARBALLO Study:Hand Min 3 Views Date of Exam: 10/22 Exam# [id number] Ordering Dr: Alvaro Ceron MD PROCEDURE: HAND [...] further evaluation if clinically warranted. Reading Location: [id number] CC: Dr. Alvaro Ceron MD ~ Flume Ride Operator: Signed [facility] 08-25-2024 History of Present illness Narrative Radiology [...] PATIENT PRESENTS WITH AN IMPLANTABLE OR ATTACHED FOOD SCIENCE TECHNICIAN: No ALLERGIES: Reviewed and unchanged CONTRAST ALLERGY: [...] TIME: 10:48 AM documented in this encounter [facility] 08-25-2024 Note HNO ID: [id number] Author: ADRIANA SHEPHERD RT (R) Service: Radiology Author Type: Sort Operations Supervisor Type: Progress Notes Filed: 08/25/2024 10:49 Note [...] PATIENT PRESENTS WITH AN IMPLANTABLE OR ATTACHED FOOD SCIENCE TECHNICIAN: No ALLERGIES: Reviewed and unchanged CONTRAST ALLERGY: [...] DATE: August 25, 2024 TIME: 10:48 AM [facility] 10-16-2023 Nurse Note Ambulatory Ear Lavage Pre-treatment: No pre-treatment Treatment: Both ears Equipment and Irrigation solution and Volume used: Single use syringe with single use irrigation tip Water Return flow appearance: Brown Yellow Patient tolerated procedure: yes Tympanic membrane assessment: Tympanic membrane assessed by LIP pre and post procedure Adriana Kitchen MA [facility] 10-16-2023 Nurse Note Ambulatory Ear Lavage Pre-treatment: No pre-treatment Treatment: Both ears Equipment and Irrigation solution and Volume used: Single use syringe with single use irrigation tip Water Return flow appearance: Brown Yellow Patient tolerated procedure: yes Tympanic membrane assessment: Tympanic membrane assessed by LIP pre and post procedure Adriana Kitchen MA documented in this encounter [facility] 10-16-2023 Note HNO ID: [id number] Author: BRIA ARANA APRN.FIELD LABORER Service: ? Author Type: Nurse Practitioner Type: [...] place, and time. (more content not included)... [facility] 10-16-2023 History of Present illness Narrative [...] Bria Arana APRN.MELINDA documented in this encounter [facility] 10-08-2023 Note HNO ID: [id number] Author: YELITZA MONTENEGRO APRN.MELINDA Service: ? Author [...] visit. Either the patient or their legal lead generation representative has been informed of the risks [...] and not having to come in to [place]! Data Reviewed: CTA a/p 09/17/23 CTA a/p [...] or concern Total Time Spent: 11-20 minutes Yelizta Montenegro APRN.MELINDA [facility] 10-08-2023 History of Present illness Narrative [...] visit. Either the patient or their legal lead generation representative has been informed of the risks [...] and not having to come in to [place]! Data Reviewed: CTA a/p 09/17/23 CTA a/p [...] Yelitza Montenegro APRN.CNP documented in this encounter [facility] 09-17-2023 History of Present illness Narrative Radiology [...] PATIENT PRESENTS WITH AN IMPLANTABLE OR ATTACHED FOOD SCIENCE TECHNICIAN: No ALLERGIES: Reviewed and unchanged CONTRAST ALLERGY: [...] TIME: 3:52 PM documented in this encounter [facility] 02-28-2023 Miscellaneous Notes pharm requesting refills: Last [...] Eugenio Cheng MA documented in this encounter [facility] 02-10-2023 History of Present illness Narrative Nancy [...] Shannon Cordova DO documented in this encounter [facility] 01-08-2023 Miscellaneous Notes Patient informed and states [...] Shannon Cordova DO documented in this encounter [facility] 10-30-2022 Miscellaneous Notes All results left on patients voicemail. Advised to call back with any questions. Eugenio Cheng MA ----- Message from William Padgett APRN.CNP sent at 10/30/2022 7:28 AM EDT ----- Kidney function stable. Uric acid level at goal. Continue allopurinol. William Padgett APRN.CNP documented in this encounter [facility] 09-17-2022 Miscellaneous Notes Already done. William Padgett APRN.CNP ----- Message from Eugenio Cheng MA sent at 09/03/2022 2:16 PM EDT ----- Remind pt. Time to check his uric acid level (for gout) KT may start him on medication. Eugenio Cheng MA documented in this encounter [facility] 09-03-2022 Miscellaneous Notes Left message on patients [...] for 2 weeks Thank you. William Padgett APRN.FIELD LABORER Patient notified and is still in pain is there anything else he can take. Eugenio Cheng MA ----- Message from William Padgett APRN.MELINDA sent at 09/02/2022 5:55 PM EDT ----- Soft tissue swelling, gout. William Padgett APRN.FIELD LABORER documented in this encounter [facility] 08-30-2022 History of Present illness Narrative Radiology [...] 2022 10:41 AM documented in this encounter [facility] 04-24-2022 Miscellaneous Notes Patient notified and voiced [...] Shannon Cordova DO documented in this encounter [facility] 02-28-2022 History of Present illness Narrative TRANSITION CARE MANAGEMENT (TCM) FOLLOW-UP NOTE Provider Action/FYI Chart reviewed. Saw surgeon 02/27. Summary: Call placed to patient. No answer. Message left on identified voicemail regarding call to check on patient's health status. Nurse's number left to call with any questions/concerns. Delivery And Installation Subcontractor plan for next outreach: No further follow up needed at this time Signature Nima Curry RN February 28, 2022 documented in this encounter [facility] 02-27-2022 History of Present illness Narrative Nancy Price 82 year old male S/P Endovascular aortic aneurysm repair with [place] excluder (32mm conformable main body, 14.5mm right [...] Yelitza Montenegro APRN.CNP documented in this encounter [facility] 02-27-2022 Instructions Yelitza Montenegro APRN.CNP - 02/27/2022 [...] an informed decision. documented in this encounter [facility] 02-20-2022 Miscellaneous Notes pharmacy electronically requesting refills [...] Elaine Cruz MA documented in this encounter [facility] 02-13-2022 History of Present illness Narrative TRANSITION CARE MANAGEMENT (TCM) FOLLOW-UP NOTE Provider Action/FYI Summary: Call placed to patient. No answer. Message left on identified voicemail regarding call to check on patient's health status. Nurse's number left to call with any questions/concerns. Delivery And Installation Subcontractor plan for next outreach: Will follow up in 1-2 weeks Signature Nima Curry RN February 13, 2022 documented in this encounter [facility] 01-31-2022 History of Present illness Narrative TRANSITIONAL CARE MANAGEMENT (TCM) COMMUNITY MONITORING PROGRAM - TIFFANIE Provider Action/FYI: [facility] d/c 01/30 Elective AAA Declined hospital f/u [...] d/t having CKD. SUMMARY: Pt discharged from [facility] on 01/30/22. Admitted for: Elective AAA HOSPITAL COURSE: (copied and pasted from 01/30/22 discharge summary) Pt presented to [facility] for an elective EVAR. Pt monitored overnight in the ICU. Perioperative course uncomplicated. Pt was discharged home on ASA on 01/30/2022 in stable condition. Contact made with patient: Yes Hi my name is Nima Curry RN and I am calling from the [facility] on behalf of your PCP, Shannon [...] like to speak with a social work presentation team member to help give you support for any [...] I will send your request to a equipment scheduler who will contact and assist you [...] TCM Home Visit Referral Source of Stratification: [facility] Admission Status: Discharged Readmission Risk Score: 20 RAMÓN Score: 10 Patient meets program referral criteria: No Patient does not qualify for High Risk TCM Home Visit program due to: Discharged home, does not meet program criteria Nima Curry RN January 31, 2022 2:06 PM documented in this encounter [facility] 01-22-2022 History and physical note HISTORY AND [...] or any previous visit (from the past 26482 hour(s)). Assessment No problem-specific Assessment & Plan [...] at this time: primary care/internal medicine (In [facility] 01/10/2022). Planned Anesthetic: general Implantable Devices: None [...] Been Initiated: No orders per surgeon in [facility]. ABO confirmation ordered by CYRIL in PST [...] PM PAGER/CONTACT #: documented in this encounter [facility] 01-21-2022 Instructions Yulia Lopez APRN.CNP - 01/21/2022 2:29 PM EDT PATIENT PREOPERATIVE INSTRUCTIONS Dr. Becerra has scheduled you for your procedure at this surgery center: [facility]: [phone], [address] [id number] Please read below carefully for your personalized [...] or the morning of surgery. Use the [employer] body wash supplied to you along with [...] surgery. - YOU MUST HAVE A RESPONSIBLE HAND STITCHER TAKE YOU HOME. A BOX BRANDER, CAB OR UBER HAND STITCHER CANNOT BE MADE A RESPONSIBLE HAND STITCHER. - We recommend that a responsible person [...] in our PACU area unless a minor, credit front office developer or a special circumstance. Each patient is [...] Lopez APRN.CNP 01/21/22 documented in this encounter [facility] 12-27-2021 History of Present illness Narrative SUBJECTIVE: 81 year old male for annual routine checkup. I have fully reviewed the past medical, surgical, social and family history and [facility] He will be having vascular surgery by [...] Shannon Cordova DO documented in this encounter [facility] 12-19-2021 History of Present illness Narrative CHIEF COMPLAINT: AAA - f/up CTA a/p done 12/04/21 HISTORY OF PRESENT ILLNESS: Mr. Price is a 81 year old male with known AAA. He saw Dr. Becerra about a month ago, for recommendations regarding surgical intervention, as AAA had enlarged to 5.5cm on non-contrast CT scan. He has been following with Dr. Kirkland in [place], and would like to resume care in [place] following any intervention. CTA was requested to [...] Denies history of chest pain or recent MT. Former smoker, quit 2002. No aspirin, statin [...] with more than 50% of the total fogx-ge-luad time of the visit in counseling / coordination of care. Yelitza Montenegro APRN.FIELD LABORER documented in this encounter [facility] 12-19-2021 Miscellaneous Notes Orders signed. Thank you, Yelitza Montenegro APRN.FIELD LABORER documented in this encounter [facility] 12-18-2021 Miscellaneous Notes Patient requesting refills as [...] Adriana Kitchen MA documented in this encounter [facility] 11-21-2021 Miscellaneous Notes pharmacy electronically requesting refills [...] Elaine Cruz MA documented in this encounter [facility] 10-31-2021 History of Present illness Narrative This office note has been dictated. Fifi Kirkland DO NAME: [facility] NO: [id number] DATE OF SERVICE: 10/30/2021 Subjective: Nancy is [...] is 5.5. Assessment/Plan: We discussed referral to [facility] for possible infrarenal abdominal aortic aneurysm repair. He does have some chronic kidney disease and he sees Dr. Trevino. He may need hydration prior to CTA. We will have the office help arrange and schedule. Fifi Kirkland D.O. KB/089 Audio #: [id number] Date Dictated: 10/30/2021 07:19:07 Date Typed: 10/31/2021 13:47:04 Date Revised: documented in this encounter [facility] 10-23-2021 Miscellaneous Notes Pharmacy requesting refills: Last office visit 02/08 2021 Last refill 07/10/2021 nov Pending Prescriptions Disp Refills LEVOTHYROXINE 50 MCG TABLET 30 tablet 1 Sig: Take 1 tablet by mouth once daily. ANGELA: Yes Please review and advise. Eugenio Cheng MA documented in this encounter [facility] 09-18-2021 History of Present illness Narrative New [...] of dysuria, frequency or incontinence. ENDOCRINE: None DIAMOND BLENDER:Denies any concerns DIAMOND BLENDER: N/A MUSCULOSKELETAL: Negative for joint pain or swelling, back pain or muscle pain. NEUROLOGIC:Negative for focal numbness or weakness, headaches and dizziness or syncope. HEMATOLOGIC/LYMPHATIC/IMMUNOLOGIC: Negative for prolonged bleeding, bruising easily or swollen nodes. Jayde Chung CMA documented in this encounter [facility] 09-11-2021 History of Present illness Narrative ED Follow Up: Left message for patient to call back if he needs anything Patient discharged from [facility] ED on 09/10/21. 1. How [...] you able to contact the office or electronic intelligence officer provider prior to your ED visit? Not applicable 5. Is there anything else I can do for you today? Not applicable Adriana Kitchen MA documented in this encounter [facility] 09-10-2021 Miscellaneous Notes Patient called stating that he has been having left side abdominal pain under his ribs and he wanted to make sure if he needs to go to ER. Spoke with PCP and she aggreed for him to go to the ER. Adriana Kitchen MA documented in this encounter [facility] 09-10-2021 Miscellaneous Notes Message left on patients voicemail with all information. Eugenio Cheng MA Orders attached Shannon Cordova DO ----- Message from Suzie Cartagena MA sent at 07/10/2021 1:10 PM EDT ----- Recheck TSH Suzie Cartagena MA documented in this encounter [facility] 08-21-2021 History of Present illness Narrative POPULATION HEALTH NAVIGATION OUTREACH Action/FYI Called patient to schedule medicare wellness visit. Pt identified by name and : NO Outreach Outcome/Action Unable to reach patient: Left message Reason for Outreach HCC or suspected condition Payer: Payor: [employer] / Plan: MVERSE HMO / Product Type: HMO / Care [...] 2021 10:27 AM documented in this encounter [facility] 07-10-2021 Miscellaneous Notes Called patient and informed [...] Shannon Cordova DO documented in this encounter [facility] 07-03-2021 Miscellaneous Notes Patient informed. Adriana Kitchen MA Pt due for TSH - order attached Shannon Cordova DO Pharmacy requesting refills as follows: Last Office Visit 02/07/21. Last Refill 04/06/21. Pending Prescriptions Disp Refills LEVOTHYROXINE 25 MCG TABLET 90 tablet 0 Sig: TAKE 1 TABLET BY MOUTH ONCE DAILY ANGELA: Yes Please review and advise. Adriana Kitchen MA documented in this encounter [facility] 05-27-2018 History of Past i llness Narrative [...] of this encounter (statuses as of 07/03/2021) [facility] History of Past illness Narrative* Problem Noted [...] of this encounter (statuses as of 07/10/2021) [facility] of [facility] Narrative* Problem Noted [...] of this encounter (statuses as of 08/21/2021) [facility] of Past [facility] Narrative* Problem Noted [...] of this encounter (statuses as of 09/10/2021) [facility] of Past illness Narrative* Problem Noted [...] of this encounter (statuses as of 09/10/2021) [facility] History of Past illness Narrative* Problem Noted [...] of this encounter (statuses as of 09/11/2021) [facility] of Past [facility] Narrative* Problem Noted [...] of this encounter (statuses as of 09/18/2021) [facility] of [facility] Narrative* Problem Noted [...] of this encounter (statuses as of 10/23/2021) [facility] of [facility] Narrative* Problem Noted [...] of this encounter (statuses as of 10/31/2021) [facility] Narrative* Problem Noted [...] of this encounter (statuses as of 11/21/2021) [facility] Narrative* Problem Noted [...] of this encounter (statuses as of 12/05/2021) [facility] Narrative* Problem Noted [...] of this encounter (statuses as of 12/18/2021) [facility] Narrative* Problem Noted [...] of this encounter (statuses as of 12/19/2021) [facility] Narrative* Problem Noted [...] of this encounter (statuses as of 12/19/2021) [facility] Narrative* Problem Noted [...] of this encounter (statuses as of 01/05/2022) [facility] Narrative* Problem Noted [...] of this encounter (statuses as of 01/22/2022) [facility] Narrative* Problem Noted [...] of this encounter (statuses as of 01/31/2022) [facility] Narrative* Problem Noted [...] of this encounter (statuses as of 02/13/2022) [facility] Narrative* Problem Noted [...] of this encounter (statuses as of 02/20/2022) [facility] Narrative* Problem Noted [...] of this encounter (statuses as of 02/27/2022) [facility] Narrative* Problem Noted [...] of this encounter (statuses as of 02/28/2022) [facility] Narrative* Problem Noted [...] of this encounter (statuses as of 03/14/2022) [facility] Narrative* Problem Noted [...] of this encounter (statuses as of 04/24/2022) [facility] Narrative* Problem Noted [...] of this encounter (statuses as of 08/31/2022) [facility] Narrative* Problem Noted [...] of this encounter (statuses as of 09/03/2022) [facility] Narrative* Problem Noted [...] of this encounter (statuses as of 09/16/2022) [facility] Narrative* Problem Noted [...] of this encounter (statuses as of 09/17/2022) [facility] Narrative* Problem Noted [...] of this encounter (statuses as of 10/30/2022) [facility] Narrative* Problem Noted [...] of this encounter (statuses as of 01/08/2023) [facility] Narrative* Problem Noted [...] of this encounter (statuses as of 02/13/2023) [facility] Narrative* Problem Noted [...] of this encounter (statuses as of 02/28/2023) [facility] Hypothyroidism, acquired Unspecified hypothy[facility] Hypothyroidism, acquired Unspecified [facility]othy[facility] Diagnosis Hypothyroidism, acquired- Primary Unspecified hypothyroidism [facility] Diagnosis Symptomatic cholelithiasis- Primary Calculus of gallbladder without mention of cholecystitis or obstruction [facility]* Diagnosis Hypothyroidism, acquired Unspecified hypothyroidism [facility]* Diagnosis Abdominal aortic 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 (HCC)- Primary [facility] Diagnosis Ulcer of esophagus without bleeding [facility]* Diagnosis Encounter for other preprocedural examination [facility] Diagnosis Ulcer of esophagus without bleeding Hypothyroidism, acquired Unspecified hypothyroidism [facility] Diagnosis AAA (abdominal aortic aneurysm) without rupture- Primary Abdominal aneurysm without mention of rupture AAA (abdominal aortic aneurysm) without rupture Abdominal aneurysm without mention of rupture [facility] Diagnosis AAA (abdominal aortic aneurysm) without rupture- Primary Abdominal aneurysm without mention of rupture Pre-op evaluation Preoperative examination, unspecified AAA (abdominal aortic aneurysm) without rupture Abdominal aneurysm without mention of rupture [facility]* Diagnosis Well adult exam- Primary Routine general medical examination at a [facility] Gout with manifestations Gout with other specified manifestations Hypothyroidism, acquired Unspecified hypothyroidism AAA (abdominal aortic aneurysm) without rupture Abdominal aneurysm without mention of rupture [facility]* Diagnosis Preop examination- Primary Preoperative examination, [...] mention of rupture [facility]* Diagnosis Hypothyroidism, acquired Unspecified hypothyroidism Ulcer of esophagus without bleeding [facility] Diagnosis S/P abdominal aortic aneurysm repair- Primary Other postprocedural status Infrarenal abdominal aortic 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 [facility]* Diagnosis Infrarenal abdominal aortic 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 [facility] Diagnosis Pain and swelling of toe of right foot Great toe pain, right [facility]* Diagnosis Great toe pain, right- Primary [facility]* Diagnosis Acute gout of right foot, unspecified cause- Primary Gout with manifestations Gout with other specified manifestations documented [facility]* Diagnosis Hypothyroidism, acquired Unspecified hypothyroidism Ulcer of esophagus without bleeding [facility]* Diagnosis Medicare annual wellness visit, subsequent- Primary Routine general medical examination at a [facility] Hypothyroidism, acquired Unspecified hypothyroidism Hyperlipidemia, mixed Mixed hyperlipidemia Panlobular emphysema (HCC) Other emphysema Infrarenal abdominal aortic 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 (HCC) 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 hyperparathyroidism (of renal origin) Stage 3 chronic kidney disease, unspecified whether stage 3a or 3b CKD (HCC) Platelets decreased (HCC) Thrombocytopenia, unspecified documented [facility] encounter [facility]* Diagnosis Hypothyroidism, acquired Unspecified hypothyroidism Ulcer of esophagus without bleeding documented [facility]* Diagnosis Infrarenal abdominal aortic 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 (HCC)- Primary S/P abdominal aortic aneurysm repair Other postprocedural status [facility] Diagnosis Infrarenal abdominal aortic 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 (HCC) S/P abdominal aortic aneurysm repair Other postprocedural status documented [facility] encounter [facility]* Diagnosis History of AAA (abdominal aortic aneurysm) repair- Primary Other postprocedural status [facility]* Diagnosis Allergic rhinitis, unspecified seasonality, unspecified trigger- Primary Eustachian tube dysfunction, bilateral Dry cough Cough Bilateral impacted cerumen Impacted cerumen [facility]* Diagnosis CKD (chronic kidney disease) stage 3, GFR 30-59 ml/min ([facility]) Chronic kidney disease, Stage III (moderate) Hypothyroidism, [...] (AAA) without rupture documented in this encounter [facility] note* Diagnosis CKD (chronic kidney disease) stage [...] (AAA) without rupture documented in this encounter [facility] noteNo assessment information availableWWVUMedicine [facility] Work Phone: Reason for referral (narrative)* Outpatient Procedure (Routine) - Authorized Specialty Diagnoses / Procedures Referred By Maximiliano oconnor Referred To [facility] Diagnoses AAA (abdominal aortic aneurysm) without rupture Pre-op evaluation Procedures STRESS ECHO TREADMILL ECHO TTHRC R-T 2D W/WO M-MODE COMPLETE REST&Yelitza Caba APRN.FIELD LABORER 1 [facility] [address] [place] [address] [facility] [place] [address] [place] [address] Referral ID Status Reason Start Date Expiration Date Visits Requested Visits Authorized [id number] Authorized Auto-Generat ed Referral 12/19/2021 12/19/2022 1 1 [facility] for referral (narrative)* Diagnostic Procedure Only (Routine) - Closed Specialty Diagnoses / Procedures Referred By Maximiliano oconnor Referred To Contact XR IMAGING Diagnoses Pain and swelling of toe of right foot Great toe pain, right Procedures XR FOOT GENERAL 3V AP/LAT/OBL RIGHT RADEX FOOT COMPLETE MINIMUM 3 VIEWS William Padgett APRN.FIELD LABORER [address] [place] [address] Xr Imaging Referral ID Status Reason Start Date Expiration Date V isits Requested Visits Authorized [id number] Closed Auto-Generate d Referral 08/30/2022 09/29/2023 1 1 [facility] for referral (narrative)No reason for referral information availableWWVUMedicine [facility] Work Phone: Reason for visit Narrative* Diagnostic Procedure Only (Routine) - Closed Specialty Diagnoses / Procedures Referred By Contac t Referred To Contact XR IMAGING Diagnoses Pain and swelling of toe of right foot Great toe pain, right Procedures XR FOOT GENERAL 3V AP/LAT/OBL RIGHT RADEX FOOT COMPLETE MINIMUM 3 VIEWS William Padgett, CHARGE OPERATOR.FIELD LABORER [address] [place] [address] Xr Imaging Referral ID Status Reason Start Date Expiration Date V isits Requested Visits Authorized [id number] Closed Auto-Generate d Referral 08/30/2022 09/29/2023 1 1 [facility] for visit Narrative* MRI/CT (Routine) - Closed Specialty Diagnoses / Procedures Referred By Contac t Referred To Contact CT IMAGING Diagnoses History of AAA (abdominal aortic aneurysm) repair Infrarenal abdominal aortic 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 Procedures CTA ABD/PEL WO/W IVCON CT ANGIO ABD&PLVIS CNTRST MTRL W/WO CNTRST Yelitza Duffy, CHARGE OPERATOR.FIELD LABORER 1 [facility] [address] [place] [address] Phone: tel: fax: [place] [address] Referral ID Status Reason Start Date Expiration Date V isits Requested Visits Authorized [id number] Closed Auto-Generate d Referral 08/16/2024 09/15/2025 1 1 [facility] Summary Purpose Family History No Family History Records FoundNo Family History Records FoundNo Family History Records FoundNo Family History Records FoundNo Family History Records FoundNo Family History Records Found Advance Directives No Advanced Directives Records FoundDocuments on File Type Date Recorded Patient Customer Experience Consultant Expl anation Advance Directive(s) 05/25/2018 9:37 AM Advance Directive(s) 05/25/2018 9:36 AM Advance Directive(s) 05/25/2018 3:34 PM Documents on File Type Date Recorded Patient Customer Experience Consultant Expl anation Advance Directive(s) 09/10/2021 1:15 PM Advance Directive(s) 05/25/2018 9:37 AM Advance Directive(s) 05/25/2018 9:36 AM Advance Directive(s) 05/25/2018 3:34 PM Hospital Course Note HNO ID: [id number] Author: Christine Hernandez Service: Hospital Medicine Author [...] MTRL W/WO CNTRST Armani Hitchcock, DO [address] [place] [address] Ct Imaging Referral ID Status Reason Start Date Expiration Date V isits Requested Visits Authorized [id number] Closed Auto-Generate d Referral 11/21/2021 12/21/2022 1 1 Specialty Diagnoses / Procedures Referred By Contac t Referred To Contact CT IMAGING Diagnoses Infrarenal abdominal aortic 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 Procedures CTA ABD/PEL WO/W IVCON CT ANGIO ABD&PLVIS CNTRST MTRL W/WO CNTRST Yelitza Duffy, CHARGE OPERATOR.FIELD LABORER [address] [address] [address] Imaging Referral ID Status Reason Start Date Expiration Date Visits Requested Visits Authorized [id number] Authorized Auto-Generat ed Referral 03/29/2023 1 1 Referral ID Status Reason Start Date Expiration Date V isits Requested Visits Authorized [id number] Closed Auto-Generate d Referral 02/27/2022 03/29/2023 1 1 Specialty Diagnoses / Procedures Referred By Contac t Referred To Contact CT IMAGING Diagnoses Infrarenal abdominal aortic 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 (HCC) S/P abdominal aortic aneurysm repair Procedures CTA ABD/PEL WO/W IVCON CT ANGIO ABD&PLVIS CNTRST MTRL W/WO CNTRST Yelitza Duffy, CHARGE OPERATOR.FIELD LABORER [address] [facility] [address] [place] [address] [place] [address] Referral ID Status Reason Start Date Expiration Date Visits Requested Visits Authorized [id number] Pending Review Auto-Generat ed Referral 09/01/2023 09/30/2024 1 1 Referral ID Status Reason Start Date Expiration Date V isits Requested Visits Authorized [id number] Closed Auto-Generate d Referral 09/01/2023 09/30/2024 1 1 Additional Source Comments (unrecognized sect ion and content) No Status Records FoundNo Status Records FoundNo Status Records FoundNo Status Records FoundNo Status Records FoundNo Status Records Found INFORMATION SOURCE (unrecogn ized section and content) DATE CREATED AUTHOR 10/24/2017 [facility] DATE CREATED AUTHOR AUTHOR'S ORGANIZ ATION 06/04/2018 [facility] DATE CREATED AUTHOR AUTHOR'S ORGANIZ ATION 11/27/2019 [facility] DATE CREATED AUTHOR AUTHOR'S ORGANIZ ATION 09/20/2024 [facility] DATE CREATED AUTHOR AUTHOR'S ORGANIZ ATION 10/13/2024 [facility] DATE CREATED AUTHOR AUTHOR'S ORGANIZ ATION 10/22/2024 [facility] Source Comments (unrecognize d section and content) In the event this informatio n is protected by the Federal Confidentiality of Alcohol and Drug Abuse Patient Records regulations: The Federal rules restrict any use of the information to criminally investigate or prosecute any alcohol or drug abuse patient.TrihealthIn the event this information is protected by the Federal Confidentiality of Alcohol and Drug Abuse Patient Records regulations: The Federal rules restrict any use of the information to criminally investigate or prosecute any alcohol or drug abuse patient.TrihealthIn the event this information is protected by the Federal Confidentiality of Alcohol and Drug Abuse Patient Records regulations: The Federal rules restrict any use of the information to criminally investigate or prosecute any alcohol or drug abuse patient.TrihealthIn the event this information is protected by the Federal Confidentiality of Alcohol and Drug Abuse Patient Records regulations: The Federal rules restrict any use of the information to criminally investigate or prosecute any alcohol or drug abuse patient.TrihealthIn the event this information is protected by the Federal Confidentiality of Alcohol and Drug Abuse Patient Records regulations: The Federal rules restrict any use of the information to criminally investigate or prosecute any alcohol or drug abuse patient.TrihealthIn the event this information is protected by the Federal Confidentiality of Alcohol and Drug Abuse Patient Records regulations: The Federal rules restrict any use of the information to criminally investigate or prosecute any alcohol or drug abuse patient.TrihealthIn the event this information is protected by the Federal Confidentiality of Alcohol and Drug Abuse Patient Records regulations: The Federal rules restrict any use of the information to criminally investigate or prosecute any alcohol or drug abuse patient.TrihealthIn the event this information is protected by the Federal Confidentiality of Alcohol and Drug Abuse Patient Records regulations: The Federal rules restrict any use of the information to criminally investigate or prosecute any alcohol or drug abuse patient.TrihealthIn the event this information is protected by the Federal Confidentiality of Alcohol and Drug Abuse Patient Records regulations: The Federal rules restrict any use of the information to criminally investigate or prosecute any alcohol or drug abuse patient.TrihealthIn the event this information is protected by the Federal Confidentiality of Alcohol and Drug Abuse Patient Records regulations: The Federal rules restrict any use of the information to criminally investigate or prosecute any alcohol or drug abuse patient.TrihealthIn the event this information is protected by the Federal Confidentiality of Alcohol and Drug Abuse Patient Records regulations: The Federal rules restrict any use of the information to criminally investigate or prosecute any alcohol or drug abuse patient.TrihealthIn the event this information is protected by the Federal Confidentiality of Alcohol and Drug Abuse Patient Records regulations: The Federal rules restrict any use of the information to criminally investigate or prosecute any alcohol or drug abuse patient.TrihealthIn the event this information is protected by the Federal Confidentiality of Alcohol and Drug Abuse Patient Records regulations: The Federal rules restrict any use of the information to criminally investigate or prosecute any alcohol or drug abuse patient.TrihealthIn the event this information is protected by the Federal Confidentiality of Alcohol and Drug Abuse Patient Records regulations: The Federal rules restrict any use of the information to criminally investigate or prosecute any alcohol or drug abuse patient.TrihealthIn the event this information is protected by the Federal Confidentiality of Alcohol and Drug Abuse Patient Records regulations: The Federal rules restrict any use of the information to criminally investigate or prosecute any alcohol or drug abuse patient.TrihealthIn the event this information is protected by the Federal Confidentiality of Alcohol and Drug Abuse Patient Records regulations: The Federal rules restrict any use of the information to criminally investigate or prosecute any alcohol or drug abuse patient.TrihealthIn the event this information is protected by the Federal Confidentiality of Alcohol and Drug Abuse Patient Records regulations: The Federal rules restrict any use of the information to criminally investigate or prosecute any alcohol or drug abuse patient.TrihealthIn the event this information is protected by the Federal Confidentiality of Alcohol and Drug Abuse Patient Records regulations: The Federal rules restrict any use of the information to criminally investigate or prosecute any alcohol or drug abuse patient.TrihealthIn the event this information is protected by the Federal Confidentiality of Alcohol and Drug Abuse Patient Records regulations: The Federal rules restrict any use of the information to criminally investigate or prosecute any alcohol or drug abuse patient.TrihealthIn the event this information is protected by the Federal Confidentiality of Alcohol and Drug Abuse Patient Records regulations: The Federal rules restrict any use of the information to criminally investigate or prosecute any alcohol or drug abuse patient.TrihealthIn the event this information is protected by the Federal Confidentiality of Alcohol and Drug Abuse Patient Records regulations: The Federal rules restrict any use of the information to criminally investigate or prosecute any alcohol or drug abuse patient.TrihealthIn the event this information is protected by the Federal Confidentiality of Alcohol and Drug Abuse Patient Records regulations: The Federal rules restrict any use of the information to criminally investigate or prosecute any alcohol or drug abuse patient.TrihealthIn the event this information is protected by the Federal Confidentiality of Alcohol and Drug Abuse Patient Records regulations: The Federal rules restrict any use of the information to criminally investigate or prosecute any alcohol or drug abuse patient.TrihealthIn the event this information is protected by the Federal Confidentiality of Alcohol and Drug Abuse Patient Records regulations: The Federal rules restrict any use of the information to criminally investigate or prosecute any alcohol or drug abuse patient.TrihealthIn the event this information is protected by the Federal Confidentiality of Alcohol and Drug Abuse Patient Records regulations: The Federal rules restrict any use of the information to criminally investigate or prosecute any alcohol or drug abuse patient.TrihealthIn the event this information is protected by the Federal Confidentiality of Alcohol and Drug Abuse Patient Records regulations: The Federal rules restrict any use of the information to criminally investigate or prosecute any alcohol or drug abuse patient.TrihealthIn the event this information is protected by the Federal Confidentiality of Alcohol and Drug Abuse Patient Records regulations: The Federal rules restrict any use of the information to criminally investigate or prosecute any alcohol or drug abuse patient.TrihealthIn the event this information is protected by the Federal Confidentiality of Alcohol and Drug Abuse Patient Records regulations: The Federal rules restrict any use of the information to criminally investigate or prosecute any alcohol or drug abuse patient.TrihealthIn the event this information is protected by the Federal Confidentiality of Alcohol and Drug Abuse Patient Records regulations: The Federal rules restrict any use of the information to criminally investigate or prosecute any alcohol or drug abuse patient.TrihealthIn the event this information is protected by the Federal Confidentiality of Alcohol and Drug Abuse Patient Records regulations: The Federal rules restrict any use of the information to criminally investigate or prosecute any alcohol or drug abuse patient.TrihealthIn the event this information is protected by the Federal Confidentiality of Alcohol and Drug Abuse Patient Records regulations: The Federal rules restrict any use of the information to criminally investigate or prosecute any alcohol or drug abuse patient.TrihealthIn the event this information is protected by the Federal Confidentiality of Alcohol and Drug Abuse Patient Records regulations: The Federal rules restrict any use of the information to criminally investigate or prosecute any alcohol or drug abuse patient.TrihealthIn the event this information is protected by the Federal Confidentiality of Alcohol and Drug Abuse Patient Records regulations: The Federal rules restrict any use of the information to criminally investigate or prosecute any alcohol or drug abuse patient.TrihealthIn the event this information is protected by the Federal Confidentiality of Alcohol and Drug Abuse Patient Records regulations: The Federal rules restrict any use of the information to criminally investigate or prosecute any alcohol or drug abuse patient.TrihealthIn the event this information is protected by the Federal Confidentiality of Alcohol and Drug Abuse Patient Records regulations: The Federal rules restrict any use of the information to criminally investigate or prosecute any alcohol or drug abuse patient.TrihealthIn the event this information is protected by the Federal Confidentiality of Alcohol and Drug Abuse Patient Records regulations: The Federal rules restrict any use of the information to criminally investigate or prosecute any alcohol or drug abuse patient.TrihealthIn the event this information is protected by the Federal Confidentiality of Alcohol and Drug Abuse Patient Records regulations: The Federal rules restrict any use of the information to criminally investigate or prosecute any alcohol or drug abuse patient.TrihealthIn the event this information is protected by the Federal Confidentiality of Alcohol and Drug Abuse Patient Records regulations: The Federal rules restrict any use of the information to criminally investigate or prosecute any alcohol or drug abuse patient.[facility] Reason for Visit (unrecogniz ed section and [...] CNTRST MTRL W/WO CNTRST [employer] [facility], [address] [place] [address] Ct Imaging Referral ID Status Reason Start Date Expiration Date V isits Requested Visits Authorized [id number] Closed Auto-Generate d Referral 11/21/2021 12/21/2022 1 1 Reason Onset Date Comments Refill Request 12/18/2021 Reason Comments Schedule Surgery Reason Comments Follow Up 4-week follow-up for AAA 12/04/2021 Reason Onset Date Comments Transition Of Care 01/31/2022 Initial Outre ach ([facility] discharged 01/30/22) Reason Onset Date Comments Transition [...] ABD&PLVIS CNTRST MTRL W/WO CNTRST Yelitza Duffy, CHARGE OPERATOR.FIELD LABORER [address] [id number] Imaging Referral ID Status Reason Start Date Expiration Date V isits Requested Visits Authorized [id number] Closed Auto-Generate d Referral 02/27/2022 03/29/2023 1 1 Reason Comments Medicare Wellness Exam Reason Comments Radiology CT Specialty Diagnoses / Procedures Referred By Lucioac t Referred To Contact CT IMAGING Diagnoses Infrarenal abdominal aortic 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 (HCC) S/P abdominal aortic aneurysm repair Procedures CTA ABD/PEL WO/W IVCON CT ANGIO ABD&PLVIS CNTRST MTRL W/WO CNTRST Yelitza Duffy, CHARGE OPERATOR.FIELD LABORER [address] [place] [address] [place] [address] Referral ID Status Reason Start Date Expiration Date V isits Requested Visits Authorized [id number] Closed Auto-Generate d Referral 09/01/2023 09/30/2024 1 1 Reason Comments Follow Up EVAR - CTA done 09/16 Reason Comments Cough Started: comes and g oes for the past 3 weeksSymptoms: Dry cough, runny nose, fatigue, SOBTreatment: Nasal spray, dayquilCovid Test: none Reason Comments Release Of Medical Records Care Teams (unrecognized sec tion and content) Children'S Attendant Relationship Specialty Start Date End Date Sheets, Shannon Holguin DO PCP - General 12/06/14 Fifi Kirkland, DO [address] [place] [address] Peripheral Vascular 08/28/17 Children'S Attendant Relationship Specialty Start Date End Date Sheets, Shannon Holguin DO PCP - General 12/06/14 Fifi Kirkland, DO [address] [place] [address] Peripheral Vascular 08/28/17 Children'S Attendant Relationship Specialty Start Date End Date Sheets, Shannon Holguin DO PCP - General 12/06/14 Fifi Kirkland, DO [address] [place] [address] Peripheral Vascular 08/28/17 Children'S Attendant Relationship Specialty Start Date End Date Sheets, Shannon Holguin DO PCP - General 12/06/14 Fifi Kirkland, DO [address] [place] [address] Peripheral Vascular 08/28/17 Children'S Attendant Relationship Specialty Start Date End Date Sheets, Shannon Holguin DO PCP - General 12/06/14 Fifi Kirkland, DO [address] [place] [address] Peripheral Vascular 08/28/17 Children'S Attendant Relationship Specialty Start Date End Date Sheets, Shannon Holguin, DO PCP - General 12/06/14 Fifi Kirkland, DO [address] [place] [address] Peripheral Vascular 08/28/17 Children'S Attendant Relationship Specialty Start Date End Date Sheets, Shannon Holguin, DO PCP - General 12/06/14 Fifi Kirkland, DO [address] [place] [address] Peripheral Vascular 08/28/17 Children'S Attendant Relationship Specialty Start Date End Date Sheets, Shannon Holguin, DO PCP - General 12/06/14 Fifi Kirkland, DO [address] [place] [address] Peripheral Vascular 08/28/17 Children'S Attendant Relationship Specialty Start Date End Date Sheets, Shannon Holguin DO PCP - General 12/06/14 Fifi Kirkland, DO [address] [place] [address] Peripheral Vascular 08/28/17 Children'S Attendant Relationship Specialty Start Date End Date Sheets, Shannon Holguin DO PCP - General 12/06/14 Fifi Kirkland, DO [address] [place] [address] Peripheral Vascular 08/28/17 Children'S Attendant Relationship Specialty Start Date End Date Sheets, Shannon Holguin, DO PCP - General 12/06/14 Fifi Kirkland, DO [address] [place] [address] Peripheral Vascular 08/28/17 Children'S Attendant Relationship Specialty Start Date End Date Sheets, Shannon Holguin, DO PCP - General 12/06/14 Fifi Kirkland, DO [address] [place] [address] Peripheral Vascular 08/28/17 Children'S Attendant Relationship Specialty Start Date End Date Sheets, Shannon Holguin DO PCP - General 12/06/14 Fifi Kirkland, DO [address] [place] [address] Peripheral Vascular 08/28/17 Nima Curry RN Primary Care Product Transfer Pumper 01/31/22 03/01/22 Children'S Attendant Relationship Specialty Start Date End Date Sheets, Shannon Holguin DO PCP - General 12/06/14 Fifi Kirkland, DO [address] [place] [address] Peripheral Vascular 08/28/17 Nima Curry RN Primary Care Product Transfer Pumper 01/31/22 03/01/22 Children'S Attendant Relationship Specialty Start Date End Date Sheets, Shannon Holguin, DO PCP - General 12/06/14 Fifi Kirkland, DO [address] [place] [address] Peripheral Vascular 08/28/17 Nima Curry, journeyman electrician pv installer Product Transfer Pumper 01/31/22 03/01/22 Children'S Attendant Relationship Specialty Start Date End Date Sheets, Shannon Holguin DO PCP - General 12/06/14 Fifi Kirkland, DO [address] [place] [address] Peripheral Vascular 08/28/17 Nima Curry RN Primary Care Product Transfer Pumper 01/31/22 03/01/22 Children'S Attendant Relationship Specialty Start Date End Date Sheets, Shannon Holguin DO PCP - General 12/06/14 Fifi Kirkland, DO [address] [place] [address] Peripheral Vascular 08/28/17 Children'S Attendant Relationship Specialty Start Date End Date Sheets, Shannon Holguin DO PCP - General 12/06/14 Fifi Kirkland, DO [address] [place] [address] Peripheral Vascular 08/28/17 Children'S Attendant Relationship Specialty Start Date End Date Sheets, Shannon Holguin DO PCP - General 12/06/14 Fifi Kirkland, DO [address] [place] [address] Peripheral Vascular 08/28/17 Children'S Attendant Relationship Specialty Start Date End Date Sheets, Shannon Holguin DO PCP - General 12/06/14 Fifi Kirkland, DO [address] [place] [address] Peripheral Vascular 08/28/17 Children'S Attendant Relationship Specialty Start Date End Date Shannon Cordova DO PCP - General 12/06/14 Fifi Kirkland, DO [address] [place] [address] Peripheral Vascular 08/28/17 Children'S Attendant Relationship Specialty Start Date End Date Sheets, Shannon Holguin DO PCP - General 12/06/14 Fifi Kirkland, DO [address] [place] [address] Peripheral Vascular 08/28/17 Children'S Attendant Relationship Specialty Start Date End Date SheetsShannon DO PCP - General 12/06/14 Fifi Kirkland, [address] [place] [address] Peripheral Vascular 08/28/17 Children'S Attendant Relationship Specialty Start Date End Date Sheets, Shannon Holguin DO PCP - General 12/06/14 Fifi Kirkland, [address] [place] [address] Peripheral Vascular 08/28/17 Children'S Attendant Relationship Specialty Start Date End Date SheetsShannon DO PCP - General 12/06/14 Fifi Kirkland, DO [address] [place] [address] Peripheral Vascular 08/28/17 Children'S Attendant Relationship Specialty Start Date End Date Shannon Cordova DO PCP - General 12/06/14 Fifi Kirkland, [address] [place] [address] Peripheral Vascular 08/28/17 Children'S Attendant Relationship Specialty Start Date End Date Shannon Cordova DO PCP - General 12/06/14 Fifi Kirkland, [address] [place] [address] Peripheral Vascular 08/28/17 Children'S Attendant Relationship Specialty Start Date End Date Shannon Cordova DO PCP - General 12/06/14 Fifi Kirkland DO [address] [place] [address] Peripheral Vascular 08/28/17 Children'S Attendant Relationship Specialty Start Date End Date Shannon Cordova DO PCP - General 12/06/14 Fifi Kirkland, DO [address] [place] [address] Peripheral Vascular 08/28/17 Children'S Attendant Relationship Specialty Start Date End Date Shannon Cordova DO PCP - General 12/06/14 Fifi Kirkland DO [address] [place], [place] [id number] Peripheral Vascular 08/28/17 Team Status: Active Member Role/Relationship Status Dates Dr. Alvaro Ceron MD Primary Care Provider Active Team Status: Inactive Member Role/Relationship Status Dates Dr. Alvaro Ceron MD Primary Care Provider Active Start: October 04, 2024 End: October 04, 2024 Dr. Alvaro Ceron MD Attending Provider Active Start: October 04, 2024 End: October 04, 2024 Children'S Attendant Relationship Specialty Start Date End Date Alvaro Ceron Chi [address] [place] [id number] PCP - General Gerontology 09/19/24 Fifi Kirkland, DO [address] [place], [place] [id number] Peripheral Vascular 08/28/17 Team Status: Inactive Member Role/Relationship Status Dates Dr. Alvaro Ceron MD Primary Care Provider Active Start: October 08, 2024 End: October 08, 2024 Dr. Alvaro eCron MD Attending Provider Active Start: October 08, [...] BE BASED ON THE PRIMARY CLINICAL RECORDS. [employer] provides no warranty or guarantee of the accuracy or completeness of information in this document.
[2024-10-26] MEDS: 0.9% Normal Saline (1000mL) 1,000 ML 100 ML IV ×2 (05:00→19:59)
--- NOTE | 2024-10-26 08:00 | HP.PCM_ITS ---
[facility] - [facility] Date of Admission: 10/26/24 Date of Service: 10/26/24 Chief Complaint: Epigastric/right upper quadrant pain HPI Narrative NANCY DALAL, is a 84 M who presents with a 1 day history of worsening epigastric and right upper quadrant pain. Patient states he had Wheaties for breakfast yesterday morning and noted umbilical and mid abdominal pain following eating. He attempted to use the bathroom and to have a bowel movement without any relief. He notes around lunchtime he was finally able to have a bowel movement and had some relief. He ate a bologna sandwich with bruno at 2 pm. He had slight mid abdominal pain. He notes drinking a moderate amount of tea (4-5 cups a day). He notes following this he started with umbilical pain, which continued into the evening. he notes around 1100 pm he had brushed his teeth and dry heaved. He laid down around 12AM and was unable to get comfortable. he notes at that time the pain had moved to the epigastric region and right upper quadrant. He had another episode of dry heaves and then contacted his daughter to have her bring him to the ED. Patient notes in August of last year he had a similar episode of RUQ pain and went to the [place] ED. He was found to have gallstones, however not acutely inflamed. He was referred to Dr. Wu in [place]. At that time, patient was not having any abdominal pain. He needed to have a AAA repair, which was completed by Dr. Becerra at [facility]. Patient states his was performed via bilateral groins. He denies any other abdominal surgeries. He is not on any blood thinners currently. 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 He denies previous cardiac or pulmonary history. He denies having gallbladder issues from the time he saw Dr. Wu until now. CT scan of the ab/pel demonstrated findings consistent with cholecystitis. mild gallbladder wall thickening and multiple gallstones. There is also mention on the CT scan of a possible posterior endoleak. [facility] Medical History (Updated 10/26/24 @ 03:59 by Beatriz Oswald) COPD (chronic obstructive pulmonary disease) Richey esophagus Kidney disease Hiatal hernia Gout Home Medications ?Medication ?Instructions ?Recorded ?Last Taken ?Type albuterol sulfate 90 mcg/actuation 2 puff inhalation Q 4H PRN PRN 10/26/24 Unknown History aerosol inhaler shortness of breath or wheez ing Held on 10/26/24. Instructions: MD Ordered allopurinol 300 mg tablet 300 mg PO DAILY 10/26/24 Unk nown History budesonide 160 mcg-glycopyr 9 2 inh inhalation BID Unknown History mcg-formot 4.8 mcg/actuation HFA inhaler (Breztri Aerosphere) cholecalciferol (vitamin D3) 50 1,000 unit PO DAILY márquez pplement 10/26/24 Unknown History mcg (2,000 unit) tablet (D3 DOTS) levothyroxine 25 mcg tablet 25 mcg PO DAILY 10/26/24 U nknown History pantoprazole 40 mg tablet,delayed 40 mg PO DAILY 10/26 Unknown History release Allergy/AdvReac Type Severity Reaction Status Date / Time amoxicillin (From Augmentin) Allergy Mild Other Verified 10/26/24 01:36 clavulanic acid (From Allergy Mild Other Verified 10/26/24 01:36 Augmentin) Family History no significant family his Surgical History History of AAA (abdominal aortic aneurysm) repair Social History Smoking Status: Former smoker ROS Constitutional Constitutional: Reports systems reviewed and no addt'l complaints, except as documented Eyes Eyes: Reports systems reviewed and no addt'l complaints, except as documented ENT HEENT: Reports systems reviewed and no addt'l complaints, except as documented Cardiovascular Cardiovascular: Reports systems reviewed and no addt'l complaints, except as documented Respiratory/Chest Respiratory/Chest: Reports systems reviewed and no addt'l complaints, except as documented Gastrointestinal Gastrointestinal: Reports systems reviewed and no addt'l complaints, except as documented Genitourinary Genitourinary: Reports systems reviewed and no addt'l complaints, except as documented Musculoskeletal Musculoskeletal: Reports systems reviewed and no addt'l complaints, except as documented Integumentary Integumentary: Reports systems reviewed and no addt'l complaints, except as documented Neurologic Neurologic: Reports systems reviewed and no addt'l complaints, except as documented Psychiatric Psychiatric: Reports systems reviewed and no addt'l complaints, except as documented Endocrine Endocrinology: Reports systems reviewed and no addt'l complaints, except as documented Hematologic/Lymphatic Hematologic/Lymphatic: Reports systems reviewed and no addt'l complaints, except as documented Allergic/Immunologic Allergic/Immunologic: Reports systems reviewed and no addt'l complaints, except as documented Vital Signs Vital Signs Vital Signs: 10/26/24 01:36 10/26/24 03:32 10/26/24 03:35 Temperature 97.5 F L 97.5 F L 97.5 F L Temperature Source Oral Oral Pulse Rate 71 61 61 Respiratory Rate 18 18 18 Blood Pressure 191/87 H 186/85 H 186/85 H Blood Pressure Mean 121 118 118 Blood Pressure Source Blood Pressure Position Blood Pressure Location Pulse Ox 100 98 98 Oxygen Delivery Method Room Air Room Air 10/26/24 04:07 Temperature 98.2 F Temperature Source Oral Pulse Rate 82 Respiratory Rate 17 Blood Pressure 164/90 H Blood Pressure Mean 114 Blood Pressure Source Monitor Blood Pressure Position Semi-Fowlers Blood Pressure Location Right Arm Pulse Ox 94 Oxygen Delivery Method Room Air Weight Weight: 159 lb 13.362 oz Body Mass Index (BMI) 24.3 Physical Exam Const alert, oriented x3 and no apparent distress HEENT normocephalic and head/scalp atraumatic Eyes PERRL Neck full ROM Lymph Lymphatic: no lymphadenopathy noted Chest inspection of chest normal Resp normal respiratory effort and clear to auscultation bilaterally Cardio regular rate and regular rhythm GI GI Narrative: Abdomen- soft, pain to palpation of the epigastric and RUQ with guarding. Negative Gregory's sign no CVA tenderness Back/Spine no CVA tenderness Extremity normal to inspection Skin no rashes or lesions noted Neuro no focal motor deficits and no sensory deficits noted Psych thought process normal, cooperative and affect normal Results Lab / Micro Data 10/26/24 01:42 10/26/24 01:42 Labs: Laboratory Results - last 24 hr 10/26/24 01:42: WBC 5.0, RBC 3.20 L, Hgb 10.6 L, Hct 31.3 L, MCV 97.8 H, MCH 33.1 H, MCHC 33.9, RDW Std Deviation 45.1 H, RDW Coeff of Amarilys 13.0, Plt Count 197, MPV 10.5, Immature Gran % (Auto) 0.400, Neut % (Auto) 61.4, Lymph % (Auto) 21.3, [place] % (Auto) 13.1 H, Eos % (Auto) 3.0, Baso % (Auto) 0.8, Absolute Neuts (auto) 3.1, Absolute Lymphs (auto) 1.07, Nucleated RBC % 0, Sodium 138, Potassium 3.9, Chloride 105, Carbon Dioxide 21.4, Anion Gap 11, BUN 14, C reatinine 1.31 H, Estim Creat Clear Calc 41.34 L, Est GFR (MDRD) Non-Af 54 L, BUN/Creatinine Ratio 10.8, Glucose 93, Calcium 9.6, Total Bilirubin 0.51, AST 24, ALT 17, Alkaline Phosphatase 88, Total Protein 6.4, Albumin 4.1, Globulin 2.3, Albumin/Globulin Ratio 1.8, Lipase 35 10/26/24 03:05: Urine Color Yellow, Urine Clarity Clear, Urine pH 6.0, Ur Specific Tiff 1.010, Urine Protein Negative, Urine Glucose (UA) Normal, Urine Ketones Negative, Urine Occult Blood Negative, Urine Nitrite Negative, Urine Bilirubin Negative, Urine Urobilinogen Normal, Ur Leukocyte Esterase Negative, Urine RBC 0 SEEN, Urine WBC 0 SEEN, Ur Squamous Epith Cells 0 SEEN, Urine Bacteria 0 SEEN, Urine Mucus 0 SEEN Imaging Radiology Impression Abdomen/Pelvis CT 10/26/24 02:07 IMPRESSION: Findings are consistent with cholecystitis. If there is any clinical uncertainty, HIDA scanning could further assess. Reading Location: [place] [id number] Assessment & Plan Assessment/Plan (1) Acute calculous cholecystitis: PLAN: I am seeing this patient in conjunction with Dr. Solares. He will independently evaluate this patient. Patient is an 84 y/o very pleasant M, who presents with 1 day history of worsening abdominal pain in the epigastric and RUQ region. Patient has a known history of gallstones since back in 2021. Patient was evaluated by a surgeon at [facility] however he was not symptomatic at that time and needed a AAA repair. Patient is a reasonably healthy [address] Solares will plan to perform a laparoscopic cholecystectomy with intraoperative cholangiogram today pending OR availability. Procedure details, risks and benefits have been explained to the patient and his children. Patient has had the opportunity to ask and have questions answered. Patient verbally understands and agrees with the plan. Keep IV antibiotics going, continue NPO and obtain a pre-op EKG if patient has not had one in the ED. Thank you for allowing us to participate in this patient's care. Charges/Coding Visit Charges Inpatient E&M: 29209 Init Hosp L2
[2024-10-26] MEDS: Cefepime HCl 1 GM in 0.9% Normal Saline (50mL MB+) 50 ML IV ×2 (08:51→22:09)
[2024-10-26] MEDS: 0.9% Saline Lock 10 ML Syringe IV ×2 (09:42→14:19)
--- NOTE | 2024-10-26 10:52 | EKG12_ITS ---
Test Reason : PREOP Blood Pressure : */* mmHG Vent. Rate : 61 BPM Atrial Rate : 61 BPM P-R Int : 174 ms QRS Dur : 140 ms QT Int : 464 ms P-R-T Axes : 145 -29 69 degrees QTcB Int : 467 ms Normal sinus rhythm Right bundle branch block Minimal voltage criteria for LVH, may be normal variant ( R in aVL ) Septal infarct , age undetermined Abnormal ECG No previous ECGs available Confirmed by BRENDEN NAYLOR, CLAUDINE ([id number]), editor at large JAMES GARRETT ([id number]) on 10/27/2024 8:40:56 AM Referred By: DIAMOND Confirmed By: CLAUDINE WILCOX MD
--- NOTE | 2024-10-26 11:37 | CASEMGMT ---
Dx:cholecystitis LACE:1 6-Clicks:24 Medical record reviewed and patient evaluated for identification of discharge planning needs. Based on this review, at this time criteria are not present to indicate a need for discharge planning. Will remain available to assist with discharge planning needs as identified or requested. Plan for lap choley today.
--- NOTE | 2024-10-26 12:02 | NURSING ---
called into room by community youth secretary stating pt states feels like he can't talk or breath. pt found talking to this nurse. no appearance of distress noted. pt states he was talking on the phone and all the sudden he feel like he couldn't get anything in or out. couldn't speak. pt denies all chestpain, no gross neuro deficits noted. vs obtained- 161/81-87-100% on RA. LS dim t/o occasssional faint exp wheeze on rt post. upper lobe. pt did state multiple times that he thought he was all dried up. family at bedside. primary RN to room. pt verbalized using mouth swabs and is aware of NPO status. pt denies all further needs, no noted distress. call light within reach.
--- NOTE | 2024-10-26 14:28 | NURSING ---
pt leaving unit at this time for scheduled procedure.
--- NOTE | 2024-10-26 14:30 | GALL_PTH ---
PATIENT: NANCY DALAL LOC: [facility] U#:[id number] AGE/SX: 84/M ROOM: MO325 RE10/26/[address]: Dr. Jose Solares MD : [id number] BED: 1 DIS: 10/27/2024 SPEC #: [id number] RECD: 10/27/24 09:29 STATUS: ROSAURA JEFFERSON #: [id number] PAM: 10/26/24 14:[address]: Jose Solares DEPT: SURGICAL PATHOLOGY RECD BY: Cruzito Alaniz ENTERED: 10/27/24 11:23 SP TYPE: MICA JEAN BAPTISTE DR: Dr. Alvaro Ceron MD Tissues: A - Gallbladder, NOS Procedures: Surgery Specimen Level III HEADER OPERATION: Laparoscopic cholecystectomy with IOC PRE-OP DIAGNOSIS: Cholecystitis TISSUE SUBMITTED: A- Gallbladder MICROSCOPIC DIAGNOSIS A. Gallbladder, cholecystectomy: - Acute on chronic cholecystitis with cholelithiasis. - Benign pericystic lymph node x1. MICROSCOPIC DESCRIPTION Slides are reviewed. GROSS DESCRIPTION A. A. Received in formalin labeled with the patient's name and date of . Designated as gallbladder is a 7.3 x 3.0 x 2.4 cm fatty and disrupted gallbladder with attached cystic duct (inked black, shaved); the patency is unable to be determined. A lymph node is present. There are numerous irregular, mixed cholelith fragments within the container, <0.1 cm to 1.7 cm. Opening reveals lazar-pink to red granular and somewhat trabeculated with a maximum wall thickness is 0.3 cm. Cholesterolosis is not present. Radiator Cleaner sections are submitted in 1 cassette. AL 10/27/2024 CPT:71469
--- NOTE | 2024-10-26 14:40 | PCM.PRE.AN2 ---
ASA Classification* ASA Classification ASA Classification: 3 and E Assessment & Plan Anesthesia* Anesthesia Assessment Anesthesia Assessment: Discussed sedation and/or anesthesia options, risks, benefits, and alternatives with patient/parents/legal guardian/POA. Questions invited. The patient/parents/legal guardian/POA seems to understand and agrees to proceed with anesthesia plan. Reviewed the physical assessment, medical history, allergy history and patient home medications list prior to surgery/procedure/anesthetic and documented any changes. Performed airway and anesthesia risk assessments. Anesthesia Type Anesthesia Type: General History Source History Obtained from:: Patient and Chart Anesthesia Focused Assessment* Temperature: 97.5 F Pulse Rate: 64 Blood Pressure: 153/70 Respiratory Rate: 15 Pulse Ox: 100 Oxygen Delivery Method: Room Air Airway Assessment Mouth opens: >3 cm Mallampati Score: III Teeth Condition: Missing (Patient is edentulous on the top. Has 7 remaining teeth on the bottom. These teeth are tight.) Neck Range of motion (ROM): Limited ROM (Somewhat Decreased) Labs Anesthesia Preop lab: CBC WBC 5.0 K/mm3 (4.4-11.0) 10/26/24 01:42 10/26/24 RBC 3.20 M/mm3 (4.6-6.2) L 10/26/24 01:42 10/26/24 Hgb 10.6 g/dL (13.0-16.5) L 10/26/24 01:42 10/26/24 Hct 31.3 % (40-54) L 10/26/24 01:42 10/26/24 Plt Count 197 K/mm3 (150-450) 10/26/24 01:42 10/26/24 CHEMISTRY Potassium 3.9 mmol/L (3.3-5.1) 10/26/24 01:42 10/26/24 Sodium 138 mmol/L (133-145) 10/26/24 01:42 10/26/24 Phosphorus 3.0 mg/dL (2.5-4.9) 05/05/24 12:54 05/05/24 BUN 14 mg/dL (4-19) 10/26/24 01:42 10/26/24 Creatinine 1.31 mg/dL (0.70-1.20) H 10/26/24 01:42 10/26/24 Glucose 93 mg/dL (70-99) 10/26/24 01:42 10/26/24 TSH 4.390 uIU/mL (0.300-4.200) H 10/04/24 13:00 10/04/24 COAG Pre-Assessment Diagnosis/Proposed Procedure Planned Operative Procedure(s): Laparoscopic cholecystectomy. Anesthesia History Anesthesia History - vegetable loader: Anesthesia History - vegetable loader Hx Hospitalization Any Problems With Anesthesia No 10/26/24 03:58 Cholinesterase deficiency No 10/26/24 03:58 You/Your Family Experience No 10/26/24 03:58 fever (hyperthermia) with Relationship Recent Exposure to Contagious No 10/26/24 03:58 Disease Does patient have nerve No 10/26/24 03:58 stimulator Patient instructed to have No 10/26/24 03:58 device shut off --Does patient have Pacemaker No 10/26/24 08:41 or ICD? When Was Last Pacemaker Check QUESTION #4 FULL TEXT: You/Your Family Experience fever (hyperthermia) with Anesthesia Last Oral Intake Last Oral intake: Last Oral Intake NPO since 00:01 10/26/24 08:41 Meds taken in AM with sips of No 10/26/24 08:41 water? Meds patient instructed to take am of surgery PONV PONV - vegetable loader: PONV - vegetable loader Female HX of Motion Sickness HX of N/V After Surgery Non-Smoker Duration of Surgery greater than 60 minutes Number of Risk Factors PONV Score Height & Weight Height & Weight: Anesthesia: Height & Weight Height 5 ft 8 in 10/26/24 08:41 Weight: 72.5 kg 10/26/24 08:41 Body Mass Index (BMI) 24.3 10/26/24 08:41 Respiratory Assessment Respiratory Assessment - vegetable loader: Respiratory Tract Infection Hx - vegetable loader Hx Respiratory Tract Infection No 10/26/24 03:58 STOP Sleep Apnea STOP Sleep Apnea - vegetable loader: STOP Sleep Apnea - vegetable loader Hx Hypertension No 10/26/24 03:56 Hx Sleep Apnea No 10/26/24 03:56 CPAP BIPAP Do you snore loudly (louder No 10/26/24 03:56 than talking or can be heard Do you often feel tired/ No 10/26/24 03:56 fatigued/ sleepy during daytime? Has anyone observed you stop No 10/26/24 03:56 breathing during sleep? STOP Results Negative 10/26/24 03:56 QUESTION #5 FULL TEXT : Do you snore loudly (louder than talking or can be heard through closed doors)? Tobacco Use History Tobacco Use History - vegetable loader: Tobacco Use History - vegetable loader Tobacco Use Smoking Status Former smoker 10/26/24 03:56 Hx Tobacco Use No 10/26/24 03:56 Years Smoking Packs Smoked per Day Smoking Cessation Date was Yes - quit smoking within 15 10/26/24 03:56 within the last 15 years years Hx Smoking Cessation Date Hx Smoking Cessation No 10/26/24 03:56 Counseling Hematologic Medial History Hematologic Hx - vegetable loader: Hematologic Medical Hx - meeting specialist Hx of Blood Transfusion No 10/26/24 03:56 Hx of Transfusion in last 3 No 10/26/24 03:56 Months Date of Last Transfusion (if within last 3 months) Ever experience any problems No 10/26/24 03:56 with transfusion(s)? Specify any problems Hx of Preganancy in last 3 N/A 10/26/24 03:56 Months Nurse Filling Out Transfusion DREDICK 10/26/24 03:56 & Questions: Date: 10/26/24 10/26/24 03:56 Time: 03:56 10/26/24 03:56 Patient unable to answer at this time (ie. confused, unrespo /Reproduction History /Reproductive History - vegetable loader: /Reproductive Hx- vegetable loader Hx Now No 10/26/24 03:58 Gestational Age (in weeks): EDC: Hx Hx Para Hx Section SAB No 10/26/24 03:58 Active Medications Active Medications: Current Medications Generic Name Dose Route Start Last Admin Trade Name Freq PRN Reason Stop Dose Admin Acetaminophen 1,000 mg 10/26/24 06:00 10/26/24 04:54 Acetaminophen 500 Mg Tablet PO 1,000 mg Q8 ANEESH Administration Sodium Chloride 1,000 mls @ 100 mls/hr 10/26/24 03:50 10/26/24 05:00 IV 100 mls/hr .Q10H ANEESH Administration Cefepime HCl 1 gm/ Sodium 50 mls @ 100 mls/hr 10/26/24 10:00 10/26/24 09:25 Chloride IV Infused Q12 ANEESH Infusion Sodium Chloride 250 mls @ 15 mls/hr 10/26/24 03:53 IV .[id number] PRN Additional IVPB Infusion Sodium Chloride 250 mls @ 15 mls/hr 10/26/24 03:53 IV .[id number] PRN Saline Flush Morphine Sulfate 2 - 4 mg 10/26/24 03:50 10/26/24 14:19 Morphine 2 Mg/Ml Syringe IV 4 mg Q3H PRN PRN Administration Pain Score 6-10 Ondansetron HCl 4 mg 10/26/24 03:50 Ondansetron 4 Mg/2 Ml Vial IV Q8H PRN PRN NAUSEA/VOMITING Oxycodone HCl 5 mg 10/26/24 03:50 10/26/24 08:49 Oxycodone 5 Mg Tablet PO 5 mg Q4H PRN PRN Administration Pain Score 4-10 Sodium Chloride 10 - 40 ml 10/26/24 03:53 10/26/24 14:19 0.9% Saline Lock 10 Ml Syringe IV 10 ml UD PRN Administration SALINE FLUSH PFSH Medical History COPD (chronic obstructive pulmonary disease) Richey esophagus Kidney disease Hiatal hernia Gout Home Medications ?Medication ?Instructions ?Recorded ?Last Taken ?Type albuterol sulfate 90 mcg/actuation 2 puff inhalation Q4H PRN PRN 10/26/24 Unknown History aerosol inhaler shortness of breath or wheezing Held on 10/26/24. Instructions: Ordered allopurinol 300 mg tablet 300 mg PO DAILY 10/26/24 Unknown History budesonide 160 mcg-glycopyr 9 2 inh inhalation BID 10/26/24 Unknown History mcg-formot 4.8 mcg/actuation HFA inhaler (Breztri Aerosphere) cholecalciferol (vitamin D3) 50 1,000 unit PO DAILY supplement 10/26/24 Unknown History mcg (2,000 unit) tablet (D3 DOTS) levothyroxine 25 mcg tablet 25 mcg PO DAILY 10/26/24 Unknown History pantoprazole 40 mg tablet,delayed 40 mg PO DAILY 10/26/24 Unknown History release Allergy/AdvReac Type Severity Reaction Status Date / Time amoxicillin (From Augmentin) Allergy Mild Other Verified 10/26/24 01:36 clavulanic acid (From Allergy Mild Other Verified 10/26/24 01:36 Augmentin) Family History no significant family his Surgical History History of AAA (abdominal aortic aneurysm) repair Social History Smoking Status: Former smoker Review of Systems (Anesthesia) ROS Narrative System reviewed and no additional complaints, except as documented.
[2024-10-26] MEDS: Lactated Ringers 1,000 ML 15 ML IV (14:54)
--- NOTE | 2024-10-26 16:50 | RAD_ITS ---
PROCEDURE: CHOLANGIOGRAM/ O R,INITIAL 10/26/2024 REASON FOR EXAM: ABD PAIN TECHNIQUE: CHOLANGIOGRAM/ O R,INITIAL COMPARISON: CT 10/26/2024 FINDINGS: Cannulation of the remnant cystic duct. Nondilated biliary tree no filling defects. Contrast flows into the duodenum. RAD/Cholangiogram/ O R,Initial IMPRESSION: Unremarkable intraoperative cholangiogram Reading Location: [place] [id number]
[2024-10-26] MEDS: Bupiv/Epi 0.25% 30 ML Vial (17:48)
--- NOTE | 2024-10-26 18:13 | PCM.POST.ANE ---
Anesthesia: Postop Eval I Current Vital Signs Temperature: 96.9 F Pulse Rate: 66 Blood Pressure: 142/67 Respiratory Rate: 16 Pulse Ox: 95 Oxygen Delivery Method: Nasal Cannula Oxygen Flow Rate (L/min): 2 Assessment Airway patent: Yes Spontaneous unlabored respirations: Yes Mental status: Calm and Asleep nausea: No Vomiting: No Anesthesia Complication: No Fluid Hydration Crystalloid volume administer (ml): 1,200 Total IV fluid infused: 1,200 Progress Note Anesthesia document: Postop Eval 1 completed: Yes
--- NOTE | 2024-10-26 19:02 | OP.PCM_ITS ---
Procedures Digestive 40xxx-49xxx: [id number] Laparo cholecystectomy/graph Operative Report (Standard) Operative Information Date of Procedure: 10/26/24 Pre-Operative Diagnosis: Acute cholecystitis/cholelithiasis Post-Operative Diagnosis: Same Surgery/Procedure Performed: Laparoscopic cholecystectomy with intraoperative cholangiograms client sales and service officer: Yes Time Broker: Carrol Black Tasks completed by junior assistant manager: Closing, Trocar, Retracting and Other Additional promotions assistant sales marketing?: No Type of Anesthesia: General and Local RN Documented Start/Stop Times: Operation Date: 10/26/24 14:30 Case Time Into Pre-Op 10/26/24 14:36 Out of Pre-Op 10/26/24 16:09 Anesthesia Start 10/26/24 16:10 Into Room 10/26/24 16:10 Procedure Start 10/26/24 16:35 Procedure End 10/26/24 17:50 Anesthesia End 10/26/24 18:01 Out of Room 10/26/24 18:01 Into Recovery 10/26/24 18:05 Procedure Start Time: 16:35 Procedure Stop Time: 17:50 Select all DRAINS/GRAFTS/IMPLANTS that apply: None Estimated Blood Loss: 20 mL Specimen collected: Yes Description of specimen(s) removed: Gallbladder and contents Description of surgery: The patient is an 84-year-old male who presented to the emergency department at [facility] overnight with right upper quadrant abdominal pain. He was seen and evaluated by the ER staff. He underwent a CT scan that showed inflammation around the gallbladder with some mild gallbladder wall thickening. All of his labs including LFTs and white count were normal. He was subsequently admitted with plans for cholecystectomy. We discussed the details of the planned procedure including the risks benefits and alternatives. He wished to proceed. The patient was brought to the operating today following informed consent. Preoperative antibiotics were given and a timeout was performed. He was placed supine on the operative table with arms outstretched and arm boards. A general endotracheal anesthesia was induced. The abdomen was then prepped and draped in the usual sterile manner. Local anesthetic was injected just below the umbilicus. A 5 mm incision was made. 5 mm trocar was placed optically. This was placed without incident. Once in place the abdomen was then fully insufflated with CO2 gas. A 5 mm 0 degree scope was inserted. There were no signs of bowel or vascular injury. Next 2 additional 5 mm trocars were placed in the right upper quadrant under direct visualization. A 10 mm trocar was placed in the epigastric area also under direct visualization. The gallbladder was identified there was omentum adherent to the liver edge and gallbladder. This was taken down using electrocautery and a J-hook. The remaining fat was able to be swept downward thus exposing the infundibulum. The peritoneum on either side of the gallbladder was then incised using electrocautery and the J- hook. The gallbladder wall was quite thickened and edematous. The overlying peritoneum over the infundibulum was also swept downward thus exposing the cystic duct and cystic artery. These 2 structures were dissected out circumferentially as close as possible to the gallbladder. Lower portion of the gallbladder was then dissected off of the cystic plate in order to establish a critical view of safety. At this point 2 and only 2 structures were seen going to the gallbladder. These were the cystic duct and cystic artery. With that being established, the cystic duct was clipped with a 10 mm clip carton and can supply supervisor on the gallbladder side. A small ductotomy was made using curved scissors. Cholangiogram catheter was then inserted and cholangiograms were then performed. These showed good opacification of the biliary tree without any obvious filling defects. We were clearly within the cystic duct. With the cystic duct was then clipped proximally with 3 clips. It was then transected. The cystic artery was clipped proximally and distally as well. The gallbladder was then bovied off the undersurface of the liver using J-hook and electrocautery. Once the gallbladder was free was placed into a bag and brought out through the 10 mm trocar site. The skin incision and the fascial opening required to be extended because of the large number of stones within the gallbladder. The gallbladder was also opened up to remove many of the stones using a ring forcep. The trocar was replaced. The right upper quadrant was then irrigated with 2 L of saline until clear. The fascia was closed using PDS with the aid of the fascial closure device. The remaining incisions were closed using 4-0 Vicryl and skin glue. He was awakened from anesthesia and taken recovery in good condition. Surgical Findings: Acute cholecystitis/cholelithiasis; normal intraoperative cholangiograms Complications Complications: No Admit VTE Documentation VTE Present on Admission: No VTE Mechan Device Prophylaxis: SCD's VTE Pharm Prophylaxis ordered?: No Reason prophylaxis not ordered: Treatment Not Indicated
--- NOTE | 2024-10-26 20:36 | PCM.POSTANE2 ---
Anesthesia Postop Eval I Sum Postop Eval Completion status Anesthesia document: Postop Eval 1 completed: Yes Anesthesia Postop Eval I Summary Anesthesia Postop Eval I Summary: Anesthesia Postop Eval I: Assessment Summary Airway patent Yes 10/26/24 18:15 Spontaneous unlabored Yes 10/26/24 18:15 respirations Mental status Calm,Asleep 10/26/24 18:15 nausea No 10/26/24 18:15 Vomiting No 10/26/24 18:15 Anesthesia Postop Eval I: Fluid Summary Crystalloid volume administer 1,200 10/26/24 18:15 (ml) Colloids volume administered ( ml) Blood Product volume administered (ml) Total IV fluid infused 1,200 10/26/24 18:15 Anesthesia Postop Eval I: Summary Notes Anesthesia Complication No 10/26/24 18:15 Anesthesia Complication Comment: Post-operative progress note Anesthesia: Postop Eval II Evaluation Mental status: Awake and Calm Pain Level: 1 nausea: No Vomiting: No Complications Anesthesia Complication: No
[2024-10-27 04:44] VITALS: BP 150/67; PULSE 76; RESP 18; TEMP 36.9; O2SAT 94
[2024-10-27] MEDS: 0.9% Normal Saline (1000mL) 1,000 ML 100 ML IV (05:14)
[2024-10-27 07:26] VITALS: BP 112/61; PULSE 63; RESP 14; TEMP 36.7; O2SAT 99
--- NOTE | 2024-10-27 08:52 | PCM.PN.SRG ---
Subjective Subjective Patient is evaluated resting comfortably in bed. He denies any nausea, vomiting, fever. He denies any abdominal pain. He has tolerated clear liquids well. Objective Data Objective Data Vital Signs: Vital Signs Temp Pulse Resp BP Pulse Ox O2 Del Method O2 Flow Rate 98.0 F 63 14 112/61 99 Room Air 2 10/27/24 07:26 10/27/24 07:26 10/27/24 07:26 10/27/24 07:26 10/27/24 07:26 10/27/24 07:26 10/26/24 23:45 Oxygen Flow Rate (L/min) 2 Oxygen Delivery Method Room Air Weight: 159 lb 13.362 oz Body Mass Index (BMI) 24.3 Intake & Output: Intake and Output for Last 24 Hours 10/25/24 10/26/24 10/27/24 23:59 23:59 23:59 Intake Total 4072 / 4072 925 / 925 Output Total 5 / 5 Balance 4067 / 4067 925 / 925 Lab / Micro Data 10/26/24 01:42 10/26/24 01:42 Radiography Diagnostic Testing: Radiology Impression Cholangiogram 10/26/24 16:50 IMPRESSION: Unremarkable intraoperative cholangiogram Reading Location: [place] [address] Physical Exam GI GI Narrative: Abdomen- soft, benign. Incisions c/d/i. No erythema or infection noted. Assessment & Plan Assessment/Plan (1) Acute calculous cholecystitis: PLAN: I am following this patient in conjunction with Dr. Solares. Patient recovering well Plan for discharge this morning Charges/Coding Visit Charges Inpatient E&M: 18678 Subs Hosp L1 (post-op; no charge)
--- NOTE | 2024-10-27 08:59 | DCINST_ITS ---
Discharge Instructions DC O2, CPAP, BIPAP needs Home O2 Discharge instructions: No Dressing / Incision Discharge Activity: May Not Drive (3-5 days) and May Shower Lifting Restrictions: No lifting greater than 20 pounds for 2 weeks Dressing / Incision Call your doctor if your incision/area has: Continuous Slow Oozing, Sudden Increased Bleeding, Increased Pain/ Swelling, Increased Redness, Foul Smelling Discharge and Swelling at the incision site Call your doctor if you observe: Fever of 101 or Higher Suture Line Care: Avoid Pulling/Pushing and Avoid Pinching/Bending Cleanse incision/area with: Soap & Water Follow Up Care Please Follow Up With: Windy Steve PA-C When: Please contact our office at [phone], option #2 to schedule a 2 week follow-up Test Results: Test results from this visit will be discussed in further detail at your follow- up appointment, if applicable. Discharge Plan Admission Admit Date/Time: 10/26/24 03:26 Primary Reason for Your Visit: Acute calculus cholecystitis Attending Provider: Jose Solares Primary Care Provider: Alvaro Ceron Chi Instructions Additional Instructions / Restrictions: Cholecystectomy Diet ? Start light with soups and soft bland foods. You may advance diet as tolerated. Activity ? You may drive in 3-5 days but not while taking narcotic pain medication. ? I encourage walking. You may go up steps, one at a time. ? Do not swim or use hot tubs for 2 weeks. ? For comfort, you may use warm compresses or ice as needed for 15-20 minutes at a time. Lifting ? You may lift up to 20 pounds for the first 2 weeks. No strenuous activity for 4 weeks. Dressings/Incision ? You may shower OVER your incisions ? Do NOT tub bathe for 1 week Medications ? Anesthesia used during surgery and pain medications may cause constipation. I recommend initiating on the day of surgery a fiber supplement like, Metamucil, Citrucel, FiberCon, Benefiber, or a generic form of these medications. 1 heaping tablespoon in water daily. You may continue to utilize any bowel regimen or oral laxatives that you routinely take. ? As long as you are not intolerant to Tylenol, acetaminophen, ibuprofen, Motrin, Advil, Aleve, or similar medications, I would recommend transitioning to these [id number] medicines as soon as possible instead of continued use of narcotic pain medication. Follow up ? You should call [facility] soon after surgery, at [phone] option 2 to make a follow up appointment for 14 days after your surgery. Discharge Orders/Prescriptions Prescriptions: New acetaminophen 500 mg Tablet 1,000 mg PO Q8 Qty: 0 0RF Continued albuterol sulfate 90 mcg/actuation HFA aerosol inhaler 2 puff INHALATION Q4H PRN PRN (Reason: shortness of breath or wheezing) levothyroxine 25 mcg tablet 25 mcg PO DAILY pantoprazole 40 mg tablet,delayed release (DR/EC) 40 mg PO DAILY allopurinol 300 mg tablet 300 mg PO DAILY Breztri Aerosphere 160-9-4.8 mcg/actuation HFA aerosol inhaler 2 inh INHALATION BID cholecalciferol (vitamin D3) [D3 DOTS] 50 mcg (2,000 unit) tablet 1,000 unit PO DAILY Referrals / Follow Up: Alvaro Ceron Chi, MD [Primary Care Provider] - Windy Steve PA-C [Med Staff - Adv Practice Prof] - 11/10/24 Disposition Disposition (needs filled in before D/C Order can be placed): Home, Self Care
[2024-10-27] MEDS: Cefepime HCl 1 GM in 0.9% Normal Saline (50mL MB+) 50 ML IV (10:08)
--- NOTE | 2024-10-27 10:42 | PHA.DC.MC.R ---
Pharmacy [facility] Counseling Pharmacy Service has performed discharge medication reconciliation and counseling for this patient. 1. ACETAMINOPHEN 1000MG PO Q8 The patient's discharge medication list was reviewed for discrepancies and discrepancies were resolved. The patient was counseled on the following discharge medications and changes in medications for homegoing were reviewed. The Reason for Use, instructions for use, and potential side effects were reviewed for all new medications. The patient's questions regarding all of their medications were answered. The patient was able to verbally demonstrate an understanding of their discharge medications. Medications at Discharge Home Medications albuterol sulfate 90 mcg/actuation aerosol inhaler 2 puff inhalation Q4H PRN PRN shortness of breath or wheezing 10/26/24 allopurinol 300 mg tablet 300 mg PO DAILY 10/26/24 budesonide 160 mcg-glycopyr 9 mcg-formot 4.8 mcg/actuation HFA inhaler (Breztri Aerosphere) 2 inh inhalation BID 10/26/24 cholecalciferol (vitamin D3) 50 mcg (2,000 unit) tablet (D3 DOTS) 1,000 unit PO DAILY supplement 10/26/24 levothyroxine 25 mcg tablet 25 mcg PO DAILY 10/26/24 pantoprazole 40 mg tablet,delayed release 40 mg PO DAILY 10/26/24 acetaminophen 500 mg tablet 1,000 mg (2 x 500 mg) PO Q8 #0 tabs 10/27/24
== END 2024-10-27 11:32 | disposition home or self-care (01) | DRG 419 ==
LOC: ED 03:22 → MS3 03:49
PROVIDERS: Admitting Provider Surgery; Emergency Provider Emergency Medicine; PCP Family Medicine Geriatric Medicine; Visit Provider Surgery
PROC: 0FT44ZZ Resection of Gallbladder, Percutaneous Endoscopic Approach (ICD-10-PCS; CPT 47610; principal; 2024-10-26 14:10)
DX: K80.00 Calculus of gallbladder with acute cholecystitis without obstruction (principal); J44.9 Chronic obstructive pulmonary disease, unspecified; Z87.891 Personal history of nicotine dependence; Z79.51 Long term (current) use of inhaled steroids; Z79.899 Other long term (current) drug therapy
CPT/HCPCS: 74177; 74300; 76000; 80053; 81001; 83690; 85025; 88304; 93005; 99284; Q9967; A4216; C1769; J2405

== ENCOUNTER → 2024-11-15 | Outpatient (CLI) | payer MEDICARE, SELFPAY ==
[2024-11-15 12:12] LABS: Uric Acid 4.0 mg/dL (3.5-7.2)
== END | disposition home or self-care (01) ==
LOC: POLAB3 10:27
PROVIDERS: PCP Family Medicine Geriatric Medicine; Visit Provider Family Medicine Geriatric Medicine
DX: M86.9 Osteomyelitis, unspecified (principal); E03.9 Hypothyroidism, unspecified; L03.011 Cellulitis of right finger; M10.9 Gout, unspecified
CPT/HCPCS: 36415; 84443; 84550